=== PATIENT | female | born 1960 | race Asian ===

== ENCOUNTER 2017-08-20 06:50 | Inpatient (IN) | payer MEDICAID ==
[~2017-08-20] VITALS: Ht 160 cm; Wt 42.6 kg
[2017-08-20] MEDS ORDERED: IV NS 0.9% 500 ML BAG IV ONE (07:00)
[2017-08-20 07:07] VITALS: BP 166/123
--- NOTE | 2017-08-20 07:10 | NUR ---
RT PATIENT REC'D VIA PARAMEDICS. PATIENT TRACHED WITH PORTEX 7. PLACED ON [facility] VENT PER MD WITH SETTINGS AC 14, 450, 40% +5. VENT ALARMS CHECKED + AUDIBLE. TRACH SECURE AND IN PROPER POSITION. CUFF PRESSURE CHECKED LEAD JAVASCRIPT DEVELOPER. PATIENT AIRWAY SUCTIONED WITH MOD AMT RODAS SEMITHICK SECRETIONS. B/S DIM COARSE. PATIENT AWAKE, RESPONSIVE, APPEARS COMFORTABLE ON VENTILATOR. AMBU BAG AT [facility]. Addendum: 08/20/17 at 0714 by JABIER KIMBALL RT Amended: Links added.
--- NOTE | 2017-08-20 07:12 | NUR ---
PT TO ER BED 1. PT BIB [facility] FROM SN[facility] COMPLAINT OF CP X 1 HR PER STAFF. PT HAS HX OF AFIB. MD AT BEDSIDE FOR EVAL. PT IS TRACH/VENT/ SETTINGS RATE 14 TV 450 FIO2 40% PEEP 5.
--- NOTE | 2017-08-20 07:22 | NUR ---
REPORT GIVEN TO HUEY WALKER FOR GAYLE.
[2017-08-20 07:50] LABS: CALCIUM, SERUM 8.5 mg/dL (8.5-10.1); CREATININE 0.7 mg/dL (0.6-1.3); POTASSIUM 3.8 mmol/L (3.5-5.1)
[2017-08-20 07:51] LABS: EOSINOPHILS # (AUTO) 0.3 /CMM (0.0-0.7); EOSINOPHILS % (AUTO) 2.6 % (0.0-6.0); HEMATOCRIT 27 % (33-45); HEMOGLOBIN 8.7 g/dL (11.5-14.8); LYMPHOCYTES # (AUTO) 0.3 /CMM (0.8-4.8); LYMPHOCYTES % (AUTO) 3.1 % (20.0-44.0); MEAN CORPUSCULAR HEMOGLOBIN 31 PG (26.0-33.0); MEAN CORPUSCULAR HGB CONC 33 g/dl (31.0-36.0); MEAN CORPUSCULAR VOLUME 94 fL (82-100); MONOCYTES # (AUTO) 0.5 /CMM (0.1-1.30); MONOCYTES % (AUTO) 5.1 % (2.0-12.0); NEUTROPHILS # (AUTO) 9.2 /CMM (1.8-8.9); NEUTROPHILS % (AUTO) 89.2 % (43.0-81.0); PLATELET COUNT (AUTO) 113 /CMM (150-450); RDW COEFFICIENT OF VARIATION 17.1 (11.5-15.0); RED BLOOD CELL COUNT(AUTO) 2.83 MIL/uL (4.0-5.2); WHITE BLOOD COUNT (AUTO) 10.3 K/uL (4.3-11.0)
[2017-08-20 07:58] LABS: INR 1.28 (0.87-1.13)
[2017-08-20 07:59] LABS: TROPONIN I 0.207 ng/mL (0.00-0.056)
--- NOTE | 2017-08-20 08:02 | NUR ---
Dr. Almazan (System Integration Engineer) paged for Dr. Chacon
--- NOTE | 2017-08-20 08:12 | NUR ---
Dr. Almazan called back for Dr. Chacon
[2017-08-20] MEDS ORDERED: ASPIRIN 325 MG TABLET ONE (08:14)
--- NOTE | 2017-08-20 08:20 | NUR ---
PER DR. CANTU, GIVE ASPIRIN 325MG VIA GT. PATIENT MEDICATED PER MD ORDERS.
[2017-08-20] MEDS ORDERED: HEPARIN INFUSION/D5W 500 ML IV ONE (08:34)
--- NOTE | 2017-08-20 08:41 | NUR ---
DR CANTU TALKING TO DR ARGUETA.
--- NOTE | 2017-08-20 08:48 | NUR ---
TELE 114.1
[2017-08-20 08:52] VITALS: BP 130/90
--- NOTE | 2017-08-20 08:53 | NUR ---
RT PATIENT TRANSPORTED TO CT AND BACK Addendum: 08/20/17 at 0853 by JABIER KIMBALL RT Amended: Links added.
[2017-08-20] MEDS ORDERED: HEPARIN SODIUM, PORCINE 5000 UNITS/1 ML VIAL ONE (08:55)
[2017-08-20] MEDS ORDERED: ACETAMINOPHEN 325 MG TABLET PO PRN (09:00)
[2017-08-20] MEDS ORDERED: HEPARIN SODIUM,PORCINE/PF 50 UNIT/5 ML DISP.SYRIN IV ONE (09:00)
[2017-08-20] MEDS ORDERED: MAGNESIUM HYDROXIDE 30 ML UDC PO PRN (09:00)
[2017-08-20] MEDS ORDERED: MAG HYDROX/AL HYDROX/SIMETH 30 ML UDC PO PRN (09:00)
[2017-08-20] MEDS ORDERED: Z GUARD REMEDY 2 OZ OINT TP PRN (09:00)
[2017-08-20] MEDS ORDERED: HEPARIN INFUSION/D5W 500 ML IV PRN ×2 (09:00→12:30)
[2017-08-20] MEDS ORDERED: ONDANSETRON HCL/PF 4 MG/2 ML VIAL IVP PRN (09:00)
[2017-08-20] MEDS ORDERED: CRAN3875 GT (09:01)
[2017-08-20] MEDS ORDERED: MAGN400O6 GT (09:01)
[2017-08-20] MEDS ORDERED: SIME80TA15 GT (09:01)
[2017-08-20] MEDS ORDERED: MULT-213 GT (09:01)
[2017-08-20] MEDS ORDERED: ALBU2.5V38 IH ×2 (09:01)
[2017-08-20] MEDS ORDERED: DOCU-141 GT (09:01)
[2017-08-20] MEDS ORDERED: FERR220S2 GT (09:01)
[2017-08-20] MEDS ORDERED: ASCO500T9 GT (09:01)
[2017-08-20] MEDS ORDERED: ZINC220T GT (09:01)
[2017-08-20] MEDS ORDERED: PANT40TA2 GT (09:01)
[2017-08-20] MEDS ORDERED: HYDR-4076 GT (09:01)
[2017-08-20] MEDS ORDERED: IPRA0.2S49 IH ×2 (09:01)
[2017-08-20] MEDS ORDERED: SUCR1ORA4 GT (09:01)
[2017-08-20] MEDS ORDERED: HYDR-552 GT ×2 (09:01)
[2017-08-20] MEDS ORDERED: CRAN425C6 GT (09:01)
[2017-08-20] MEDS ORDERED: ACET-868 PO (09:01)
[2017-08-20] MEDS ORDERED: LOSA1TAB36 GT (09:01)
[2017-08-20] MEDS ORDERED: SEVE0.8P GT (09:01)
[2017-08-20] MEDS ORDERED: NA P133E RC (09:01)
[2017-08-20] MEDS ORDERED: ATOR20TA GT (09:01)
[2017-08-20] MEDS ORDERED: BISA10SU8 RC (09:01)
[2017-08-20] MEDS ORDERED: EPOE4000 SQ (09:01)
--- NOTE | 2017-08-20 09:13 | NUR ---
REPORT GIVEN TO DURGA ARZATE FOR CONT OF CARE
[2017-08-20] MEDS ORDERED: MAGNESIUM HYDROXIDE 30 ML UDC GT PRN (09:30)
[2017-08-20] MEDS ORDERED: BISACODYL SUPP (10 MG) 10 MG/SUPP.RECT SUPP.RECT RC PRN (09:30)
[2017-08-20] MEDS ORDERED: hydrALAZINE HCL 25 MG TABLET GT PRN (09:30)
[2017-08-20] MEDS ORDERED: NA PHOS,M-B/NA PHOS,DI-BA 1 EA ENEMA RC PRN (09:30)
[2017-08-20] MEDS ORDERED: IPRATROPIUM NEB FS 0.5 MG/2.5 ML AMPUL.NEB IH PRN (09:30)
[2017-08-20] MEDS ORDERED: ASPIRIN 325 MG TABLET GT ONE (09:30)
[2017-08-20] MEDS: METOPROLOL TARTRATE 25 MG TABLET PO SCH ×2 (09:43→16:59)
--- NOTE | 2017-08-20 09:45 | NUR ---
DONI CHANGED UA SENT TO LAB
--- NOTE | 2017-08-20 10:22 | NUR ---
TRANSFERRED TO FLOOR VIA ACLS PROTOCOL
--- NOTE | 2017-08-20 10:30 | NUR ---
KASSY RN ADMITTING NOTES: REC'D REPORT FROM USHA MCKINNEY RN. PT TRANSFERRED VIA GURNEY, ADMITTED TO RM 114/2 - KASSY STATUS. PT IS A/O X 4, NOT IN ANY DISTRESS, MOUTHS WORDS, ABLE TO MAKE NEEDS KNOWN. ON MECH VENT VIA TRACH, SATING AT 100%. ON TELEMONITOR, AFIB W/ HR 72 BPM, HAS PACEMAKER ON LCW NOT PACING. HAS GT CLAMPED, FLUSHING WELL. PER PT IT'S FOR MEDICATIONS AND THAT SHE CAN EAT REGULAR FOOD. HAS FC PATENT & INTACT. HAS LFA G20, PL, W/ HEPARIN DRIP X 660 UNITS/HR INFUSING WELL. ROUTINE ASSESSMENT DONE. SKIN ASSESSMENT DONE - PICTURES TAKEN AND PLACED IN CHART. PROVIDED COMFORT & SAFETY MEASURES. BED KEPT LOW & IN LOCKED POS. CALL LIGHT PLACED W/IN REACH. PT ORIENTED TO ROOM. WILL CONTINUE TO MONITOR & ATTEND PT NEEDS. 1200h DR. ARGUETA SEEN & EXAMINED PT.
--- NOTE | 2017-08-20 10:32 | NUR ---
RT PATIENT TRANSFERRED TO KASSY Addendum: 08/20/17 at 1033 by JABIER KIMBALL RT Amended: Links added.
[2017-08-20] MEDS ORDERED: HYDROMORPHONE INJ 0.5 MG/0.5 ML SYRINGE IV PRN (11:00)
[2017-08-20 11:26] LABS: APPEARANCE,URINE Turbid (CLEAR); BILIRUBIN,URINE Negative (NEGATIVE); BLOOD, URINE Large Ery/uL (NEGATIVE); COLOR,URINE Dark (YELLOW); KETONES,URINE Negative (NEGATIVE); LEUKOCYTE ESTERASE ,URINE Small (NEGATIVE); NITRITE, URINE Negative (NEGATIVE); PH,URINE 8.5 (5.0-8.0); PROTEIN,URINE >=300 mg/dl (NEGATIVE); UGLUCOSE Negative (NEGATIVE); UROBILINOGEN,URINE 0.2 EU/dL (0.2)
[2017-08-20 11:41] LABS: RBC,URINE TOO NUMEROUS TO COUN /HPF (0-2)
[2017-08-20 11:42] LABS: BACTERIA,URINE Many /HPF (None Seen); SQUAMOUS EPITHELIAL CELL,UR Few /HPF (None Seen)
[2017-08-20 12:00] VITALS: BP 151/61
[2017-08-20] MEDS: ALBUTEROL FS 2.5 MG/3 ML VIAL.NEB IH SCH ×3 (12:00→19:31)
[2017-08-20] MEDS ORDERED: ALBUTEROL FS 2.5 MG/3 ML VIAL.NEB IH PRN (12:00)
[2017-08-20] MEDS: IPRATROPIUM NEB FS 0.5 MG/2.5 ML AMPUL.NEB IH SCH ×3 (12:00→19:31)
[2017-08-20] MEDS ORDERED: HYDROGEL DRESSING 90 GM TUBE TP PRN (12:00)
--- NOTE | 2017-08-20 12:01 | NUR ---
RT RESP MEDS WERE INPUTTED WRONG, WILL GIVE FIRST MEDICATION AT SCHEDULED TIME.
[2017-08-20] MEDS: SUCRALFATE 1 G/10 ML UDC GT SCH ×3 (12:22→21:04)
[2017-08-20] MEDS: LOSARTAN POTASSIUM 50 MG TABLET GT SCH (12:22)
[2017-08-20] MEDS: SIMETHICONE 80 MG TAB.CHEW GT SCH ×2 (12:22→16:59)
[2017-08-20] MEDS: FERROUS SULFATE (325 MG) 325 MG/TAB TABLET GT SCH (12:23)
[2017-08-20] MEDS ORDERED: HEPARIN SODIUM, PORCINE 5000 UNITS/1 ML VIAL IV ONE (12:30)
--- NOTE | 2017-08-20 12:30 | NUR ---
RN NOTES: HAS STANDING ORDER OF HEPARIN SQ X 1. LOUIE FROM PHARMACY MADE AWARE W/ ORDERS NOT TO GIVE. PT ALREADY ON HEPARIN DRIP.
--- NOTE | 2017-08-20 15:36 | NUR ---
RN NOTES: DR. ARGUETA MADE AWARE THAT PT WAS ON JEVITY 1.5 X 50 CC/HR X 20 HOURS AT [facility]. MD ORDERED TO START PT ON TF WELL CONTINUE CURRENT PO DIET W/ STRICT ASPIRATION PREC FOR ORAL GRATIFICATION. PT & FAMILY MADE AWARE.
[2017-08-20 16:00] VITALS: BP 155/63
[2017-08-20 16:32] LABS: INR 1.31 (0.87-1.13)
[2017-08-20] MEDS: HYDROCODONE/APAP 5/325MG 1 EACH TABLET GT SCH (17:00)
--- NOTE | 2017-08-20 17:04 | NUR ---
RT NOTE: PATIENT RECEIVED WITH PORTEX #7 TRACH ON MECHANICAL VENT. ALARMS VERIFIED AND AUDIBLE. SUCTIONED AND LAVAGED MODERATE TO LARGE AMOUNT OF THICK RODAS SECRETIONS. VENT PLUGGED INTO RED OUTLET. AMBU BAG AT [facility].
--- NOTE | 2017-08-20 18:37 | NUR ---
KASSY RN CLOSING NOTES: NO ACUTE CHANGES NOTED W/IN SHIFT. PT TOLERATED MV SETTINGS VIA TRACH, NO SOB. ON TELEMONITOR, STILL CONTROLLED AFIB. GT KEPT PATENT & INTACT, TO START ON TUBE FEEDING ORDERED. INSERTED NEW IV LINE ON R HAND G22 W/ HEPARIN DRIP X 560 UNITS/HR INFUSING WELL. FC KEPT PATENT & INTACT. KEPT WELL RESTED. NEEDS ATTENDED. BED KEPT LOW & IN LOCKED POS. CALL LIGHT PLACED W/IN REACH. PT DENIES CHEST PAIN AT THIS TIME. WILL ENDORSE TO PM RN FOR GAYLE.
[2017-08-20 20:00] VITALS: BP 155/63
--- NOTE | 2017-08-20 20:00 | NUR ---
KASSY RN NOTE PT RECEIVED IN BED A/O X 3, NON VERBAL BUT ABLE TO COMMUNICATED BY WRITING. ON VENT/TRACH TOLERATING THE SETTINGS WELL. SUCTIONED HER FREQUENTLY THIN WHITE SECRETIONS NOTED. NO DISTRESS OR DISCOMFORT NOTED. DENIES PAIN. ON TELE A FIB CONTROLLED HR 64 OCCASIONAL V PACING. GT INTACT AND PATENT WILL START HER ON FIBERSOURCE 50 ML/HR X 20 HR ORDERED. NO S/S OF HYPO OR HYPERGLYCEMIA NOTED. ON HEPARIN DRIP 560 UNITS/HR RT HAND #22, NO S/S OF INFILTRATION NOTED. F/C INTACT AND PATENT DRAINING YELLOWISH COLOR URINE. MEPILEX I/C/D ON SACRAL WOUND. REPOSITION HER FOR SKIN MANAGEMENT. DVT ON BILATERAL LOWER EXT'S. SIDE RAILS UP X 3 AND CALL LIGHT WITHIN REACH. VSS. CONTINUE TO MONITOR HER.
--- NOTE | 2017-08-20 21:00 | NUR ---
KASSY ARZATE NOTE PT DID NOT WANT GT TO RUN AT THIS TIME, STATES "I AM FULL, START AT MIDNIGHT". ALSO PT REFUSED DVT TO BE APPLIED. Addendum: 08/20/17 at 2247 by MADDY MULTANI RN DVT PUMP.
[2017-08-20] MEDS: DOCUSATE SODIUM 100 MG CAPSULE PO SCH (21:04)
[2017-08-20] MEDS: FIBERSOURCE HN 1,000 ML BOTTLE GT PRN (21:04)
[2017-08-20 23:56] LABS: INR 1.35 (0.87-1.13)
[2017-08-21] VITALS: BP 156/61
--- NOTE | 2017-08-21 00:03 | NUR ---
KASSY RN NOTE PTT RESULT 50 PER HEPARIN PROTOCOL NO CHANGE IN HEPARIN DRIP 560 UNITS/HR CONTINUES.
--- NOTE | 2017-08-21 01:00 | NUR ---
KASSY RN NOTE PT WANT GTF TO BE STOPPED. STATES "I AM FULL AND THIS IS MAKING MY STOMACH MORE BIG". NO RESIDUAL NOTED. STOPPED THE FEEDING AND CONTINUE TO MONITOR HER.
[2017-08-21] MEDS: ALBUTEROL FS 2.5 MG/3 ML VIAL.NEB IH SCH ×3 (01:56→13:35)
[2017-08-21] MEDS: IPRATROPIUM NEB FS 0.5 MG/2.5 ML AMPUL.NEB IH SCH ×4 (01:56→19:38)
[2017-08-21 04:00] VITALS: BP 160/57
[2017-08-21 06:47] LABS: INR 1.27 (0.87-1.13)
[2017-08-21 06:52] LABS: BASOPHILS % (AUTO) 0.5 % (0.0-2.0); EOSINOPHILS # (AUTO) 0.3 /CMM (0.0-0.7); EOSINOPHILS % (AUTO) 3.2 % (0.0-6.0); HEMATOCRIT 25 % (33-45); HEMOGLOBIN 8.3 g/dL (11.5-14.8); LYMPHOCYTES # (AUTO) 0.5 /CMM (0.8-4.8); LYMPHOCYTES % (AUTO) 5.6 % (20.0-44.0); MEAN CORPUSCULAR HEMOGLOBIN 31 PG (26.0-33.0); MEAN CORPUSCULAR HGB CONC 34 g/dl (31.0-36.0); MEAN CORPUSCULAR VOLUME 94 fL (82-100); MONOCYTES # (AUTO) 0.6 /CMM (0.1-1.30); MONOCYTES % (AUTO) 7.2 % (2.0-12.0); NEUTROPHILS % (AUTO) 83.5 % (43.0-81.0); PLATELET COUNT (AUTO) 99 /CMM (150-450); RDW COEFFICIENT OF VARIATION 16.7 (11.5-15.0); RED BLOOD CELL COUNT(AUTO) 2.64 MIL/uL (4.0-5.2); WHITE BLOOD COUNT (AUTO) 8.4 K/uL (4.3-11.0)
--- NOTE | 2017-08-21 07:00 | NUR ---
KASSY RN NOTE NO CHANGE IN CONDITION. SUCTIONED HER FREQUENTLY. NO DISTRESS OR DISCOMFORT NOTED. DENIES PAIN. HEPARIN DRIP INFUSING WELL AT 560 UNITS/HR. PTT 46, NO CHANGE IN DRIP RATE PER PROTOCOL. F/C INTACT AND PATENT DRIAINING YELLOWISH COLOR URINE. SIDE RAILS UP X 2 AND CALL LIGHT WITHIN REACH. ENDORSE TO DAY SHIFT NURSE FOR CONTINUE TO CARE.
[2017-08-21 07:07] LABS: CREATININE 0.8 mg/dL (0.6-1.3); MAGNESIUM 2.1 mg/dL (1.8-2.4); PHOSPHORUS 3.2 mg/dL (2.5-4.9); POTASSIUM 3.2 mmol/L (3.5-5.1)
--- NOTE | 2017-08-21 07:19 | NUR ---
TD RN NOTES RECEIVED PT ON BED SLEEPING. ALERT ORIENTED X3. [facility] SETTING SATURATING WELL. ON TELE MONITOR AFIB CONTROLLED HR 64. IV ACCESS ON RIGHT HAND AND ON HEPARIN DRIP, INFUSING WELL.HEAD OF BED ELEVATED. SIDE RAILS UP. CALL LIGHT WITHIN REACH. WILL CONTINUE TO MONITOR PT CLOSELY.
[2017-08-21 07:23] LABS: CALCIUM, SERUM 8.9 mg/dL (8.5-10.1)
[2017-08-21 08:00] VITALS: BP 136/69
--- NOTE | 2017-08-21 08:19 | NUR ---
WOUND CARE CONSULT: PT PRESENTS WITH STAGE 4 ULCER TO SACRUM WITH SANGUINOUS DRAINAGE, PRESENT ON ADMISSION. PT ON HEPARIN DRIP. RN TO DISCUSS WITH MD. RECOMMEND SURGICAL CONSULT. ALL SKIN PROTECTION AND WOUND CARE RECOMMENDATIONS DISCUSSED WITH NURSING STAFF. FIRST STEP MATTRESS ORDERED. ALL SKIN PROTECTION MEASURES IN PLACE. WILL SEE PRN. IN AGREEMENT WITH PLAN OF CARE. Addendum: 08/21/17 at 0823 by MUSTAPHA LAZCANO WNDNU Amended: Links added.
[2017-08-21] MEDS ORDERED: HYDROGEL DRESSING 90 GM TUBE TP PRN (08:30)
[2017-08-21] MEDS: SUCRALFATE 1 G/10 ML UDC GT SCH ×4 (08:35→21:02)
[2017-08-21] MEDS: SEVELAMER CARBONATE 0.8 GM POWD.PACK GT SCH ×3 (08:35→16:55)
[2017-08-21] MEDS: ASCORBIC ACID 500 MG TABLET GT SCH (08:36)
[2017-08-21] MEDS: ZINC SULFATE 220 MG CAPSULE GT SCH (08:36)
[2017-08-21] MEDS: SIMETHICONE 80 MG TAB.CHEW GT SCH ×3 (08:36→16:55)
[2017-08-21] MEDS: MULTIVIT, IRON, MIN NO. 8, FA 1 TAB GT SCH (08:36)
[2017-08-21] MEDS: LOSARTAN POTASSIUM 50 MG TABLET GT SCH (08:36)
[2017-08-21] MEDS: HYDROCODONE/APAP 5/325MG 1 EACH TABLET GT SCH ×2 (08:36→16:56)
[2017-08-21] MEDS: METOPROLOL TARTRATE 25 MG TABLET PO SCH (08:37)
[2017-08-21] MEDS: FERROUS SULFATE (325 MG) 325 MG/TAB TABLET GT SCH (08:37)
[2017-08-21] MEDS: PANTOPRAZOLE 40 MG TABLET.DR PO SCH (08:38)
[2017-08-21] MEDS ORDERED: HYDROCHLOROTHIAZIDE 25 MG TABLET PO SCH (09:00)
[2017-08-21] MEDS: ASPIRIN 325 MG TABLET PO SCH (09:00)
[2017-08-21] MEDS ORDERED: Medication Not On Formulary EA (Cranberry Extract (Cranberry) 425 MG) GT SCH (09:00)
[2017-08-21] MEDS ORDERED: Medication Not On Formulary EA (Cran/Vitc/Mannose/Inulin/Brom (Uti-Stat Liquid) 30 ML) GT SCH (09:00)
[2017-08-21] MEDS: HYDROGEL DRESSING 90 GM TUBE TP SCH (09:10)
--- NOTE | 2017-08-21 09:13 | NUR ---
TD RN NOTES NOTIFIED DR ARGUETA FOR PT BLEEDING IN THE SACRAL AREA. ORDERED TO HOLD HEPARIN DRIP AND ASPIRIN 325MG.
[2017-08-21 12:00] VITALS: BP 159/60
[2017-08-21 12:18] LABS: LYMPHOCYTES % (MANUAL) 6 % (16-48); MONOCYTES % (MANUAL) 8 % (0-11.0); NEUTROPHILS % (MANUAL) 86 (42-76)
[2017-08-21] MEDS: POTASSIUM CHLORIDE 20 MEQ POWDER PACKET GT SCH ×2 (12:50→14:04)
--- NOTE | 2017-08-21 12:51 | NUR ---
TD RN NOTES PT PASS THE SWALLOW EVAL. [facility] SOFT DI[facility] LUNCH ONLY.
--- NOTE | 2017-08-21 13:17 | NUR ---
RT NOTE: PATIENT'S CUFF WAS DEFLATED AND PMV WAS PLACED INLINE WITH VENT. PATIENT WAS MONITORED WHILE SHE ATE FOR APPROXIMATELY 20 MINUTES. PATIENT BEGAN TO GET TIRED AND SHE STOPPED EATING. PMV WAS REMOVED AND TRACH CUFF WAS INFLATED. PATIENT WAS SUCTIONED TO OBTAIN SMALL- MOD AMOUNT OF CLEAR THIN SECRETION. NO DISTRESS AT THIS TIME. NURSE AWARE. WILL CONTINUE TO MONITOR.
[2017-08-21 16:00] VITALS: BP 154/60
--- NOTE | 2017-08-21 16:28 | NUR ---
RT NOTE: PATIENT RECEIVED TRACHED ON PB 840 VENT. ALARMS VERIFIED AND AUDIBLE. SUCTIONED AND LAVAGED SMALL-MODERATE AMOUNT OF THIN CLEAR/WHITE SECRETIONS. VENT PLUGGED INTO RED OUTLET. AMBU BAG AT [facility].
[2017-08-21] MEDS: WARFARIN SODIUM 2 MG TABLET PO SCH (17:00)
[2017-08-21] MEDS: ALBUTEROL FS 2.5 MG/3 ML VIAL.NEB IH PRN (17:45)
--- NOTE | 2017-08-21 19:15 | NUR ---
TD RN NOTES NO ACUTE CHANGES NOTED DURING THE SHIFT. HEPARIN ON HOLD DUE TO BLEEDING AT SACRAL AREA. DR ARGUETA NOTIFIED ABOUT IT. ORDERED TO HOLD HEPARIN AND WARFARIN 325MG. PROVIDED COMFORT AND SAFETY. ENDORSED TO THE PM NURSE FOR GAYLE.
--- NOTE | 2017-08-21 19:38 | NUR ---
RCVD PT ON VENT WITH NOTED SETTINGS. PT ALERT AND AWAKE, BREATHING TX GIVEN PER MD'S ORDER, NO ADVERSE REACTION NOTED. SUCTIONED SMALL AMOUNT OF WHITE THICK SECRETIONS. VENT PLUGGED INTO RED OUTLET, VENT ALARM WORKING AND AUDIBLE. AMBU BAG AT BEDSIDE, WILL CONTINUE TO MONITOR THE PT.
--- NOTE | 2017-08-21 19:42 | NUR ---
KASSY RN NOTE PT RECEIVED IN BED A/O X 4, VERBAL AT TIME BUT ABLE TO COMMUNICATE BY WRITING. ON VENT/TRACH TOLERATING THE SETTINGS WELL. SUCTIONED HER FREQUENTLY THIN WHITE SECRETIONS NOTED. NO DISTRESS OR DISCOMFORT NOTED. DENIES PAIN. ON TELE A FIB CONTROLLED HR 71. GT INTACT AND PATENT ON FIBERSOURCE 50 ML/HR, O ML RESIDUAL NOTED. RT HAND #22 G S/L INTACT AND PATENT, NO S/S OF INFILTRATION NOTED. F/C INTACT AND PATENT DRAINING YELLOWISH COLOR URINE. MEPILEX I/C/D ON SACRAL WOUND. REPOSITION HER FOR SKIN MANAGEMENT. PT REFUSED DVT SLEVES ON BILATERAL LOWER EXT'S. SIDE RAILS UP X 3 AND CALL LIGHT WITHIN REACH. VSS. CONTINUE TO MONITOR HER.
[2017-08-21 20:00] VITALS: BP 167/54
[2017-08-21] MEDS: DOCUSATE SODIUM 100 MG CAPSULE PO SCH (21:02)
[2017-08-21] MEDS: CARVEDILOL 6.25 MG TABLET PO SCH (21:03)
[2017-08-21] MEDS: ATORVASTATIN 10 MG TABLET GT SCH (21:04)
[2017-08-22] VITALS (7 sets, daily range): BP systolic 129–161; BP diastolic 55–83
--- NOTE | 2017-08-22 | NUR ---
KASSY RN NOTE PT REFUSING TO BE GIVEN GTF, STATES "MY STOMACH IS FULL". 0 ML RESIDUAL NOTED. NO ABD DISTENTION NOTED. CONTINUE TO MONITOR HER.
[2017-08-22] MEDS: IPRATROPIUM NEB FS 0.5 MG/2.5 ML AMPUL.NEB IH SCH ×4 (01:46→20:23)
[2017-08-22] MEDS: FIBERSOURCE HN 1,000 ML BOTTLE GT PRN ×2 (04:57→23:05)
--- NOTE | 2017-08-22 06:35 | NUR ---
KASSY RN NOTE NO CHANGE IN CONDITION. PT AWAKE IN BED. NO DISTRESS OR DISCOMFORT NOTED. DENIES PAIN. SUCTIONED HER FREQUENTLY THIN WHITE SECRETIONS NOTED. NO ACTIVE BLEEDING NOTED. F/C INTACT AND PATENT DRIAINING YELLOWISH COLOR URINE. SIDE RAILS UP X 2 AND CALL LIGHT WITHIN REACH. ENDORSE TO DAY SHIFT NURSE FOR CONTINUE TO CARE.
--- NOTE | 2017-08-22 06:36 | NUR ---
KASSY RN NOTE ON TELE A FIB CONTROLLED WITH PVC'S HR 84.
[2017-08-22 06:49] LABS: CALCIUM, SERUM 8.7 mg/dL (8.5-10.1); CREATININE 0.7 mg/dL (0.6-1.3); POTASSIUM 3.1 mmol/L (3.5-5.1)
[2017-08-22 06:54] LABS: INR 1.21 (0.87-1.13)
--- NOTE | 2017-08-22 07:30 | NUR ---
KASSY RN INITIAL NOTES RECEIVED PATIENT AWAKE IN BED, ON VENT SETTINGS ORDERED AOX4, ABLE TO MAKE NEEDS KNOWN, MOUTHS WORDS AND ABLE TO WRITE DOWN NEEDS, ON TELE MONITOR AFIB 71 HR, DIAPER IN PLACE WITH FC DRAINING YELLOW URINE, GTUBE FEEDINGS FIBERSOURCE AT 50 ML/HR, RUNNING AT THIS TIME, NO RESIDUAL NOTED, IV R HAND 22G, CLEAN AND PATENT, SL. TURNED AND REPOSITIONED, ISOLATION PRECAUTIONS NOTED, BED IN LOW AND LOCKED POSITION CALL LIGHT WITHIN REACH.
[2017-08-22] MEDS: HYDROGEL DRESSING 90 GM TUBE TP SCH (09:13)
[2017-08-22] MEDS: SUCRALFATE 1 G/10 ML UDC GT SCH ×4 (09:13→21:09)
[2017-08-22] MEDS: PANTOPRAZOLE 40 MG TABLET.DR PO SCH (09:13)
[2017-08-22] MEDS: MULTIVIT, IRON, MIN NO. 8, FA 1 TAB GT SCH (09:14)
[2017-08-22] MEDS: SEVELAMER CARBONATE 0.8 GM POWD.PACK GT SCH ×3 (09:14→17:44)
[2017-08-22] MEDS: SIMETHICONE 80 MG TAB.CHEW GT SCH ×3 (09:14→17:46)
[2017-08-22] MEDS: ASCORBIC ACID 500 MG TABLET GT SCH (09:14)
[2017-08-22] MEDS: ASPIRIN 325 MG TABLET PO SCH ×2 (09:14→09:19)
[2017-08-22] MEDS: BUMETANIDE (1 MG) 1 MG TABLET PO SCH (09:14)
[2017-08-22] MEDS: ZINC SULFATE 220 MG CAPSULE GT SCH (09:14)
[2017-08-22] MEDS: FERROUS SULFATE (325 MG) 325 MG/TAB TABLET GT SCH (09:14)
[2017-08-22] MEDS: CARVEDILOL 6.25 MG TABLET PO SCH ×2 (09:15→21:10)
[2017-08-22] MEDS: HYDROCODONE/APAP 5/325MG 1 EACH TABLET GT SCH ×2 (09:15→17:46)
[2017-08-22] MEDS: LOSARTAN POTASSIUM 50 MG TABLET GT SCH ×2 (09:15→17:47)
[2017-08-22] MEDS: POTASSIUM CHLORIDE 20 MEQ POWDER PACKET NG SCH ×2 (12:52→14:12)
[2017-08-22] MEDS: ALBUTEROL FS 2.5 MG/3 ML VIAL.NEB IH PRN (12:57)
[2017-08-22] MEDS ORDERED: WARFARIN SODIUM 5 MG TABLET PO ONE ×2 (14:30→14:31)
[2017-08-22] MEDS ORDERED: POTASSIUM CHLORIDE 20 MEQ POWDER PACKET GT ONE (14:33)
--- NOTE | 2017-08-22 15:12 | NUR ---
CONFIDENTIAL INVESTIGATOR NOTES NEW ORDER FOR COUMADIN BY DR HERNANDEZ VERIFIED WITH MD NARVAEZ TO GIVE DUE TO PATIENTS CARDIC CONDITION DESPITE BLEEDING EPISODE YESTERDAY ON HEPARIN DRIP, HEPARIN DRIP DC SINCE YESTERDAY.
[2017-08-22] MEDS: WARFARIN SODIUM 2 MG TABLET PO SCH (17:45)
[2017-08-22] MEDS: DOCUSATE SODIUM 100 MG CAPSULE PO SCH (21:09)
[2017-08-22] MEDS: ATORVASTATIN 10 MG TABLET GT SCH (21:09)
[2017-08-22] MEDS: MUPIROCIN OINT 2% 22 GM TUBE SCH (21:09)
[2017-08-22] MEDS: HYDROCODONE/APAP 5/325MG 1 EACH TABLET PO PRN (21:10)
[2017-08-23] VITALS (7 sets, daily range): BP systolic 128–153; BP diastolic 54–80
[2017-08-23] MEDS: IPRATROPIUM NEB FS 0.5 MG/2.5 ML AMPUL.NEB IH SCH ×4 (01:37→20:50)
[2017-08-23] MEDS ORDERED: CEFEPIME 1 GM VIAL IM SCH (02:00)
[2017-08-23] MEDS: HYDROCODONE/APAP 5/325MG 1 EACH TABLET PO PRN (02:47)
[2017-08-23] MEDS ORDERED: CEFEPIME 1 GM VIAL ONE (03:12)
[2017-08-23] MEDS: CEFEPIME 1 GM in IV D5W 50 ML IV SCH ×3 (03:19→21:37)
[2017-08-23 08:22] LABS: BASOPHILS % (AUTO) 0.8 % (0.0-2.0); EOSINOPHILS # (AUTO) 0.4 /CMM (0.0-0.7); EOSINOPHILS % (AUTO) 7.2 % (0.0-6.0); HEMATOCRIT 24 % (33-45); HEMOGLOBIN 7.9 g/dL (11.5-14.8); LYMPHOCYTES # (AUTO) 0.4 /CMM (0.8-4.8); LYMPHOCYTES % (AUTO) 7.4 % (20.0-44.0); MEAN CORPUSCULAR HEMOGLOBIN 31 PG (26.0-33.0); MEAN CORPUSCULAR HGB CONC 33 g/dl (31.0-36.0); MEAN CORPUSCULAR VOLUME 91 fL (82-100); MONOCYTES # (AUTO) 0.5 /CMM (0.1-1.30); MONOCYTES % (AUTO) 10.3 % (2.0-12.0); NEUTROPHILS # (AUTO) 3.9 /CMM (1.8-8.9); NEUTROPHILS % (AUTO) 74.3 % (43.0-81.0); PLATELET COUNT (AUTO) 120 /CMM (150-450); RDW COEFFICIENT OF VARIATION 16.5 (11.5-15.0); RED BLOOD CELL COUNT(AUTO) 2.58 MIL/uL (4.0-5.2); WHITE BLOOD COUNT (AUTO) 5.2 K/uL (4.3-11.0)
[2017-08-23 08:38] LABS: CALCIUM, SERUM 8.9 mg/dL (8.5-10.1); CREATININE 0.8 mg/dL (0.6-1.3); INR 1.75 (0.87-1.13); MAGNESIUM 2.2 mg/dL (1.8-2.4); POTASSIUM 4.4 mmol/L (3.5-5.1)
[2017-08-23] MEDS: SUCRALFATE 1 G/10 ML UDC GT SCH ×4 (08:38→21:39)
[2017-08-23] MEDS: FERROUS SULFATE (325 MG) 325 MG/TAB TABLET GT SCH (08:39)
[2017-08-23] MEDS: PANTOPRAZOLE 40 MG TABLET.DR PO SCH (08:39)
[2017-08-23] MEDS: SEVELAMER CARBONATE 0.8 GM POWD.PACK GT SCH ×3 (08:39→18:29)
[2017-08-23] MEDS: MULTIVIT, IRON, MIN NO. 8, FA 1 TAB GT SCH (08:40)
[2017-08-23] MEDS: ASCORBIC ACID 500 MG TABLET GT SCH (08:40)
[2017-08-23] MEDS: HYDROCODONE/APAP 5/325MG 1 EACH TABLET GT SCH ×2 (08:41→17:00)
[2017-08-23] MEDS: SIMETHICONE 80 MG TAB.CHEW GT SCH ×3 (08:42→18:29)
[2017-08-23] MEDS: BUMETANIDE (1 MG) 1 MG TABLET PO SCH (08:42)
[2017-08-23] MEDS: ZINC SULFATE 220 MG CAPSULE GT SCH (08:42)
[2017-08-23] MEDS: LOSARTAN POTASSIUM 50 MG TABLET GT SCH ×2 (08:43→18:29)
[2017-08-23] MEDS: CARVEDILOL 6.25 MG TABLET PO SCH ×2 (08:43→21:37)
[2017-08-23] MEDS: MUPIROCIN OINT 2% 22 GM TUBE SCH ×2 (08:45→21:39)
[2017-08-23] MEDS: HYDROGEL DRESSING 90 GM TUBE TP SCH (08:45)
[2017-08-23] MEDS: WARFARIN SODIUM 2 MG TABLET PO SCH (18:31)
[2017-08-23] MEDS: ATORVASTATIN 10 MG TABLET GT SCH (21:36)
[2017-08-23] MEDS: DOCUSATE SODIUM 100 MG CAPSULE PO SCH (21:36)
[2017-08-24] VITALS: BP 133/59
[2017-08-24] MEDS: IPRATROPIUM NEB FS 0.5 MG/2.5 ML AMPUL.NEB IH SCH ×4 (01:29→19:38)
[2017-08-24 04:00] VITALS: BP 134/64
[2017-08-24] MEDS: CEFEPIME 1 GM in IV D5W 50 ML IV SCH ×3 (05:37→21:52)
--- NOTE | 2017-08-24 07:05 | NUR ---
RN CLOSING NOTE PT REMAINS IN NO ACUTE DISTRESS IN BED. PT DID NOT HAVE ANY SIGNIFICANT CHANGE IN CONDITION. PT TOLERATED VENT SETTING WELL. ALL NEEDS MET, ALL ORDERS CARRIED OUT. WILL ENDORSE CARE TO AM RN FOR CONTINUITY OF CARE.
[2017-08-24 07:43] LABS: INR 3.22 (0.87-1.13)
[2017-08-24 08:00] VITALS: BP 144/68
[2017-08-24] MEDS: MUPIROCIN OINT 2% 22 GM TUBE SCH ×2 (09:00→22:35)
[2017-08-24] MEDS: ASCORBIC ACID 500 MG TABLET GT SCH (09:21)
[2017-08-24] MEDS: PANTOPRAZOLE 40 MG TABLET.DR PO SCH (09:21)
[2017-08-24] MEDS: SUCRALFATE 1 G/10 ML UDC GT SCH ×4 (09:21→21:52)
[2017-08-24] MEDS: SEVELAMER CARBONATE 0.8 GM POWD.PACK GT SCH ×3 (09:21→17:00)
[2017-08-24] MEDS: MULTIVIT, IRON, MIN NO. 8, FA 1 TAB GT SCH (09:22)
[2017-08-24] MEDS: ZINC SULFATE 220 MG CAPSULE GT SCH (09:22)
[2017-08-24] MEDS: FERROUS SULFATE (325 MG) 325 MG/TAB TABLET GT SCH (09:22)
[2017-08-24] MEDS: SIMETHICONE 80 MG TAB.CHEW GT SCH ×3 (09:22→17:00)
[2017-08-24] MEDS: BUMETANIDE (1 MG) 1 MG TABLET PO SCH (09:22)
[2017-08-24] MEDS: ASPIRIN 325 MG TABLET PO SCH (09:22)
[2017-08-24] MEDS: CARVEDILOL 6.25 MG TABLET PO SCH ×2 (09:24→21:51)
[2017-08-24] MEDS: HYDROGEL DRESSING 90 GM TUBE TP SCH (09:24)
[2017-08-24] MEDS: LOSARTAN POTASSIUM 50 MG TABLET GT SCH ×2 (09:27→17:00)
[2017-08-24] MEDS: HYDROCODONE/APAP 5/325MG 1 EACH TABLET GT SCH ×2 (09:27→17:00)
[2017-08-24 12:00] VITALS: BP 136/69
[2017-08-24 16:00] VITALS: BP 131/57
[2017-08-24] MEDS: WARFARIN SODIUM 2 MG TABLET PO SCH (17:00)
--- NOTE | 2017-08-24 19:40 | NUR ---
CNC OPERATOR PROGRAMMER NOTE RECEIVED PT IN NO ACUTE DISTRESS IN BED. PT IS A/O X 4 AND ABLE TO MAKE NEEDS KNOWN. PT IS ON MECHANICAL VENT VIA TRACH. TRACH SITE IS CLEAN DRY AND INTACT. PT TOLERATING VENT SETTING WELL WITH O2 SAT @ 100%. PT HAS GTUBE THAT IS CLEAN DRY INTACT AND PATENT WITH FIBERSOURCE @ 50ML/HR. PT HAS MECH SOFT DIET FOR LUNCH ONLY. PT HAS RHAND 22G THAT IS CLEAN DRY INTACT AND PATENT WITH NS @ TKO. BED IN LOW LOCK POSITION WITH RIALS UP X 2. CALL LIGHT WITHIN REACH AND ALL SAFETY MEASURES ENSURED AND CARRIED OUT. WILL CONTINUE TO MONITOR PT.
[2017-08-24 20:00] VITALS: BP 123/57
[2017-08-24] MEDS: HYDROCODONE/APAP 5/325MG 1 EACH TABLET PO PRN (21:49)
[2017-08-24] MEDS: ZOLPIDEM TARTRATE 5 MG TABLET PO PRN (21:50)
[2017-08-24] MEDS: DOCUSATE SODIUM 100 MG CAPSULE PO SCH (21:50)
[2017-08-24] MEDS: ATORVASTATIN 10 MG TABLET GT SCH (21:51)
[2017-08-25] VITALS (7 sets, daily range): BP systolic 104–132; BP diastolic 46–64
[2017-08-25] MEDS: IPRATROPIUM NEB FS 0.5 MG/2.5 ML AMPUL.NEB IH SCH ×4 (01:30→19:36)
[2017-08-25] MEDS: CEFEPIME 1 GM in IV D5W 50 ML IV SCH ×3 (04:20→21:19)
[2017-08-25] MEDS: FIBERSOURCE HN 1,000 ML BOTTLE GT PRN (04:45)
[2017-08-25] MEDS: HYDROCODONE/APAP 5/325MG 1 EACH TABLET PO PRN ×2 (04:46→21:14)
--- NOTE | 2017-08-25 06:29 | NUR ---
RN TEL CLOSING NOTE ALL PT NEEDS ATTENDED, REQUESTED PAIN MEDICATION D/T SACRO PS, TX DONE KEPT CLEAN AND DRY, WELL REPOSITIONED Q2H QS, WILL ENDORSE FOR AM SHIFT TO GAYLE.
--- NOTE | 2017-08-25 07:44 | NUR ---
RN NOTES:(INITIAL) PATIENT RECEIVED ALERT AWAKE ORIENTED X4. ABLE TO MOUTH WORDS/TO MAKE NEEDS KNOWN. ON VENT-TRAC, SETTINGS TOLERATING WELL. NO BREATHING DIFFICULTY NOTED. ON TELE, A-FIB CONTROLLED WITH OCCASIONAL A-PACING. IV CATHETER INTACT. TUBE FEEDING TOLERATING WELL. NO RESIDUAL NOTED. ASPIRATION PRECAUTIONS OBSERVED. MARION CATHETER INTACT, DRAINING WELL WITH GRAVITY. SAFETY MEASURES OBSERVED. CALL LIGHT WITHIN REACH. WILL CONTINUE TO MONITOR.
[2017-08-25 08:43] LABS: INR 4.71 (0.87-1.13)
[2017-08-25] MEDS: ASPIRIN 81 MG TAB.CHEW PO SCH ×2 (09:00→12:23)
[2017-08-25] MEDS: ASCORBIC ACID 500 MG TABLET GT SCH (09:03)
[2017-08-25] MEDS: ZINC SULFATE 220 MG CAPSULE GT SCH (09:03)
[2017-08-25] MEDS: MULTIVIT, IRON, MIN NO. 8, FA 1 TAB GT SCH (09:03)
[2017-08-25] MEDS: SEVELAMER CARBONATE 0.8 GM POWD.PACK GT SCH ×3 (09:03→17:17)
[2017-08-25] MEDS: SUCRALFATE 1 G/10 ML UDC GT SCH ×4 (09:03→21:13)
[2017-08-25] MEDS: SIMETHICONE 80 MG TAB.CHEW GT SCH ×3 (09:04→17:17)
[2017-08-25] MEDS: BUMETANIDE (1 MG) 1 MG TABLET PO SCH (09:04)
[2017-08-25] MEDS: FERROUS SULFATE (325 MG) 325 MG/TAB TABLET GT SCH (09:04)
[2017-08-25] MEDS: LOSARTAN POTASSIUM 50 MG TABLET GT SCH ×2 (09:05→17:17)
[2017-08-25] MEDS: CARVEDILOL 6.25 MG TABLET PO SCH ×2 (09:05→21:19)
[2017-08-25] MEDS: HYDROGEL DRESSING 90 GM TUBE TP SCH (09:06)
[2017-08-25] MEDS: MUPIROCIN OINT 2% 22 GM TUBE SCH ×2 (09:06→21:21)
[2017-08-25] MEDS: PANTOPRAZOLE 40 MG TABLET.DR PO SCH (09:10)
[2017-08-25] MEDS: HYDROCODONE/APAP 5/325MG 1 EACH TABLET GT SCH ×2 (09:10→17:17)
--- NOTE | 2017-08-25 14:05 | NUR ---
RN NOTE: CRITICAL INR VALUE RECEIVED CRITICAL VALUE INR 4.71, RELAYED TO MD. SPOKE WITH DR. JOSE NARVAEZ TO GIVE ASPIRIN & HOLD COUMADIN TODAY. ORDERS NOTED & CARRIED OUT.
[2017-08-25] MEDS: WARFARIN SODIUM 2 MG TABLET PO SCH (17:00)
--- NOTE | 2017-08-25 19:36 | NUR ---
RCVD PT ON VENT WITH NOTED SETTINGS. PT ALERT AND AWAKE, BREATHING TX GIVEN PER MD'S ORDER, NO ADVERSE REACTION NOTED. SUCTIONED SMALL AMOUNT OF YELLOW THICK SECRETIONS. VENT PLUGGED INTO RED OUTLET, VENT ALARM WORKING AND AUDIBLE. AMBU BAG AT BEDSIDE, WILL CONTINUE TO MONITOR THE PT.
[2017-08-25] MEDS: ZOLPIDEM TARTRATE 5 MG TABLET PO PRN (21:13)
[2017-08-25] MEDS: ATORVASTATIN 10 MG TABLET GT SCH (21:14)
[2017-08-25] MEDS: DOCUSATE SODIUM 100 MG CAPSULE PO SCH (21:14)
[2017-08-26] VITALS: BP 114/66
[2017-08-26] MEDS: IPRATROPIUM NEB FS 0.5 MG/2.5 ML AMPUL.NEB IH SCH ×4 (01:36→19:40)
[2017-08-26 04:00] VITALS: BP 129/68
[2017-08-26] MEDS: CEFEPIME 1 GM in IV D5W 50 ML IV SCH ×3 (04:18→21:48)
[2017-08-26] MEDS: HYDROCODONE/APAP 5/325MG 1 EACH TABLET PO PRN ×2 (04:24→21:50)
--- NOTE | 2017-08-26 06:17 | NUR ---
RN NOTES CLOSING PATIENT ENDORSED ALERT AWAKE ORIENTED X4. ABLE TO MOUTH WORDS/TO MAKE NEEDS KNOWN. ON VENT-TRAC, SETTINGS TOLERATING WELL. NO BREATHING DIFFICULTY NOTED. ON TELE, A-FIB CONTROLLED WITH OCCASIONAL A-PACING. IV CATHETER INTACT. TUBE FEEDING TOLERATING WELL. NO RESIDUAL NOTED. ASPIRATION PRECAUTIONS OBSERVED. MARION CATHETER INTACT, DRAINING WELL WITH GRAVITY. SAFETY MEASURES OBSERVED. CALL LIGHT WITHIN REACH. WILL CONTINUE TO MONITOR.
[2017-08-26 07:55] LABS: INR 4.84 (0.87-1.13)
[2017-08-26 08:00] VITALS: BP 127/74
--- NOTE | 2017-08-26 08:00 | NUR ---
KASSY RN AM NOTES RECEIVED PATIENT AWAKE IN BED, ON VENT SETTINGS ORDERED AOX4, ABLE TO MAKE NEEDS KNOWN, MOUTHS WORDS AND ABLE TO WRITE DOWN NEEDS, ON TELE MONITOR AFIB 71 HR, DIAPER IN PLACE WITH FC DRAINING YELLOW URINE, GTUBE FEEDINGS FIBERSOURCE AT 50 ML/HR, RUNNING AT THIS TIME, NO RESIDUAL NOTED,ATE 75%BREAKFAST WELL FOR ORAL GRATIFICATION.TOLERATED WELL. IV R HAND 22G, CLEAN AND PATENT, SL. TURNED AND REPOSITIONED, MRSA NARES CONTACT ISOLATION PRECAUTIONS OBSERVED, BED IN LOW AND LOCKED POSITION CALL LIGHT WITHIN REACH.
[2017-08-26] MEDS: SEVELAMER CARBONATE 0.8 GM POWD.PACK GT SCH ×3 (09:03→17:06)
[2017-08-26] MEDS: BUMETANIDE (1 MG) 1 MG TABLET PO SCH (09:03)
[2017-08-26] MEDS: ZINC SULFATE 220 MG CAPSULE GT SCH (09:03)
[2017-08-26] MEDS: SUCRALFATE 1 G/10 ML UDC GT SCH ×4 (09:03→21:49)
[2017-08-26] MEDS: LOSARTAN POTASSIUM 50 MG TABLET GT SCH ×2 (09:04→17:07)
[2017-08-26] MEDS: FERROUS SULFATE (325 MG) 325 MG/TAB TABLET GT SCH (09:04)
[2017-08-26] MEDS: PANTOPRAZOLE 40 MG TABLET.DR PO SCH (09:04)
[2017-08-26] MEDS: ASCORBIC ACID 500 MG TABLET GT SCH (09:04)
[2017-08-26] MEDS: SIMETHICONE 80 MG TAB.CHEW GT SCH ×3 (09:04→17:07)
[2017-08-26] MEDS: CARVEDILOL 6.25 MG TABLET PO SCH ×2 (09:04→21:50)
[2017-08-26] MEDS: MULTIVIT, IRON, MIN NO. 8, FA 1 TAB GT SCH (09:05)
[2017-08-26] MEDS: HYDROCODONE/APAP 5/325MG 1 EACH TABLET GT SCH ×2 (09:09→17:06)
[2017-08-26] MEDS: MUPIROCIN OINT 2% 22 GM TUBE SCH ×2 (09:09→21:51)
[2017-08-26] MEDS: HYDROGEL DRESSING 90 GM TUBE TP SCH (09:09)
[2017-08-26 12:00] VITALS: BP_SYST 127; BP_SYST 128; BP_DIAS 73
[2017-08-26 16:00] VITALS: BP 134/71
[2017-08-26] MEDS: WARFARIN SODIUM 2 MG TABLET PO SCH (16:17)
--- NOTE | 2017-08-26 18:00 | NUR ---
RESTING IN BED DENYING ANY PAIN OR DISTRESS.ENCOUARGED TO BE TURNED EVERY TWO HRS.PT C/O BEING HUNGRY.OFFERED PUDDING .CALL LIGHT PLACED WITHIN REACH.
[2017-08-26 20:00] VITALS: BP 117/64
[2017-08-26] MEDS: ATORVASTATIN 10 MG TABLET GT SCH (21:49)
[2017-08-26] MEDS: DOCUSATE SODIUM 100 MG CAPSULE PO SCH (21:49)
[2017-08-27 00:05] VITALS: BP 137/62
[2017-08-27] MEDS: IPRATROPIUM NEB FS 0.5 MG/2.5 ML AMPUL.NEB IH SCH ×4 (01:29→19:30)
[2017-08-27] MEDS: HYDROCODONE/APAP 5/325MG 1 EACH TABLET PO PRN (01:55)
[2017-08-27 04:00] VITALS: BP 133/63
[2017-08-27] MEDS: CEFEPIME 1 GM in IV D5W 50 ML IV SCH ×2 (05:21→12:57)
[2017-08-27 07:09] LABS: INR 3.98 (0.87-1.13)
--- NOTE | 2017-08-27 07:10 | NUR ---
HEAD HOUSEKEEPER INITIAL NOTE REPORT RECEIVED AT THE BEDSIDE. PATIENT IS RESTING COMFORTABLY IN BED. NO SOB OR DISTRESS NOTED AT THIS TIME. PATIENT REPORTS MILD PAIN, SCHEDULED NORCO TO BE GIVEN. HEART RATE AFIB AT 60 WITH OCCASIONAL PVC AND V PACING. BED IN A LOW POSITION, CALL LIGHT WITHIN PATIENT REACH. WILL CONTINUE TO MONITOR.
[2017-08-27 08:00] VITALS: BP 135/56
[2017-08-27] MEDS: BUMETANIDE (1 MG) 1 MG TABLET PO SCH (08:34)
[2017-08-27] MEDS: ZINC SULFATE 220 MG CAPSULE GT SCH (08:34)
[2017-08-27] MEDS: SUCRALFATE 1 G/10 ML UDC GT SCH ×3 (08:34→17:33)
[2017-08-27] MEDS: SEVELAMER CARBONATE 0.8 GM POWD.PACK GT SCH ×3 (08:35→17:33)
[2017-08-27] MEDS: PANTOPRAZOLE 40 MG TABLET.DR PO SCH (08:35)
[2017-08-27] MEDS: HYDROCODONE/APAP 5/325MG 1 EACH TABLET GT SCH ×2 (08:35→17:34)
[2017-08-27] MEDS: ASCORBIC ACID 500 MG TABLET GT SCH (08:35)
[2017-08-27] MEDS: MULTIVIT, IRON, MIN NO. 8, FA 1 TAB GT SCH (08:35)
[2017-08-27] MEDS: CARVEDILOL 6.25 MG TABLET PO SCH (08:35)
[2017-08-27] MEDS: FERROUS SULFATE (325 MG) 325 MG/TAB TABLET GT SCH (08:36)
[2017-08-27] MEDS: LOSARTAN POTASSIUM 50 MG TABLET GT SCH ×2 (08:36→16:57)
[2017-08-27] MEDS: SIMETHICONE 80 MG TAB.CHEW GT SCH ×3 (08:36→17:33)
[2017-08-27] MEDS: MUPIROCIN OINT 2% 22 GM TUBE SCH (08:37)
[2017-08-27] MEDS: HYDROGEL DRESSING 90 GM TUBE TP SCH (08:37)
--- NOTE | 2017-08-27 08:55 | NUR ---
PT IS REFUSING TUBE FEEDING AT THIS TIME. STATES SHE DOESN'T WANT IT RUNNING NOW.
[2017-08-27] MEDS ORDERED: MUPI22OI7 (10:58)
[2017-08-27] MEDS ORDERED: LOSA50TA3 GT (10:58)
[2017-08-27] MEDS ORDERED: CEFE1FRO IV (10:58)
[2017-08-27] MEDS ORDERED: BUME1TAB4 PO (10:58)
[2017-08-27] MEDS ORDERED: WARF2TAB57 PO (10:58)
[2017-08-27] MEDS ORDERED: CARV6.252 PO (10:58)
[2017-08-27 12:00] VITALS: BP 129/56
[2017-08-27 16:00] VITALS: BP 109/52
[2017-08-27] MEDS: WARFARIN SODIUM 2 MG TABLET PO SCH (16:56)
[2017-08-27 16:57] VITALS: BP 109/52
--- NOTE | 2017-08-27 17:44 | NUR ---
RT NOTE PATIENT RECEIVED ON MECHANICAL VENTILATION. PATIENT IS TRACHED. AMBU BAG @ BEDSIDE. SX DONE T/O SHIFT, TRACH SECURED AND PATENT. SP02 > 92%. NO SOB NOTED. ALARMS ON AND AUDIBLE. HME REPLACED. PULSE OX PROBE CONNECTED AND WORKING WELL. Addendum: 08/27/17 at 1745 by SHON ERICKSON RT Amended: Links added.
--- NOTE | 2017-08-27 19:30 | NUR ---
RN INITIAL NOTES, RECEIVED PATIENT IN BED ALERT AND ORIENTED ABLE TO VERBALIZED NEEDS AND CONCERNS, ON VENT SETTINGS WITH TRACH, NO SOB/ACUTE DISTRESS NOTED AT THIS, KAUSHAL SL GAUGE#20, INTACT AND PATENT, TIME, GT SITE DRY AND CLEAN, F/C IN PLACE DRAINING YELLOW URINE, PATENCY INTACT, ACCORDING TO PRIOR NURSE PATIENT WAS BLEEDING OF LEFT UPPER GUM, NO ACTIVE BLEEDDING AT THIS TIME, AWAITING FOR TRANSPORTATION, [facility] WILL CONTINUE TO MONITOR CLOSELY, BED LOCKED AND IN LOWEST POSITION, CALL LIGHT W/I REACH, PATIENT DRY AND CLEAN.
--- NOTE | 2017-08-27 19:45 | NUR ---
RN NOTES, TRANSFORATION ARRIVED AT THIS TIME, 2EMTS AND RT TAKING THE PATIENT TO [facility], PATIENT IN STABLE CONDITION AT THIS TIME, VS 124/63, 69, 98.1, 20, 0/10, 99% ON VENT SETTINGS, BELONGING GIVEN TO PLASTIC MIXER, NO ACTIVE BLEEDING NOTED AT THIS TIME, REPORT ALREADY GIVEN BY PRIOR NURSE TO ANGELIQUE AT [facility].
== END 2017-08-27 20:39 | DRG 190 ==
LOC: ER 06:53 → TELE1 10:04 → TELE-TD 12:20 → TELE1 08-22 09:40
PROVIDERS: ADMIT Internal Medicine; ATTEND Internal Medicine
PROC: 5A1955Z Respiratory Ventilation, Greater than 96 Consecutive Hours (ICD-10-PCS; principal; 2017-08-20)
DX: I21.A1 Myocardial infarction type 2 (principal); E43 Unspecified severe protein-calorie malnutrition; J90 Pleural effusion, not elsewhere classified; L89.154 Pressure ulcer of sacral region, stage 4; J96.11 Chronic respiratory failure with hypoxia; Z99.11 Dependence on respirator [ventilator] status; K29.71 Gastritis, unspecified, with bleeding; Z93.0 Tracheostomy status; R13.10 Dysphagia, unspecified; E11.22 Type 2 diabetes mellitus with diabetic chronic kidney disease; G40.909 Epilepsy, unspecified, not intractable, without status epilepticus; N39.0 Urinary tract infection, site not specified; I48.2 Chronic atrial fibrillation; E78.5 Hyperlipidemia, unspecified; N18.9 Chronic kidney disease, unspecified; I25.10 Atherosclerotic heart disease of native coronary artery without angina pectoris; D63.8 Anemia in other chronic diseases classified elsewhere; B96.5 Pseudomonas (aeruginosa) (mallei) (pseudomallei) as the cause of diseases classified elsewhere; I25.2 Old myocardial infarction; K80.20 Calculus of gallbladder without cholecystitis without obstruction; Z79.01 Long term (current) use of anticoagulants; Z93.1 Gastrostomy status; Z95.0 Presence of cardiac pacemaker; Z79.4 Long term (current) use of insulin; Z95.2 Presence of prosthetic heart valve; D69.6 Thrombocytopenia, unspecified; Z68.1 Body mass index [BMI] 19.9 or less, adult
CPT/HCPCS: 31720; 36415; 71045-TC; 80048-TC; 80061-TC; 81000-TC; 83735-TC; 84100-TC; 84484-TC; 85025-TC; 85610-TC; 85730-TC; 87081-TC; 87086-TC; 87186-TC; 92611-TC; 93307-TC; 94002-TC; 94003-TC; 94760-TC; 94762-TC; A4606; A6248; A6402; A6403; J0692; J1642; J1644; J7030; J7040; J7060; L8501; Z7610

== ENCOUNTER 2017-12-07 16:06 | Inpatient (IN) | payer OTHER ==
[~2017-12-07] VITALS: Ht 157.5 cm; Wt 39.2 kg
[~2017-12-07 16:06] MED LIST: ACET-868 PO; ALBU2.5V38 IH; ASCO500T9 GT; ATOR20TA GT; BISA10SU8 RC; BUME1TAB4 PO; CARV6.252 PO; CEFE1FRO IV; CRAN3875 GT; CRAN425C6 GT; DOCU-141 GT; EPOE4000 SQ; FERR220S17 GT; HYDR-4076 GT; HYDR-552 GT; IPRA0.2S49 IH; LOSA50TA3 GT; MAGN400O6 GT; MULT-213 GT; MUPI22OI7; NA P133E RC; PANT40TA2 GT; SEVE0.8P GT; SIME80TA15 GT; SUCR1ORA4 GT; WARF2TAB57 PO; ZINC220T GT
--- NOTE | 2017-12-07 16:10 | NUR ---
VIKA FROM [facility]: SACRAL WOUND EVALUATION, PATIENT AWAKE, OBTUNDED. NOTED TO BE VENT/ TRACHE DEPENDENT. GT AND FC NOTED. PATIENT;S VSS.
--- NOTE | 2017-12-07 16:12 | NUR ---
PATIENT CAME IN WITH G TUBE AND MARION CATHETER IN PLACE.
[2017-12-07 16:23] VITALS: BP 140/62
--- NOTE | 2017-12-07 16:23 | NUR ---
PATIENT RECEIVED TRACHED AND PLACED ON MECHANICAL VENTILATION. VENT PLUGGED INTO RED OUTLET. AMBU BAG/BACK UP TRACH @ BEDSIDE. ALARMS ON AND AUDIBLE. SUCTION DONE, SMALL THICK YELLOW WHITE SECRETIONS NOTED. NO DISTRESS NOTED AT THIS TIME. TRACH SECURED AND PATENT. WILL CONTINUE TO MONITOR. Addendum: 12/07/17 at 1629 by SHON ERICKSON RT Amended: Links added.
[2017-12-07] MEDS ORDERED: WARF1TAB47 GT (16:58)
[2017-12-07] MEDS ORDERED: VANC500V IV (16:58)
[2017-12-07] MEDS ORDERED: DIGO125T GT (16:58)
[2017-12-07] MEDS ORDERED: CHLO473M5 MM (16:58)
[2017-12-07] MEDS ORDERED: CARV12.52 GT (16:58)
[2017-12-07] MEDS ORDERED: OMEP20CA10 GT (16:58)
[2017-12-07] MEDS ORDERED: NUTR250L50 GT (16:58)
[2017-12-07] MEDS ORDERED: LEVE100S GT (16:58)
[2017-12-07] MEDS ORDERED: INSU100V11 SQ (16:58)
[2017-12-07] MEDS ORDERED: AMIN30LI4 GT (16:58)
[2017-12-07] MEDS ORDERED: LOSA1TAB36 GT (16:58)
[2017-12-07] MEDS ORDERED: BUME2TAB3 GT (16:58)
[2017-12-07] MEDS ORDERED: CALC667C6 GT (16:58)
[2017-12-07] MEDS ORDERED: BLOO-668 IN (16:58)
[2017-12-07] MEDS ORDERED: IPRA0.2S9 IH ×2 (16:58)
[2017-12-07] MEDS ORDERED: [UNRECOGNIZED DRUG - CODE] IV (16:58)
[2017-12-07] MEDS ORDERED: ACID1TAB12 GT (16:58)
--- NOTE | 2017-12-07 17:28 | NUR ---
PORTEX 7 VENT SETTINGS: RL=203 PEEP=5, FIO2=35% AC 14.
[2017-12-07 17:29] LABS: APPEARANCE,URINE Slightly Cloudy (CLEAR); BILIRUBIN,URINE Negative (NEGATIVE); BLOOD, URINE Negative Ery/uL (NEGATIVE); COLOR,URINE Yellow (YELLOW); KETONES,URINE Negative (NEGATIVE); LEUKOCYTE ESTERASE ,URINE Small (NEGATIVE); NITRITE, URINE Negative (NEGATIVE); PROTEIN,URINE Trace mg/dl (NEGATIVE); UGLUCOSE Negative (NEGATIVE); UROBILINOGEN,URINE 0.2 EU/dL (0.2)
[2017-12-07 17:30] LABS: INR 1.35 (0.85-1.15)
[2017-12-07 17:35] LABS: BASOPHILS % (AUTO) 0.1 % (0.0-2.0); EOSINOPHILS % (AUTO) 0.9 % (0.0-6.0); HEMOGLOBIN 7.4 g/dL (11.5-14.8); LYMPHOCYTES # (AUTO) 0.5 /CMM (0.8-4.8); LYMPHOCYTES % (AUTO) 2.7 % (20.0-44.0); MEAN CORPUSCULAR HGB CONC 37 g/dl (31.0-36.0); MEAN CORPUSCULAR VOLUME 82 fL (82-100); MONOCYTES # (AUTO) 0.6 /CMM (0.1-1.30); MONOCYTES % (AUTO) 3.2 % (2.0-12.0); NEUTROPHILS % (AUTO) 93.1 % (43.0-81.0); PLATELET COUNT (AUTO) 276 /CMM (150-450); RDW COEFFICIENT OF VARIATION 17.3 (11.5-15.0); RED BLOOD CELL COUNT(AUTO) 2.47 MIL/uL (4.0-5.2); WHITE BLOOD COUNT (AUTO) 20.3 K/uL (4.3-11.0)
[2017-12-07 17:38] LABS: CALCIUM, SERUM 8.1 mg/dL (8.5-10.1); POTASSIUM 4.2 mmol/L (3.5-5.1)
[2017-12-07 17:40] LABS: HEMATOCRIT 20 % (33-45)
[2017-12-07 17:47] LABS: BILIRUBIN,DIRECT 0.3 mg/dL (0.0-0.2); BILIRUBIN,TOTAL 0.6 mg/dL (0.2-1.0); TOTAL PROTEIN, SERUM 8.5 g/dL (6.4-8.2)
[2017-12-07 17:52] LABS: ALBUMIN 1.4 g/dL (3.4-5.0)
[2017-12-07 17:58] LABS: BACTERIA,URINE None seen /HPF (None Seen); RBC,URINE 0-2 /HPF (0-2); SQUAMOUS EPITHELIAL CELL,UR Few /HPF (None Seen); YEAST,URINE Moderate /HPF (None Seen)
[2017-12-07] MEDS ORDERED: PIPERACILLIN /TAZOBACTAM 3.375 G in IV D5W 50 ML IV ONE (18:00)
[2017-12-07] MEDS ORDERED: VANCOMYCIN 1 GM in IV D5W 250 ML IV ONE (18:00)
[2017-12-07] MEDS ORDERED: IV NS 0.9% 1,000 ML BAG IV ONE (18:00)
[2017-12-07 18:04] VITALS: BP 135/54
--- NOTE | 2017-12-07 18:09 | NUR ---
PT IS ASSIGNED TO [facility] #[id number], PT IS DIAGNOSED WITH SACRAL DECUBITUS ULCER, AND DR ARGEUTA IS THE ACCEPTING MD.
[2017-12-07] MEDS ORDERED: DEXTROSE 50%-WATER 50 ML DISP.SYRIN IV PRN (18:30)
[2017-12-07] MEDS ORDERED: MAGNESIUM HYDROXIDE 30 ML UDC GT PRN (18:30)
[2017-12-07] MEDS ORDERED: HYDROCODONE/APAP 5/325MG 1 EACH TABLET GT PRN (18:30)
[2017-12-07] MEDS ORDERED: NA PHOS,M-B/NA PHOS,DI-BA 1 EA ENEMA RC PRN (18:30)
[2017-12-07] MEDS ORDERED: IPRATROPIUM NEB FS 0.5 MG/2.5 ML AMPUL.NEB IH PRN (18:30)
[2017-12-07] MEDS ORDERED: ONDANSETRON HCL/PF 4 MG/2 ML VIAL IVP PRN (18:30)
[2017-12-07] MEDS ORDERED: MAGNESIUM HYDROXIDE 30 ML UDC PO PRN (18:30)
[2017-12-07] MEDS ORDERED: ACETAMINOPHEN 325 MG TABLET PO PRN (18:30)
[2017-12-07] MEDS ORDERED: MAG HYDROX/AL HYDROX/SIMETH 30 ML UDC PO PRN (18:30)
[2017-12-07] MEDS ORDERED: *INSULIN REGULAR(HUMULIN R)HUM 100 UNIT/ML VIAL SQ PRN (18:30)
[2017-12-07] MEDS ORDERED: BISACODYL SUPP (10 MG) 10 MG/SUPP.RECT SUPP.RECT RC PRN (18:30)
[2017-12-07] MEDS ORDERED: PIPERACILLIN /TAZOBACTAM 3.375 G VIAL IV ONE (19:06)
[2017-12-07] MEDS ORDERED: VANCOMYCIN 1 GM VIAL ONE (19:06)
[2017-12-07 19:20] VITALS: BP 132/60
--- NOTE | 2017-12-07 19:20 | NUR ---
REPORT GIVEN TO HUEY VAUGHN FOR GAYLE.
--- NOTE | 2017-12-07 19:20 | NUR ---
REPORT GIVEN TO WARREN ARZATE FOR GAYLE
[2017-12-07] MEDS: IPRATROPIUM NEB FS 0.5 MG/2.5 ML AMPUL.NEB IH SCH (19:30)
[2017-12-07] MEDS: ALBUTEROL FS 2.5 MG/3 ML VIAL.NEB IH SCH (19:30)
[2017-12-07 20:00] VITALS: BP 152/58
--- NOTE | 2017-12-07 20:00 | NUR ---
CLIENT PROFESSIONAL NOTES ADMITTED FROM ER PER DEYVI THIS 57 Y.O. FEMALE,A RESIDENT OF [facility].OPEN EYES TO PAINFUL STIMULI,SALINE LOCK RIGHT AC INTACT AND PATENT,INFUSING VANCOMYCIN FORM ER.WITH MARION CATH FROM THE FACILITY.NOTED FULL THICKNESS LOSS ON SACRAL AREA,DRAINING PURULENT DISCHARGES,SKIN TEAR ON LEFT GROIN WITH REDNESS,DRY WOUND ON BOTH EARS,GT SITE WITH SLIGHT REDNESS NOTED.SLIGHT RASHES ON FACIAL AREA.REPOSITION PER PROTOCOL.WILL CONTINUE TO MONITOR STATUS.
--- NOTE | 2017-12-07 20:00 | NUR ---
FREIGHT REPRESENTATIVE NOTES ON TRACH/VENT AC-14,TV-450,FIO2-35%,PEEP-5,PORTEX #7.
[2017-12-07] MEDS ORDERED: FEE PK DOSING 1 MIN EA MC ONE (20:35)
[2017-12-07] MEDS ORDERED: ALBUTEROL FS 2.5 MG/3 ML VIAL.NEB IH PRN (21:00)
--- NOTE | 2017-12-07 21:00 | NUR ---
HYPERCIL CORE TRANSFORMER ASSEMBLER NOTES STARTED ON MERREM 500MG IVPB ORDERED
[2017-12-07] MEDS: FLUCONAZOLE (100 MG) 100 MG TABLET PO SCH (21:30)
[2017-12-07] MEDS: SUCRALFATE 1 G/10 ML UDC GT SCH (21:31)
[2017-12-07] MEDS: CHLORHEXIDINE GLUCONATE 15 ML UDC MM SCH (21:31)
[2017-12-07] MEDS: LEVETIRACETAM SOL (5 ML) 100 MG/ML UDC GT SCH (21:31)
[2017-12-07] MEDS: BLOOD SUGAR DIAGNOSTIC 1 EACH STRIP VI SCH (21:40)
[2017-12-07] MEDS: DOCUSATE SODIUM 100 MG CAPSULE PO SCH (21:51)
[2017-12-07] MEDS: ATORVASTATIN 10 MG TABLET GT SCH (21:51)
--- NOTE | 2017-12-07 22:00 | NUR ---
HUMAN MACHINE INTERFACE ENGINEER NOTES ACCU-CHECK BLOOD SUGAR CHECK 89.NO INSULIN COVERAGE.
--- NOTE | 2017-12-07 23:00 | NUR ---
INCIDENT ANALYST NOTES STARTED ON JEVITY 1.2 AT 50ML/HR RATE VIA GTUBE.HOB ELEVATED FOR ASPIRATION PRECAUTION.
[2017-12-07] MEDS: JEVITY 1.2 CAL 1,000 ML BOTTLE GT PRN (23:01)
[2017-12-08] VITALS (12 sets, daily range): BP systolic 113–157; BP diastolic 48–80
[2017-12-08] MEDS: MEROPENEM 500 MG in IV NS 0.9% 50 ML IV SCH ×2 (00:22→12:39)
[2017-12-08] MEDS: ALBUTEROL FS 2.5 MG/3 ML VIAL.NEB IH SCH ×4 (02:38→19:09)
[2017-12-08] MEDS: IPRATROPIUM NEB FS 0.5 MG/2.5 ML AMPUL.NEB IH SCH ×4 (02:39→19:09)
[2017-12-08] MEDS: IV NS 0.9% 1,000 ML IV PRN ×2 (02:48→17:14)
[2017-12-08] MEDS: BLOOD SUGAR DIAGNOSTIC 1 EACH STRIP VI SCH ×4 (05:59→21:59)
[2017-12-08 06:26] LABS: BASOPHILS % (AUTO) 0.1 % (0.0-2.0); EOSINOPHILS % (AUTO) 2.5 % (0.0-6.0); LYMPHOCYTES # (AUTO) 0.5 /CMM (0.8-4.8); MEAN CORPUSCULAR HGB CONC 35 g/dl (31.0-36.0); MEAN CORPUSCULAR VOLUME 87 fL (82-100); MONOCYTES # (AUTO) 0.4 /CMM (0.1-1.30); MONOCYTES % (AUTO) 4.7 % (2.0-12.0); NEUTROPHILS # (AUTO) 8.1 /CMM (1.8-8.9); NEUTROPHILS % (AUTO) 87.7 % (43.0-81.0); PLATELET COUNT (AUTO) 262 /CMM (150-450); RDW COEFFICIENT OF VARIATION 18.2 (11.5-15.0); RED BLOOD CELL COUNT(AUTO) 2.29 MIL/uL (4.0-5.2); WHITE BLOOD COUNT (AUTO) 9.2 K/uL (4.3-11.0)
[2017-12-08 06:27] LABS: INR 1.27 (0.87-1.13)
--- NOTE | 2017-12-08 06:40 | NUR ---
SANITARY CHEMIST NOTES RELAYED BY CHAPIS MADRID TECH H/H 6.03/29.ASHLY HEARING SCREENER DNP WAS PAGE AWAITING TO CALL BACK.
[2017-12-08 06:41] LABS: HEMOGLOBIN 6.9 g/dL (11.5-14.8)
[2017-12-08 06:42] LABS: HEMATOCRIT 20 % (33-45)
[2017-12-08 06:46] LABS: CALCIUM, SERUM 8.1 mg/dL (8.5-10.1); CREATININE 0.9 mg/dL (0.6-1.3); MAGNESIUM 2.4 mg/dL (1.8-2.4); PHOSPHORUS 3.2 mg/dL (2.5-4.9); POTASSIUM 3.9 mmol/L (3.5-5.1)
--- NOTE | 2017-12-08 06:48 | NUR ---
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
--- NOTE | 2017-12-08 07:22 | NUR ---
EDUCATION ADMINISTRATIVE ASSISTANT OPENING NOTES RECEIVED PATIENT COMFORTABLY LYING IN BED. HOB ELEVATED. OPENING HER EYES, NON-VERBAL. NO SIGNS OF PAIN OR ANY DISCOMFORTS OBSERVED AT THIS TIME. ON MECH VENT AT PRESCRIBED SETTING, TOLERATING SETTINGS WELL WITH NO ACUTE RESPIRATORY DISTRESS NOTED. IV ACCESS ON RIGHT WRIST G#20 INTACT AND PATENT. ON TELE-MONITORING WITH CURRENT READING OF V-PACING AND A-FIB WITH HR OF 66. MARION CATH IN PLACE WITH CLEAR YELLOW OUTPUT NOTED AT BEDSIDE COLLECTION BAG. SAFETY MEASURES IN PLACE. BED IN LOW/LOCKED POSITION WITH SIDE-RAILS UP X3. CALL LIGHT IN REACH. WILL CONTINUE TO MONITOR PT.
[2017-12-08 08:42] LABS: EOSINOPHILS % (MANUAL) 1 % (0-4); LYMPHOCYTES % (MANUAL) 4 % (16-48); MONOCYTES % (MANUAL) 3 % (0-11.0); NEUTROPHILS % (MANUAL) 92 (42-76)
--- NOTE | 2017-12-08 08:50 | NUR ---
RN NOTES REPORTED TO DR ARGUETA REGARDING PT'S ABNORMAL LABS: LOW HGB 6.9, HCT 20, RBC 2.29, INR 1.27H, PT 13.2H, APTT 39H, AND BUN 65H. MD SAID THAT HE WILL TAKE A LOOK AND REVIEW ALL HER LABS AND WILL DECIDE WHAT HE WILL ORDER. WILL CONTINUE TO MONITOR.
[2017-12-08] MEDS: CARVEDILOL 12.5 MG TABLET GT SCH ×2 (08:59→17:00)
[2017-12-08] MEDS ORDERED: Medication Not On Formulary EA (Cran/Vitc/Mannose/Inulin/Brom (Uti-Stat Liquid) 30 ML) GT SCH (09:00)
[2017-12-08] MEDS: SUCRALFATE 1 G/10 ML UDC GT SCH ×4 (09:00→21:04)
[2017-12-08] MEDS: PANTOPRAZOLE 40 MG/PACK PACK GT SCH (09:00)
[2017-12-08] MEDS ORDERED: NUTRITIONAL SUPPLEMENT/FIBER 250 ML CAN GT SCH (09:00)
[2017-12-08] MEDS: ASCORBIC ACID 500 MG TABLET GT SCH (09:01)
[2017-12-08] MEDS: MULTIVIT, IRON, MIN NO. 8, FA 1 TAB GT SCH (09:01)
[2017-12-08] MEDS: CALCIUM ACETATE 667 MG TABLET GT SCH ×3 (09:01→16:41)
[2017-12-08] MEDS: HYDROCODONE/APAP 5/325MG 1 EACH TABLET GT SCH ×2 (09:01→16:41)
[2017-12-08] MEDS: CHLORHEXIDINE GLUCONATE 15 ML UDC MM SCH ×2 (09:01→21:04)
[2017-12-08] MEDS: FLUCONAZOLE (100 MG) 100 MG TABLET PO SCH (09:01)
[2017-12-08] MEDS: SEVELAMER CARBONATE 0.8 GM POWD.PACK GT SCH (09:04)
[2017-12-08] MEDS: ZINC SULFATE 220 MG CAPSULE GT SCH (09:04)
[2017-12-08] MEDS: LEVETIRACETAM SOL (5 ML) 100 MG/ML UDC GT SCH ×2 (09:04→21:04)
--- NOTE | 2017-12-08 09:08 | NUR ---
WOUND CARE CONSULT: PT PRESENTS WITH SACRAL ULCER,STAGE 4 WITH PURULENT DRAINAGE, RT EAR ESCHAR WITH SCARRING AND LEFT EAR INTACT DEEP TISSUE INJURY, LEFT THIGH SKIN TEAR WITH EDEMA, ALL PRESENT ON ADMISSION. HYPERGRANULAR TISSUE NOTED TO G TUBE SITE WITH VERY LARGE ABDOMEN. RECOMMEND SURGICAL CONSULT. LOW AIRLOSS MATTRESS RECOMMENDED. ALL WOUND CARE AND SKIN PROTECTION RECOMMENDATIONS DISCUSSED WITH NURSING STAFF. WILL SEE PRN. LÓPEZ IN AGREEMENT WITH PLAN OF CARE. Addendum: 12/08/17 at 0910 by MUSTAPHA WILDERU Amended: Links added. Addendum: 12/08/17 at 0911 by MUSTAPHA LAZCANO WNPAPITOU CURRENT BALJEET SCORE IS 10. PT IS VENT-DEPENDENT.
[2017-12-08] MEDS: PROSOURCE / PROSTAT (PYXIS) 30 ML UDC GT SCH (09:09)
[2017-12-08] MEDS: VANCOMYCIN 0.75 GM in IV D5W 250 ML IV SCH ×2 (09:09→21:13)
[2017-12-08] MEDS: FERROUS SULFATE UDC 300 MG/5 ML UDC GT SCH (09:09)
[2017-12-08] MEDS: DAKINS QUARTER STRENGTH (0.125%) 480 ML BOTTLE TOP SCH (10:09)
[2017-12-08] MEDS: BACITRACIN/POLYMYXIN B 15 GM TUBE TP SCH ×2 (10:10→17:05)
[2017-12-08] MEDS: Z GUARD REMEDY 2 OZ OINT TP PRN (10:10)
--- NOTE | 2017-12-08 11:33 | NUR ---
RN NOTES PATIENT FOR BLOOD TRANSFUSION OF PRBC X1 TODAY, MD ORDER FOR TO OBTAIN CONSENT. CONSENT OBTAINED VIA TELEPHONE FROM ASHLY DAMON (PT'S NEPHEW) AND VERIFIED CONSENT WITH ANOTHER RN (JULIUS).
[2017-12-08] MEDS: INSULIN REGULAR, HUMAN 100 UNIT/ML 3 ML VIAL SQ PRN ×2 (12:44→17:31)
[2017-12-08] MEDS: DIGOXIN 0.125 MG TABLET GT SCH (13:06)
--- NOTE | 2017-12-08 14:25 | NUR ---
RN NOTES PATIENT NOTED WITH MULTIPLE PVC'S, PT NOT SHOWING ANY SIGNS OF DISTRESS. CHARGE NURSE AND DR BURRELL MADE AWARE WITH ORDER TO DO ECHO, BMP AND MG LEVEL. WILL CONTINUE TO MONITOR.
--- NOTE | 2017-12-08 14:46 | NUR ---
RN NOTES PATIENT STARTED ON BLOOD TRANSFUSION OF PRBC X1, 313ML. PRE-TRANSFUSION V/S: BP 138/48, P 57, R 18, T 98.6F. WILL CONTINUE TO MONITOR.
--- NOTE | 2017-12-08 14:59 | NUR ---
RN NOTES PATIENT ON BLOOD TRANSFUSION ONGOING, NO SIGNS OF ADVERSE REACTIONS NOTED AFTER 15 MINUTES. WILL CONTINUE TO MONITOR.
[2017-12-08 15:12] LABS: CALCIUM, SERUM 8.2 mg/dL (8.5-10.1); CREATININE 0.8 mg/dL (0.6-1.3); MAGNESIUM 2.4 mg/dL (1.8-2.4)
[2017-12-08] MEDS: EPOETIN ALFA (4000 UNIT) 4,000 UNIT/ML VIAL SQ SCH (15:36)
[2017-12-08] MEDS: WARFARIN SODIUM 1 MG TABLET GT SCH (16:43)
[2017-12-08 17:11] LABS: OCCULT BLOOD STOOL NEGATIVE (NEGATIVE)
--- NOTE | 2017-12-08 17:50 | NUR ---
RN NOTES BLOOD TRANSFUSION JUST FINISHED WITH NO ADVERSE REACTIONS NOTED. S/P BLOOD TRANSFUSION VS: BP 143/56MMHG, P 65, R 18, T 98.2F AND SP02 99%. WILL CONTINUE TO MONITOR.
--- NOTE | 2017-12-08 18:16 | NUR ---
Patient is trach/vent dependent. Resides at [facility] acute unit [phone]. Patient is bedbound, totally dependent with adl's. Will dc back to [facility] once discharge Addendum: 12/08/17 at 1818 by SHAHRIAR GARZA RN Amended: Links added.
--- NOTE | 2017-12-08 18:33 | NUR ---
MARKETING DESIGNER CLOSING NOTES PATIENT AWAKE AND COMFORTABLY LYING AT MODERATE HIGH BACKREST POSITION. OPENS HER EYES, NON-VERBAL AND RESPONSIVE TO PAIN STIMULI. ON MECHANICAL VENT @ PRESCRIBED SETTINGS, TOLERATING SETTINGS WELL WITH NO SOB NOTED, SP02 99-100%. IV ACCESS ON RIGHT WRIST G#20 INTACT AND PATENT, IVF OF NS @75ML/HR INFUSING WELL, NO S/S OF INFILTRATION NOTED. ON TELE-MONITORING WITH CURRENT READING OF V-PACING, A-FIB WITH PVC'S AND HR OF 65, PT IN NO SIGNS OF CARDIAC OR RESPIRATORY DISTRESS NOTED. MARION CATH IN PLACE WITH CLEAR YELLOW OUTPUT NOTED AT BEDSIDE COLLECTION BAG. ALL SAFETY MEASURES KEPT IN PLACE. HOB ELEVATED. BED IN LOW/LOCKED POSITION WITH SIDE-RAILS UP X3. CALL LIGHT IN REACH. ALL NEEDS AND CARE PROVIDED WELL. WILL ENDORSED TO [employer]ACLE SOA DEVELOPER NURSE FOR [facility]LE.
--- NOTE | 2017-12-08 20:00 | NUR ---
TELE/RN OPENING NOTES PATIENT IN HOB ELEVATED, CAN OPEN EYES, REQUIRE EXTENSIVE ASSISTANCE, MONITORING, REPOSITION,NON VERBAL. ON MECHANICAL VENT, WITH REQUIRED SETTING, OXYGENATION AT 100%, TELE READING AFIB 68, ON GTUBE RUNNING 50ML WITH 10 ML RESIDUAL, MARION CATHETER DRAINING DARK YELLOW URINE, IV SITE ON RIGHT WRIST [id number], W/ NO S/S OF INFILTRATION.MONITOIRN GFOR ANY S/S OF BLEEDING/BED IN LOCK POSITION.WILL CONTINUE TO MONITOR.
[2017-12-08] MEDS: ATORVASTATIN 10 MG TABLET GT SCH (21:04)
[2017-12-08] MEDS: DOCUSATE SODIUM 100 MG CAPSULE PO SCH (21:04)
--- NOTE | 2017-12-08 21:26 | NUR ---
PATIENT RECEIVED TRACHED ON MECHANICAL VENT W/ SETTINGS OF AC 14, 450, 35%, +5. VENT PLUGGED INTO RED OUTLET. SX DONE, SMALL THIN YELLOW/BLOOD TINGED SECRETIONS NOTED. PT HAS LITTLE BLOOD IN HER MOUTH FROM BITING HER TONGUE. RN IS AWARE. ALARMS ON AND AUDIBLE. PATIENT STABLE AND NO SOB NOTED. Addendum: 12/08/17 at 2129 by VENTURA GUERRERO RT Amended: Links added.
[2017-12-08] MEDS: JEVITY 1.2 CAL 1,000 ML BOTTLE GT PRN (22:40)
[2017-12-09] VITALS (7 sets, daily range): BP systolic 120–162; BP diastolic 54–67
[2017-12-09] MEDS: MEROPENEM 500 MG in IV NS 0.9% 50 ML IV SCH (00:18)
[2017-12-09] MEDS: ALBUTEROL FS 2.5 MG/3 ML VIAL.NEB IH SCH ×4 (01:06→20:25)
[2017-12-09] MEDS: IPRATROPIUM NEB FS 0.5 MG/2.5 ML AMPUL.NEB IH SCH ×4 (01:06→20:25)
--- NOTE | 2017-12-09 04:54 | NUR ---
TELE/RN NOTES MD MADE AWARE REGARDING OBSERVED BLEEDING WHILE SUCTIONING, THICK SCANTY BLOOD.
[2017-12-09] MEDS: BLOOD SUGAR DIAGNOSTIC 1 EACH STRIP VI SCH ×4 (05:50→21:30)
--- NOTE | 2017-12-09 07:05 | NUR ---
TELE/RN OPENING NOTE PATIENT IS RECEIVED IN BED EYE OPEN. PATIENT DOES NOT HAVE ALERTNESS OR ORIENTATION. PATIENT IS TRACHED ON MECHANICAL VENT WITH SETTING OF AC MODE. PATIENT TOLERATES VENT WITH NO APPARENT DISTRESS. NO MANIFESTATION OF PAIN/DISTRESS NOTED. TELE MONITOR READING SINUS MICHAELA 58. GT FEEDING ON. IV PATENT AND IV INFUSING WITH NO S/S INFILTRATION. BED LOW AND LOCKED. SIDE RAILS UP X3. CALL LIGHT WITHIN REACH. WILL CONTINUE TO MONITOR.
--- NOTE | 2017-12-09 07:48 | NUR ---
TELE/RN CLOSING NOTES PATIENT IN BED, HOB ELEVATED, ON MECHANICAL VENT, SKIN WARM TO TOUCH, REQUIRE EXTENSIVE ASSISTANCE AT ALL TIMES, BED IN LOCK POSITION, CALL LIGHTS WITHIN REACH. ENDORSE TO AM RN FOR GAYLE.
[2017-12-09] MEDS: VANCOMYCIN 0.75 GM in IV D5W 250 ML IV SCH (09:00)
[2017-12-09] MEDS: SEVELAMER CARBONATE 0.8 GM POWD.PACK GT SCH (09:07)
[2017-12-09] MEDS: SUCRALFATE 1 G/10 ML UDC GT SCH ×4 (09:07→21:29)
[2017-12-09] MEDS: MULTIVIT, IRON, MIN NO. 8, FA 1 TAB GT SCH (09:07)
[2017-12-09] MEDS: CHLORHEXIDINE GLUCONATE 15 ML UDC MM SCH ×2 (09:07→21:29)
[2017-12-09] MEDS: LEVETIRACETAM SOL (5 ML) 100 MG/ML UDC GT SCH ×2 (09:07→21:29)
[2017-12-09] MEDS: FERROUS SULFATE UDC 300 MG/5 ML UDC GT SCH (09:07)
[2017-12-09] MEDS: PANTOPRAZOLE 40 MG/PACK PACK GT SCH (09:08)
[2017-12-09] MEDS: HYDROCODONE/APAP 5/325MG 1 EACH TABLET GT SCH ×2 (09:08→17:30)
[2017-12-09] MEDS: ZINC SULFATE 220 MG CAPSULE GT SCH (09:08)
[2017-12-09] MEDS: CARVEDILOL 12.5 MG TABLET GT SCH ×2 (09:08→17:31)
[2017-12-09] MEDS: ASCORBIC ACID 500 MG TABLET GT SCH (09:08)
[2017-12-09] MEDS: CALCIUM ACETATE 667 MG TABLET GT SCH ×3 (09:08→17:30)
[2017-12-09] MEDS: FLUCONAZOLE (100 MG) 100 MG TABLET PO SCH (09:08)
[2017-12-09] MEDS: DAKINS QUARTER STRENGTH (0.125%) 480 ML BOTTLE TOP SCH (09:21)
[2017-12-09] MEDS: BACITRACIN/POLYMYXIN B 15 GM TUBE TP SCH ×2 (09:21→17:40)
[2017-12-09] MEDS: PROSOURCE / PROSTAT (PYXIS) 30 ML UDC GT SCH (09:22)
--- NOTE | 2017-12-09 10:03 | NUR ---
TELE/RN NOTE VANCOMYCIN 0.75 GM DUE AT 0900 IS NOT ADMINISTERED BECAUSE VANCO TROUGH IS [address]. DR ARGUETA IS MADE AWARE.
[2017-12-09] MEDS ORDERED: JEVITY 1.2 CAL 1,000 ML BOTTLE GT PRN (11:30)
[2017-12-09 11:49] LABS: CALCIUM, SERUM 8.2 mg/dL (8.5-10.1); CREATININE 0.7 mg/dL (0.6-1.3); POTASSIUM 3.8 mmol/L (3.5-5.1)
[2017-12-09 11:55] LABS: EOSINOPHILS % (AUTO) 2.6 % (0.0-6.0); HEMATOCRIT 23 % (33-45); HEMOGLOBIN 7.9 g/dL (11.5-14.8); LYMPHOCYTES # (AUTO) 0.3 /CMM (0.8-4.8); MEAN CORPUSCULAR HGB CONC 34 g/dl (31.0-36.0); MEAN CORPUSCULAR VOLUME 86 fL (82-100); MONOCYTES # (AUTO) 0.7 /CMM (0.1-1.30); MONOCYTES % (AUTO) 8.1 % (2.0-12.0); NEUTROPHILS # (AUTO) 7.1 /CMM (1.8-8.9); NEUTROPHILS % (AUTO) 85.3 % (43.0-81.0); PLATELET COUNT (AUTO) 242 /CMM (150-450); RDW COEFFICIENT OF VARIATION 18.4 (11.5-15.0); RED BLOOD CELL COUNT(AUTO) 2.71 MIL/uL (4.0-5.2); WHITE BLOOD COUNT (AUTO) 8.3 K/uL (4.3-11.0)
[2017-12-09 12:05] LABS: THYROID STIMULATING HORMONE 3.618 uIU/mL (0.358-3.74)
[2017-12-09] MEDS: DIGOXIN 0.125 MG TABLET GT SCH (12:42)
--- NOTE | 2017-12-09 12:42 | NUR ---
TELE/RN NOTE DIGOXIN 0.125 MG HELD DUE TO HR<60.
--- NOTE | 2017-12-09 16:20 | NUR ---
MS/RN NOTE PER DR HODGES SECURITY SOLUTIONS ENGINEER TO ARRANGE PLACEMENT IN [facility] FOR MONDAY. SUREKHA LIANG IS MADE AWARE. DR HODGES REFUSED TO GIVEN ORDER FO ECG AND ECHO THE PATIENT`S DAUGHTER REQUESTED. PER MD "THERE IS NO NEED." DAUGHTER IS MADE AWARE. Addendum: 12/09/17 at 1635 by TONY PINA RN ENTRY ON WRONG PATIENT. PLEASE DISCARD THE ABOVE CHARTING.
--- NOTE | 2017-12-09 17:22 | NUR ---
Received pt on mechanical vent. Pt tolerated current vent settings well. Pt trach is secure. Vent is plugged into red outlet, alarms are set and audible, and BMV is at bedside. Addendum: 12/09/17 at 1723 by JAYLEN SCOTT RT Amended: Links added.
[2017-12-09] MEDS: WARFARIN SODIUM 1 MG TABLET GT SCH (17:33)
[2017-12-09] MEDS: IV NS 0.9% 1,000 ML IV PRN (17:40)
[2017-12-09] MEDS: INSULIN REGULAR, HUMAN 100 UNIT/ML 3 ML VIAL SQ PRN (17:49)
--- NOTE | 2017-12-09 18:34 | NUR ---
TELE/RN CLOSING NOTE PATIENT IN BED EYES OPEN. PATIENT TRACHED AND VENT AND TOLERATING WELL. TELE MONITOR READING 59 V PACING. PATIENT IN NO APPARENT DISTRESS. O2 SATURATION 100%. NO MANIFESTATION OF PAIN/DISCOMFORT NOTED. R WRIST G 22 PATENT AND IV INFUSING WITH NO S/S INFILTRATION. WOUND TREATMENTS DONE PER ORDER. TURNED AND REPOSITIONED X2HR AND NEEDED. BED LOW AND LOCKED. SIDE RAILS UP X3. CALL LIGHT WITHIN REACH. WILL ENDORSE TO MEDICAL PHOTOGRAPHER.
--- NOTE | 2017-12-09 19:10 | NUR ---
OFFICE SUPPORT SPECIALIST OPENING NOTE RECEIVED PATIENT IN BED, SLEEPING, RESPONDS TO PHYSICAL STIMULI WITH EYE OPENING, OBTUNDED. HAS TRACH AND IS ON VENT, WITH SETTINGS ORDERED PER MD. TOLERATING WELL. ON TELE MONITORING WITH V-PACING IN HIGH 50S. RESPIRATIONS EVEN AND UNLABORED, IN NO APPARENT DISTRESS OR DISCOMFORT AT THIS TIME. PATIENT WITH MARION CATHETER DRAINING CLEAR YELLOW URINE. G-TUBE IN PLACE WITH FEEDING AT 50ML/[id number]. SACRAL DRESSING IS INTACT. KEPT CLEAN AND COMFORTABLE. SAFETY MEASURES IN PLACE, BED IN LOW LOCKED POSITION, SIDE RAILS UPX3, CALL LIGHT WITHIN EASY REACH WILL CONTINUE TO MONITOR.
[2017-12-09] MEDS: DOCUSATE SODIUM LIQ 100 MG/10 ML UDC GT SCH (21:29)
[2017-12-09] MEDS: ATORVASTATIN 10 MG TABLET GT SCH (21:29)
[2017-12-09] MEDS ORDERED: MEROPENEM 250 MG in IV NS 0.9% 50 ML IV SCH (23:00)
[2017-12-10] VITALS: BP 126/56
[2017-12-10] MEDS: ALBUTEROL FS 2.5 MG/3 ML VIAL.NEB IH SCH ×4 (02:26→19:03)
[2017-12-10] MEDS: IPRATROPIUM NEB FS 0.5 MG/2.5 ML AMPUL.NEB IH SCH ×4 (02:26→19:03)
[2017-12-10 04:00] VITALS: BP 143/66
--- NOTE | 2017-12-10 06:12 | NUR ---
PT REC'D TRACHED VIA PORTEX SZ 7 ON [facility] VENT SETTINGS CHARTED. NO RESP DISTRESS NOTED. SX'D THICK MOD AMT OF YELLOW SECRETIONS. VENT PLUGGED INTO RED OUTLET, ALARMS ARE SET AND AUDIBLE. AMBU BAG BEDSIDE. WILL CONTINUE TO MONITOR. Addendum: 12/10/17 at 0614 by PEPITO KWOK RT Amended: Links added.
--- NOTE | 2017-12-10 07:47 | NUR ---
BUYER LIAISON CLOSING NOTE PATIENT IN BED, SLEEPING, RESPONDS TO PHYSICAL STIMULI WITH EYE OPENING, OBTUNDED, NON-VERBAL. HAS TRACH AND IS ON MECHANICAL VENTILATION, WITH SETTINGS ORDERED PER MD. TOLERATING WELL. ON TELE MONITORING WITH V-PACING HR 70. RESPIRATIONS EVEN AND UNLABORED, IN NO APPARENT DISTRESS OR DISCOMFORT AT THIS TIME. PATIENT DOES NOT APPEAR IN PAIN, ASSESSED THOUGH FLACC SCORE. RIGHT WRIST IVC, 22G WITH NS RUNNING AT 75ML/HR, NO SIGN OF INFILTRATION NOTED. PATIENT WITH MARION CATHETER DRAINING CLEAR YELLOW URINE. G-TUBE IN PLACE WITH FEEDING AT 50ML/[id number]. SACRAL DRESSING CHANGED, IS CLEAN AND INTACT. KEPT CLEAN AND COMFORTABLE. SAFETY MEASURES IN PLACE, BED IN LOW LOCKED POSITION, SIDE RAILS UPX2, CALL LIGHT WITHIN EASY REACH, WILL ENDORSE TO AM NURSE FOR GAYLE.
[2017-12-10 08:00] VITALS: BP 147/65
--- NOTE | 2017-12-10 08:00 | NUR ---
RN NOTES RECEIVED PATIENT IN THE BED , NON VERBAL ON VENT/TRACHEA DEPENDED. PATIENT HAS NO ACUTE RESPIRATORY DISTRESS, V/S TAKEN STABLE, SCHEDULED MEDICATION ADMINISTERED VIA G-TUBE. PATIENT TOLERATED FEEDING GOOD, RESIDUAL, AND PLACEMENT CHECKED. DRESSING CHANGED ON SACRAL, AND LEFT THIGH. ASSIST TURN AND REPOSTION Q 2HR. IV ON RIGHT WRIST INFUSING NS AT 75 ML/HR. CALL LIGHT WITHIN TO REACH, SAFETY PRECAUTION MAINTAINED ALL THE TIME.
[2017-12-10] MEDS: BLOOD SUGAR DIAGNOSTIC 1 EACH STRIP VI SCH ×4 (08:14→21:17)
[2017-12-10] MEDS: LEVETIRACETAM SOL (5 ML) 100 MG/ML UDC GT SCH ×2 (09:34→21:16)
[2017-12-10] MEDS: CHLORHEXIDINE GLUCONATE 15 ML UDC MM SCH ×2 (09:34→21:16)
[2017-12-10] MEDS: ZINC SULFATE 220 MG CAPSULE GT SCH (09:34)
[2017-12-10] MEDS: SEVELAMER CARBONATE 0.8 GM POWD.PACK GT SCH (09:34)
[2017-12-10] MEDS: CALCIUM ACETATE 667 MG TABLET GT SCH ×3 (09:34→16:52)
[2017-12-10] MEDS: SUCRALFATE 1 G/10 ML UDC GT SCH ×4 (09:34→21:16)
[2017-12-10] MEDS: HYDROCODONE/APAP 5/325MG 1 EACH TABLET GT SCH ×2 (09:35→16:53)
[2017-12-10] MEDS: MULTIVIT, IRON, MIN NO. 8, FA 1 TAB GT SCH (09:35)
[2017-12-10] MEDS: ASCORBIC ACID 500 MG TABLET GT SCH (09:35)
[2017-12-10] MEDS: FLUCONAZOLE (100 MG) 100 MG TABLET PO SCH (09:35)
[2017-12-10] MEDS: CARVEDILOL 12.5 MG TABLET GT SCH ×2 (09:36→16:50)
[2017-12-10] MEDS: PROSOURCE / PROSTAT (PYXIS) 30 ML UDC GT SCH (09:40)
[2017-12-10] MEDS: FERROUS SULFATE UDC 300 MG/5 ML UDC GT SCH (09:40)
[2017-12-10] MEDS: PANTOPRAZOLE 40 MG/PACK PACK GT SCH (09:40)
[2017-12-10] MEDS: DAKINS QUARTER STRENGTH (0.125%) 480 ML BOTTLE TOP SCH (09:41)
[2017-12-10] MEDS: BACITRACIN/POLYMYXIN B 15 GM TUBE TP SCH ×2 (09:41→16:55)
[2017-12-10 10:15] LABS: CALCIUM, SERUM 8.1 mg/dL (8.5-10.1); CREATININE 0.8 mg/dL (0.6-1.3); POTASSIUM 4.1 mmol/L (3.5-5.1)
[2017-12-10 10:29] LABS: BASOPHILS # (AUTO) 0.1 /CMM (0.0-0.2); BASOPHILS % (AUTO) 1.4 % (0.0-2.0); EOSINOPHILS % (AUTO) 3.4 % (0.0-6.0); HEMATOCRIT 24 % (33-45); HEMOGLOBIN 8.1 g/dL (11.5-14.8); LYMPHOCYTES # (AUTO) 0.5 /CMM (0.8-4.8); LYMPHOCYTES % (AUTO) 5.1 % (20.0-44.0); MEAN CORPUSCULAR HGB CONC 34 g/dl (31.0-36.0); MEAN CORPUSCULAR VOLUME 82 fL (82-100); MONOCYTES # (AUTO) 0.8 /CMM (0.1-1.30); MONOCYTES % (AUTO) 7.3 % (2.0-12.0); NEUTROPHILS # (AUTO) 8.6 /CMM (1.8-8.9); NEUTROPHILS % (AUTO) 82.8 % (43.0-81.0); PLATELET COUNT (AUTO) 241 /CMM (150-450); RDW COEFFICIENT OF VARIATION 17.9 (11.5-15.0); RED BLOOD CELL COUNT(AUTO) 2.93 MIL/uL (4.0-5.2); WHITE BLOOD COUNT (AUTO) 10.4 K/uL (4.3-11.0)
[2017-12-10 12:05] LABS: INR 1.17 (0.87-1.13)
--- NOTE | 2017-12-10 12:30 | NUR ---
RN NOTES BS-120 MG/DL, MED COMPLIANT VIA G-TUNE, ASSIST TURN AND REPOSTION Q 2 HR. CALL LIGHT WITHIN TO REACH. PATIENT GETTING BREATHING TREATMENT BY RT AT THIS TIME. CONTINUED MONITORING,
[2017-12-10] MEDS: DIGOXIN 0.125 MG TABLET GT SCH (13:00)
[2017-12-10] MEDS: MEROPENEM 500 MG in IV NS 0.9% 50 ML IV SCH ×2 (13:24→21:17)
[2017-12-10 16:20] VITALS: BP 155/67
[2017-12-10] MEDS: WARFARIN SODIUM 1 MG TABLET GT SCH (16:52)
--- NOTE | 2017-12-10 18:15 | NUR ---
RN NOTES PATIENT RESTING QUIETLY, NO ACUTE RESPIRATORY DISTRESS, INFUSING NS AT 75 ML/HR, INTACT., G-TUBE INFUSING 35 ML/HR, F/C DRAIN YELLOW OUTPUT. ASSIST TURN AND REPOSTION Q2 HR. PATIENT HAS A GENERALIZED EDEMA IN THE BODY. HOB KEEP ELEVATED FOR ASPIRATION PRECAUTION. CALL LIGHT WITHIN TO REACH. ENDORSED ONCOMING NURSE FOR PLAN OF CARE.
--- NOTE | 2017-12-10 19:03 | NUR ---
RT NOTE: RECEIVED TRACH PT ON VENT WITH NOTED SETTINGS. SX'D MOD AMT OF THICK YELLOW SECRETIONS. VENT PLUGGED INTO RED OUTLET, ALARMS ARE SET AND AUDIBLE. AMBU BAG AT BEDSIDE. PT GIVEN Q6 BREATHING TX WITH NO ADVERSE REACTION NOTED. WILL CONTINUE TO MONITOR.
--- NOTE | 2017-12-10 19:32 | NUR ---
SHARE HOLDER OPENING NOTE RECEIVED PATIENT IN BED, SLEEPING, RESPONDS TO PHYSICAL STIMULI WITH EYE OPENING, OBTUNDED, NON-VERBAL. HAS TRACH AND IS ON MECHANICAL VENTILATION, WITH SETTINGS ORDERED PER MD. TOLERATING WELL ON CONTINUOUS PULSOX MONITOR, SATURATING 100%. ON TELE MONITORING WITH V-PACING IN 60S. RESPIRATIONS EVEN AND UNLABORED, IN NO APPARENT DISTRESS OR DISCOMFORT AT THIS TIME. PAIN ASSESSED THROUGH FLACC PAIN SCALE WITH SCORE OF 0 AT THIS TIME. PATIENT WITH MARION CATHETER DRAINING CLEAR YELLOW URINE. G-TUBE IN PLACE WITH FEEDING AT 50ML/[id number]. SACRAL WOUND DRESSING IS INTACT. KEPT CLEAN AND COMFORTABLE. SAFETY MEASURES IN PLACE, BED IN LOW LOCKED POSITION, SIDE RAILS UPX2, CALL LIGHT WITHIN EASY REACH WILL CONTINUE TO MONITOR.
[2017-12-10 19:47] VITALS: BP 151/52
[2017-12-10 20:00] VITALS: BP 151/52
[2017-12-10] MEDS: DOCUSATE SODIUM LIQ 100 MG/10 ML UDC GT SCH (21:16)
[2017-12-10] MEDS: IV NS 0.9% 1,000 ML IV PRN (21:17)
[2017-12-10] MEDS: ATORVASTATIN 10 MG TABLET GT SCH (21:17)
[2017-12-11] VITALS: BP 146/59
[2017-12-11] MEDS: IPRATROPIUM NEB FS 0.5 MG/2.5 ML AMPUL.NEB IH SCH ×4 (01:06→19:56)
[2017-12-11] MEDS: ALBUTEROL FS 2.5 MG/3 ML VIAL.NEB IH SCH ×4 (01:06→19:56)
[2017-12-11 04:35] VITALS: BP 146/79
[2017-12-11] MEDS: BLOOD SUGAR DIAGNOSTIC 1 EACH STRIP VI SCH ×4 (06:31→21:19)
--- NOTE | 2017-12-11 07:02 | NUR ---
CAREER DEVELOPMENT ASSOCIATE CLOSING NOTE PATIENT IN BED, SLEEPING, RESPONDS TO PHYSICAL STIMULI WITH EYE OPENING, OBTUNDED, NON-VERBAL. HAS TRACH AND IS ON MECHANICAL VENTILATION, WITH SETTINGS ORDERED PER MD. TOLERATING WELL. ON TELE MONITORING WITH V-PACING AND A-FIB, HR 66. RESPIRATIONS EVEN AND UNLABORED, IN NO APPARENT DISTRESS OR DISCOMFORT AT THIS TIME. PATIENT DOES NOT APPEAR IN PAIN, ASSESSED THOUGH FLACC SCORE. RIGHT WRIST IVC, 22G WITH NS RUNNING AT 75ML/HR, NO SIGN OF INFILTRATION NOTED. PATIENT WITH MARION CATHETER DRAINING CLEAR SLIGHTLY BEKAH URINE. G-TUBE IN PLACE WITH FEEDING AT 50ML/[id number], RESIDUAL LASS THAN 5CC. SACRAL DRESSING CHANGED, IS CLEAN AND INTACT. KEPT CLEAN AND COMFORTABLE, REPOSITIONED PER PROTOCOL. SAFETY MEASURES IN PLACE, BED IN LOW LOCKED POSITION, SIDE RAILS UPX3, CALL LIGHT WITHIN EASY REACH, WILL ENDORSE TO AM NURSE FOR GAYLE.
[2017-12-11 07:04] LABS: BASOPHILS # (AUTO) 0.1 /CMM (0.0-0.2); BASOPHILS % (AUTO) 1.5 % (0.0-2.0); EOSINOPHILS % (AUTO) 3.9 % (0.0-6.0); HEMATOCRIT 24 % (33-45); LYMPHOCYTES # (AUTO) 0.6 /CMM (0.8-4.8); LYMPHOCYTES % (AUTO) 6.2 % (20.0-44.0); MEAN CORPUSCULAR HGB CONC 33 g/dl (31.0-36.0); MEAN CORPUSCULAR VOLUME 85 fL (82-100); MONOCYTES # (AUTO) 0.7 /CMM (0.1-1.30); NEUTROPHILS # (AUTO) 7.2 /CMM (1.8-8.9); NEUTROPHILS % (AUTO) 80.4 % (43.0-81.0); PLATELET COUNT (AUTO) 207 /CMM (150-450); RDW COEFFICIENT OF VARIATION 18.8 (11.5-15.0); RED BLOOD CELL COUNT(AUTO) 2.81 MIL/uL (4.0-5.2); WHITE BLOOD COUNT (AUTO) 8.9 K/uL (4.3-11.0)
[2017-12-11 07:24] LABS: INR 1.24 (0.87-1.13)
[2017-12-11 07:47] LABS: CALCIUM, SERUM 7.8 mg/dL (8.5-10.1); CREATININE 0.7 mg/dL (0.6-1.3); POTASSIUM 4.4 mmol/L (3.5-5.1)
[2017-12-11 08:00] VITALS: BP 152/57
--- NOTE | 2017-12-11 08:00 | NUR ---
HOGSHEAD LINER OPENING NOTES RECEIVED PATIENT IN BED, SLEEPING, RESPONDS TO PHYSICAL STIMULI WITH EYE OPENING. PT HAS A TRACH AND IS ON VENT, WITH SETTINGS ORDERED PER MD. TOLERATING WELL. PT ON TELE MONITORING SYN BRADYCARDIA HR 50 . RESPIRATIONS EVEN AND UNLABORED, IN NO APPARENT DISTRESS OR DISCOMFORT AT THIS TIME. PATIENT WITH MARION CATHETER DRAINING CLEAR YELLOW URINE. G-TUBE IN PLACE WITH FEEDING AT 50ML/[id number]. SACRAL DRESSING IS INTACT. KEPT CLEAN AND COMFORTABLE. SAFETY MEASURES IN PLACE HOB ELEVATED, BED IN LOW LOCKED POSITION, SIDE RAILS UPX3, CALL LIGHT WITHIN EASY REACH WILL CONTINUE TO MONITOR
[2017-12-11] MEDS: FERROUS SULFATE UDC 300 MG/5 ML UDC GT SCH (09:45)
[2017-12-11] MEDS: LEVETIRACETAM SOL (5 ML) 100 MG/ML UDC GT SCH ×2 (09:45→20:53)
[2017-12-11] MEDS: CHLORHEXIDINE GLUCONATE 15 ML UDC MM SCH ×2 (09:45→20:52)
[2017-12-11] MEDS: SUCRALFATE 1 G/10 ML UDC GT SCH ×4 (09:45→20:53)
[2017-12-11] MEDS: CALCIUM ACETATE 667 MG TABLET GT SCH ×3 (09:46→16:52)
[2017-12-11] MEDS: ZINC SULFATE 220 MG CAPSULE GT SCH (09:46)
[2017-12-11] MEDS: HYDROCODONE/APAP 5/325MG 1 EACH TABLET GT SCH ×2 (09:48→16:56)
[2017-12-11] MEDS: MULTIVIT, IRON, MIN NO. 8, FA 1 TAB GT SCH (09:49)
[2017-12-11] MEDS: ASCORBIC ACID 500 MG TABLET GT SCH (09:49)
[2017-12-11] MEDS: FLUCONAZOLE (100 MG) 100 MG TABLET PO SCH (09:51)
[2017-12-11] MEDS: CARVEDILOL 12.5 MG TABLET GT SCH ×2 (09:51→16:52)
[2017-12-11] MEDS: PANTOPRAZOLE 40 MG/PACK PACK GT SCH (09:51)
[2017-12-11] MEDS: PROSOURCE / PROSTAT (PYXIS) 30 ML UDC GT SCH (09:51)
[2017-12-11] MEDS: SEVELAMER CARBONATE 0.8 GM POWD.PACK GT SCH (09:51)
[2017-12-11] MEDS: DAKINS QUARTER STRENGTH (0.125%) 480 ML BOTTLE TOP SCH (09:52)
[2017-12-11] MEDS: Z GUARD REMEDY 2 OZ OINT TP PRN (09:52)
[2017-12-11] MEDS: BACITRACIN/POLYMYXIN B 15 GM TUBE TP SCH ×2 (09:54→16:58)
[2017-12-11] MEDS: MEROPENEM 500 MG in IV NS 0.9% 50 ML IV SCH ×2 (10:02→20:52)
[2017-12-11] MEDS: DIGOXIN 0.125 MG TABLET GT SCH (12:43)
--- NOTE | 2017-12-11 14:43 | NUR ---
SEEN BY SHAREE PACHECO (SURGEON) AND STATED THAT THEY MIGHT DO THE SACRAL WOUND DEBRIDEMENT TOMORROW.
[2017-12-11] MEDS: EPOETIN ALFA (4000 UNIT) 4,000 UNIT/ML VIAL SQ SCH (14:59)
--- NOTE | 2017-12-11 15:36 | NUR ---
PACEMAKER CHECK DONE AT BEDSIDE.
[2017-12-11 16:00] VITALS: BP 141/59
[2017-12-11] MEDS ORDERED: JEVITY 1.2 CAL 1,000 ML BOTTLE GT PRN (16:00)
[2017-12-11] MEDS: WARFARIN SODIUM 1 MG TABLET GT SCH (16:55)
--- NOTE | 2017-12-11 17:23 | NUR ---
RT NOTE RECEIVED PT MECHANICALLY VENTILATED VIA TRACHEOSTOMY TUBE. TRACH MIDLINE AND SECURE. CUFF INFLATED BY DATABASE OPERATOR. SETTINGS PRESCRIBED. ALARMS SET PER PROTOCOL AND AUDIBLE. VENT PLUGGED IN TO RED OUTLET. AMBU BAG AT BED SIDE. NO DISTRESS NOTED AT MOMENT.
--- NOTE | 2017-12-11 18:42 | NUR ---
MIXING TUMBLER OPERATOR CLOSING NOTES PATIENT IN BED, SLEEPING, RESPONDS TO PHYSICAL STIMULI WITH EYE OPENING. PT HAS A TRACH AND IS ON VENT, WITH SETTINGS ORDERED PER MD. TOLERATING WELL. PT ON TELE MONITORING SYN BRADYCARDIA HR 50 . RESPIRATIONS EVEN AND UNLABORED, IN NO APPARENT DISTRESS OR DISCOMFORT AT THIS TIME. PATIENT WITH MARION CATHETER DRAINING CLEAR YELLOW URINE. G-TUBE IN PLACE WITH FEEDING AT 60 ML/HR, TOLERATING WELL WITH RESIDUAL 3 ML. SACRAL DRESSING IS INTACT. KEPT CLEAN AND COMFORTABLE. SAFETY MEASURES IN PLACE, HOB ELEVATED, BED IN LOW LOCKED POSITION , CALL LIGHT WITHIN REACH
--- NOTE | 2017-12-11 19:30 | NUR ---
MANAGER PLUMBING OPENING NOTES RECEIVED PATIENT IN BED, AWAKE NON VERBAL,EYES OPEN,NON VERBAL RESPIRATIONS EVEN AND UNLABORED WITH EQUAL RISE AND FALL OF CHEST, ON VENT TRACH, INTACT AND PATENT, SECURE, 02 SAT AT 100%. ON TELEGRAPHIC TYPEWRITER MECHANIC VENTRICULAR PACING 58, NO DISTRESS PRESENT, MARION CATHETER INTACT AND DRAINING WELL. DRESSING TO SACRAL AREA REMAINS DRY AND INTACT AT THIS TIME, HEAD OF BED ELEVATED FOR GTUBE AND ASPIRATIONS PRECAUTIONS, GTUBE PLACEMENT CHECKED INTACT, PROPER PLACEMENT, DRESSING TO SITE REMAINS INTACT. ON JEVITY 1.2 AT 60ML/HR ORDERED. IV SITE TO RIGHT WRIST INTACT AND PATENT , NO REDNESS , NO INFILTRATION PRESENT. SAFETY MEASURES IN PLACE, ORIENTED TO STAFF, AND CALL LIGHT , CALL LIGHT KEPT WITHIN REACH. WILL CONTINUE TO MONITOR.
[2017-12-11 20:00] VITALS: BP 143/64
[2017-12-11] MEDS: ATORVASTATIN 10 MG TABLET GT SCH (21:13)
[2017-12-11] MEDS: DOCUSATE SODIUM LIQ 100 MG/10 ML UDC GT SCH (21:13)
--- NOTE | 2017-12-11 21:20 | NUR ---
HEADLINER INSTALLER NOTES BS 99, NO INSULIN NEEDED NONE GIVEN
[2017-12-12] VITALS (7 sets, daily range): BP systolic 137–178; BP diastolic 56–77
[2017-12-12] MEDS: JEVITY 1.2 CAL 1,000 ML BOTTLE GT PRN (01:09)
[2017-12-12] MEDS: ALBUTEROL FS 2.5 MG/3 ML VIAL.NEB IH SCH ×5 (01:30→19:12)
[2017-12-12] MEDS: IPRATROPIUM NEB FS 0.5 MG/2.5 ML AMPUL.NEB IH SCH ×5 (01:30→19:12)
[2017-12-12 06:33] LABS: BASOPHILS # (AUTO) 0.1 /CMM (0.0-0.2); EOSINOPHILS % (AUTO) 3.4 % (0.0-6.0); HEMATOCRIT 25 % (33-45); HEMOGLOBIN 8.2 g/dL (11.5-14.8); LYMPHOCYTES # (AUTO) 0.6 /CMM (0.8-4.8); LYMPHOCYTES % (AUTO) 5.9 % (20.0-44.0); MEAN CORPUSCULAR HGB CONC 33 g/dl (31.0-36.0); MEAN CORPUSCULAR VOLUME 85 fL (82-100); MONOCYTES # (AUTO) 0.8 /CMM (0.1-1.30); NEUTROPHILS # (AUTO) 8.2 /CMM (1.8-8.9); NEUTROPHILS % (AUTO) 81.7 % (43.0-81.0); PLATELET COUNT (AUTO) 198 /CMM (150-450); RDW COEFFICIENT OF VARIATION 18.9 (11.5-15.0); RED BLOOD CELL COUNT(AUTO) 2.92 MIL/uL (4.0-5.2); WHITE BLOOD COUNT (AUTO) 10.1 K/uL (4.3-11.0)
[2017-12-12] MEDS: BLOOD SUGAR DIAGNOSTIC 1 EACH STRIP VI SCH ×4 (06:53→22:00)
--- NOTE | 2017-12-12 07:11 | NUR ---
COMPENSATOR CLOSING NOTES PATIENT IN BED, AWAKE NON VERBAL,EYES OPEN, RESPIRATIONS EVEN AND UNLABORED WITH EQUAL RISE AND FALL OF CHEST, ON VENT TRACH, INTACT AND PATENT, SECURE, 02 SAT AT 100%. ON TRAVEL ATTENDANTS VENTRICULAR PACING 54, NO DISTRESS PRESENT, MARION CATHETER INTACT AND DRAINING WELL. DRESSING TO SACRAL AREA REMAINS DRY AND INTACT AT THIS TIME, ALL WOUND DRESSING CHANGED ORDERED, REPOSITIONED AND OFFLOADED AFFECTED AREAS, HEAD OF BED ELEVATED FOR GTUBE AND ASPIRATIONS PRECAUTIONS, GTUBE PLACEMENT CHECKED INTACT, PROPER PLACEMENT, DRESSING TO SITE REMAINS INTACT. ON JEVITY 1.2 AT 60ML/HR ORDERED. IV SITE TO RIGHT WRIST INTACT AND PATENT , NO REDNESS , NO INFILTRATION PRESENT. SAFETY MEASURES IN PLACE, BS AT 113 NO INSULIN NEEDED PER SLIDING SCALE,CALL LIGHT KEPT WITHIN REACH. WILL CONTINUE TO MONITOR AND ENDORSE TO NEXT SHIFT
[2017-12-12 07:12] LABS: CALCIUM, SERUM 8.1 mg/dL (8.5-10.1); CREATININE 0.7 mg/dL (0.6-1.3); POTASSIUM 4.2 mmol/L (3.5-5.1)
--- NOTE | 2017-12-12 08:00 | NUR ---
MS HUEY AM NOTES RECEIVED PATIENT IN BED, SLEEPING, RESPONDS TO PHYSICAL STIMULI WITH EYE OPENING. PT HAS A TRACH AND IS ON VENT, WITH SETTINGS ORDERED PER MD. TOLERATING WELL. RESPIRATIONS EVEN AND UNLABORED, IN NO APPARENT DISTRESS OR DISCOMFORT AT THIS TIME. PATIENT WITH MARION CATHETER DRAINING CLEAR YELLOW URINE. G-TUBE IN PLACE WITH FEEDING AT 60ML/[id number]. TOLERATING WELL.SACRAL DRESSING CHANGED ORDERED.KEPT CLEAN AND COMFORTABLE. SAFETY MEASURES IN PLACE HOB ELEVATED, BED IN LOW LOCKED POSITION, SIDE RAILS UPX3, CALL LIGHT WITHIN EASY REACH WILL CONTINUE TO MONITOR
[2017-12-12] MEDS ORDERED: SILVER NITRATE APPLICATOR 1 EA BOX TP STA (09:24)
[2017-12-12] MEDS: ZINC SULFATE 220 MG CAPSULE GT SCH (09:26)
[2017-12-12] MEDS: SUCRALFATE 1 G/10 ML UDC GT SCH ×4 (09:26→20:46)
[2017-12-12] MEDS: CHLORHEXIDINE GLUCONATE 15 ML UDC MM SCH ×2 (09:26→20:46)
[2017-12-12] MEDS: LEVETIRACETAM SOL (5 ML) 100 MG/ML UDC GT SCH ×2 (09:26→20:46)
[2017-12-12] MEDS: HYDROCODONE/APAP 5/325MG 1 EACH TABLET GT SCH ×2 (09:28→17:23)
[2017-12-12] MEDS: CARVEDILOL 12.5 MG TABLET GT SCH ×2 (09:29→17:26)
[2017-12-12] MEDS: ASCORBIC ACID 500 MG TABLET GT SCH (09:29)
[2017-12-12] MEDS: PANTOPRAZOLE 40 MG/PACK PACK GT SCH (09:30)
[2017-12-12] MEDS ORDERED: LIDOCAINE 1%-EPI 1:100,000 20 ML VIAL TP ONE (09:30)
[2017-12-12] MEDS: SEVELAMER CARBONATE 0.8 GM POWD.PACK GT SCH (09:30)
[2017-12-12] MEDS: FLUCONAZOLE (100 MG) 100 MG TABLET PO SCH (09:30)
[2017-12-12] MEDS: MULTIVIT, IRON, MIN NO. 8, FA 1 TAB GT SCH (09:30)
[2017-12-12] MEDS: CALCIUM ACETATE 667 MG TABLET GT SCH ×3 (09:30→17:20)
[2017-12-12] MEDS: FERROUS SULFATE UDC 300 MG/5 ML UDC GT SCH (09:47)
[2017-12-12] MEDS: PROSOURCE / PROSTAT (PYXIS) 30 ML UDC GT SCH (09:47)
[2017-12-12] MEDS: MEROPENEM 500 MG in IV NS 0.9% 50 ML IV SCH (09:48)
[2017-12-12] MEDS: DAKINS QUARTER STRENGTH (0.125%) 480 ML BOTTLE TOP SCH (09:49)
[2017-12-12] MEDS: BACITRACIN/POLYMYXIN B 15 GM TUBE TP SCH ×2 (09:49→17:27)
--- NOTE | 2017-12-12 10:00 | NUR ---
EXCISIONAL SACRAL WOUND DEBRIDEMENT DONE BY SHAREE PACHECO AT BEDSIDE.SACRAL BONE SENT TO PATHOLOGY LAB AND WOUND C/S G/S OF SACRAL WOUND SPECIMENS SENT TO LAB.PT TOLERATED WELL.
--- NOTE | 2017-12-12 11:30 | NUR ---
BLOOD GLUCOSE WAS ORDERED TO BE CHECKED THROUGH LAB THE SYSTEM IS STILL DOWN.
[2017-12-12] MEDS: DIGOXIN 0.125 MG TABLET GT SCH (13:49)
[2017-12-12] MEDS: WARFARIN SODIUM 1 MG TABLET GT SCH (17:22)
--- NOTE | 2017-12-12 17:32 | NUR ---
RT NOTE: PATIENT RECEIVED TRACHED ON MECHANICAL VENT. ALARMS VERIFIED AND AUDIBLE. SUCTIONED AND LAVAGED LARGE AMOUNT OF THICK RODAS SECRETIONS. VENT PLUGGED INTO RED OUTLET. AMBU BAG AT [facility].
--- NOTE | 2017-12-12 19:30 | NUR ---
PUBLIC AREA SUPERVISOR OPENING NOTES RECEIVED PATIENT IN BED, AWAKE NON VERBAL,EYES OPEN,NON VERBAL RESPIRATIONS EVEN AND UNLABORED WITH EQUAL RISE AND FALL OF CHEST, ON VENT TRACH, INTACT AND PATENT, SECURE, 02 SAT AT 100%. ON SAFETY COUNCIL DIRECTOR VENTRICULAR PACING 69, NO DISTRESS PRESENT, MARION CATHETER INTACT AND DRAINING WELL. DRESSING TO SACRAL AREA REMAINS DRY AND INTACT AT THIS TIME, HEAD OF BED ELEVATED FOR GTUBE AND ASPIRATIONS PRECAUTIONS, GTUBE PLACEMENT CHECKED INTACT, PROPER PLACEMENT, DRESSING TO SITE REMAINS INTACT. ON JEVITY 1.2 AT 60ML/HR ORDERED. IV SITE TO RIGHT WRIST INTACT AND PATENT , NO REDNESS , NO INFILTRATION PRESENT. SAFETY MEASURES IN PLACE, ORIENTED TO STAFF, AND CALL LIGHT , CALL LIGHT KEPT WITHIN REACH. WILL CONTINUE TO MONITOR. PATIENT CURRENTLY REMAINS COMFORTABLE AT THIS TIME.
[2017-12-12] MEDS: LINEZOLID 600 MG TABLET PO SCH (20:46)
[2017-12-12] MEDS ORDERED: VANCOMYCIN 500 MG in IV D5W 100 ML IV SCH (21:00)
[2017-12-12] MEDS: ATORVASTATIN 10 MG TABLET GT SCH (21:04)
[2017-12-12] MEDS: DOCUSATE SODIUM LIQ 100 MG/10 ML UDC GT SCH (21:05)
--- NOTE | 2017-12-12 22:00 | NUR ---
ACCU CHECK WAS NOT PERFORMED DUE TO SYSTEM BEING DOWN. WAITING FOR IT TO FIX THE SYSTEM.
--- NOTE | 2017-12-12 23:00 | NUR ---
REPORT RECEIVED FROM LULA LEE GAYLE. PATIENT IS STABLE, IN NO APPARENT DISTRESS OR DISCOMFORT AT THIS TIME. WILL CONTINUE CARE AND CARRY OUT REMAINING ORDERS FOR THE NIGHT.
--- NOTE | 2017-12-12 23:02 | NUR ---
horn player notes report given to rn taking over patient left in stable condition, all needs attended.
[2017-12-13 00:03] VITALS: BP 143/73
--- NOTE | 2017-12-13 01:17 | NUR ---
PATIENT RANDOM BLOOD GLUCOSE CAME BACK 121. NO INSULIN COVERAGE REQUIRED PER SLIDING SCALE.
[2017-12-13] MEDS: ALBUTEROL FS 2.5 MG/3 ML VIAL.NEB IH SCH ×4 (01:29→19:21)
[2017-12-13] MEDS: IPRATROPIUM NEB FS 0.5 MG/2.5 ML AMPUL.NEB IH SCH ×4 (01:29→19:22)
[2017-12-13 04:31] VITALS: BP 165/70
--- NOTE | 2017-12-13 06:46 | NUR ---
COMMUNITY RELATIONS ADVISOR CLOSING NOTE PATIENT IN BED, SLEEPING, RESPONDS TO PHYSICAL STIMULI WITH EYE OPENING, OBTUNDED, NON-VERBAL. HAS TRACH AND IS ON MECHANICAL VENTILATION, WITH SETTINGS ORDERED PER MD. TOLERATING WELL. ON TELE MONITORING WITH JUNCTIONAL HR 71. RESPIRATIONS EVEN AND UNLABORED, IN NO APPARENT DISTRESS OR DISCOMFORT AT THIS TIME. PATIENT DOES NOT APPEAR IN PAIN, ASSESSED THOUGH FLACC SCORE. RIGHT WRIST IVC, 22G SL, PATENT AND INTACT. PATIENT WITH MARION CATHETER DRAINING CLEAR YELLOW URINE. G-TUBE IN PLACE WITH FEEDING AT 60ML/[id number], RESIDUAL LASS THAN 5CC. SACRAL DRESSING CHANGED, CLEAN AND INTACT. KEPT CLEAN AND COMFORTABLE, REPOSITIONED PER PROTOCOL. SAFETY MEASURES IN PLACE, BED IN LOW LOCKED POSITION, SIDE RAILS UPX3, CALL LIGHT WITHIN EASY REACH, WILL ENDORSE TO AM NURSE FOR GAYLE.
[2017-12-13 07:02] LABS: CALCIUM, SERUM 8.2 mg/dL (8.5-10.1); CREATININE 0.6 mg/dL (0.6-1.3); POTASSIUM 4.6 mmol/L (3.5-5.1)
[2017-12-13] MEDS: BLOOD SUGAR DIAGNOSTIC 1 EACH STRIP VI SCH ×4 (07:30→21:23)
--- NOTE | 2017-12-13 07:30 | NUR ---
UNABLE TO COMPLETE FINGERSTICK BLOOD GLUCOSE TEST DUE TO UNAVAILABILITY OF THE GLUCOMETER. RANDOM BG TEST IS ORDERED. READING 119MG/DL
--- NOTE | 2017-12-13 07:35 | NUR ---
CONTRACTS SPECIALIST OPENING NOTE RECEIVED BEDSIDE REPORT ON A PATIENT. PATIENT IS OBTUNDED, NON-VERBAL, ASLEEP, OPENS EYES TO TOUCH. PRESENTS WITH TRACHEOSTOMY AND IS MECHANICAL VENTILATOR DEPENDENT. VENT SETTINGS ARE ORDERED. HAS A MARION CATHETER. EXTERNAL TECHNOLOGY ADVISOR READING IS VENTRICULAR PACING BRADYCARDIA WITH HR 55BMP. PATIENT IS BEDRIDDEN. BED IS LOCKED IN LOWEST POSITION, SIDE RAILS UP X3, BED ALARM IS ON. SPECIALTY PRESSURE RELIEVING MATRASS IN PLACE. PATIENT REPOSITIONED FOR FUNCTIONAL ALIGNMENT OF THE LIMBS. ALL NEEDS ARE MET. RT AT THE BEDSIDE. WILL CONTINUE TO ASSESS/MONITOR THROUGHOUT THE SHIFT.
[2017-12-13 07:36] LABS: BASOPHILS # (AUTO) 0.1 /CMM (0.0-0.2); BASOPHILS % (AUTO) 0.6 % (0.0-2.0); EOSINOPHILS % (AUTO) 2.4 % (0.0-6.0); HEMATOCRIT 26 % (33-45); HEMOGLOBIN 8.4 g/dL (11.5-14.8); LYMPHOCYTES # (AUTO) 0.6 /CMM (0.8-4.8); LYMPHOCYTES % (AUTO) 5.6 % (20.0-44.0); MEAN CORPUSCULAR HGB CONC 33 g/dl (31.0-36.0); MEAN CORPUSCULAR VOLUME 86 fL (82-100); MONOCYTES % (AUTO) 9.3 % (2.0-12.0); NEUTROPHILS # (AUTO) 8.5 /CMM (1.8-8.9); NEUTROPHILS % (AUTO) 82.1 % (43.0-81.0); PLATELET COUNT (AUTO) 183 /CMM (150-450); RDW COEFFICIENT OF VARIATION 18.9 (11.5-15.0); RED BLOOD CELL COUNT(AUTO) 2.98 MIL/uL (4.0-5.2); WHITE BLOOD COUNT (AUTO) 10.4 K/uL (4.3-11.0)
[2017-12-13 08:00] VITALS: BP 141/70
[2017-12-13] MEDS: LEVETIRACETAM SOL (5 ML) 100 MG/ML UDC GT SCH ×2 (09:46→21:24)
[2017-12-13] MEDS: CHLORHEXIDINE GLUCONATE 15 ML UDC MM SCH ×2 (09:46→21:24)
[2017-12-13] MEDS: SUCRALFATE 1 G/10 ML UDC GT SCH ×4 (09:46→21:24)
[2017-12-13] MEDS: PROSOURCE / PROSTAT (PYXIS) 30 ML UDC GT SCH (09:46)
[2017-12-13] MEDS: HYDROCODONE/APAP 5/325MG 1 EACH TABLET GT SCH ×2 (09:47→16:04)
[2017-12-13] MEDS: MULTIVIT, IRON, MIN NO. 8, FA 1 TAB GT SCH (09:47)
[2017-12-13] MEDS: ASCORBIC ACID 500 MG TABLET GT SCH (09:47)
[2017-12-13] MEDS: LINEZOLID 600 MG TABLET PO SCH ×2 (09:47→21:25)
[2017-12-13] MEDS: FLUCONAZOLE (100 MG) 100 MG TABLET PO SCH (09:47)
[2017-12-13] MEDS: ZINC SULFATE 220 MG CAPSULE GT SCH (09:47)
[2017-12-13] MEDS: CARVEDILOL 12.5 MG TABLET GT SCH ×2 (09:47→16:10)
[2017-12-13] MEDS: CALCIUM ACETATE 667 MG TABLET GT SCH ×3 (09:47→16:04)
[2017-12-13] MEDS: SEVELAMER CARBONATE 0.8 GM POWD.PACK GT SCH (09:48)
[2017-12-13] MEDS: PANTOPRAZOLE 40 MG/PACK PACK GT SCH (09:48)
[2017-12-13] MEDS: BACITRACIN/POLYMYXIN B 15 GM TUBE TP SCH ×2 (09:54→16:09)
[2017-12-13] MEDS: DAKINS QUARTER STRENGTH (0.125%) 480 ML BOTTLE TOP SCH (09:54)
[2017-12-13] MEDS: FERROUS SULFATE UDC 300 MG/5 ML UDC GT SCH (09:55)
[2017-12-13 12:00] VITALS: BP 147/70
[2017-12-13] MEDS ORDERED: FLUC100T8 PO (12:05)
[2017-12-13] MEDS ORDERED: LINE600T PO (12:05)
[2017-12-13] MEDS: DIGOXIN 0.125 MG TABLET GT SCH (12:29)
[2017-12-13] MEDS: EPOETIN ALFA (4000 UNIT) 4,000 UNIT/ML VIAL SQ SCH (15:59)
[2017-12-13 16:00] VITALS: BP 161/71
[2017-12-13] MEDS: WARFARIN SODIUM 1 MG TABLET GT SCH (16:06)
--- NOTE | 2017-12-13 18:55 | NUR ---
LEATHER SORTER CLOSING NOTE GAVE BEDSIDE REPORT ON A PATIENT. PATIENT IS OBTUNDED, NON-VERBAL, ASLEEP, OPENS EYES TO TOUCH. PRESENTS WITH TRACHEOSTOMY AND IS MECHANICAL VENTILATOR DEPENDENT. VENT SETTINGS ARE ORDERED. HAS A MARION CATHETER. EXTERNAL AIRPORT SCREENER READING IS VENTRICULAR PACING HR 61. PATIENT IS BEDRIDDEN. BED IS LOCKED IN LOWEST POSITION, SIDE RAILS UP X3, BED ALARM IS ON. SPECIALTY PRESSURE RELIEVING MATRASS IN PLACE. WOUND CARE PERFORMED ORDERED. CLEANED AND REPOSITIONED EVERY 2 HRS FOR FUNCTIONAL ALIGNMENT OF THE LIMBS. ALL NEEDS ARE MET. ENDORSED FOR GAYLE. TO THE ELECTRIC MELT OPERATOR NURSE
--- NOTE | 2017-12-13 19:15 | NUR ---
BUSINESS DEVELOPMENT OFFICER OPENING NOTE RECEIVED PATIENT IN BED, SLEEPING, RESPONDS TO PHYSICAL STIMULI WITH EYE OPENING, OBTUNDED, NON-VERBAL. HAS TRACH AND IS ON MECHANICAL VENTILATION, WITH SETTINGS ORDERED PER MD. TOLERATING WELL ON CONTINUOUS PULSOX MONITOR, SATURATING 100%. ON TELE MONITORING WITH V-PACING 55HR. RESPIRATIONS EVEN AND UNLABORED, IN NO APPARENT DISTRESS OR DISCOMFORT AT THIS TIME. PAIN ASSESSED THROUGH FLACC PAIN SCALE WITH SCORE OF 0 AT THIS TIME. PATIENT WITH MARION CATHETER DRAINING CLEAR YELLOW URINE. G-TUBE IN PLACE WITH FEEDING AT 60ML/[id number]. SACRAL WOUND DRESSING IS INTACT. KEPT CLEAN AND COMFORTABLE. SAFETY MEASURES IN PLACE, BED IN LOW LOCKED POSITION, SIDE RAILS UPX3, CALL LIGHT WITHIN EASY REACH WILL CONTINUE TO MONITOR.
[2017-12-13 20:00] VITALS: BP 142/80
[2017-12-13] MEDS: ATORVASTATIN 10 MG TABLET GT SCH (21:23)
[2017-12-13] MEDS: DOCUSATE SODIUM LIQ 100 MG/10 ML UDC GT SCH (21:24)
[2017-12-14] VITALS (7 sets, daily range): BP systolic 139–146; BP diastolic 56–70
[2017-12-14] MEDS: JEVITY 1.2 CAL 1,000 ML BOTTLE GT PRN (00:06)
[2017-12-14] MEDS: ALBUTEROL FS 2.5 MG/3 ML VIAL.NEB IH SCH ×4 (01:30→19:20)
[2017-12-14] MEDS: IPRATROPIUM NEB FS 0.5 MG/2.5 ML AMPUL.NEB IH SCH ×4 (01:30→19:20)
[2017-12-14 07:06] LABS: BASOPHILS # (AUTO) 0.1 /CMM (0.0-0.2); BASOPHILS % (AUTO) 1.2 % (0.0-2.0); HEMATOCRIT 24 % (33-45); HEMOGLOBIN 7.6 g/dL (11.5-14.8); LYMPHOCYTES # (AUTO) 0.5 /CMM (0.8-4.8); LYMPHOCYTES % (AUTO) 5.8 % (20.0-44.0); MEAN CORPUSCULAR HGB CONC 32 g/dl (31.0-36.0); MEAN CORPUSCULAR VOLUME 84 fL (82-100); MONOCYTES # (AUTO) 0.7 /CMM (0.1-1.30); MONOCYTES % (AUTO) 7.8 % (2.0-12.0); NEUTROPHILS # (AUTO) 6.9 /CMM (1.8-8.9); NEUTROPHILS % (AUTO) 80.2 % (43.0-81.0); PLATELET COUNT (AUTO) 183 /CMM (150-450); RDW COEFFICIENT OF VARIATION 18.6 (11.5-15.0); RED BLOOD CELL COUNT(AUTO) 2.81 MIL/uL (4.0-5.2); WHITE BLOOD COUNT (AUTO) 8.6 K/uL (4.3-11.0)
[2017-12-14 07:10] LABS: CALCIUM, SERUM 8.1 mg/dL (8.5-10.1); CREATININE 0.6 mg/dL (0.6-1.3); POTASSIUM 4.5 mmol/L (3.5-5.1)
--- NOTE | 2017-12-14 07:30 | NUR ---
Tele/RN - Assessment Patient obtunded, no s/s of pain, not in any form of distress, trached and vent dependent with Portex 7 secured and intact, vent settings as follows: AC14, VT450, Fio2 35%, PEEP 5, tolerated well. Tele shows v-paced. Skin assessment done. Will do wound care as ordered. Vega catheter in place for skin management, on [employer]CI mattress. Pt turned and repositioned q2h and PRN if condition permits. Jevity at 60 ml/hr tolerating it well. Aspiration precautions maintained. Will continue to monitor closely.
--- NOTE | 2017-12-14 07:45 | NUR ---
RN HOMECARE CLOSING NOTE PATIENT IN BED, SLEEPING, RESPONDS TO PHYSICAL STIMULI WITH EYE OPENING, OBTUNDED, NON-VERBAL. HAS TRACH AND IS ON MECHANICAL VENTILATION, WITH SETTINGS ORDERED PER MD. TOLERATING WELL. ON TELE MONITORING V-PACING AND HR OF 71. RESPIRATIONS EVEN AND UNLABORED, IN NO APPARENT DISTRESS OR DISCOMFORT AT THIS TIME. PATIENT DOES NOT APPEAR IN PAIN, ASSESSED THOUGH FLACC SCORE. RIGHT WRIST IVC, 22G SL, PATENT AND INTACT. PATIENT WITH MARION CATHETER DRAINING CLEAR YELLOW URINE. G-TUBE IN PLACE WITH FEEDING AT 60ML/[id number], RESIDUAL LASS THAN 5CC. SACRAL DRESSING CHANGED, CLEAN AND INTACT. KEPT CLEAN AND COMFORTABLE, SUCTIONED NEEDED, REPOSITIONED PER PROTOCOL. SAFETY MEASURES IN PLACE, BED IN LOW LOCKED POSITION, SIDE RAILS UPX3, CALL LIGHT WITHIN EASY REACH, WILL ENDORSE TO AM NURSE FOR GAYLE.
--- NOTE | 2017-12-14 07:45 | NUR ---
LINING FELLER BLINDSTITCH NOTES Received patient in bed, comfortable, easily aroused. V-pacing, afib HR 67 on tele monitor. IV site on Right wrist #22g: patent and intact. Safety measures in place. Bed in lowest position with bed alarm on. Call light within reach. Will continue monitor and assess patient
[2017-12-14] MEDS: PANTOPRAZOLE 40 MG/PACK PACK GT SCH (08:16)
[2017-12-14] MEDS: BLOOD SUGAR DIAGNOSTIC 1 EACH STRIP VI SCH ×4 (08:16→21:48)
[2017-12-14] MEDS: SUCRALFATE 1 G/10 ML UDC GT SCH ×4 (08:17→21:37)
[2017-12-14] MEDS: FLUCONAZOLE (100 MG) 100 MG TABLET PO SCH (08:17)
[2017-12-14] MEDS: ZINC SULFATE 220 MG CAPSULE GT SCH (08:17)
[2017-12-14] MEDS: ASCORBIC ACID 500 MG TABLET GT SCH (08:17)
[2017-12-14] MEDS: CHLORHEXIDINE GLUCONATE 15 ML UDC MM SCH ×2 (08:17→21:37)
[2017-12-14] MEDS: LEVETIRACETAM SOL (5 ML) 100 MG/ML UDC GT SCH ×2 (08:17→21:37)
[2017-12-14] MEDS: CALCIUM ACETATE 667 MG TABLET GT SCH ×3 (08:18→16:30)
[2017-12-14] MEDS: MULTIVIT, IRON, MIN NO. 8, FA 1 TAB GT SCH (08:18)
[2017-12-14] MEDS: HYDROCODONE/APAP 5/325MG 1 EACH TABLET GT SCH ×2 (08:18→16:31)
[2017-12-14] MEDS: LINEZOLID 600 MG TABLET PO SCH ×2 (08:18→21:42)
[2017-12-14] MEDS: SEVELAMER CARBONATE 0.8 GM POWD.PACK GT SCH (08:19)
[2017-12-14] MEDS: FERROUS SULFATE UDC 300 MG/5 ML UDC GT SCH (08:22)
[2017-12-14] MEDS: PROSOURCE / PROSTAT (PYXIS) 30 ML UDC GT SCH (08:24)
[2017-12-14] MEDS: CARVEDILOL 12.5 MG TABLET GT SCH ×2 (08:25→16:33)
[2017-12-14] MEDS: DAKINS QUARTER STRENGTH (0.125%) 480 ML BOTTLE TOP SCH ×2 (08:26→16:33)
[2017-12-14] MEDS: BACITRACIN/POLYMYXIN B 15 GM TUBE TP SCH ×2 (08:27→16:33)
[2017-12-14 09:42] LABS: INR 1.49 (0.87-1.13)
[2017-12-14] MEDS: INSULIN REGULAR, HUMAN 100 UNIT/ML 3 ML VIAL SQ PRN ×2 (11:59→18:01)
[2017-12-14] MEDS: DIGOXIN 0.125 MG TABLET GT SCH (12:29)
[2017-12-14] MEDS: WARFARIN SODIUM 1 MG TABLET GT SCH (16:29)
--- NOTE | 2017-12-14 18:38 | NUR ---
BRIM MOLDER CLOSING NOTES Patient in bed comfortable and arousable. Non-verbal but able to open eyes when being repositioned, turnedn or suctioned. [id number] with HR 54. Heplock on Right wrist 22g: intake and patent. Treatment on sacrum rendered. No change of condition. Not in any type of distress noted or reported. Vega Cath in place, patent. Gtube in place. residual of 10cc. On Jevity 1.2 @60ml/hr (OFF @0800-ON @1200pm), tolerating well. Safety measures in place. Repositioned and Turned every 2 hours. Bed in lowest position with bed alarm on. Call light within reach. Will endorse to oncoming nurse
--- NOTE | 2017-12-14 19:30 | NUR ---
ADDICTIONS COUNSELOR ASSISTANT NOTES RECEIVED ON BED NON VERBAL,OBTUNDED,ON TRACH/VENT,SETTINGS TOLERATED WELL.WITH GT FEEDING OF JEVITY AT 60ML/HR RATE,TOLERATED WELL,WITH 5ML RESIDUAL VOLUME NOTED. OFF 8AN ON AT 12 NOON.SALINE LOCK RIGHT WRIST INTACT AND PATENT.ON [employer]CI MATTRESS FOR SKIN MANAGEMENT.CALL LIGHT IN REACH.WILL CONTINUE TO MONITOR STATUS.
--- NOTE | 2017-12-14 21:30 | NUR ---
GAS TURBINE MECHANIC NOTES ACCU-CHECK BLOOD SUGAR CHECK 102,NO INSULIN COVERAGE.
[2017-12-14] MEDS: ATORVASTATIN 10 MG TABLET GT SCH (21:38)
[2017-12-14] MEDS: DOCUSATE SODIUM LIQ 100 MG/10 ML UDC GT SCH (21:38)
[2017-12-15] VITALS: BP 139/55
[2017-12-15] MEDS: IPRATROPIUM NEB FS 0.5 MG/2.5 ML AMPUL.NEB IH SCH ×3 (01:45→14:41)
[2017-12-15] MEDS: ALBUTEROL FS 2.5 MG/3 ML VIAL.NEB IH SCH ×3 (01:46→14:41)
--- NOTE | 2017-12-15 03:00 | NUR ---
BARREL BUILDER NOTES MORNING CARE RENDERED,TOLERATED WELL.REPOSITION PER PROTOCOL
[2017-12-15] MEDS: JEVITY 1.2 CAL 1,000 ML BOTTLE GT PRN (03:03)
--- NOTE | 2017-12-15 03:16 | NUR ---
FRETTED INSTRUMENT INSPECTOR NOTES NO LEAKS ON GT SITE.DRESSING CHANGE DONE ON BUTTOCKS AREA WITH DAKINS SOLUTION
[2017-12-15 04:00] VITALS: BP_SYST 143; BP_SYST 159; BP_DIAS 56; BP_DIAS 70
[2017-12-15] MEDS: BLOOD SUGAR DIAGNOSTIC 1 EACH STRIP VI SCH ×3 (05:43→16:55)
--- NOTE | 2017-12-15 05:45 | NUR ---
INSURANCE RATER NOTES ACCU-CHECK BLOOD SUGAR CHECK 103,NO INSULIN COVERAGE,GT FEEDING IN PROGRESS.
--- NOTE | 2017-12-15 06:02 | NUR ---
TEAM DRIVER NOTES NO SIGNIFICANT CHANGE IN STATUS.OPEN EYES TO CARE. GT FEEDING TOLERATED WELL.NO N/V/D NOTED.REPOSITION PER PROTOCOL.NOTED HEALING SKIN TEAR ON LEFT THIGH.AWAITING WOUND SENSITIVITY RESULT AND ANTIBIOTICS RECOMMENDATION BY ID FOR SNF USE.IN NO ACUTE DISTRESS.WILL ENDORSE TO DAY NURSE FOR GAYLE.
[2017-12-15 06:19] LABS: INR 1.64 (0.87-1.13)
--- NOTE | 2017-12-15 07:00 | NUR ---
LAMP SHADE JOINER INITIAL NOTES: Received patient in bed, non- verbal, on trach/ vent, opens- eyes to physical stimuli. GT feeding in place, Jevity running at 60mL/hr. On low air mattress for skin management. Safety measures in place. Patient stable as endorsed by the third shift lieutenant RN.
[2017-12-15 08:00] VITALS: BP_SYST 162; BP_SYST 163; BP_DIAS 114; BP_DIAS 68
[2017-12-15] MEDS: SUCRALFATE 1 G/10 ML UDC GT SCH ×3 (08:49→16:51)
[2017-12-15] MEDS: PANTOPRAZOLE 40 MG/PACK PACK GT SCH (08:50)
[2017-12-15] MEDS: SEVELAMER CARBONATE 0.8 GM POWD.PACK GT SCH (08:50)
[2017-12-15] MEDS: CALCIUM ACETATE 667 MG TABLET GT SCH ×3 (08:50→16:51)
[2017-12-15] MEDS: LEVETIRACETAM SOL (5 ML) 100 MG/ML UDC GT SCH (08:50)
[2017-12-15] MEDS: CHLORHEXIDINE GLUCONATE 15 ML UDC MM SCH (08:50)
[2017-12-15] MEDS: ZINC SULFATE 220 MG CAPSULE GT SCH (08:50)
[2017-12-15] MEDS: FLUCONAZOLE (100 MG) 100 MG TABLET PO SCH (08:51)
[2017-12-15] MEDS: LINEZOLID 600 MG TABLET PO SCH (08:51)
[2017-12-15] MEDS: MULTIVIT, IRON, MIN NO. 8, FA 1 TAB GT SCH (08:51)
[2017-12-15] MEDS: ASCORBIC ACID 500 MG TABLET GT SCH (08:51)
[2017-12-15] MEDS: HYDROCODONE/APAP 5/325MG 1 EACH TABLET GT SCH ×2 (08:52→16:51)
--- NOTE | 2017-12-15 08:52 | NUR ---
senior java engineer Notes: -Coreg not given, patient's pulse is 54. G-tube in place, no residuals noted. . All due medications given as ordered. G-tube flushed and turned off as ordered. Will resume feeding at 12noon.
[2017-12-15] MEDS: BACITRACIN/POLYMYXIN B 15 GM TUBE TP SCH ×2 (08:53→16:55)
[2017-12-15] MEDS: FERROUS SULFATE UDC 300 MG/5 ML UDC GT SCH (08:54)
[2017-12-15] MEDS: CARVEDILOL 12.5 MG TABLET GT SCH ×2 (08:55→17:00)
[2017-12-15] MEDS: PROSOURCE / PROSTAT (PYXIS) 30 ML UDC GT SCH (08:57)
[2017-12-15] MEDS: DIGOXIN 0.125 MG TABLET GT SCH (12:11)
--- NOTE | 2017-12-15 12:15 | NUR ---
lift builder whole Notes: Patient's digoxin not given; pulse rate 55. All due medications given as ordered. G-tube feeding resumed at 60mL/hr as ordered. BSL 105. No insulin coverage given as per sliding scale
[2017-12-15] MEDS: EPOETIN ALFA (4000 UNIT) 4,000 UNIT/ML VIAL SQ SCH (14:34)
--- NOTE | 2017-12-15 15:34 | NUR ---
RT NOTE: PATIENT RECEIVED TRACHED ON MECHANICAL VENT. ALARMS VERIFIED AND AUDIBLE. SUCTIONED AND LAVAGED LARGE AMOUNT OF THICK PALE YELLOW SECRETIONS. VENT PLUGGED INTO RED OUTLET. AMBU BAG AT [facility].
--- NOTE | 2017-12-15 16:00 | NUR ---
RUG MEASURER NOTES: -G-tube feeding stopped. Per order, stop feeding 1 hour before and after administration of coumadin.
[2017-12-15] MEDS: WARFARIN SODIUM 1 MG TABLET GT SCH (16:54)
[2017-12-15 17:00] VITALS: BP 156/76
--- NOTE | 2017-12-15 18:00 | NUR ---
RN NOTES: GTUBE FEEDING RESTARTED PER ORDER 1 HOUR AFTER COUMADIN ADMINISTRATION
--- NOTE | 2017-12-15 19:12 | NUR ---
RN NOTES: Patient in bed, non- verbal, opens eyes to care. Trach/ vent in place. GTUBE feeding running at 60ml/hr. All due medications given. All needs attended to. Safety measures in place. For discharge. Awaiting pick-up. Endorsed to mini shifter RN.
== END 2017-12-15 19:45 | DRG 951 ==
LOC: ER 16:10 → TELE 18:27
PROVIDERS: ADMIT Internal Medicine; ATTEND Internal Medicine
PROC: 5A1955Z Respiratory Ventilation, Greater than 96 Consecutive Hours (ICD-10-PCS; 2017-12-07)
PROC: 30233N1 Transfusion of Nonautologous Red Blood Cells into Peripheral Vein, Percutaneous Approach (ICD-10-PCS; 2017-12-08)
PROC: 0QB10ZZ Excision of Sacrum, Open Approach (ICD-10-PCS; principal; 2017-12-12)
DX: N17.0 Acute kidney failure with tubular necrosis (principal); G93.40 Encephalopathy, unspecified; Z99.11 Dependence on respirator [ventilator] status; E43 Unspecified severe protein-calorie malnutrition; L89.154 Pressure ulcer of sacral region, stage 4; J96.11 Chronic respiratory failure with hypoxia; Z93.0 Tracheostomy status; R18.8 Other ascites; K74.60 Unspecified cirrhosis of liver; E87.1 Hypo-osmolality and hyponatremia; I25.10 Atherosclerotic heart disease of native coronary artery without angina pectoris; Z95.2 Presence of prosthetic heart valve; Z93.1 Gastrostomy status; R13.10 Dysphagia, unspecified; N18.9 Chronic kidney disease, unspecified; K80.20 Calculus of gallbladder without cholecystitis without obstruction; K59.00 Constipation, unspecified; I25.2 Old myocardial infarction; I48.2 Chronic atrial fibrillation; Z79.4 Long term (current) use of insulin; Z79.01 Long term (current) use of anticoagulants; Z79.899 Other long term (current) drug therapy; D63.8 Anemia in other chronic diseases classified elsewhere; E11.22 Type 2 diabetes mellitus with diabetic chronic kidney disease; E78.5 Hyperlipidemia, unspecified; E86.1 Hypovolemia; G40.909 Epilepsy, unspecified, not intractable, without status epilepticus; K29.70 Gastritis, unspecified, without bleeding; B37.49 Other urogenital candidiasis; I50.9 Heart failure, unspecified
CPT/HCPCS: 31720; 36415; 71045-TC; 80048-TC; 80076-TC; 80162-TC; 80202-TC; 81000-TC; 82272-TC; 82728-TC; 82945-TC; 82962-TC; 83540-TC; 83605-TC; 83690-TC; 83735-TC; 84100-TC; 84439-TC; 84443-TC; 85025-TC; 85610-TC; 85730-TC; 86850-TC; 86921-TC; 87040-TC; 87070-TC; 87081-TC; 87086-TC; 87186-TC; 88305-TC; 88311-TC; 88312-TC; 93307-TC; 94002-TC; 94003-TC; 94760-TC; 94762-TC; 99082-TC; A4216; A4217; A4606; A6253; A6402; A6403; J0885; J1815; J1953; J2185; J2543; J3370; J3490; J7030; J7050; J7060; P9016-BL; Z7610

== ENCOUNTER 2018-02-07 15:25 | Inpatient (IN) | payer OTHER ==
[~2018-02-07] VITALS: Ht 149.9 cm; Wt 39.5 kg
[~2018-02-07 15:25] MED LIST changes: +ACID1TAB12 GT; +AMIN30LI4 GT; +BLOO-668 IN; -BUME1TAB4 PO; +BUME2TAB3 GT; +CALC667C6 GT; +CARV12.52 GT; -CARV6.252 PO; -CEFE1FRO IV; +CHLO473M5 MM; -CRAN425C6 GT; +DIGO125T GT; +FLUC100T8 PO; -HYDR-4076 GT; +INSU100V11 SQ; -IPRA0.2S49 IH; +IPRA0.2S9 IH; +LEVE100S GT; +LINE600T PO; +LOSA1TAB36 GT; -LOSA50TA3 GT; -MUPI22OI7; +NUTR250L50 GT; +OMEP20CA10 GT; -PANT40TA2 GT; -SIME80TA15 GT; +VANC500V IV; +WARF1TAB47 GT; -WARF2TAB57 PO
--- NOTE | 2018-02-07 15:30 | NUR ---
SENT HERE [facility] FOR H/H=6.8/23.3. NAD NOTED, VSS, RESP EVEN AND UNLABORED, PT WAS PUT ON MONITOR, WAITING FOR MD GODOY.
[2018-02-07] MEDS ORDERED: ACETAMINOPHEN ES 500 MG TABLET ONE (15:49)
[2018-02-07] MEDS ORDERED: IV NS 0.9% 500 ML BAG IV ONE (16:00)
[2018-02-07] MEDS ORDERED: ACETAMINOPHEN ES 500 MG TABLET GT ONE (16:00)
[2018-02-07 16:08] LABS: APPEARANCE,URINE Clear (CLEAR); BILIRUBIN,URINE Negative (NEGATIVE); BLOOD, URINE Trace-intact Ery/uL (NEGATIVE); COLOR,URINE Yellow (YELLOW); KETONES,URINE Negative (NEGATIVE); LEUKOCYTE ESTERASE ,URINE Moderate (NEGATIVE); NITRITE, URINE Negative (NEGATIVE); PH,URINE 8.5 (5.0-8.0); PROTEIN,URINE 30 mg/dl (NEGATIVE); UGLUCOSE Negative (NEGATIVE); UROBILINOGEN,URINE 0.2 EU/dL (0.2)
--- NOTE | 2018-02-07 16:08 | NUR ---
urine and blood sample collected sent to lab.
[2018-02-07 16:14] LABS: BASOPHILS % (AUTO) 0.6 % (0.0-2.0); EOSINOPHILS % (AUTO) 2.6 % (0.0-6.0); HEMATOCRIT 22 % (33-45); HEMOGLOBIN 7.3 g/dL (11.5-14.8); LYMPHOCYTES # (AUTO) 0.7 /CMM (0.8-4.8); LYMPHOCYTES % (AUTO) 8.4 % (20.0-44.0); MEAN CORPUSCULAR HEMOGLOBIN 31 PG (26.0-33.0); MEAN CORPUSCULAR HGB CONC 34 g/dl (31.0-36.0); MEAN CORPUSCULAR VOLUME 92 fL (82-100); MONOCYTES # (AUTO) 0.9 /CMM (0.1-1.30); MONOCYTES % (AUTO) 11.1 % (2.0-12.0); NEUTROPHILS % (AUTO) 77.3 % (43.0-81.0); PLATELET COUNT (AUTO) 518 /CMM (150-450); RDW COEFFICIENT OF VARIATION 18.7 (11.5-15.0); RED BLOOD CELL COUNT(AUTO) 2.38 MIL/uL (4.0-5.2); WHITE BLOOD COUNT (AUTO) 7.8 K/uL (4.3-11.0)
[2018-02-07 16:16] LABS: CALCIUM, SERUM 8.8 mg/dL (8.5-10.1); POTASSIUM 4.2 mmol/L (3.5-5.1)
[2018-02-07 16:18] LABS: BACTERIA,URINE Moderate /HPF (None Seen); RBC,URINE 20-30 /HPF (0-2)
[2018-02-07 16:19] LABS: SQUAMOUS EPITHELIAL CELL,UR Few /HPF (None Seen); YEAST,URINE Moderate /HPF (None Seen)
[2018-02-07 16:20] LABS: INR 1.05 (0.85-1.15); WBC,URINE 20-40 /HPF (0-3)
[2018-02-07 16:22] LABS: BILIRUBIN,DIRECT 0.3 mg/dL (0.0-0.2); BILIRUBIN,TOTAL 0.5 mg/dL (0.2-1.0); TOTAL PROTEIN, SERUM 8.7 g/dL (6.4-8.2)
[2018-02-07 16:24] LABS: TROPONIN I 0.151 ng/mL (0.00-0.056)
--- NOTE | 2018-02-07 16:48 | NUR ---
CALLED NURSING TELECOMMUNICATIONS LINE MECHANIC AND REQUESTED A TELE BED FOR THIS PT.
--- NOTE | 2018-02-07 16:50 | NUR ---
CALLED [facility] FOR PANEL CALL AND DR RANDHAWA WAS PAGED
[2018-02-07] MEDS ORDERED: VANCOMYCIN 1 GM in IV D5W 250 ML IV ONE (17:00)
[2018-02-07] MEDS ORDERED: PIPERACILLIN /TAZOBACTAM 3.375 G in IV D5W 50 ML IV ONE (17:00)
[2018-02-07] MEDS ORDERED: ASPIRIN 81 MG TAB.CHEW ONE (17:19)
--- NOTE | 2018-02-07 17:21 | NUR ---
PT IS ASSIGNED TO [facility]#: [id number], DX: UTI, INFECTED DECUBITIS ULCER, AND ACCEPTING MD: DR RANDHAWA.
[2018-02-07] MEDS ORDERED: ASPIRIN 81 MG TAB.CHEW GT ONE (17:30)
--- NOTE | 2018-02-07 17:55 | NUR ---
PT RECEIVED TRACHD W PORTEX # 7 AND ON VENT W NOTED SETTINGS. PT WAS AWAKE AND NON RESPONSIVE TO VERBAL COMMANDS AT THIS TIME. CUFF CHECKED AND CASH MANAGEMENT SPECIALIST PRESSURE NOTED. BREATH SOUNDS ARE DIMINISHED BILATERALLY. ALARMS ARE ON AND AUDIBLE W AMBUBAG @ HOB. TRACH IS SECURED AND PATENT. TOLERATING SETTINGS WELL AND SHOWED NO SIGNS OF RESPIRATORY DISTRESS AT THIS TIME. MODERATE AMNTS OF THICK WHITE/ YELLOW SPUTUM SXD. WILL CONTINUE TO MONITOR. Addendum: 02/07/18 at 1801 by DOMINICK VARMA RT Amended: Links added.
[2018-02-07] MEDS ORDERED: ONDANSETRON HCL/PF 4 MG/2 ML VIAL IVP PRN (18:00)
[2018-02-07] MEDS ORDERED: ACETAMINOPHEN 325 MG TABLET PO PRN (18:00)
[2018-02-07] MEDS ORDERED: Z GUARD REMEDY 2 OZ OINT TP PRN (18:00)
[2018-02-07] MEDS ORDERED: ZOLPIDEM TARTRATE 5 MG TABLET PO PRN (18:00)
[2018-02-07] MEDS ORDERED: MAGNESIUM HYDROXIDE 30 ML UDC PO PRN (18:00)
[2018-02-07] MEDS ORDERED: PIPERACILLIN /TAZOBACTAM 3.375 G in IV NS 0.9% 50 ML IV SCH (18:00)
[2018-02-07] MEDS ORDERED: HYDROCODONE/APAP 5/325MG 1 EACH TABLET PO PRN (18:00)
[2018-02-07] MEDS ORDERED: IV NS 0.9% 1,000 ML IV PRN (18:00)
[2018-02-07] MEDS ORDERED: MAG HYDROX/AL HYDROX/SIMETH 30 ML UDC PO PRN (18:00)
--- NOTE | 2018-02-07 18:06 | NUR ---
RECEIVED REPORT FROM HUEY LERNER FROM ER REGARDING PATIENT. TO BE ADMITTED TO TELEMETRY UNIT.
--- NOTE | 2018-02-07 18:20 | NUR ---
PT TRANSPORTED TO [facility] W TRACH INTACT. VENT PLUGGED INTO RED OUTLET W ALARMS ON AND AUDIBLE. SAT 100% ON NOTED SETTINGS. NO RESP DISTRESS NOTED AT THIS TIME. WILL ENDORSE TO CAN FILLING AND CLOSING MACHINE TENDER. Addendum: 02/07/18 at 1837 by DOMINICK VARMA RT Amended: Links added.
--- NOTE | 2018-02-07 18:30 | NUR ---
OPERATOR AUTOMATED PROCESSSTOCK TRANSFER CLERK ORDERS PATIENT IS BROUGHT UP FROM ER ON A GURNEY ACCOMPANIED BY RN AND RESPIRATORY THERAPISTS. PATIENT IS WITH TRACH AND ON MECHANICAL VENTILATION. WAS TRANSFERRED TO BED AND CONNECTED TO VENTILATOR BY RT WITH THE ORDERED SETTINGS. PATIENT IS STABLE, VITAL SIGNS ARE STABLE. PATIENT IS OBTUNDED, RESPONDS TO VERBAL AND PHYSICAL STIMULI BY EYE OPENING. IN NO APPARENT DISTRESS OR DISCOMFORT AT THIS TIME. PATIENT WITH MARION CATHETER DRAINING CLEAR YELLOW URINE, G-TUBE IN PLACE. RIGHT HAND 20G IVC, SL. PATIENT HAS NO EDEMA. SACRAL DECUBITUS ULCER PRESENT, PICTURES TAKEN. PATIENT MADE COMFORTABLE IN BED. CLEANED AND POSITIONED. WILL OBSERVE FOR NOW AND ENDORSE TO PM NURSE FOR ADMISSION AND TO CARRY OUT ADMISSION ORDERS.
[2018-02-07] MEDS ORDERED: FEE PK DOSING 1 MIN EA MC ONE (18:47)
--- NOTE | 2018-02-07 19:05 | NUR ---
C WPF DEVELOPER CLOSING NOTE PATIENT IS IN STABLE CONDITION, ENDORSED TO PM NURSE FOR GAYLE.
--- NOTE | 2018-02-07 19:30 | NUR ---
RN NOTES RECEIVED PT. AWAKE, NON-VERBAL, VENT DEPENDENT, JUST CAME-UP FROM ER WITH DX. OF UTI, NOT IN DISTRESS, NO PAIN NOTED, G-TUBE IN PLACE- DRESSING CHANGE, WITH SACRAL WOUND, , WILL CONTINUE TO MONITOR
--- NOTE | 2018-02-07 19:55 | NUR ---
RECEIVED TRACHED PT ON VENT PORTEX 7 ON AC MODE. TOLERATING VENT SETTINGS. PT IS AWAKE AND NON RESPONSIVE TO VERBAL COMMAND AT THIS TIME. SX'D MODERATE AMOUNT OF WHITE THICK SECRETIONS. VENT ALARMS SET AND AUDIBLE. TRACH IS SECURED, CUFF FERTILIZER LOADER. VENT PLUGGED INTO RED OUTLET. AMBU BAG AT BEDSIDE. WILL CONTINUE TO MONITOR.
[2018-02-07 20:00] VITALS: BP 123/55
--- NOTE | 2018-02-07 20:30 | NUR ---
RN NOTES PT ON MONITOR IS JUNCTIONAL. EKG WAS DONE . PT IS ALSO ACCELERATED JUNCTIONAL ON EKG. PT. IS ASYMPTOMATIC WILL CALL THE DOCTOR
--- NOTE | 2018-02-07 20:40 | NUR ---
RN NOTES PAGED KRYSTA MERINO NP, WAITING FOR HER TO CALL BACK
[2018-02-07] MEDS: FLUCONAZOLE IN NS 100 MG in PREMIX 1 EA IV SCH ×2 (20:58)
--- NOTE | 2018-02-07 21:00 | NUR ---
RN NOTES INFORMED KRSYTA WU REGARDING PT. EKG RESULT. AND ASKED FOR G-TUBE FEEDING ORDER AND BREATHING TREATMENT.. KRYSTA WU MADE AN ORDER BUT THE PT. WILL STAY HERE IN 3 WEST, ORDER NOTED AND CARRIED OUT
[2018-02-07] MEDS ORDERED: JEVITY 1.2 CAL 1,000 ML BOTTLE GT PRN (23:00)
[2018-02-08] VITALS: BP 126/53
[2018-02-08] MEDS ORDERED: PIPERACILLIN /TAZOBACTAM 2.25 G VIAL IV ONE ×3 (00:15→05:38)
[2018-02-08] MEDS: PIPERACILLIN /TAZOBACTAM 2.25 G in IV D5W 50 ML IV SCH ×5 (00:16→23:42)
--- NOTE | 2018-02-08 01:00 | NUR ---
RN NOTES KRYSTA MERINO-SHAREE CAME UP AND SHOW PTHermes VEGA TO HER GAVE AN ORDER OF DNR, ORDER NOTED AND CARRIED OUT
[2018-02-08] MEDS: IPRATROPIUM NEB FS 0.5 MG/2.5 ML AMPUL.NEB NEB SCH ×4 (01:04→20:05)
[2018-02-08] MEDS: ALBUTEROL FS 2.5 MG/3 ML VIAL.NEB NEB SCH ×4 (01:04→20:05)
[2018-02-08 04:00] VITALS: BP 156/77
[2018-02-08 06:30] LABS: BASOPHILS # (AUTO) 0.1 /CMM (0.0-0.2); BASOPHILS % (AUTO) 1.3 % (0.0-2.0); EOSINOPHILS % (AUTO) 3.8 % (0.0-6.0); HEMATOCRIT 24 % (33-45); HEMOGLOBIN 7.6 g/dL (11.5-14.8); LYMPHOCYTES # (AUTO) 0.9 /CMM (0.8-4.8); LYMPHOCYTES % (AUTO) 10.5 % (20.0-44.0); MEAN CORPUSCULAR HEMOGLOBIN 30 PG (26.0-33.0); MEAN CORPUSCULAR HGB CONC 31 g/dl (31.0-36.0); MEAN CORPUSCULAR VOLUME 96 fL (82-100); MONOCYTES % (AUTO) 11.6 % (2.0-12.0); NEUTROPHILS # (AUTO) 6.1 /CMM (1.8-8.9); NEUTROPHILS % (AUTO) 72.8 % (43.0-81.0); PLATELET COUNT (AUTO) 489 /CMM (150-450); RDW COEFFICIENT OF VARIATION 20.5 (11.5-15.0); RED BLOOD CELL COUNT(AUTO) 2.55 MIL/uL (4.0-5.2); WHITE BLOOD COUNT (AUTO) 8.3 K/uL (4.3-11.0)
[2018-02-08 06:49] LABS: CALCIUM, SERUM 8.8 mg/dL (8.5-10.1); CREATININE 0.9 mg/dL (0.6-1.3); MAGNESIUM 2.7 mg/dL (1.8-2.4); PHOSPHORUS 3.2 mg/dL (2.5-4.9); POTASSIUM 4.2 mmol/L (3.5-5.1)
--- NOTE | 2018-02-08 06:59 | NUR ---
RN NOTES AWAKE, MORNING CARE RENDERED, NOT IN DISTRESS, NO PAIN NOTED, G-TUBE IN PLACE AND RUNNING WELL, PT. NEEDS ATTENDED
--- NOTE | 2018-02-08 07:15 | NUR ---
RN NOTES PT IS LAYING DOWN IN BED, AWAKE AND RESTING COMFORTABLY. PT CONNECTED TO VENT BY TRACH, ALL SETTINGS ARE ACCURATE. IV ON R HAND INTACT AND RUNNING NS @ 50ML/HR. MARION CATHETER IS IN PLACE AND DRAINING TO GRAVITY. G-TUBE IS IN PLACE AND RUNNING JEVITY @ 50ML/HR. NO SIGNS OF DISTRESS NOTED. SAFETY MEASURES ARE IN PLACE, CALL LIGHT IS IN REACH. WILL CONTINUE TO MONITOR.
[2018-02-08 08:00] VITALS: BP_SYST 155; BP_SYST 158; BP_DIAS 87
[2018-02-08] MEDS: VANCOMYCIN 0.75 GM in IV D5W 250 ML IV SCH ×2 (08:38→21:44)
--- NOTE | 2018-02-08 09:20 | NUR ---
RT NOTE RECEIVED TRACHED PT ON VENT WITH PORTEX 7 ON AC MODE. TOLERATING VENT SETTINGS WELL. PT IS AWAKE AND NON RESPONSIVE TO VERBAL COMMAND. SX'D MODERATE AMOUNT OF THICK PALE YELLOW SECRETIONS. VENT ALARMS SET AND AUDIBLE. TRACH IS PATENT AND SECURED, CUFF CHECKED VIA SQUEAK RATTLE AND LEAK REPAIRER. TXS GIVEN ORDERED NO ADVERSE REACTION NOTED, VENT PLUGGED INTO RED OUTLET. AMBU BAG AT BEDSIDE. WILL CONTINUE TO MONITOR.
[2018-02-08] MEDS ORDERED: HYDROCODONE/APAP 5/325MG 1 EACH TABLET GT PRN (12:30)
[2018-02-08] MEDS ORDERED: ACETAMINOPHEN 325 MG TABLET PO PRN (12:30)
[2018-02-08] MEDS ORDERED: BISACODYL SUPP (10 MG) 10 MG/SUPP.RECT SUPP.RECT RC PRN (12:30)
[2018-02-08] MEDS ORDERED: MAGNESIUM HYDROXIDE 30 ML UDC GT PRN (12:30)
[2018-02-08] MEDS ORDERED: NA PHOS,M-B/NA PHOS,DI-BA 1 EA ENEMA RC PRN (12:30)
[2018-02-08] MEDS ORDERED: IPRATROPIUM NEB FS 0.5 MG/2.5 ML AMPUL.NEB IH PRN (12:30)
[2018-02-08] MEDS: FERROUS SULFATE UDC 300 MG/5 ML UDC GT SCH (13:18)
[2018-02-08] MEDS: SUCRALFATE 1 G/10 ML UDC GT SCH ×3 (13:18→21:36)
[2018-02-08] MEDS: CALCIUM ACETATE 667 MG TABLET GT SCH ×2 (13:19→16:07)
[2018-02-08] MEDS: PROSOURCE / PROSTAT (PYXIS) 30 ML UDC GT SCH (13:19)
[2018-02-08] MEDS: PANTOPRAZOLE 40 MG/PACK PACK GT SCH (13:19)
[2018-02-08] MEDS ORDERED: IPRATROPIUM NEB FS 0.5 MG/2.5 ML AMPUL.NEB IH SCH (13:30)
[2018-02-08] MEDS ORDERED: JEVITY 1.2 CAL 1,000 ML BOTTLE GT PRN (13:30)
[2018-02-08] MEDS ORDERED: ALBUTEROL FS 2.5 MG/0.5 ML VIAL.NEB NEB PRN (13:30)
[2018-02-08] MEDS: BUMETANIDE (1 MG) 1 MG TABLET GT SCH ×2 (13:47→16:06)
--- NOTE | 2018-02-08 14:10 | NUR ---
WOUND CARE CONSULT PATIENT SEEN AND SKIN INTEGRITY ASSESSMENT DONE. PLEASE SEE AIRPLANE FUELER ASSESSMENT IN PCS. PATIENT WITH BALJEET OF 13. TREATMENT RECOMMENDATION DISCUSSED WITH MD AND IN AGREEMENT. PATIENT WAS ALSO EVALUATED BY SHAREE WOLFE OF DR. KIM WESTON WITH ORDER FOR EXCISIONAL DEBRIDEMENT OF SACRAL WOUND. ALL PRESSURE ULCER PREVENTION MEASURES NOTED TO BE IN PLACE PER PLAN OF CARE. WILL SEE PATIENT PRN. Addendum: 02/08/18 at 1429 by ZENAIDA SANDHU RN Amended: Links added.
[2018-02-08] MEDS ORDERED: SILVER NITRATE APPLICATOR 1 EA BOX TP ONE (14:30)
[2018-02-08 16:00] VITALS: BP 141/72
[2018-02-08] MEDS: LACTOBACILLUS RHAMNOSUS GG 1 EACH CAP.SPRINK GT SCH (16:06)
[2018-02-08] MEDS: HYDROCODONE/APAP 5/325MG 1 EACH TABLET GT SCH (16:06)
[2018-02-08] MEDS: HYDROGEL DRESSING 90 GM TUBE TP SCH (16:06)
[2018-02-08] MEDS: LEVETIRACETAM SOL (5 ML) 100 MG/ML UDC GT SCH (16:06)
[2018-02-08] MEDS: CARVEDILOL 12.5 MG TABLET GT SCH (16:09)
--- NOTE | 2018-02-08 16:51 | NUR ---
Patient is trach/vent dependent.Resides at [facility] acute unit [phone].Patient is bedbound,totally dependent with adl's. Will dc back to [facility] once discharge. Addendum: 02/08/18 at 1651 by SHAHRIAR GARZA RN Amended: Links added.
[2018-02-08] MEDS ORDERED: WARFARIN SODIUM 1 MG TABLET GT SCH (17:00)
[2018-02-08] MEDS: BLOOD SUGAR DIAGNOSTIC 1 EACH STRIP IN SCH ×2 (17:44→23:45)
[2018-02-08] MEDS ORDERED: Medication Not On Formulary EA (Albuterol Sulfate 2.5 MG) IH SCH (18:00)
--- NOTE | 2018-02-08 18:46 | NUR ---
RN NOTES PT IS LAYING DOWN IN BED, AWAKE AND RESTING COMFORTABLY. PT CONNECTED TO VENT BY TRACH, ALL SETTINGS ARE ACCURATE, O2 SAT 97%. IV ON R HAND INTACT AND RUNNING NS @ 50ML/HR. G-TUBE IS IN PLACE AND RUNNING JEVITY @ 50ML/HR. MARION CATHETER IS IN PLACE AND DRAINING TO GRAVITY. ALL MEDS WERE GIVEN ORDERED AND PT NEEDS MET. PT TURNED Q2HRS AND WOUND CARE PROVIDED ORDERED. NO SIGNS OF DISTRESS NOTED. SAFETY MEASURES ARE IN PLACE, CALL LIGHT IS IN REACH. WILL ENDORSE TO INTENSIVE CARE MEDICINE SPECIALIST RN FOR CONTINUITY OF CARE.
--- NOTE | 2018-02-08 19:30 | NUR ---
RN NOTES RECEIVED PT. AWAKE ON BED, NON-VERBAL, VENT DEPENDENT, G-TUBE FEEDING RUNNING @ 50ML/HR, NO RESIDUAL NOTED, F/C DRAINING CLEAR YELLOW URINE, CALL LIGHT WITHIN REACH, [id number], CONTINUE TO MONITOR
[2018-02-08 20:00] VITALS: BP 135/68
--- NOTE | 2018-02-08 20:09 | NUR ---
RT PT RECEIVE WITH A PORTEX 7 TRACH ON THE VENT WITH NOTED SETTINGS. PT IS AWAKE AND TRACKS WITH EYES. VENT ALARMS ARE SET AND AUDIBLE WITH BVM BY BEDSIDE. IN STORE MARKETING ASSOCIATE CUFF PRESSURE NOTED. VENT IS PLUGGED INTO RED OUTLET. PT SX'D SMALL THICK/THIN WHITE SECRETIONS. NO RESPIRATORY DISTRESS NOTED AT THIS TIME, WILL CONTINUE TO MONITOR. Addendum: 02/08/18 at 2009 by FALGUNI ENGEL RT Amended: Links added.
[2018-02-08] MEDS: FLUCONAZOLE IN NS 100 MG in PREMIX 1 EA IV SCH ×2 (20:21)
[2018-02-08] MEDS: CHLORHEXIDINE GLUCONATE 15 ML UDC MM SCH (21:35)
[2018-02-08] MEDS: DOCUSATE SODIUM 100 MG CAPSULE PO SCH (21:36)
[2018-02-08] MEDS: ATORVASTATIN 10 MG TABLET GT SCH (21:36)
[2018-02-09] VITALS (9 sets, daily range): BP systolic 108–137; BP diastolic 48–72
[2018-02-09] MEDS: INSULIN ASPART/LISPRO 100 UNIT/ML CARTRIDGE SQ PRN ×3 (00:37→17:21)
[2018-02-09] MEDS: JEVITY 1.2 CAL 1,000 ML BOTTLE GT PRN ×2 (00:45→21:21)
[2018-02-09] MEDS: IPRATROPIUM NEB FS 0.5 MG/2.5 ML AMPUL.NEB NEB SCH ×4 (01:31→20:32)
[2018-02-09] MEDS: ALBUTEROL FS 2.5 MG/3 ML VIAL.NEB NEB SCH ×4 (01:31→20:33)
[2018-02-09] MEDS: PIPERACILLIN /TAZOBACTAM 2.25 G in IV D5W 50 ML IV SCH ×4 (05:21→23:41)
[2018-02-09] MEDS: BLOOD SUGAR DIAGNOSTIC 1 EACH STRIP IN SCH ×4 (06:06→23:41)
--- NOTE | 2018-02-09 06:49 | NUR ---
RN NOTES AWAKE, NOT IN DISTRESS, G-TUBE FEEDING RUNNING , NO RESIDUAL NOTED, NOT IN DISTRESS, NO PAIN NOTED, MORNING CARE RENDERED, PT. NEEDS ATTENDED
--- NOTE | 2018-02-09 07:15 | NUR ---
RN NOTES PT IS LAYING DOWN IN BED, SLEEPING COMFORTABLY. PT ON VENT CONNECTED BY TRACH, ALL SETTINGS ARE ACCURATE, O2 SAT 98%. IV ON R HAND INTACT AND RUNNING NS @ 50ML/HR. G-TUBE IS IN PLACE AND RUNNING JEVITY @ 50ML/HR. MARION CATHETER IS IN PLACE AND DRAINING TO GRAVITY. ZINC ETCHER SHOWS V-PACING. NO SIGNS OF DISTRESS NOTED. SAFETY MEASURES ARE IN PLACE, CALL LIGHT IS IN REACH. WILL CONTINUE TO MONITOR.
[2018-02-09] MEDS: VANCOMYCIN 0.75 GM in IV D5W 250 ML IV SCH (08:00)
[2018-02-09] MEDS: ASCORBIC ACID 500 MG TABLET GT SCH (08:10)
[2018-02-09] MEDS: LEVETIRACETAM SOL (5 ML) 100 MG/ML UDC GT SCH ×2 (08:10→16:16)
[2018-02-09] MEDS: ACIDOPHILUS/BULGARICUS 1 EACH TAB.CHEW GT SCH (08:10)
[2018-02-09] MEDS: FERROUS SULFATE UDC 300 MG/5 ML UDC GT SCH (08:10)
[2018-02-09] MEDS: CALCIUM ACETATE 667 MG TABLET GT SCH ×3 (08:10→16:16)
[2018-02-09] MEDS: SUCRALFATE 1 G/10 ML UDC GT SCH ×4 (08:10→21:16)
[2018-02-09] MEDS: CHLORHEXIDINE GLUCONATE 15 ML UDC MM SCH ×2 (08:10→21:16)
[2018-02-09] MEDS: SEVELAMER CARBONATE 0.8 GM POWD.PACK GT SCH (08:10)
[2018-02-09] MEDS: LACTOBACILLUS RHAMNOSUS GG 1 EACH CAP.SPRINK GT SCH ×2 (08:10→16:16)
[2018-02-09] MEDS: MULTIVIT, IRON, MIN NO. 8, FA 1 TAB GT SCH (08:10)
[2018-02-09] MEDS: ZINC SULFATE 220 MG CAPSULE GT SCH (08:10)
[2018-02-09] MEDS: BUMETANIDE (1 MG) 1 MG TABLET GT SCH ×2 (08:10→16:16)
[2018-02-09] MEDS: HYDROGEL DRESSING 90 GM TUBE TP SCH (08:11)
[2018-02-09] MEDS: HYDROCODONE/APAP 5/325MG 1 EACH TABLET GT SCH ×2 (08:11→16:16)
[2018-02-09] MEDS: PROSOURCE / PROSTAT (PYXIS) 30 ML UDC GT SCH (08:15)
[2018-02-09] MEDS: CARVEDILOL 12.5 MG TABLET GT SCH ×2 (08:15→21:15)
--- NOTE | 2018-02-09 08:22 | NUR ---
RT NOTE RECEIVED TRACHED PT ON VENT WITH PORTEX 7 ON AC MODE. TOLERATING VENT SETTINGS WELL. PT IS AWAKE AND NON RESPONSIVE TO VERBAL COMMAND. SX'D MODERATE AMOUNT OF THICK PALE YELLOW SECRETIONS. VENT ALARMS SET AND AUDIBLE. TRACH IS PATENT AND SECURED, CUFF CHECKED VIA TICKET TAKER. TXS GIVEN ORDERED NO ADVERSE REACTION NOTED, VENT PLUGGED INTO RED OUTLET. AMBU BAG AT BEDSIDE. WILL CONTINUE TO MONITOR.
[2018-02-09 08:46] LABS: CALCIUM, SERUM 7.8 mg/dL (8.5-10.1); CREATININE 0.9 mg/dL (0.6-1.3); POTASSIUM 3.4 mmol/L (3.5-5.1)
[2018-02-09] MEDS: LOSARTAN/HCTZ 50-12.5MG/ 1 EA TABLET GT SCH (09:00)
[2018-02-09] MEDS ORDERED: POTASSIUM CHLORIDE 20 MEQ POWDER PACKET GT ONE (09:00)
[2018-02-09] MEDS ORDERED: Medication Not On Formulary EA (Cran/Vitc/Mannose/Inulin/Brom (Uti-Stat Liquid) 30 ML) GT SCH (09:00)
[2018-02-09] MEDS: PANTOPRAZOLE 40 MG/PACK PACK GT SCH (11:04)
[2018-02-09 11:15] LABS: BASOPHILS % (AUTO) 0.5 % (0.0-2.0); EOSINOPHILS % (AUTO) 5.2 % (0.0-6.0); HEMATOCRIT 21 % (33-45); LYMPHOCYTES # (AUTO) 0.5 /CMM (0.8-4.8); LYMPHOCYTES % (AUTO) 7.6 % (20.0-44.0); MEAN CORPUSCULAR HEMOGLOBIN 30 PG (26.0-33.0); MEAN CORPUSCULAR HGB CONC 31 g/dl (31.0-36.0); MEAN CORPUSCULAR VOLUME 97 fL (82-100); MONOCYTES # (AUTO) 0.6 /CMM (0.1-1.30); MONOCYTES % (AUTO) 9.3 % (2.0-12.0); NEUTROPHILS # (AUTO) 5.3 /CMM (1.8-8.9); NEUTROPHILS % (AUTO) 77.4 % (43.0-81.0); PLATELET COUNT (AUTO) 318 /CMM (150-450); RDW COEFFICIENT OF VARIATION 22.3 (11.5-15.0); RED BLOOD CELL COUNT(AUTO) 2.22 MIL/uL (4.0-5.2); WHITE BLOOD COUNT (AUTO) 6.8 K/uL (4.3-11.0)
[2018-02-09 11:18] LABS: HEMOGLOBIN 6.6 g/dL (11.5-14.8)
[2018-02-09] MEDS: DIGOXIN 0.125 MG TABLET GT SCH (12:20)
[2018-02-09 13:18] LABS: EOSINOPHILS % (MANUAL) 4 % (0-4); LYMPHOCYTES % (MANUAL) 11 % (16-48); MONOCYTES % (MANUAL) 2 % (0-11.0); NEUTROPHILS % (MANUAL) 82 (42-76)
[2018-02-09] MEDS: EPOETIN ALFA (4000 UNIT) 4,000 UNIT/ML VIAL SQ SCH (16:41)
--- NOTE | 2018-02-09 18:35 | NUR ---
RN NOTES PT IS LAYING DOWN IN BED, RESTING COMFORTABLY. PT CONNECTED TO VENT, SETTINGS ARE ACCURATE. IV ON R HAND INTACT AND RUNNING NS TKO. G-TUBE IS IN PLACE AND RUNNING JEVITY @ 50ML/HR. MARION CATHETER IS IN PLACE AND DRAINING TO GRAVITY. ALL MEDS WERE GIVEN ORDERED AND PT NEEDS MET. WOUND DEBRIDEMENT DONE BY JUNIOR TOLLIVER. BLOOD TRANSFUSION DONE, 1 UNIT OF RBC'S GIVEN, NO ADVERSE REACTIONS NOTED DURING OR AFTER TRANSFUSION. PT TURNED AND REPOSITIONED Q2HRS AND NEEDED. NO SIGNS OF DISTRESS NOTED. SAFETY MEASURES ARE IN PLACE, CALL LIGHT IS IN REACH. WILL ENDORSE TO CAD ADMINISTRATOR RN FOR CONTINUITY OF CARE.
--- NOTE | 2018-02-09 19:20 | NUR ---
TELE/RN OPENING NOTES PT RECEIVED RESTING IN BED. OPENS EYES TO NAME. OBTUNDED AND NONVERBAL. VENT SETTINGS NOTED AND CONNECTED TO RED OUTLET. NO S/S OF ACUTE DISTRESS. ON TELE MONITOR SHOWING A.FIB 66. IV TO RIGHT HAND PATENT AND INTACT. MARION IN PLACE AND DRAINING TO GRAVITY. S/P BLOOD TRANSFUSION TODAY AND SACRAL DEBRIDEMENT TODAY. NO S/S OF PAIN, NO FACIAL GRIMACING NOTED. BED IN LOW/LOCKED POSITION, CALL LIGHT IN REACH. SIDE RAILS UPX3 AND BED ALARM ON FOR SAFETY. WILL CONTINUE TO MONITOR
[2018-02-09] MEDS: ATORVASTATIN 10 MG TABLET GT SCH (21:15)
[2018-02-09] MEDS: DOCUSATE SODIUM 100 MG CAPSULE PO SCH (21:16)
[2018-02-10] VITALS: BP 114/61
[2018-02-10] MEDS: ALBUTEROL FS 2.5 MG/3 ML VIAL.NEB NEB SCH ×4 (02:21→19:45)
[2018-02-10] MEDS: IPRATROPIUM NEB FS 0.5 MG/2.5 ML AMPUL.NEB NEB SCH ×4 (02:21→19:45)
[2018-02-10 04:00] VITALS: BP 135/52
--- NOTE | 2018-02-10 06:04 | NUR ---
RT REC TRACHED PT ON VENT WITH PORTEX 7 ON AC MODE. TOLERATING VENT SETTINGS WELL. PT IS AWAKE AND NON RESPONSIVE TO VERBAL COMMAND. SX'D MODERATE AMOUNT OF THICK PALE YELLOW SECRETIONS. VENT ALARMS SET AND AUDIBLE. TRACH IS PATENT AND SECURED, CUFF CHECKED VIA LAV CREWMAN. TXS GIVEN ORDERED NO ADVERSE REACTION NOTED, VENT PLUGGED INTO RED OUTLET. AMBU BAG AT BEDSIDE. WILL CONTINUE TO MONITOR.
[2018-02-10] MEDS: PIPERACILLIN /TAZOBACTAM 2.25 G in IV D5W 50 ML IV SCH ×4 (06:16→23:52)
[2018-02-10] MEDS: BLOOD SUGAR DIAGNOSTIC 1 EACH STRIP IN SCH ×3 (06:16→18:01)
[2018-02-10 06:54] LABS: BASOPHILS % (AUTO) 0.3 % (0.0-2.0); HEMATOCRIT 28 % (33-45); HEMOGLOBIN 8.8 g/dL (11.5-14.8); LYMPHOCYTES # (AUTO) 0.4 /CMM (0.8-4.8); LYMPHOCYTES % (AUTO) 4.9 % (20.0-44.0); MEAN CORPUSCULAR HEMOGLOBIN 30 PG (26.0-33.0); MEAN CORPUSCULAR HGB CONC 32 g/dl (31.0-36.0); MEAN CORPUSCULAR VOLUME 95 fL (82-100); MONOCYTES # (AUTO) 0.7 /CMM (0.1-1.30); MONOCYTES % (AUTO) 7.8 % (2.0-12.0); PLATELET COUNT (AUTO) 302 /CMM (150-450); RDW COEFFICIENT OF VARIATION 20.6 (11.5-15.0); RED BLOOD CELL COUNT(AUTO) 2.92 MIL/uL (4.0-5.2); WHITE BLOOD COUNT (AUTO) 8.6 K/uL (4.3-11.0)
--- NOTE | 2018-02-10 07:05 | NUR ---
TELE/RN CLOSING NOTES PT WITH EYES CLOSED, OPENS EYES SPONTANEOUSLY. NON VERBAL. VENT SETTINGS MAINTAINED, SUCTIONED PRN. ON TELE MONITOR, A.FIB WITH VPACING HR 64. MARION IN PLACE AND DRAINING TO GRAVITY. IV TO RIGHT HAND PATENT AND INTACT. GT FEEDING RUNNING JEVITY AT 50ML/HR. APPROX 10 ML RESIDUALS NOTED. NO SIGNIFICANT CHANGES OVERNIGHT. BED REMAINS IN LOW/LOCKED POSITION WITH CALL LIGHT IN REACH. SIDE RAILS UPX3 WITH BED ALARM ON FOR SAFETY. TURNED/REPOSITIONED Q2H. HEELS OFFLOADED. WILL ENDORSE TO DAY SHIFT RN GAYLE.
[2018-02-10 07:08] LABS: CALCIUM, SERUM 8.3 mg/dL (8.5-10.1); CREATININE 0.9 mg/dL (0.6-1.3)
--- NOTE | 2018-02-10 07:30 | NUR ---
MEMBER OF THE LEGISLATIVE ASSEMBLY NOTES PT IN BED, AWAKE, NON VERBAL, NO FACIAL GRIMACING OR MOANING, RESPIRATIONS NORMAL, VENT/TRACH, F/C INTACT AND PATENT, GT FEEDING INFUSING WELL, KEPT HOB ELEVATED, TURNED AND REPOSITIONED Q2 HOURS, KEPT COMFORTABLE.
[2018-02-10 08:00] VITALS: BP 126/52
[2018-02-10] MEDS ORDERED: VANCOMYCIN 500 MG in IV D5W 100 ML IV SCH (08:00)
[2018-02-10] MEDS: LOSARTAN/HCTZ 50-12.5MG/ 1 EA TABLET GT SCH (09:00)
[2018-02-10] MEDS: CARVEDILOL 12.5 MG TABLET GT SCH ×2 (09:00→22:16)
[2018-02-10] MEDS: FERROUS SULFATE UDC 300 MG/5 ML UDC GT SCH (09:22)
[2018-02-10] MEDS: SEVELAMER CARBONATE 0.8 GM POWD.PACK GT SCH (09:22)
[2018-02-10] MEDS: CHLORHEXIDINE GLUCONATE 15 ML UDC MM SCH ×2 (09:22→22:17)
[2018-02-10] MEDS: SUCRALFATE 1 G/10 ML UDC GT SCH ×4 (09:22→22:13)
[2018-02-10] MEDS: ACIDOPHILUS/BULGARICUS 1 EACH TAB.CHEW GT SCH (09:22)
[2018-02-10] MEDS: LEVETIRACETAM SOL (5 ML) 100 MG/ML UDC GT SCH ×2 (09:22→18:02)
[2018-02-10] MEDS: HYDROCODONE/APAP 5/325MG 1 EACH TABLET GT SCH ×2 (09:23→18:03)
[2018-02-10] MEDS: MULTIVIT, IRON, MIN NO. 8, FA 1 TAB GT SCH (09:23)
[2018-02-10] MEDS: ZINC SULFATE 220 MG CAPSULE GT SCH (09:23)
[2018-02-10] MEDS: CALCIUM ACETATE 667 MG TABLET GT SCH ×3 (09:23→18:02)
[2018-02-10] MEDS: ASCORBIC ACID 500 MG TABLET GT SCH (09:23)
[2018-02-10] MEDS: LACTOBACILLUS RHAMNOSUS GG 1 EACH CAP.SPRINK GT SCH ×2 (09:23→18:03)
[2018-02-10] MEDS: BUMETANIDE (1 MG) 1 MG TABLET GT SCH ×2 (09:23→18:03)
[2018-02-10] MEDS: PROSOURCE / PROSTAT (PYXIS) 30 ML UDC GT SCH (09:24)
[2018-02-10] MEDS: HYDROGEL DRESSING 90 GM TUBE TP SCH (09:24)
[2018-02-10 12:00] VITALS: BP 156/68
[2018-02-10] MEDS: PANTOPRAZOLE 40 MG/PACK PACK GT SCH (12:56)
[2018-02-10] MEDS ORDERED: DEXTROSE 50%-WATER 50 ML DISP.SYRIN IV PRN ×2 (13:00)
[2018-02-10] MEDS ORDERED: INSULIN REGULAR, HUMAN 100 UNIT/ML 3 ML VIAL SQ PRN (13:00)
--- NOTE | 2018-02-10 13:00 | NUR ---
ENVIRONMENTAL CONSTRUCTION ENGINEER NOTES PT IN BED, AWAKE, NO SIGN OF PAIN OR DISTRESS, SEEN BY DR. RANDHAWA, NEW ORDER FOR MILD INSULIN SLIDING SCALE GIVEN, VISITED BY FAMILY, PLAN OF CARE DISCUSSED WITH FAMILY, VERBALIZED UNDERSTANDING, TURNED AND REPOSITIONED Q2 HOURS, MEDS GIVEN ORDERED, WILL CONTINUE TO MONITOR.
[2018-02-10] MEDS: DIGOXIN 0.125 MG TABLET GT SCH (13:03)
[2018-02-10] MEDS: INSULIN REGULAR, HUMAN 100 UNIT/ML 3 ML VIAL SQ PRN (14:46)
[2018-02-10] MEDS: JEVITY 1.2 CAL 1,000 ML BOTTLE GT PRN (14:52)
[2018-02-10 16:00] VITALS: BP 168/70
[2018-02-10] MEDS ORDERED: BLOOD SUGAR DIAGNOSTIC 1 EACH STRIP IN SCH (17:30)
--- NOTE | 2018-02-10 17:44 | NUR ---
PATIENT WAS RECEIVED ON CONTINUOS VENT SUPPORT ON NOTED VENT SETTINGS. TOLERATING VENT SETTINGS WELL. PT IS AWAKE AND NON RESPONSIVE TO VERBAL COMMAND. SUCTIONED WITH A MODERATE AMOUNT OF THIN PALE YELLOW SECRETIONS. VENT ALARMS SET AND AUDIBLE. TRACH IS PATENT AND SECURED, CUFF CHECKED VIA STORAGE CONSULTANT.HHN TREATMENTS GIVEN ORDERED NO ADVERSE REACTION NOTED, VENT PLUGGED INTO RED OUTLET. AMBU BAG AT BEDSIDE. WILL CONTINUE TO MONITOR. Addendum: 02/10/18 at 1749 by LOUIS SINGH RT Amended: Links added.
--- NOTE | 2018-02-10 18:55 | NUR ---
SUPERVISOR PAINT ROLLER COVERS NOTES PT IN BED, EYES OPEN, NON VERBAL, NOT IN DISTRESS, GT FEEDING INFUSING WELL, TOLERATING WELL, PM MEDS GIVEN ORDERED, WOUND TREATMENT AND DRESSING CHANGE DONE, PM CARE RENDERED, ALL NEEDS ATTENDED.
--- NOTE | 2018-02-10 19:47 | NUR ---
Received pt on ventilator support, no sob or distress noted at this time, vent alarm is on and audible, ventilator is plugged into red outlet, ambu bag at bedside. Addendum: 02/10/18 at 1948 by JULIUS CID RT Amended: Links added.
[2018-02-10 20:00] VITALS: BP 144/71
--- NOTE | 2018-02-10 20:00 | NUR ---
Received pt. in bed resting, alert, awake, nonverbal with trach. attached to the Ventillator AC= 14, TV = 450, F102= 30 % and Peep = 5. Pt. opens eyes, obtunded and non-verbal. Pt. with Portex # 7. Pt. lung sounds are rhonchi and with fine crackles, suctioned secretions from the trach. and mouth every 1-2 hrs. as needed for comfort, keeping airway open and patent for gas exchange. Pt. RR regular, symmetrical and unlabored. No s/s of facial grimacing, no s/s of agitation/restlessness. Pt. controlled Afib. @ the monitor. No s/s of chest discomfort or Chest pressure Pt. calm and resting quietly. Turned/Repositioned pt. q 2 hrs. as needed. Turned to the sides with pillows supporting back. Pt. PIV access @ the Right Hand G # 20 with IV of NS @ TKO. Peg-tube of GT Feeding of Jevity 1.2 @ 50 ml/hr. continues, HOB up @ all times @ 45-55 degrees Angle to prevent aspiration. Pt. provided bedside nsg. care and repositioned q 2 hrs. for comfort/circulation. Assessment done and keep pt. safe, warm and comfortable in bed.
[2018-02-10] MEDS: ATORVASTATIN 10 MG TABLET GT SCH (22:17)
[2018-02-10] MEDS: DOCUSATE SODIUM 100 MG CAPSULE PO SCH (22:17)
[2018-02-11] VITALS: BP 171/79
[2018-02-11] MEDS: BLOOD SUGAR DIAGNOSTIC 1 EACH STRIP IN SCH ×4 (00:01→17:42)
[2018-02-11] MEDS: ALBUTEROL FS 2.5 MG/3 ML VIAL.NEB NEB SCH ×4 (01:46→20:05)
[2018-02-11] MEDS: IPRATROPIUM NEB FS 0.5 MG/2.5 ML AMPUL.NEB NEB SCH ×4 (01:46→20:05)
[2018-02-11] MEDS: PIPERACILLIN /TAZOBACTAM 2.25 G in IV D5W 50 ML IV SCH ×2 (05:06→11:51)
[2018-02-11 06:38] LABS: EOSINOPHILS % (AUTO) 2.8 % (0.0-6.0); HEMATOCRIT 26 % (33-45); HEMOGLOBIN 8.3 g/dL (11.5-14.8); LYMPHOCYTES # (AUTO) 0.5 /CMM (0.8-4.8); LYMPHOCYTES % (AUTO) 4.8 % (20.0-44.0); MEAN CORPUSCULAR HEMOGLOBIN 30 PG (26.0-33.0); MEAN CORPUSCULAR HGB CONC 32 g/dl (31.0-36.0); MEAN CORPUSCULAR VOLUME 95 fL (82-100); MONOCYTES # (AUTO) 0.6 /CMM (0.1-1.30); MONOCYTES % (AUTO) 6.6 % (2.0-12.0); NEUTROPHILS # (AUTO) 8.2 /CMM (1.8-8.9); NEUTROPHILS % (AUTO) 85.8 % (43.0-81.0); PLATELET COUNT (AUTO) 253 /CMM (150-450); RDW COEFFICIENT OF VARIATION 21.5 (11.5-15.0); RED BLOOD CELL COUNT(AUTO) 2.74 MIL/uL (4.0-5.2); WHITE BLOOD COUNT (AUTO) 9.5 K/uL (4.3-11.0)
[2018-02-11 06:58] LABS: CALCIUM, SERUM 8.7 mg/dL (8.5-10.1); CREATININE 0.9 mg/dL (0.6-1.3); POTASSIUM 3.9 mmol/L (3.5-5.1)
--- NOTE | 2018-02-11 07:30 | NUR ---
QA INTERN NOTES PT IN BED, ASLEEP, NO SIGN OF PAIN OR DISTRESS, GT FEEDING INFUSING WELL, F/C INTACT AND PATENT, DRAINING WELL WITH CLEAR YELLOW URINE, REPOSITIONED FOR COMFORT AND CIRCULATION, KEPT WARM AND COMFORTABLE.
[2018-02-11 08:00] VITALS: BP 140/52
[2018-02-11] MEDS ORDERED: VANCOMYCIN 500 MG in IV D5W 100 ML IV SCH (09:00)
[2018-02-11] MEDS: ASCORBIC ACID 500 MG TABLET GT SCH (09:35)
[2018-02-11] MEDS: CHLORHEXIDINE GLUCONATE 15 ML UDC MM SCH ×2 (09:35→20:51)
[2018-02-11] MEDS: SEVELAMER CARBONATE 0.8 GM POWD.PACK GT SCH (09:35)
[2018-02-11] MEDS: ZINC SULFATE 220 MG CAPSULE GT SCH (09:35)
[2018-02-11] MEDS: BUMETANIDE (1 MG) 1 MG TABLET GT SCH ×2 (09:35→16:25)
[2018-02-11] MEDS: LEVETIRACETAM SOL (5 ML) 100 MG/ML UDC GT SCH ×2 (09:35→16:25)
[2018-02-11] MEDS: SUCRALFATE 1 G/10 ML UDC GT SCH ×4 (09:35→20:50)
[2018-02-11] MEDS: LACTOBACILLUS RHAMNOSUS GG 1 EACH CAP.SPRINK GT SCH (09:35)
[2018-02-11] MEDS: CALCIUM ACETATE 667 MG TABLET GT SCH ×3 (09:36→16:24)
[2018-02-11] MEDS: HYDROCODONE/APAP 5/325MG 1 EACH TABLET GT SCH ×2 (09:36→16:25)
[2018-02-11] MEDS: ACIDOPHILUS/BULGARICUS 1 EACH TAB.CHEW GT SCH (09:36)
[2018-02-11] MEDS: MULTIVIT, IRON, MIN NO. 8, FA 1 TAB GT SCH (09:36)
[2018-02-11] MEDS: LOSARTAN/HCTZ 50-12.5MG/ 1 EA TABLET GT SCH (09:36)
[2018-02-11] MEDS: CARVEDILOL 12.5 MG TABLET GT SCH ×3 (09:37→21:11)
[2018-02-11] MEDS: FERROUS SULFATE UDC 300 MG/5 ML UDC GT SCH (09:39)
[2018-02-11] MEDS: PROSOURCE / PROSTAT (PYXIS) 30 ML UDC GT SCH (09:41)
[2018-02-11] MEDS: HYDROGEL DRESSING 90 GM TUBE TP SCH (09:42)
[2018-02-11] MEDS: INSULIN REGULAR, HUMAN 100 UNIT/ML 3 ML VIAL SQ PRN (11:57)
[2018-02-11] MEDS: PANTOPRAZOLE 40 MG/PACK PACK GT SCH (11:58)
[2018-02-11 12:00] VITALS: BP 166/78
--- NOTE | 2018-02-11 13:00 | NUR ---
WINDOWS CONSULTANT NOTES PT IN BED, SLEEPS INTERMITTENTLY, NOT IN DISTRESS, NO SIGN OF PAIN, TURNED AND REPOSITIONED Q2 HOURS, WOUND TREATMENT AND DRESSING CHANGE DONE, SEEN BY DR. RANDHAWA, DUE MEDS GIVEN, KEPT COMFORTABLE.
[2018-02-11] MEDS: DIGOXIN 0.125 MG TABLET GT SCH (13:14)
[2018-02-11] MEDS: JEVITY 1.2 CAL 1,000 ML BOTTLE GT PRN (13:22)
[2018-02-11 16:00] VITALS: BP 144/64
--- NOTE | 2018-02-11 18:20 | NUR ---
GRINDING SUPERVISOR NOTES PT IN BED, AWAKE, NO FACIAL GRIMACING OR MOANING, RESPIRATIONS NORMAL, SECRETIONS SUCTIONED NEEDED, PM MEDS GIVEN, WOUND TREATMENT AND DRESSING CHANGE DONE, TURNED AND REPOSITIONED Q2 HOURS, KEPT HOB ELEVATED, TOLERATING GT FEEDING WELL, KEPT CLEAN AND DRY, KEPT COMFORTABLE.
--- NOTE | 2018-02-11 19:20 | NUR ---
MORTGAGE PROTECTION SPECIALIST INITIAL NOTES Report received at bedside. Patient received in bed. NO facial grimacing or moaning noted. Tele monitor shows A-fib V-pacing; HR 55. Not in any type of distress. No SOB or labored breathing noted. On vent machine: PEEP 5, AC 14 TV 450 FiO2 30% with portex#[address] Johnston cath in place with clear, yellow urine draining. On g-tube feeding with Jevity 1.2 @50ml/hr. Safety measures in place. Will continue to monitor and assess the patient.
[2018-02-11 20:02] VITALS: BP 128/58
--- NOTE | 2018-02-11 21:11 | NUR ---
AIR LIFT OPERATOR - CHAIM NOTES Incorrectly UN-DID administration. Medication was given via gtube. BP: 128/58 P66 Tele HR: 70s
[2018-02-11] MEDS: ATORVASTATIN 10 MG TABLET GT SCH (21:12)
[2018-02-11] MEDS: DOCUSATE SODIUM 100 MG CAPSULE PO SCH (21:12)
--- NOTE | 2018-02-11 23:50 | NUR ---
LAY OUT AND DETAIL DRAFTER NOTES Suctioned patient as needed. Changed dressing, Cleansed site with NS, applied hydrogel, covered with mepilex and dry dressing. (Unable to scan hydrogel)
[2018-02-12] MEDS: BLOOD SUGAR DIAGNOSTIC 1 EACH STRIP IN SCH ×5 (00:34→23:42)
[2018-02-12] MEDS: ALBUTEROL FS 2.5 MG/3 ML VIAL.NEB NEB SCH ×4 (02:13→19:27)
[2018-02-12] MEDS: IPRATROPIUM NEB FS 0.5 MG/2.5 ML AMPUL.NEB NEB SCH ×4 (02:13→19:27)
[2018-02-12 04:00] VITALS: BP 164/79
--- NOTE | 2018-02-12 05:44 | NUR ---
DUMPER BAILER OPERATOR NOTES Suctioned patient as needed
--- NOTE | 2018-02-12 05:47 | NUR ---
REEL HOOKER CLOSING NOTES Patient remained in bed, awake with eyes opened. NO facial grimacing or moaning noted. Tele monitor shows A-fib V-pacing; HR 65-70. Not in any type of distress. No SOB or labored breathing noted. Saturating 96-97%. On vent machine: PEEP 5, AC 14 TV 450 FiO2 30% with portex#[address] HOB elevated. Vega cath in place with clear, yellow urine draining; 1220cc collected. On g-tube feeding with Jevity 1.2 @50ml/hr, tolerating well. SCD on. Safety measures in place. On Isoflex mattress; bed in lowest position with bed alarm on and call light within reach. Will continue to monitor patient and endorse to oncoming shift nurse.
[2018-02-12 07:11] LABS: CALCIUM, SERUM 8.8 mg/dL (8.5-10.1); CREATININE 0.9 mg/dL (0.6-1.3)
--- NOTE | 2018-02-12 07:25 | NUR ---
SENIOR RESEARCH EXECUTIVE CLOSING NOTES No changes in patient's condition. Report given/endorsed to HUEY Palacios
--- NOTE | 2018-02-12 07:30 | NUR ---
RN OPENING NOTES RECEIVED PATIENT ASLEEP EASILY AROUSABLNON VERBAL. RESPIRATIONS EVEN AND UNLABORED, DENIES ANY PAIN OR DISCOMFORT AT THIS TIME. IV ACCESS TO RIGHT HAND PATENT AND INTACT NO REDNESS OR INFILTRATION NOTED. CONTINUES ON MECHANICAL VENTILATION WILL CONTINUE TO MONITOR.SAFETY MEASURES IN PLACE, KEPT CLEAN DRY AND COMFORTABLE CALL LIGHT WITHIN EASY REACH, WILL CONTINUE TO MONITOR
[2018-02-12 08:00] VITALS: BP 170/71
--- NOTE | 2018-02-12 08:26 | NUR ---
RT RECD PT TRACHD INTACT AND SECURED ON MECH VENT VERNA ORDERED SETTINGS. ALARMS ON AND AUDIBLE VENT PLUGGED IN RED OUTLET. SX THICK YELLOW MODERATE SECRETIONS NO RESP DISTRESS NOTED ATT WILL CONTINUE TO MONITOR
[2018-02-12] MEDS: SEVELAMER CARBONATE 0.8 GM POWD.PACK GT SCH (09:14)
[2018-02-12] MEDS: HYDROCODONE/APAP 5/325MG 1 EACH TABLET GT SCH ×2 (09:14→16:13)
[2018-02-12] MEDS: SUCRALFATE 1 G/10 ML UDC GT SCH ×4 (09:14→21:38)
[2018-02-12] MEDS: CALCIUM ACETATE 667 MG TABLET GT SCH ×3 (09:14→16:13)
[2018-02-12] MEDS: CHLORHEXIDINE GLUCONATE 15 ML UDC MM SCH ×2 (09:14→21:38)
[2018-02-12] MEDS: MULTIVIT, IRON, MIN NO. 8, FA 1 TAB GT SCH (09:15)
[2018-02-12] MEDS: ASCORBIC ACID 500 MG TABLET GT SCH (09:16)
[2018-02-12] MEDS: LOSARTAN/HCTZ 50-12.5MG/ 1 EA TABLET GT SCH (09:16)
[2018-02-12] MEDS: BUMETANIDE (1 MG) 1 MG TABLET GT SCH ×2 (09:16→16:13)
[2018-02-12] MEDS: ZINC SULFATE 220 MG CAPSULE GT SCH (09:16)
[2018-02-12] MEDS: LEVETIRACETAM SOL (5 ML) 100 MG/ML UDC GT SCH ×2 (09:16→16:12)
[2018-02-12] MEDS: ACIDOPHILUS/BULGARICUS 1 EACH TAB.CHEW GT SCH (09:16)
[2018-02-12 10:00] LABS: BASOPHILS % (AUTO) 0.4 % (0.0-2.0); EOSINOPHILS % (AUTO) 2.7 % (0.0-6.0); HEMATOCRIT 26 % (33-45); HEMOGLOBIN 8.4 g/dL (11.5-14.8); LYMPHOCYTES # (AUTO) 0.6 /CMM (0.8-4.8); LYMPHOCYTES % (AUTO) 6.3 % (20.0-44.0); MEAN CORPUSCULAR HEMOGLOBIN 31 PG (26.0-33.0); MEAN CORPUSCULAR HGB CONC 32 g/dl (31.0-36.0); MEAN CORPUSCULAR VOLUME 96 fL (82-100); MONOCYTES # (AUTO) 0.7 /CMM (0.1-1.30); MONOCYTES % (AUTO) 7.2 % (2.0-12.0); NEUTROPHILS # (AUTO) 7.6 /CMM (1.8-8.9); NEUTROPHILS % (AUTO) 83.4 % (43.0-81.0); PLATELET COUNT (AUTO) 232 /CMM (150-450); RDW COEFFICIENT OF VARIATION 21.8 (11.5-15.0); RED BLOOD CELL COUNT(AUTO) 2.74 MIL/uL (4.0-5.2); WHITE BLOOD COUNT (AUTO) 9.1 K/uL (4.3-11.0)
[2018-02-12] MEDS: FERROUS SULFATE UDC 300 MG/5 ML UDC GT SCH (10:12)
[2018-02-12] MEDS: PROSOURCE / PROSTAT (PYXIS) 30 ML UDC GT SCH (10:12)
[2018-02-12] MEDS: HYDROGEL DRESSING 90 GM TUBE TP SCH (10:13)
[2018-02-12] MEDS: CARVEDILOL 12.5 MG TABLET GT SCH ×2 (10:14→21:40)
[2018-02-12 10:35] LABS: ABG BASE EXCESS 10.2 mmol/L; ABG OXYGEN SATURATION 94.9 % (92.0-98.5); ABG PCO2 49.2 mmHg (35.0-45.0); ABG PH 7.471 (7.350-7.450); ABG PO2 76.3 mmHg (75.0-100.0); AaDO2 79.8 mmHg; COHb 0.2 % (0.5-1.5); MetHb 0.9 % (0.0-1.5); O2Hb 93.9 % (94.0-97.0); PEEP,BG 5 cm H2O; SITE, ABG Left Radial; VT, ABG 450 mL
[2018-02-12] MEDS: PANTOPRAZOLE 40 MG/PACK PACK GT SCH (13:10)
[2018-02-12] MEDS: DIGOXIN 0.125 MG TABLET GT SCH (13:11)
[2018-02-12] MEDS: INSULIN REGULAR, HUMAN 100 UNIT/ML 3 ML VIAL SQ PRN ×2 (13:12→18:17)
--- NOTE | 2018-02-12 13:30 | NUR ---
RN NOTES PATIENT WITH DISCHARGE ORDERS PER CM PT TO BE TRANSPORTED AT 1430, PICTURES OF SKIN WITHIN 24H IN CHART. WILL CONTINUE TO ASSIST WITH DC PROCESS
[2018-02-12 16:00] VITALS: BP 162/68
[2018-02-12] MEDS: EPOETIN ALFA (4000 UNIT) 4,000 UNIT/ML VIAL SQ SCH (16:14)
--- NOTE | 2018-02-12 16:15 | NUR ---
RN NOTES PT WITH DC ORDERS, REPORT GIVEN TO [employer] GUARDMITRA, BECKA TAKEN PER EMT HR AT 40. RN IN ROOM HR TAKEN MANUALLY NOTED AT 51 CALLED [facility] PER MITRA HR SHOULD BE >60 FOR TRANSPORT, WILL CONTINUE TO MONITOR, ALL DISCHARGE INSTRUCTIONS REVIEWED WITH MITRA WILL PLACE PT ON WILL CALL FOR TRANSPORT IV ACCESS REMOVED, WILL TRANSPORT AT A LATER TIME
--- NOTE | 2018-02-12 19:15 | NUR ---
RN OPENING NOTES PT NONVERBAL. NO APPARENT S/S OF PAIN DISTRESS OR SOB. PT VENT TRACH WITH CONTINUOUS PULSE OX. PT TELE MONITORED. PT HAS GT TUBE FEEDING RUNNING JEVITY @50 ML/HR. NO IV SITE, AWARE. SAFETY PRECAUTIONS IN PLACE, BED IN LOWEST LOCKED POSITION, X3 SIDE RAILS UP, AND CALL LIGHT WITHIN REACH . WILL CONTINUE TO MONITOR.
--- NOTE | 2018-02-12 19:30 | NUR ---
RN CLOSING NOTES PATIENT ASLEEP EASILY AROUSABLE NON VERBAL. RESPIRATIONS EVEN AND UNLABORED, DENIES ANY PAIN OR DISCOMFORT AT THIS TIME. NO IV ACCESS MD AWARE PT TO BE DISCHARGED. CONTINUES ON MECHANICAL VENTILATION WILL CONTINUE TO MONITOR.SAFETY MEASURES IN PLACE, KEPT CLEAN DRY AND COMFORTABLE CALL LIGHT WITHIN EASY REACH, WILL CONTINUE TO MONITOR, ENDORSED TO NEXT SHIFT FOR CONTINUITY OF CARE
[2018-02-12 20:13] VITALS: BP 145/59
[2018-02-12] MEDS: ATORVASTATIN 10 MG TABLET GT SCH (21:38)
[2018-02-12] MEDS: DOCUSATE SODIUM 100 MG CAPSULE PO SCH (21:38)
[2018-02-13] VITALS: BP 140/57
[2018-02-13] MEDS: IPRATROPIUM NEB FS 0.5 MG/2.5 ML AMPUL.NEB NEB SCH ×3 (00:49→12:49)
[2018-02-13] MEDS: ALBUTEROL FS 2.5 MG/3 ML VIAL.NEB NEB SCH ×3 (00:49→12:49)
[2018-02-13 04:00] VITALS: BP 133/59
[2018-02-13] MEDS: BLOOD SUGAR DIAGNOSTIC 1 EACH STRIP IN SCH ×3 (05:28→17:26)
[2018-02-13 06:40] LABS: CREATININE 0.9 mg/dL (0.6-1.3); POTASSIUM 3.8 mmol/L (3.5-5.1)
--- NOTE | 2018-02-13 06:54 | NUR ---
RN CLOSING NOTES PT NONVERBAL. NO APPARENT S/S OF PAIN DISTRESS OR SOB OVERNIGHT. PT VENT TRACH WITH CONTINUOUS PULSE OX. PT TELE MONITORED. PT HAS GT TUBE FEEDING RUNNING JEVITY @50 ML/HR. NO IV SITE, AWARE. SAFETY PRECAUTIONS IN PLACE, BED IN LOWEST LOCKED POSITION, X3 SIDE RAILS UP, AND CALL LIGHT WITHIN REACH . WILL ENDORSE TO DAY SHIFT NURSE FOR CONTINUITY OF CARE.
--- NOTE | 2018-02-13 07:24 | NUR ---
RN OPENING NOTES RECEIVED PATIENT ASLEEP EASILY AROUSABLE NON VERBAL. RESPIRATIONS EVEN AND UNLABORED, DENIES ANY PAIN OR DISCOMFORT AT THIS TIME.NO IV ACCESS MD AWARE. CONTINUES ON MECHANICAL VENTILATION WILL CONTINUE TO MONITOR.SAFETY MEASURES IN PLACE, KEPT CLEAN DRY AND COMFORTABLE CALL LIGHT WITHIN EASY REACH, WILL CONTINUE TO MONITOR
[2018-02-13 08:00] VITALS: BP 130/68
[2018-02-13] MEDS: ACIDOPHILUS/BULGARICUS 1 EACH TAB.CHEW GT SCH (08:34)
[2018-02-13] MEDS: SEVELAMER CARBONATE 0.8 GM POWD.PACK GT SCH (08:34)
[2018-02-13] MEDS: FERROUS SULFATE UDC 300 MG/5 ML UDC GT SCH (08:34)
[2018-02-13] MEDS: CHLORHEXIDINE GLUCONATE 15 ML UDC MM SCH (08:34)
[2018-02-13] MEDS: ASCORBIC ACID 500 MG TABLET GT SCH (08:34)
[2018-02-13] MEDS: ZINC SULFATE 220 MG CAPSULE GT SCH (08:34)
[2018-02-13] MEDS: SUCRALFATE 1 G/10 ML UDC GT SCH ×3 (08:34→16:18)
[2018-02-13] MEDS: LEVETIRACETAM SOL (5 ML) 100 MG/ML UDC GT SCH ×2 (08:34→16:18)
[2018-02-13] MEDS: CALCIUM ACETATE 667 MG TABLET GT SCH ×3 (08:36→16:18)
[2018-02-13] MEDS: PROSOURCE / PROSTAT (PYXIS) 30 ML UDC GT SCH (08:36)
[2018-02-13] MEDS: HYDROCODONE/APAP 5/325MG 1 EACH TABLET GT SCH ×2 (08:36→16:20)
[2018-02-13] MEDS: MULTIVIT, IRON, MIN NO. 8, FA 1 TAB GT SCH (08:36)
[2018-02-13] MEDS: HYDROGEL DRESSING 90 GM TUBE TP SCH (08:37)
[2018-02-13] MEDS: CARVEDILOL 12.5 MG TABLET GT SCH (09:00)
[2018-02-13] MEDS: BUMETANIDE (1 MG) 1 MG TABLET GT SCH ×2 (09:57→17:12)
[2018-02-13] MEDS: PANTOPRAZOLE 40 MG/PACK PACK GT SCH (10:44)
[2018-02-13] MEDS: LOSARTAN/HCTZ 50-12.5MG/ 1 EA TABLET GT SCH (10:44)
--- NOTE | 2018-02-13 10:50 | NUR ---
RN NOTES COREG HELD HR NOTED AT 52, MD AWARE, WILL CONTINUE TO MONITOR
[2018-02-13 12:00] VITALS: BP 150/60
[2018-02-13] MEDS: INSULIN REGULAR, HUMAN 100 UNIT/ML 3 ML VIAL SQ PRN ×2 (12:25→17:22)
[2018-02-13] MEDS: DIGOXIN 0.125 MG TABLET GT SCH (12:26)
--- NOTE | 2018-02-13 16:47 | NUR ---
RN NOTES/ REPORT TO [facility] PATIENT WITH DISCHARGE ORDER, DISCHARGE INSTRUCTIONS REVIEWED WITH [place] PLASTIC MANAGERMITRA WITH NOTED VERBAL UNDERSTANDING. PICTURES OF SKIN TAKEN AND PLACED IN CHART, WILL CONTINUE TO ASSIST WITH DISCHARGE PROCESS.
--- NOTE | 2018-02-13 17:45 | NUR ---
RN NOTES/ TRANSPORTATION FOR DISCHARGE PER TRANSPORTATION WILL PRIMER INSERTING MACHINE ADJUSTER PATIENT AT 1815. WILL CONTINUE TO MONITOR.
--- NOTE | 2018-02-13 18:41 | NUR ---
RN CLOSING NOTES PATIENT ASLEEP EASILY AROUSABLE NON VERBAL. RESPIRATIONS EVEN AND UNLABORED, DENIES ANY PAIN OR DISCOMFORT AT THIS TIME. NO IV ACCESS MD AWARE PT TO BE DISCHARGED. CONTINUES ON MECHANICAL VENTILATION WILL CONTINUE TO MONITOR. ALL DISCHARGED INSTRUCTIONS REVIEWED WITH [place] [employer] OPERATOR HELPERMITRA. ALL BELONGINGS ACCOUNTED FOR, ALL DISCHARGED PAPERWORK COMPLETED AND SIGNED BY TWO RNs PATIENT UNABLE TO SIGN FOR SELF. SAFETY MEASURES IN PLACE, KEPT CLEAN DRY AND COMFORTABLE CALL LIGHT WITHIN EASY REACH, WILL CONTINUE TO MONITOR, AND WILL ENDORSE TO NEXT SHIFT FOR CONTINUITY OF CARE AND DISCHARGE
[2018-02-13 19:25] VITALS: BP 152/73
--- NOTE | 2018-02-13 19:25 | NUR ---
RN NOTES/DISCHARGE EMT TRANSPORT IN UNIT TO PICKUP PT, REPORT GIVEN TO TRANSPORTED PT IN STABLE CONDITION ALL DC INSTRUCTIONS PROVIDED ALL BELONGINGS ACCOUNTED FOR PT DISCHARGE IN STABLE CONDITION
== END 2018-02-13 19:25 | DRG 951 ==
LOC: ER 15:27 → TELE 18:27
PROVIDERS: ADMIT Family Medicine; ATTEND Family Medicine
PROC: 5A1955Z Respiratory Ventilation, Greater than 96 Consecutive Hours (ICD-10-PCS; principal; 2018-02-07)
PROC: 30233N1 Transfusion of Nonautologous Red Blood Cells into Peripheral Vein, Percutaneous Approach (ICD-10-PCS; 2018-02-09)
PROC: 0QB10ZZ Excision of Sacrum, Open Approach (ICD-10-PCS; 2018-02-09)
DX: B37.49 Other urogenital candidiasis (principal); N17.0 Acute kidney failure with tubular necrosis; I21.A1 Myocardial infarction type 2; E43 Unspecified severe protein-calorie malnutrition; J90 Pleural effusion, not elsewhere classified; L89.154 Pressure ulcer of sacral region, stage 4; J96.11 Chronic respiratory failure with hypoxia; Z99.11 Dependence on respirator [ventilator] status; R53.2 Functional quadriplegia; E87.2 Acidosis; D68.59 Other primary thrombophilia; E11.22 Type 2 diabetes mellitus with diabetic chronic kidney disease; N18.9 Chronic kidney disease, unspecified; D63.8 Anemia in other chronic diseases classified elsewhere; E88.09 Other disorders of plasma-protein metabolism, not elsewhere classified; E78.5 Hyperlipidemia, unspecified; Z93.1 Gastrostomy status; Z93.0 Tracheostomy status; Z95.0 Presence of cardiac pacemaker; I48.2 Chronic atrial fibrillation; R13.10 Dysphagia, unspecified; I13.0 Hypertensive heart and chronic kidney disease with heart failure and stage 1 through stage 4 chronic kidney disease, or unspecified chronic kidney disease; I25.10 Atherosclerotic heart disease of native coronary artery without angina pectoris; I50.32 Chronic diastolic (congestive) heart failure; Z66 Do not resuscitate; Z68.1 Body mass index [BMI] 19.9 or less, adult; K92.2 Gastrointestinal hemorrhage, unspecified; G40.909 Epilepsy, unspecified, not intractable, without status epilepticus; Z95.2 Presence of prosthetic heart valve; Z79.01 Long term (current) use of anticoagulants; I25.2 Old myocardial infarction; K29.70 Gastritis, unspecified, without bleeding; I09.9 Rheumatic heart disease, unspecified; Z79.4 Long term (current) use of insulin
CPT/HCPCS: 31720; 36415; 36600; 71045-TC; 80048-TC; 80061-TC; 80076-TC; 80162-TC; 80202-TC; 81000-TC; 82803-TC; 82962-TC; 83605-TC; 83735-TC; 84100-TC; 84484-TC; 85025-TC; 85730-TC; 86850-TC; 86921-TC; 87040-TC; 87081-TC; 87086-TC; 94003-TC; 94760-TC; 94762-TC; A4216; A4606; A6248; A6253; A6402; A6403; J0885; J1450; J1815; J1953; J2543; J3370; J7030; J7040; J7050; J7060; P9016-BL; Z7610

== ENCOUNTER 2018-03-22 13:09 | Inpatient (IN) | payer OTHER ==
[~2018-03-22] VITALS: Ht 157.5 cm; Wt 37.2 kg
[2018-03-22] MEDS: PROSOURCE / PROSTAT (PYXIS) 30 ML UDC GT SCH (09:00)
[~2018-03-22 13:09] MED LIST changes: -LINE600T PO; -WARF1TAB47 GT
--- NOTE | 2018-03-22 13:50 | NUR ---
RT RECD PT TRACHED WITH PORTEX 7 FOR ABNORMAL LABS ON [facility] VENT WITH ORDERED SETTINGS AC 14 450 +5 30% VERNA ORDERED SETTINGS. VENT PLUGGED IN RED OUTLET BAG AND MASK AT [facility]. ALARMS ON AND AUDIBLE. SX BLOOD TINGE -YELLOW THIICK SECRETIONS, NO RESP DISTRESS NOTED ATT WILL CONTINUE TO MONITOR. Addendum: 03/22/18 at 1354 by DEMARCUS ROQUE RT Amended: Links added.
[2018-03-22] MEDS ORDERED: PHEN28OI6 RC (13:59)
[2018-03-22] MEDS ORDERED: INSU100I34 SQ (13:59)
[2018-03-22] MEDS ORDERED: ACET-2605 GT (13:59)
[2018-03-22] MEDS ORDERED: NUT.237L30 GT (13:59)
--- NOTE | 2018-03-22 13:59 | NUR ---
PT KOJO SMALLWOOD SENT BY PMD FOR SEVERE ANEMIA HEMOGLOBIN 6.0. AT BASELINE LOC. SKIN COOL, DRY, PALE. MARION CATH PRESENT ON ARRIVAL. LIMBS CONTRACTED. WITH TRACH ON VENT AT PRIOR SETTINGS. NAD NOTED. IN ER BED 08 ON MONITOR.
[2018-03-22 14:24] LABS: BASOPHILS % (AUTO) 0.5 % (0.0-2.0); EOSINOPHILS % (AUTO) 3.8 % (0.0-6.0); LYMPHOCYTES # (AUTO) 0.4 /CMM (0.8-4.8); LYMPHOCYTES % (AUTO) 6.5 % (20.0-44.0); MEAN CORPUSCULAR HEMOGLOBIN 29 PG (26.0-33.0); MEAN CORPUSCULAR HGB CONC 33 g/dl (31.0-36.0); MEAN CORPUSCULAR VOLUME 89 fL (82-100); MONOCYTES # (AUTO) 0.5 /CMM (0.1-1.30); NEUTROPHILS # (AUTO) 5.4 /CMM (1.8-8.9); NEUTROPHILS % (AUTO) 82.2 % (43.0-81.0); PLATELET COUNT (AUTO) 233 /CMM (150-450); RDW COEFFICIENT OF VARIATION 15.5 (11.5-15.0); RED BLOOD CELL COUNT(AUTO) 2.24 MIL/uL (4.0-5.2); WHITE BLOOD COUNT (AUTO) 6.5 K/uL (4.3-11.0)
[2018-03-22 14:34] LABS: HEMATOCRIT 20 % (33-45)
[2018-03-22 14:35] LABS: HEMOGLOBIN 6.5 g/dL (11.5-14.8)
--- NOTE | 2018-03-22 14:38 | NUR ---
IV ACCESS OBTAINED AND SALINE LOCKED
[2018-03-22 14:39] LABS: INR 1.09 (0.85-1.15)
[2018-03-22 14:40] LABS: CALCIUM, SERUM 8.7 mg/dL (8.5-10.1); CREATININE 0.7 mg/dL (0.6-1.3)
[2018-03-22 14:47] LABS: ALBUMIN 1.7 g/dL (3.4-5.0); BILIRUBIN,DIRECT 0.3 mg/dL (0.0-0.2); BILIRUBIN,TOTAL 0.5 mg/dL (0.2-1.0); TOTAL PROTEIN, SERUM 7.9 g/dL (6.4-8.2)
--- NOTE | 2018-03-22 15:24 | NUR ---
REPORT GIVEN TO LIBERTAD ARZATE FOR ADMISSION TO [facility]
--- NOTE | 2018-03-22 15:50 | NUR ---
PT TRANSPORTED TO 111-1 IN STABLE CONDITION VIA ACLS PROTOCOL WITH RT
[2018-03-22] MEDS ORDERED: MAGNESIUM HYDROXIDE 30 ML UDC GT PRN (16:00)
[2018-03-22] MEDS ORDERED: BISACODYL SUPP (10 MG) 10 MG/SUPP.RECT SUPP.RECT RC PRN (16:00)
[2018-03-22] MEDS ORDERED: ONDANSETRON HCL/PF 4 MG/2 ML VIAL IVP PRN (16:00)
[2018-03-22] MEDS ORDERED: IPRATROPIUM NEB FS 0.5 MG/2.5 ML AMPUL.NEB IH PRN (16:00)
[2018-03-22] MEDS ORDERED: NA PHOS,M-B/NA PHOS,DI-BA 1 EA ENEMA RC PRN (16:00)
[2018-03-22] MEDS ORDERED: ZOLPIDEM TARTRATE 5 MG TABLET PO PRN (16:00)
[2018-03-22] MEDS ORDERED: HYDROCODONE/APAP 5/325MG 1 EACH TABLET GT PRN (16:00)
[2018-03-22] MEDS ORDERED: MAGNESIUM HYDROXIDE 30 ML UDC PO PRN (16:00)
[2018-03-22] MEDS ORDERED: HYDROCODONE/APAP 5/325MG 1 EACH TABLET PO PRN (16:00)
[2018-03-22] MEDS ORDERED: MISCELLANEOUS MED 1 EA EA GT PRN (16:00)
[2018-03-22] MEDS ORDERED: Z GUARD REMEDY 2 OZ OINT TP PRN (16:00)
[2018-03-22] MEDS ORDERED: MAG HYDROX/AL HYDROX/SIMETH 30 ML UDC PO PRN (16:00)
[2018-03-22] MEDS ORDERED: ACETAMINOPHEN 325 MG TABLET PO PRN ×2 (16:00)
--- NOTE | 2018-03-22 16:30 | NUR ---
BUSINESS COMPUTERS TEACHER NOTE RECEIVED PATENT FROM ER WITH DX ANEMIA AWAKE WITH OPEN BOTH EYES , UNABLE TO FOLLOW ANY COMMAND , WITH TRACH TO VENT SETTING ORDERED WITH MARION CATH TO GRAVITY WITH G TUBE CLUMP AT THIS TIME , HOSPITAL ORIENTATION DONE, VS TAKEN WILL CONT TO MONITOR CLOSELY , CALL LIGHT WITHIN REACH , PLAN OF CARE DICUSSED WITH PATIENT, WOUND CARE CONSULT ORDERED
[2018-03-22 16:45] VITALS: BP 143/64
[2018-03-22 17:46] LABS: BAND % (MANUAL) 12 % (0.0-5.0); EOSINOPHILS % (MANUAL) 2 % (0-4); LYMPHOCYTES % (MANUAL) 8 % (16-48); MONOCYTES % (MANUAL) 2 % (0-11.0); NEUTROPHILS % (MANUAL) 76 (42-76)
[2018-03-22] MEDS: CARVEDILOL 12.5 MG TABLET GT SCH (18:10)
[2018-03-22] MEDS: HYDROCODONE/APAP 5/325MG 1 EACH TABLET GT SCH (18:11)
[2018-03-22] MEDS: LEVETIRACETAM SOL (5 ML) 100 MG/ML UDC GT SCH (18:11)
[2018-03-22] MEDS: SUCRALFATE 1 G/10 ML UDC GT SCH ×2 (18:11→21:51)
[2018-03-22] MEDS: FERROUS SULFATE UDC 300 MG/5 ML UDC GT SCH (18:14)
[2018-03-22] MEDS: GLUCERNA 1.2 1,000 ML BOTTLE GT SCH (18:15)
[2018-03-22] MEDS: CALCIUM ACETATE 667 MG TABLET GT SCH (18:15)
[2018-03-22 18:29] LABS: BASOPHILS % (AUTO) 0.7 % (0.0-2.0); EOSINOPHILS % (AUTO) 3.3 % (0.0-6.0); HEMATOCRIT 23 % (33-45); HEMOGLOBIN 7.2 g/dL (11.5-14.8); LYMPHOCYTES # (AUTO) 0.5 /CMM (0.8-4.8); LYMPHOCYTES % (AUTO) 7.9 % (20.0-44.0); MEAN CORPUSCULAR HEMOGLOBIN 28 PG (26.0-33.0); MEAN CORPUSCULAR HGB CONC 31 g/dl (31.0-36.0); MEAN CORPUSCULAR VOLUME 91 fL (82-100); MONOCYTES # (AUTO) 0.4 /CMM (0.1-1.30); MONOCYTES % (AUTO) 7.7 % (2.0-12.0); NEUTROPHILS # (AUTO) 4.6 /CMM (1.8-8.9); NEUTROPHILS % (AUTO) 80.4 % (43.0-81.0); PLATELET COUNT (AUTO) 286 /CMM (150-450); RDW COEFFICIENT OF VARIATION 16.8 (11.5-15.0); RED BLOOD CELL COUNT(AUTO) 2.55 MIL/uL (4.0-5.2); WHITE BLOOD COUNT (AUTO) 5.8 K/uL (4.3-11.0)
--- NOTE | 2018-03-22 18:30 | NUR ---
SELECTOR PACKER NOTE G TUBE FEEDING ORDERED STARTED, KEEP HOB ELEVATED AT ALL TIME ,PER DR RANDHAWA HG 7.2 AWARE ,NO BLOOD TRANSFUSION AT THIS TIME
[2018-03-22] MEDS: BLOOD SUGAR DIAGNOSTIC 1 EACH STRIP IN SCH ×2 (18:31→23:59)
--- NOTE | 2018-03-22 18:43 | NUR ---
SPONSORSHIP COORDINATOR NOTES TRANSFUSION PARAMETERS PER DR KING TRANSFUSE 1 UNIT BLOOD IF HGB 6.7-7. IF BELOW 6.7 2U.
--- NOTE | 2018-03-22 18:43 | NUR ---
SCENIC DESIGNER NOTES LAB REPORTED 6PM HGB LEVEL IS 7.2. AND NO PAST HX OF BLOOD TRANSFUSION REACTION
--- NOTE | 2018-03-22 19:24 | NUR ---
PIER MASTER ASSISTANT ENDING NOTES ENDORSED PATIENT TO PM NURSE FOR ONGOING CARE. ALL NEEDS MET. PT IN STABLE CONDITION. NOT IN RESP DISTRESS. NOTIFIED NURSE OF LATEST H&H LABS AND PARAMETERS FOR TRANSFUSION. BED IN LOCKED/LOWEST POSITON. CALL LIGHT W/IN REACH.
[2018-03-22] MEDS ORDERED: ALBUTEROL FS 2.5 MG/3 ML VIAL.NEB NEB PRN (19:30)
[2018-03-22 20:00] VITALS: BP 143/50
--- NOTE | 2018-03-22 20:00 | NUR ---
RN INITIAL NOTE RECEIVED PATENT IN BED AWAKE WITH OPEN BOTH EYES , UNABLE TO FOLLOW ANY COMMAND , WITH TRACH TO VENT SETTING ORDERED WITH MARION CATH TO GRAVITY. G TUBE INFUSING @ 30. IV #20 IN R UA S/L , CALL LIGHT WITHIN REACH , WILL CONT TO MONITOR.
[2018-03-22] MEDS: ALBUTEROL FS 2.5 MG/0.5 ML VIAL.NEB NEB SCH (20:25)
[2018-03-22] MEDS: IPRATROPIUM NEB FS 0.5 MG/2.5 ML AMPUL.NEB IH SCH (20:25)
--- NOTE | 2018-03-22 20:29 | NUR ---
PATIENT RECEIVED TRACHED ON MECHANICAL VENTILATION. AMBU BAG @ BEDSIDE. VENT PLUGGED INTO RED OUTLET. ALARMS ON AND AUDIBLE. CUFF CHECKED VIA FURNACE HELPER. TX GIVEN, NO ADVERSE REACTIONS NOTED. SX DONE, SMALL THICK RODAS SECRETIONS NOTED. NO DISTRESS NOTED. WILL MONITOR T/O SHIFT. Addendum: 03/22/18 at 2030 by SHON ERICKSON RT Amended: Links added.
[2018-03-22] MEDS: CHLORHEXIDINE GLUCONATE 15 ML UDC MM SCH (21:51)
[2018-03-22] MEDS: DOCUSATE SODIUM 100 MG CAPSULE PO SCH (21:51)
--- NOTE | 2018-03-22 22:00 | NUR ---
RN NOTES ALL SAFETY PRECAUTIONS IN PLACE. VENT PLUGGED INTO RED OUTLET.
[2018-03-23] VITALS (13 sets, daily range): BP systolic 128–191; BP diastolic 30–96
[2018-03-23] MEDS: ALBUTEROL FS 2.5 MG/0.5 ML VIAL.NEB NEB SCH ×4 (01:11→19:46)
[2018-03-23] MEDS: IPRATROPIUM NEB FS 0.5 MG/2.5 ML AMPUL.NEB IH SCH ×4 (01:11→19:46)
[2018-03-23] MEDS: BLOOD SUGAR DIAGNOSTIC 1 EACH STRIP IN SCH ×4 (06:13→23:12)
--- NOTE | 2018-03-23 07:10 | NUR ---
GOVERNMENT RELATIONS MANAGER OPENING NOTE RECEIVED PATIENT IN STABLE CONDITION, TRACH VENT DEPENDENT, SETTINGS ORDERED. AWAKE, NO RESPIRATORY DISTRESS NOTED. IV SITE ON RIGHT UPPER ARM INTACT. G TUBE FEEDING INFUSING, AFIB HR 65 ON CAR FILLER. MARION CATHETER DRAINING CLEAR YELLOW URINE TO GRAVITY. HEAD OF BED ELEVATED, BED LOW AND LOCKED, WILL CONTINUE TO MONITOR.
[2018-03-23 07:21] LABS: BASOPHILS % (AUTO) 0.6 % (0.0-2.0); EOSINOPHILS % (AUTO) 1.8 % (0.0-6.0); HEMATOCRIT 21 % (33-45); LYMPHOCYTES # (AUTO) 0.4 /CMM (0.8-4.8); MEAN CORPUSCULAR HEMOGLOBIN 28 PG (26.0-33.0); MEAN CORPUSCULAR HGB CONC 32 g/dl (31.0-36.0); MEAN CORPUSCULAR VOLUME 90 fL (82-100); MONOCYTES # (AUTO) 0.4 /CMM (0.1-1.30); MONOCYTES % (AUTO) 7.3 % (2.0-12.0); NEUTROPHILS # (AUTO) 4.8 /CMM (1.8-8.9); NEUTROPHILS % (AUTO) 83.3 % (43.0-81.0); PLATELET COUNT (AUTO) 277 /CMM (150-450); RDW COEFFICIENT OF VARIATION 16.5 (11.5-15.0); RED BLOOD CELL COUNT(AUTO) 2.35 MIL/uL (4.0-5.2); WHITE BLOOD COUNT (AUTO) 5.7 K/uL (4.3-11.0)
[2018-03-23 07:36] LABS: CALCIUM, SERUM 8.9 mg/dL (8.5-10.1); CREATININE 0.8 mg/dL (0.6-1.3); MAGNESIUM 2.4 mg/dL (1.8-2.4); PHOSPHORUS 3.5 mg/dL (2.5-4.9); POTASSIUM 3.9 mmol/L (3.5-5.1)
--- NOTE | 2018-03-23 07:45 | NUR ---
RECEIVED A CALL FROM LAB THAT PATIENT'S HEMOGLOBIN IS 6.7. PAGED DR. RANDHAWA AND RECEIVED AN ORDER TO REPEAT H&H AT 10AM.
[2018-03-23 07:56] LABS: HEMOGLOBIN 6.7 g/dL (11.5-14.8)
--- NOTE | 2018-03-23 08:05 | NUR ---
RN CLOSING NOTES PT IN STABLE CONDITION. NOT IN RESP DISTRESS. NOTIFIED NURSE OF LATEST H&H LABS AND PARAMETERS FOR TRANSFUSION. BED IN LOCKED/LOWEST POSITON. CALL LIGHT W/IN REACH. WILL ENDORSE TO AM RN.
--- NOTE | 2018-03-23 08:57 | NUR ---
WOUND CARE CONSULT: PT PRESENTS WITH STAGE 4 ULCER TO SACRUM WITH PURULENT DRAINAGE AND UNDERMINING. RECOMMENDATIONS MADE FOR WOUND CARE AND SKIN PROTECTION. DISCUSSED WITH NURSING STAFF. PT ON DENISA ISOFLEX LOW AIRLOSS BED. ALL SKIN PROTECTION MEASURES IN PLACE. WILL SEE PRN. RECOMMEND SURGICAL CONSULT. M D IN AGREEMENT WITH PLAN OF CARE. CURRENT BALJEET SCORE IS 12. PT IS VERY THIN AND BONY. Addendum: 03/23/18 at 0858 by MUSTAPHA TORRES Amended: Links added. Addendum: 03/23/18 at 0900 by MUSTAPHA TORRES SACRAL ULCER WAS PRESENT ON ADMISSION. DIETARY CONSULT ORDERED.
[2018-03-23] MEDS ORDERED: Medication Not On Formulary EA (Cran/Vitc/Mannose/Inulin/Brom (Uti-Stat Liquid) 30 ML) GT SCH (09:00)
[2018-03-23] MEDS ORDERED: SEVELAMER CARBONATE 0.8 GM POWD.PACK GT SCH (09:00)
--- NOTE | 2018-03-23 10:10 | NUR ---
PATIENT WAS RECEIVED ON CONTINUOUS VENT SUPPORT ON NOTED VENT SETTINGS. B/S RHONCHI SUCTIONED WITH A MODERATE AMOUNT OF THIN PALE YELLOWISH SECRETIONS .VENT PLUGGED INTO RED OUTLET. AMBUBAG AND SPARE TRACH AT BEDSIDE. WILL CONTINUE TO MONITOR. Addendum: 03/23/18 at 1013 by LOUIS SINGH RT Amended: Links added.
--- NOTE | 2018-03-23 10:40 | NUR ---
BASKET MACHINE OPERATOR NOTE RECEIVED A CALL FROM LAB THAT PATIENT'S HEMOGLOBIN IS 6.8. PAGED DR. RANDHAWA AND RECEIVED AN ORDER TO TRANSFUSE 1 UNIT OF PRBCS. ALSO CALLED RESPONSIBLE REPUBLICAN NEPHFIOR LIMON AND RECEIVED VERBAL CONSENT WITH ANOTHER NURSE TO TRANSFUSE PATIENT.
[2018-03-23 10:51] LABS: HEMOGLOBIN 6.8 g/dL (11.5-14.8)
[2018-03-23] MEDS: BUMETANIDE (1 MG) 1 MG TABLET GT SCH ×2 (11:01→17:26)
[2018-03-23] MEDS: CHLORHEXIDINE GLUCONATE 15 ML UDC MM SCH ×2 (11:01→21:06)
[2018-03-23] MEDS: SUCRALFATE 1 G/10 ML UDC GT SCH ×4 (11:01→21:06)
[2018-03-23] MEDS: CALCIUM ACETATE 667 MG TABLET GT SCH ×3 (11:01→18:52)
[2018-03-23] MEDS: FERROUS SULFATE UDC 300 MG/5 ML UDC GT SCH (11:02)
[2018-03-23] MEDS: ATORVASTATIN 10 MG TABLET GT SCH (11:02)
[2018-03-23] MEDS: LEVETIRACETAM SOL (5 ML) 100 MG/ML UDC GT SCH ×2 (11:03→17:26)
[2018-03-23] MEDS: HYDROCODONE/APAP 5/325MG 1 EACH TABLET GT SCH ×2 (11:03→17:26)
[2018-03-23] MEDS: ASCORBIC ACID 500 MG TABLET GT SCH (11:04)
[2018-03-23] MEDS: ACIDOPHILUS/BULGARICUS 1 EACH TAB.CHEW GT SCH (11:04)
[2018-03-23] MEDS: LOSARTAN/HCTZ 50-12.5MG/ 1 EA TABLET GT SCH (11:04)
[2018-03-23] MEDS: CARVEDILOL 12.5 MG TABLET GT SCH ×2 (11:05→17:26)
[2018-03-23] MEDS: PANTOPRAZOLE 40 MG/PACK PACK GT SCH (11:06)
[2018-03-23] MEDS: EPOETIN ALFA (4000 UNIT) 4,000 UNIT/ML VIAL SQ SCH (11:09)
[2018-03-23] MEDS: PROSOURCE / PROSTAT (PYXIS) 30 ML UDC GT SCH (11:10)
[2018-03-23] MEDS: DAKINS QUARTER STRENGTH (0.125%) 480 ML BOTTLE TOP SCH (11:11)
[2018-03-23 11:12] LABS: BAND % (MANUAL) 4 % (0.0-5.0); LYMPHOCYTES % (MANUAL) 9 % (16-48); MONOCYTES % (MANUAL) 4 % (0-11.0); NEUTROPHILS % (MANUAL) 83 (42-76)
[2018-03-23] MEDS: MULTIVITAMINS,THERAGRAN 1 UDTAB TABLET GT SCH (11:17)
[2018-03-23] MEDS ORDERED: DIGOXIN 0.125 MG TABLET GT SCH (13:00)
--- NOTE | 2018-03-23 14:50 | NUR ---
PATIENT'S BLOOD PRESSURE ONE HOUR AFTER TRANSFUSION OF PRBCS IS 190/71. PAGED DOCTOR AND RECEIVED AN ORDER TO SLOW THE RATE AT THIS TIME. WILL CONTINUE TO MONITOR.
--- NOTE | 2018-03-23 17:59 | NUR ---
BREAK OUT WORKER NOTE DUE TO COMPUTER TIME OUT, TRANSFUSION END TIME IS NOW INCORRECT ON THE COMPUTER. TRANSFUSION WAS FINISHED AT THE RIGHT TIME AT 17:38.
[2018-03-23] MEDS ORDERED: FUROSEMIDE 20 MG/2 ML VIAL IV ONE (18:00)
--- NOTE | 2018-03-23 19:25 | NUR ---
GUNNERY/ORDNANCE OFFICER CLOSING NOTE PATIENT RESTING IN BED IN STABLE CONDITION. VENT SETTINGS ORDERED. AFIB HR 64 ON SIMULATION ANALYST. GLUCERNA INFUSING WITH MINIMAL RESIDUAL. WOUND CARE DONE, SUCTIONING OF SECRETIONS DONE NEEDED, TURNED AND REPOSITIONED. IV SITE ON RIGHT UPPER ARM INTACT. VITAL SIGNS STABLE AFTER TRANSFUSION OF PRBS. NO RESPIRATORY DISTRESS NOTED. HEAD OF BED ELEVATED, BED LOW AND LOCKED, WILL ENDORSE CARE TO ONCOMING NURSE.
--- NOTE | 2018-03-23 19:36 | NUR ---
RETAIL SALES MERCHANDISER DEVELOPMENT NOTES SPOKE TO ASHLY( PT NEPHEW) ABOUT CODE STATUS OF THE PATIENT. ASHLY WISHES PT TO BE DO NOT RESUSCITATE STATUS.
--- NOTE | 2018-03-23 19:37 | NUR ---
EXPLOSIVE OPERATOR BOMB NOTES RECEIVED PT ON BED. A/OX1 ON [facility] VENT SETTING SATURATING WELL. NO RESPIRATORY DISTRESS NOTED. ON TELE MONITOR AFIB 65. IV ACCESS ON MAGEN MIDLINE PATENT AND INTACT. GTUBE FEEDING GLUCERNA @40CC/HR NO RESIDUAL NOTED. MARION CATH DRAINING WELL. HEAD OF BED ELEVATED. SIDE RAILS UP. CALL LIGHT WITHIN REACH. BED ALARM ON. WILL CONTINUE TO MONITOR PT CLOSELY. Addendum: 03/23/18 at 1957 by REBECCA SPRAGUE RN PT HAS RIGHT UPPER ARM PERIPHERAL LINE. NOT MIDLINE
--- NOTE | 2018-03-23 19:56 | NUR ---
BROOMMAKER NOTES PT HAS RIGHT UPPER ARM PERIPHERAL LINE. NOT MIDLINE
[2018-03-23 20:26] LABS: OCCULT BLOOD STOOL POSITIVE (NEGATIVE)
[2018-03-23] MEDS: DOCUSATE SODIUM 100 MG CAPSULE PO SCH (21:06)
[2018-03-24] VITALS (7 sets, daily range): BP systolic 125–190; BP diastolic 53–82
[2018-03-24] MEDS: ALBUTEROL FS 2.5 MG/0.5 ML VIAL.NEB NEB SCH ×4 (01:10→19:34)
[2018-03-24] MEDS: IPRATROPIUM NEB FS 0.5 MG/2.5 ML AMPUL.NEB IH SCH ×4 (01:10→19:34)
--- NOTE | 2018-03-24 03:59 | NUR ---
RT NOTES PT RECEIVED TRACHED ON [facility] VENT WITH NOTED SETTING. . VENT TO RED OUTLET. ALARM SET AND AUDIBLE. DETENTION DEPUTY DONE. PT TOLERATING VENT SETTING WELL. Q6 TX GIVEN WITH NO ADVERSE EFFECTS NOTED. NO SOB OR RESP DISTRESS NOTED. Addendum: 03/24/18 at 0400 by FRANCISCO CARPNETER RT Amended: Links added.
[2018-03-24] MEDS: BLOOD SUGAR DIAGNOSTIC 1 EACH STRIP IN SCH ×4 (05:17→23:09)
[2018-03-24] MEDS: GLUCERNA 1.2 1,000 ML BOTTLE GT SCH ×2 (05:19→23:10)
--- NOTE | 2018-03-24 05:30 | NUR ---
NARCOTICS AND VICE DETECTIVE NOTES NOTICED SOME SCANTY BLOOD IN THE DIAPER FROM THE ANUS. WILL ENDORSE TO THE AM NURSE TO FOLLOW UP WITH THE AM
--- NOTE | 2018-03-24 06:31 | NUR ---
DOPING SUPERVISOR NOTES NO ACUTE CHANGES NOTED DURING THE SHIFT. PROVIDED COMFORT AND SAFETY. WILL ENDORSE TO THE AM NURSE FOR CONTINUITY OF CARE.
[2018-03-24 06:33] LABS: DIGOXIN 1.16 ng/mL (0.90-2.00)
[2018-03-24 06:36] LABS: CREATININE 0.8 mg/dL (0.6-1.3); POTASSIUM 3.9 mmol/L (3.5-5.1)
--- NOTE | 2018-03-24 07:30 | NUR ---
APPRENTICESHIP CONSULTANT OPENING NOTE RECEIVED PATIENT RESTING IN BED IN STABLE CONDITION. VENTILATOR SETTINGS PRESCRIBED. NO RESPIRATORY DISTRESS NOTED. CONTROLLED AFIB ON TEXTILE SCREEN PRINTER, HEART RATE 65. G TUBE FEEDING INFUSING, MARION CATHETER DRAINING YELLOW URINE TO GRAVITY. IV SITE ON RIGHT UPPER ARM INTACT. BED LOW AND LOCKED, WILL CONTINUE TO MONITOR.
[2018-03-24 07:59] LABS: BASOPHILS % (AUTO) 0.8 % (0.0-2.0); EOSINOPHILS % (AUTO) 1.5 % (0.0-6.0); HEMATOCRIT 27 % (33-45); HEMOGLOBIN 8.5 g/dL (11.5-14.8); LYMPHOCYTES # (AUTO) 0.5 /CMM (0.8-4.8); LYMPHOCYTES % (AUTO) 7.5 % (20.0-44.0); MEAN CORPUSCULAR HEMOGLOBIN 29 PG (26.0-33.0); MEAN CORPUSCULAR HGB CONC 32 g/dl (31.0-36.0); MEAN CORPUSCULAR VOLUME 92 fL (82-100); MONOCYTES # (AUTO) 0.5 /CMM (0.1-1.30); MONOCYTES % (AUTO) 7.3 % (2.0-12.0); NEUTROPHILS # (AUTO) 5.1 /CMM (1.8-8.9); NEUTROPHILS % (AUTO) 82.9 % (43.0-81.0); PLATELET COUNT (AUTO) 268 /CMM (150-450); RDW COEFFICIENT OF VARIATION 16.9 (11.5-15.0); RED BLOOD CELL COUNT(AUTO) 2.92 MIL/uL (4.0-5.2); WHITE BLOOD COUNT (AUTO) 6.2 K/uL (4.3-11.0)
[2018-03-24] MEDS: CHLORHEXIDINE GLUCONATE 15 ML UDC MM SCH ×2 (11:17→21:02)
[2018-03-24] MEDS: FERROUS SULFATE UDC 300 MG/5 ML UDC GT SCH (11:20)
[2018-03-24] MEDS: SUCRALFATE 1 G/10 ML UDC GT SCH ×4 (11:20→21:02)
[2018-03-24] MEDS: LEVETIRACETAM SOL (5 ML) 100 MG/ML UDC GT SCH ×2 (11:21→18:08)
[2018-03-24] MEDS: PANTOPRAZOLE 40 MG/PACK PACK GT SCH (11:23)
[2018-03-24] MEDS: PROSOURCE / PROSTAT (PYXIS) 30 ML UDC GT SCH (11:23)
[2018-03-24] MEDS: CARVEDILOL 12.5 MG TABLET GT SCH ×2 (11:24→18:09)
[2018-03-24] MEDS: LOSARTAN/HCTZ 50-12.5MG/ 1 EA TABLET GT SCH (11:24)
[2018-03-24] MEDS: DAKINS QUARTER STRENGTH (0.125%) 480 ML BOTTLE TOP SCH (11:25)
[2018-03-24] MEDS: HYDROCODONE/APAP 5/325MG 1 EACH TABLET GT SCH ×2 (11:30→18:09)
[2018-03-24] MEDS: ASCORBIC ACID 500 MG TABLET GT SCH (11:30)
[2018-03-24] MEDS: BUMETANIDE (1 MG) 1 MG TABLET GT SCH ×2 (11:30→18:08)
[2018-03-24] MEDS: MULTIVITAMINS,THERAGRAN 1 UDTAB TABLET GT SCH (11:30)
[2018-03-24] MEDS: ACIDOPHILUS/BULGARICUS 1 EACH TAB.CHEW GT SCH (11:30)
[2018-03-24] MEDS: ATORVASTATIN 10 MG TABLET GT SCH (11:33)
[2018-03-24] MEDS: DIGOXIN 0.125 MG TABLET GT SCH (13:38)
--- NOTE | 2018-03-24 19:26 | NUR ---
SELVAGE MACHINE OPERATOR CLOSING NOTE PATIENT RESTING IN BED IN STABLE CONDITION. SUCTIONED SECRETIONS, POSITIONED FOR COMFORT. NO DISTRESS NOTED. VENT SETTINGS PRESCRIBED. IV SITE ON RIGHT UPPER ARM INTACT SALINE LOCK. MARION CATHETER DRAINING YELLOW CLEAR URINE TO GRAVITY. G TUBE FEEDING INFUSING PRESCRIBED. HEAD OF BED ELEVATED, BED LOW AND LOCKED, WILL ENDORSE CARE TO ONCOMING NURSE.
--- NOTE | 2018-03-24 19:29 | NUR ---
LAYBOY TENDER NOTES RECEIVED PT ON BED. A/OX1 . ON [facility] VENT SETTING SATURATING WELL. ON TELE MONITOR AFIB 61. MARION CATH DRAINING WELL. GTUBE FEEDING RUNNING AT 60CC/HR, NO RESIDUAL. HEAD OF BED ELEVATED. SIDE RAILS UP. CALL LIGHT WITHIN REACH. BED ALARM ON. WILL CONTINUE TO MONITOR PT CLOSELY.
--- NOTE | 2018-03-24 19:34 | NUR ---
RT NOTE: RECEIVED TRACH PT ON MECHANICAL VENTILATION. AMBU BAG @ BEDSIDE. VENT PLUGGED INTO RED OUTLET. ALARMS ON AND AUDIBLE. CUFF CHECKED VIA EQUITY STRUCTURER. HHN BREATHING TX GIVEN ORDERED PER MD. NO ADVERSE REACTIONS NOTED. SX SMALL AMOUNT OF THICK PALE YELLOW SECRETIONS. NO RESP DISTRESS NOTED. WILL CONT TO MONITOR PT. Addendum: 03/25/18 at 0021 by ISAC SCHAEFFER RT Amended: Links added.
[2018-03-24] MEDS: DOCUSATE SODIUM 100 MG CAPSULE PO SCH (21:00)
--- NOTE | 2018-03-24 22:28 | NUR ---
RN NAVIGATOR NOTES PT NOT SLEEPING SINCE YESTERDAY. WILL GIVE AMBIEN PRN FOR INSOMNIA.
[2018-03-25] VITALS (7 sets, daily range): BP systolic 123–162; BP diastolic 42–73
[2018-03-25] MEDS: ALBUTEROL FS 2.5 MG/0.5 ML VIAL.NEB NEB SCH ×4 (01:11→19:50)
[2018-03-25] MEDS: IPRATROPIUM NEB FS 0.5 MG/2.5 ML AMPUL.NEB IH SCH ×4 (01:11→19:50)
[2018-03-25] MEDS: BLOOD SUGAR DIAGNOSTIC 1 EACH STRIP IN SCH ×4 (05:10→23:17)
--- NOTE | 2018-03-25 06:43 | NUR ---
CASING BUILDER NOTES NO ACUTE CHANGES NOTED DURING THE SHIFT. WOUND CARE DONE. PROVIDED COMFORT AND SAFETY. WILL ENDORSE TO THE AM NURSE FOR CONTINUITY OF CARE.
[2018-03-25 06:44] LABS: CALCIUM, SERUM 8.8 mg/dL (8.5-10.1); CREATININE 0.8 mg/dL (0.6-1.3); POTASSIUM 3.7 mmol/L (3.5-5.1)
[2018-03-25 07:27] LABS: BASOPHILS % (AUTO) 0.2 % (0.0-2.0); EOSINOPHILS % (AUTO) 0.9 % (0.0-6.0); HEMATOCRIT 26 % (33-45); HEMOGLOBIN 8.4 g/dL (11.5-14.8); LYMPHOCYTES # (AUTO) 0.5 /CMM (0.8-4.8); LYMPHOCYTES % (AUTO) 5.2 % (20.0-44.0); MEAN CORPUSCULAR HEMOGLOBIN 29 PG (26.0-33.0); MEAN CORPUSCULAR HGB CONC 32 g/dl (31.0-36.0); MEAN CORPUSCULAR VOLUME 92 fL (82-100); MONOCYTES # (AUTO) 0.6 /CMM (0.1-1.30); NEUTROPHILS # (AUTO) 8.3 /CMM (1.8-8.9); NEUTROPHILS % (AUTO) 87.7 % (43.0-81.0); PLATELET COUNT (AUTO) 241 /CMM (150-450); RDW COEFFICIENT OF VARIATION 17.1 (11.5-15.0); RED BLOOD CELL COUNT(AUTO) 2.87 MIL/uL (4.0-5.2); WHITE BLOOD COUNT (AUTO) 9.4 K/uL (4.3-11.0)
--- NOTE | 2018-03-25 07:45 | NUR ---
RUBBER CHEMIST NOTE: RECEIVED PATIENT ALERT TO HER NAME, ABLE TO OPEN EYES, NONVERBAL. RESPIRATION EVEN AND UNLABORED SATURATING 100%. NO FACIAL GRIMACING NOTED. HOB ELEVATED. ON COURT MANAGER, A. FIB HR= 61. ON GT FEEDING OF GLUCERNA @60CC/HR, TOLERATING WELL NO RESIDUAL. MARION CATHETER IN PLACED WITH YELLOW URINE DRAINING TO GRAVITY. BED ALARMED AND LOCKED AT ALL TIMES. ON SEIZURE PRECAUTION. CALL LIGHT WITHIN REACH. NEEDS ANTICIPATED.
--- NOTE | 2018-03-25 09:30 | NUR ---
SERVICE STATION HELPER NOTE: PATIENT ON STABLE CONDITION. NO CHANGE OF CONDITION NOTED. REPORT GIVEN TO PM SHIFT NURSE FOR CONTINUITY OF CARE.
[2018-03-25] MEDS: BUMETANIDE (1 MG) 1 MG TABLET GT SCH ×2 (09:37→17:34)
[2018-03-25] MEDS: SUCRALFATE 1 G/10 ML UDC GT SCH ×4 (09:37→20:43)
[2018-03-25] MEDS: FERROUS SULFATE UDC 300 MG/5 ML UDC GT SCH (09:37)
[2018-03-25] MEDS: ACIDOPHILUS/BULGARICUS 1 EACH TAB.CHEW GT SCH (09:38)
[2018-03-25] MEDS: LEVETIRACETAM SOL (5 ML) 100 MG/ML UDC GT SCH ×2 (09:38→17:34)
[2018-03-25] MEDS: MULTIVITAMINS,THERAGRAN 1 UDTAB TABLET GT SCH (09:38)
[2018-03-25] MEDS: PROSOURCE / PROSTAT (PYXIS) 30 ML UDC GT SCH (09:38)
[2018-03-25] MEDS: PANTOPRAZOLE 40 MG/PACK PACK GT SCH (09:38)
[2018-03-25] MEDS: ATORVASTATIN 10 MG TABLET GT SCH (09:38)
[2018-03-25] MEDS: CHLORHEXIDINE GLUCONATE 15 ML UDC MM SCH ×2 (09:38→20:44)
[2018-03-25] MEDS: ASCORBIC ACID 500 MG TABLET GT SCH (09:38)
[2018-03-25] MEDS: HYDROCODONE/APAP 5/325MG 1 EACH TABLET GT SCH ×2 (09:39→17:35)
[2018-03-25] MEDS: DAKINS QUARTER STRENGTH (0.125%) 480 ML BOTTLE TOP SCH (09:40)
[2018-03-25] MEDS: LOSARTAN/HCTZ 50-12.5MG/ 1 EA TABLET GT SCH (10:00)
[2018-03-25] MEDS: CARVEDILOL 12.5 MG TABLET GT SCH ×2 (10:00→17:36)
--- NOTE | 2018-03-25 10:00 | NUR ---
CTC OPERATOR NOTE: PATIENT'S BP 132/60 HR 52. JEANE AND [place] WAS HELD. DR. RANDHAWA WAS MADE AWARE WITH NO NEW ORDER.
[2018-03-25] MEDS: IV NS 0.9% 1,000 ML IV PRN ×2 (10:28→20:15)
[2018-03-25] MEDS ORDERED: IV NS 0.9% 1,000 ML BAG IV PRN (10:30)
[2018-03-25] MEDS ORDERED: DEXTROSE 50%-WATER 50 ML DISP.SYRIN IV PRN (12:00)
[2018-03-25] MEDS: DIGOXIN 0.125 MG TABLET GT SCH (12:10)
[2018-03-25] MEDS: INSULIN REGULAR, HUMAN 100 UNIT/ML 3 ML VIAL SQ PRN ×2 (12:10→23:17)
[2018-03-25] MEDS ORDERED: SILVER NITRATE APPLICATOR 1 EA BOX TP ONE (14:30)
--- NOTE | 2018-03-25 14:40 | NUR ---
MOBILE SALES EXPERT NOTE: CALLED AND LEFT A VOICE MESSAGE FOR THELMA VASQUEZ RE: THE PATIENT'S EXCISIONAL DEBRIDEMENT SACRAL WOUND PER SHAREE PACHECO. AWAITING FOR CALL BACK.
--- NOTE | 2018-03-25 16:35 | NUR ---
ADMINISTRATIVE HEARING OFFICER NOTE: RECEIVED A CALL BACK FROM THELMA VASQUEZ AND HE CONSENTED FOR THE EXCISIONAL DEBRIDEMENT OF THE SACRAL WOUND. INFORMED CONSENT SIGNED BY 2 RNS AND FILED ON THE PATIENT'S CHART.
[2018-03-25] MEDS: GLUCERNA 1.2 1,000 ML BOTTLE GT SCH (20:15)
[2018-03-25] MEDS: DOCUSATE SODIUM 100 MG CAPSULE PO SCH (21:07)
[2018-03-26] VITALS (7 sets, daily range): BP systolic 140–181; BP diastolic 39–89
[2018-03-26] MEDS: ALBUTEROL FS 2.5 MG/0.5 ML VIAL.NEB NEB SCH ×4 (02:27→20:17)
[2018-03-26] MEDS: IPRATROPIUM NEB FS 0.5 MG/2.5 ML AMPUL.NEB IH SCH ×4 (02:27→20:17)
[2018-03-26] MEDS: IV NS 0.9% 1,000 ML IV PRN ×2 (06:17→21:13)
[2018-03-26] MEDS: INSULIN REGULAR, HUMAN 100 UNIT/ML 3 ML VIAL SQ PRN ×2 (06:20→23:08)
[2018-03-26] MEDS: BLOOD SUGAR DIAGNOSTIC 1 EACH STRIP IN SCH ×4 (06:20→23:07)
[2018-03-26 06:27] LABS: EOSINOPHILS % (AUTO) 1.8 % (0.0-6.0); HEMATOCRIT 25 % (33-45); HEMOGLOBIN 8.1 g/dL (11.5-14.8); LYMPHOCYTES # (AUTO) 0.4 /CMM (0.8-4.8); LYMPHOCYTES % (AUTO) 4.6 % (20.0-44.0); MEAN CORPUSCULAR HEMOGLOBIN 30 PG (26.0-33.0); MEAN CORPUSCULAR HGB CONC 33 g/dl (31.0-36.0); MEAN CORPUSCULAR VOLUME 90 fL (82-100); MONOCYTES # (AUTO) 0.4 /CMM (0.1-1.30); MONOCYTES % (AUTO) 4.3 % (2.0-12.0); NEUTROPHILS # (AUTO) 8.6 /CMM (1.8-8.9); NEUTROPHILS % (AUTO) 89.3 % (43.0-81.0); PLATELET COUNT (AUTO) 231 /CMM (150-450); RDW COEFFICIENT OF VARIATION 16.1 (11.5-15.0); RED BLOOD CELL COUNT(AUTO) 2.72 MIL/uL (4.0-5.2); WHITE BLOOD COUNT (AUTO) 9.6 K/uL (4.3-11.0)
[2018-03-26 06:41] LABS: DIGOXIN 1.48 ng/mL (0.90-2.00)
[2018-03-26 06:42] LABS: CREATININE 0.7 mg/dL (0.6-1.3); POTASSIUM 3.5 mmol/L (3.5-5.1)
[2018-03-26] MEDS: FERROUS SULFATE UDC 300 MG/5 ML UDC GT SCH (09:49)
[2018-03-26] MEDS: CHLORHEXIDINE GLUCONATE 15 ML UDC MM SCH ×2 (09:51→21:19)
[2018-03-26] MEDS: LEVETIRACETAM SOL (5 ML) 100 MG/ML UDC GT SCH ×2 (09:51→18:15)
[2018-03-26] MEDS: SUCRALFATE 1 G/10 ML UDC GT SCH ×4 (09:51→21:19)
[2018-03-26] MEDS: BUMETANIDE (1 MG) 1 MG TABLET GT SCH ×2 (09:52→18:15)
[2018-03-26] MEDS: LOSARTAN/HCTZ 50-12.5MG/ 1 EA TABLET GT SCH (09:53)
[2018-03-26] MEDS: CARVEDILOL 12.5 MG TABLET GT SCH ×2 (09:54→18:16)
[2018-03-26] MEDS: PANTOPRAZOLE 40 MG/PACK PACK GT SCH (09:54)
[2018-03-26] MEDS: ASCORBIC ACID 500 MG TABLET GT SCH (09:54)
[2018-03-26] MEDS: ATORVASTATIN 10 MG TABLET GT SCH (09:54)
[2018-03-26] MEDS: ACIDOPHILUS/BULGARICUS 1 EACH TAB.CHEW GT SCH (09:54)
[2018-03-26] MEDS: DAKINS QUARTER STRENGTH (0.125%) 480 ML BOTTLE TOP SCH (10:04)
[2018-03-26] MEDS: EPOETIN ALFA (4000 UNIT) 4,000 UNIT/ML VIAL SQ SCH (10:08)
[2018-03-26] MEDS: PROSOURCE / PROSTAT (PYXIS) 30 ML UDC GT SCH (10:08)
[2018-03-26] MEDS: MULTIVITAMINS,THERAGRAN 1 UDTAB TABLET GT SCH (10:20)
[2018-03-26] MEDS: HYDROCODONE/APAP 5/325MG 1 EACH TABLET GT SCH ×2 (10:21→18:32)
[2018-03-26] MEDS: DIGOXIN 0.125 MG TABLET GT SCH (13:49)
--- NOTE | 2018-03-26 16:55 | NUR ---
RT NOTE: PATIENT RECEIVED TRACHED ON [facility] VENT. ALARMS VERIFIED AND AUDIBLE. SUCTIONED AND LAVAGED LARGE AMOUNT OF THICK RODAS SECRETIONS. VENT PLUGGED INTO RED OUTLET. AMBU BAG AT [facility].
--- NOTE | 2018-03-26 19:30 | NUR ---
Handoff to night nurse, Alexandru Harrison RN. Govind Lovelace RN
--- NOTE | 2018-03-26 20:21 | NUR ---
pt received on vent via trach with charted settings. airway patent. trach secure via trach tie. pt awake. ambu bag and back up trach at bedside. alarms set and audible, disconnect alarms checked plugged into red outlet suctioned a moderate amount of thick white secretions. pt receiving breathing tx q6 at this time. pt hob at 30 degrees. suctioned oral secretion from pts mouth Addendum: 03/26/18 at 2022 by BRODY VAZ RT Amended: Links added.
[2018-03-26] MEDS: DOCUSATE SODIUM 100 MG CAPSULE PO SCH (21:19)
[2018-03-27] VITALS (8 sets, daily range): BP systolic 141–175; BP diastolic 35–67
[2018-03-27] MEDS: ALBUTEROL FS 2.5 MG/0.5 ML VIAL.NEB NEB SCH ×4 (01:41→20:11)
[2018-03-27] MEDS: IPRATROPIUM NEB FS 0.5 MG/2.5 ML AMPUL.NEB IH SCH ×4 (01:41→20:11)
[2018-03-27] MEDS: BLOOD SUGAR DIAGNOSTIC 1 EACH STRIP IN SCH ×3 (05:43→18:11)
[2018-03-27] MEDS: INSULIN REGULAR, HUMAN 100 UNIT/ML 3 ML VIAL SQ PRN (05:46)
[2018-03-27] MEDS: FERROUS SULFATE UDC 300 MG/5 ML UDC GT SCH (09:25)
[2018-03-27] MEDS: LEVETIRACETAM SOL (5 ML) 100 MG/ML UDC GT SCH ×2 (09:25→16:36)
[2018-03-27] MEDS: CHLORHEXIDINE GLUCONATE 15 ML UDC MM SCH ×2 (09:25→21:57)
[2018-03-27] MEDS: BUMETANIDE (1 MG) 1 MG TABLET GT SCH ×2 (09:25→16:36)
[2018-03-27] MEDS: PROSOURCE / PROSTAT (PYXIS) 30 ML UDC GT SCH (09:25)
[2018-03-27] MEDS: ATORVASTATIN 10 MG TABLET GT SCH (09:26)
[2018-03-27] MEDS: ASCORBIC ACID 500 MG TABLET GT SCH (09:26)
[2018-03-27] MEDS: PANTOPRAZOLE 40 MG/PACK PACK GT SCH (09:26)
[2018-03-27] MEDS: ACIDOPHILUS/BULGARICUS 1 EACH TAB.CHEW GT SCH (09:26)
[2018-03-27] MEDS: SUCRALFATE 1 G/10 ML UDC GT SCH ×4 (09:27→21:57)
[2018-03-27] MEDS: CARVEDILOL 12.5 MG TABLET GT SCH ×2 (09:27→16:38)
[2018-03-27] MEDS: LOSARTAN/HCTZ 50-12.5MG/ 1 EA TABLET GT SCH (09:27)
[2018-03-27] MEDS: MULTIVITAMINS,THERAGRAN 1 UDTAB TABLET GT SCH (09:28)
[2018-03-27] MEDS: HYDROCODONE/APAP 5/325MG 1 EACH TABLET GT SCH ×2 (09:28→16:37)
[2018-03-27] MEDS: DAKINS QUARTER STRENGTH (0.125%) 480 ML BOTTLE TOP SCH (09:29)
--- NOTE | 2018-03-27 09:54 | NUR ---
RT NOTE RECEIVED PT MECHANICALLY VENTILATED VIA PORTEX 7 CUFFED TRACHEOSTOMY TUBE. CUFF INFLATED VIA PL SQL PROGRAMMER. CUFF MIDLINE AND SECURE. VENTILATOR SETTINGS PRESCRIBED. ALARMS SET PER PROTOCOL AND AUDIBLE. VENT PLUGGED IN TO RED OUTLET. AMBU BAG AT BED SIDE. NO DISTRESS NOTED. Addendum: 03/27/18 at 0956 by GAIL SINGH RT Amended: Links added.
[2018-03-27] MEDS: DIGOXIN 0.125 MG TABLET GT SCH (12:18)
--- NOTE | 2018-03-27 18:00 | NUR ---
RN NOTE PT WAS SUPPOSED TO BE DISCHARGED TO [facility], REPORT WAS GIVEN TO TASHA, INCLUDING RECENT VITAL SIGNS, BUT UPON ARRIVAL OF AMBULANCE, PT BP WAS FLUCTUATING FROM HIGH SYSTOLIC AND LOW DIASTOLIC BP. 1700 MEDICATIONS GIVEN, MOST RECENT BPS WERE ARM 144/49, LEG 164/57. CASE MANAGEMENT AWARE, FACILITY WILL NOT ACCEPT PT AT THIS TIME, AMBULANCE LET GO AND WILL CALL BACK WHEN BP STABLE, THEIR PARAMETER 150/60 MMHG. WILL ENDORSE TO LONG TERM CARE SOCIAL WORKER. DR PULIDO IS AWARE.
--- NOTE | 2018-03-27 19:30 | NUR ---
TELE/RN NOTES: RECEIVED PT. IN BED W/ HOB ELEVATED. ON MECH. VENTILATOR TOLERATING VENT SETTINGS WELL. ON TELE MONITOR W/ AFIB 76. OBTUNDED. OPENS EYES. NON VERBAL/CONTRACTED. W/ F/C INPLACE DRAINING TO CLEAR YELLOW URINE. SACRAL TREATMENT DONE PER ORDER. W/ GLUCERNA @ 60CC/HR. LH G 22 PATENT AND INTACT W/ NO S/S OF INFECTION/INFILTRATION NOTED. BP CHECKED STILL HIGH. DR. ELSA SANTIAGO AWARE OF BP READING THAT PT. IS UNABLE TO BE DISCHARGED TO [facility] DUE TO HER BP READING. NOCTURNIST PHYSICIAN AWARE. WILL CONTINUE TO MONITOR.
--- NOTE | 2018-03-27 20:17 | NUR ---
PT ON VENT VERNA WELL WITH NO RESPIRATORY DISTRESS NOTED ATT. PT HAS A TRACH WHICH IS INTACT SECURE AND PATENT. BREATH SOUNDS COURSE SX PRN RETURNING SMALL TO MODERATE PALE YELLOW SECRETIONS. VENT ALARMS CHECKED FOUND TO BE FUNCTIONAL, AUDIBLE, AND WITHIN LIMITS. VENT PLUGGED INTO RED OUTLET. HANDLE LATHE OPERATOR DONE, BREATHING TX MD ORDERED VERNA WELL WITH NO RESPIRATORY DISTRESS NOTED. BVM AT BEDSIDE.
[2018-03-27] MEDS: GLUCERNA 1.2 1,000 ML BOTTLE GT SCH (20:23)
[2018-03-27] MEDS: DOCUSATE SODIUM 100 MG CAPSULE PO SCH (21:57)
[2018-03-28] VITALS: BP 175/38
[2018-03-28] MEDS: BLOOD SUGAR DIAGNOSTIC 1 EACH STRIP IN SCH ×2 (00:45→06:01)
[2018-03-28] MEDS: ALBUTEROL FS 2.5 MG/0.5 ML VIAL.NEB NEB SCH ×3 (02:28→13:58)
[2018-03-28] MEDS: IPRATROPIUM NEB FS 0.5 MG/2.5 ML AMPUL.NEB IH SCH ×3 (02:28→13:58)
[2018-03-28 04:00] VITALS: BP 147/51
--- NOTE | 2018-03-28 07:25 | NUR ---
TELE/RN NOTES: REPORT GIVEN TO NEXT SHIFT NURSE FOR GAYLE.
[2018-03-28 08:00] VITALS: BP 145/64
--- NOTE | 2018-03-28 08:38 | NUR ---
RT RECEIVED PT TRACH VENT DEPENDENT WITH NOTED SETTINGS, CONTROL PANEL OPERATOR DONE AND TRACH IS SECURE. VENT ALARMS CHECKED AND AUDIBLE. VENT IS PLUGGED IN RED OUTLET. SX WITH MOD THK WHITE/CLEAR SECRETIONS, BREATHING TX GIVEN AND PT TOLERATING SETTINGS WELL. AMBU BAG NOTED HOB. PT ON CONTINUOUS PULSE OX. NO SOB OR RESP DISTRESS NOTED, WILL CONTINUE TO MONITOR T/O SHIFT.
[2018-03-28] MEDS: EPOETIN ALFA (4000 UNIT) 4,000 UNIT/ML VIAL SQ SCH (09:00)
[2018-03-28] MEDS: CHLORHEXIDINE GLUCONATE 15 ML UDC MM SCH (09:15)
[2018-03-28] MEDS: FERROUS SULFATE UDC 300 MG/5 ML UDC GT SCH (09:15)
[2018-03-28] MEDS: SUCRALFATE 1 G/10 ML UDC GT SCH (09:15)
[2018-03-28] MEDS: LEVETIRACETAM SOL (5 ML) 100 MG/ML UDC GT SCH (09:15)
[2018-03-28] MEDS: HYDROCODONE/APAP 5/325MG 1 EACH TABLET GT SCH (09:16)
[2018-03-28] MEDS: ACIDOPHILUS/BULGARICUS 1 EACH TAB.CHEW GT SCH (09:16)
[2018-03-28] MEDS: MULTIVITAMINS,THERAGRAN 1 UDTAB TABLET GT SCH (09:16)
[2018-03-28] MEDS: PANTOPRAZOLE 40 MG/PACK PACK GT SCH (09:16)
[2018-03-28] MEDS: ASCORBIC ACID 500 MG TABLET GT SCH (09:17)
[2018-03-28] MEDS: BUMETANIDE (1 MG) 1 MG TABLET GT SCH (09:17)
[2018-03-28] MEDS: ATORVASTATIN 10 MG TABLET GT SCH (09:17)
[2018-03-28] MEDS: DAKINS QUARTER STRENGTH (0.125%) 480 ML BOTTLE TOP SCH (09:18)
[2018-03-28] MEDS: PROSOURCE / PROSTAT (PYXIS) 30 ML UDC GT SCH (09:31)
[2018-03-28] MEDS: LOSARTAN/HCTZ 50-12.5MG/ 1 EA TABLET GT SCH (10:20)
[2018-03-28] MEDS: CARVEDILOL 12.5 MG TABLET GT SCH (10:20)
--- NOTE | 2018-03-28 11:00 | NUR ---
RN NOTES/BP PT WITH DISCHARGE ORDERS, BP REMAINS STABLE 143/73 HR 73 PICTURES OF SKIN WITHIN 24 HOURS, WILL CONTINUE TO ASSIST WITH DC PROCESS
[2018-03-28 12:00] VITALS: BP 152/62
[2018-03-28] MEDS ORDERED: hydrALAZINE HCL IV 20 MG VIAL IV PRN (13:00)
--- NOTE | 2018-03-28 14:35 | NUR ---
POSTPARTUM RN NOTES PT. IN BED W/ HOB ELEVATED. ON MECH. VENTILATOR TOLERATING VENT SETTINGS WELL. ON TELE MONITOR W/ AFIB 76. NONVERBAL OPENS EYES.CONTRACTED. W/ F/C INPLACE DRAINING TO CLEAR YELLOW URINE. GLUCERNA @ 60CC/HR. LH G 22 PATENT AND INTACT W/ NO S/S OF INFECTION/INFILTRATION NOTED. BLOOD PRESSURE RANGES FOR SBP 152-155 BP AT THIS TIME 152/62 GAVE REPORT TO OLIVIER AT [facility] PER OLIVIER BP TOO HIGH EXPLAINED PT HAS RENAL INSUFFICIENCY AND PT BASELINE, METAL CRAFTS TEACHER SOMMER SPOKE TO [facility] [employer] MARKETING MANAGER AND OKAYED DISCHARGE AND WILL ACCEPT PATIENT, REPORT GIVEN TO EMT FOR CONTINUITY OF CARE, DISCHARGED IN STABLE CONDITION
--- NOTE | 2018-03-28 15:29 | NUR ---
CONTRACT POST OFFICE CLERK OPENING NOTES RECEIVED PT. IN BED W/ HOB ELEVATED. ON MECH. VENTILATOR TOLERATING VENT SETTINGS WELL. ON TELE MONITOR W/ AFIB 76. NONVERBAL OPENS EYES.CONTRACTED. W/ F/C INPLACE DRAINING TO CLEAR YELLOW URINE. GLUCERNA @ 60CC/HR. LH G 22 PATENT AND INTACT W/ NO S/S OF INFECTION/INFILTRATION NOTED. SAFETY MEASURES IN PLACE, CALL LIGHT WITHIN EASY REACH, WILL CONTINUE TO MONITOR
== END 2018-03-28 14:30 | DRG 951 ==
LOC: ER 13:10 → TELE1 15:50
PROVIDERS: ADMIT Family Medicine; ATTEND Family Medicine
PROC: 5A1955Z Respiratory Ventilation, Greater than 96 Consecutive Hours (ICD-10-PCS; principal; 2018-03-22)
PROC: 30233N1 Transfusion of Nonautologous Red Blood Cells into Peripheral Vein, Percutaneous Approach (ICD-10-PCS; 2018-03-23)
PROC: 0KBN0ZZ Excision of Right Hip Muscle, Open Approach (ICD-10-PCS; 2018-03-26)
PROC: 0KBP0ZZ Excision of Left Hip Muscle, Open Approach (ICD-10-PCS; 2018-03-26)
DX: K92.2 Gastrointestinal hemorrhage, unspecified (principal); N17.0 Acute kidney failure with tubular necrosis; E43 Unspecified severe protein-calorie malnutrition; Z99.11 Dependence on respirator [ventilator] status; G93.40 Encephalopathy, unspecified; J96.11 Chronic respiratory failure with hypoxia; L89.154 Pressure ulcer of sacral region, stage 4; R53.2 Functional quadriplegia; Z93.0 Tracheostomy status; D68.59 Other primary thrombophilia; D64.9 Anemia, unspecified; E11.22 Type 2 diabetes mellitus with diabetic chronic kidney disease; E87.1 Hypo-osmolality and hyponatremia; E87.2 Acidosis; E78.5 Hyperlipidemia, unspecified; I25.10 Atherosclerotic heart disease of native coronary artery without angina pectoris; N18.9 Chronic kidney disease, unspecified; Z93.1 Gastrostomy status; G40.909 Epilepsy, unspecified, not intractable, without status epilepticus; R13.10 Dysphagia, unspecified; E88.09 Other disorders of plasma-protein metabolism, not elsewhere classified; Z68.1 Body mass index [BMI] 19.9 or less, adult; I50.32 Chronic diastolic (congestive) heart failure; Z66 Do not resuscitate; Z95.0 Presence of cardiac pacemaker; Z95.1 Presence of aortocoronary bypass graft; I48.2 Chronic atrial fibrillation; I13.0 Hypertensive heart and chronic kidney disease with heart failure and stage 1 through stage 4 chronic kidney disease, or unspecified chronic kidney disease; D63.8 Anemia in other chronic diseases classified elsewhere; Z79.4 Long term (current) use of insulin; E86.1 Hypovolemia; I25.2 Old myocardial infarction; Z95.2 Presence of prosthetic heart valve
CPT/HCPCS: 31720; 36415; 71045-TC; 80048-TC; 80061-TC; 80076-TC; 80162-TC; 82272-TC; 82962-TC; 83735-TC; 84100-TC; 85025-TC; 85027-TC; 85730-TC; 86850-TC; 86921-TC; 87070-TC; 87081-TC; 87186-TC; 94003-TC; 94760-TC; 94762-TC; A4606; A6253; A6402; A6403; J0885; J1815; J1940; J1953; J7030; J7050; P9016-BL; Z7610

== ENCOUNTER 2018-04-09 13:00 | Inpatient (IN) ==
[~2018-04-09] VITALS: Ht 149.9 cm; Wt 49.0 kg
[~2018-04-09 13:00] MED LIST changes: +ACET-2605 GT; -FLUC100T8 PO; +HYDR-4384 GT; -HYDR-552 GT; +INSU100I34 SQ; -INSU100V11 SQ; +NUT.237L30 GT; -NUTR250L50 GT; +PHEN28OI6 RC; -VANC500V IV; -ZINC220T GT
[2018-04-09 13:25] VITALS: BP 141/64
--- NOTE | 2018-04-09 13:28 | NUR ---
RT NOTE PT PLACED ON VENT PER MD ORDER. SETTINGS ENDORSED BY TRANSPORT RT AC 14 450 40% +5. PT HAS A PORTEX 7 CUFFED [address]ACHEOSTOMY TUBE IN PLACE. CUFF INFLATED VIA MELT SUPERINTENDANT. ALARMS SET PER PROTOCOL AND AUDIBLE. VENT PLUGGED IN TO RED OUTLET. AMBU BAG AT BED SIDE. NO DISTRESS NOTED AT MOMENT. Addendum: 04/09/18 at 1330 by GAIL SINGH RT Amended: Links added.
[2018-04-09] MEDS ORDERED: PANTOPRAZOLE 80 MG in IV NS 0.9% 500 ML IV ONE (13:30)
--- NOTE | 2018-04-09 13:30 | NUR ---
NEW IV STARTED ON LEFT FOREARM, 20G. BLOOD DRAWN AND SENT TO LAB.
--- NOTE | 2018-04-09 13:30 | NUR ---
VIKA FROM [facility] D/T ABN. LAB HGB 6.8. PATIENT IS VENT/TRACH DEPENDENT. ALTERED AT BASELINE. GTUBE AND MARION CATH IN PLACE. NO SOB, NO DISTRESS. VITALS STABLE. SAFETY AND COMFORT MEASURES IN PLACE. AWAITING MD ORDERS.
[2018-04-09] MEDS ORDERED: PANTOPRAZOLE 40 MG VIAL ONE (13:38)
[2018-04-09] MEDS ORDERED: LORA-258 PO (13:45)
--- NOTE | 2018-04-09 13:45 | NUR ---
OFFICE MACHINE REPAIR SHOP SUPERVISOR AT BEDSIDE.
[2018-04-09 13:47] LABS: BASOPHILS # (AUTO) 0.1 /CMM (0.0-0.2); BASOPHILS % (AUTO) 0.8 % (0.0-2.0); EOSINOPHILS % (AUTO) 3.5 % (0.0-6.0); HEMATOCRIT 21 % (33-45); LYMPHOCYTES # (AUTO) 0.6 /CMM (0.8-4.8); LYMPHOCYTES % (AUTO) 8.9 % (20.0-44.0); MEAN CORPUSCULAR HGB CONC 33 g/dl (31.0-36.0); MEAN CORPUSCULAR VOLUME 88 fL (82-100); MONOCYTES # (AUTO) 0.5 /CMM (0.1-1.30); MONOCYTES % (AUTO) 8.4 % (2.0-12.0); NEUTROPHILS # (AUTO) 5.1 /CMM (1.8-8.9); NEUTROPHILS % (AUTO) 78.4 % (43.0-81.0); PLATELET COUNT (AUTO) 250 /CMM (150-450); RDW COEFFICIENT OF VARIATION 16.6 (11.5-15.0); RED BLOOD CELL COUNT(AUTO) 2.41 MIL/uL (4.0-5.2); WHITE BLOOD COUNT (AUTO) 6.5 K/uL (4.3-11.0)
[2018-04-09] MEDS ORDERED: PANTOPRAZOLE 40 MG VIAL IV ONE (14:00)
[2018-04-09 14:03] LABS: TROPONIN I 0.135 ng/mL (0.00-0.056)
[2018-04-09 14:05] LABS: ALBUMIN 1.8 g/dL (3.4-5.0); BILIRUBIN,DIRECT 0.3 mg/dL (0.0-0.2); BILIRUBIN,TOTAL 0.5 mg/dL (0.2-1.0); CALCIUM, SERUM 8.7 mg/dL (8.5-10.1); CREATININE 0.8 mg/dL (0.6-1.3); POTASSIUM 3.9 mmol/L (3.5-5.1); TOTAL PROTEIN, SERUM 8.5 g/dL (6.4-8.2)
[2018-04-09 14:09] LABS: IRON, SERUM 28 ug/dl (50-175); TOTAL IRON BINDING CAPACITY 197 ug/dl (250-450)
[2018-04-09 14:10] LABS: INR 1.07 (0.85-1.15)
[2018-04-09 14:18] LABS: FERRITIN 510 ng/mL (8-388)
[2018-04-09] MEDS ORDERED: IV NS 0.9% 500 ML BAG IV ONE (14:30)
[2018-04-09 15:22] VITALS: BP 142/50
--- NOTE | 2018-04-09 15:40 | NUR ---
PT IS ASSIGNED TO 307-2
--- NOTE | 2018-04-09 15:45 | NUR ---
REPORT GIVEN TO LAMIN ARZATE FOR GAYLE UPON ADMISSION.
[2018-04-09 16:00] VITALS: BP 105/46
--- NOTE | 2018-04-09 16:16 | NUR ---
PATIENT TRANSPORTED TO [facility] VIA ACLS PROTOCOL FOR ADMISSION. RNLAMIN TO PROVIDE GAYLE.
--- NOTE | 2018-04-09 17:00 | NUR ---
WELDING MACHINE OPERATOR FRICTION NOTE RECEIVED PT. PT IS STABLE AND RESTING IN BED. PT IS NON-VERBAL, TRACHED AND VENT DEPENDENT. VENT SETTINGS IN PLACE. NO S/S OF RESP DISTRESS/SOB. PT DOES NOT APPEAR TO BE IN PAIN. PHOTOS TAKEN OF SACRAL AND GLUTEAL WOUNDS, PLACED IN CHART. MD NOTIFIED OF PT'S ARRIVAL. AWAITING ADMISSION ORDERS. SAFETY MEASURES IN PLACE, CALL LIGHT WITHIN REACH. WILL CONTINUE TO MONITOR.
--- NOTE | 2018-04-09 18:49 | NUR ---
RN CLOSING NOTE PT IN BED RESTING. NO S/S OF RESP DISTRESS/SOB. PT DOES NOT APPEAR TO BE IN PAIN. AWAITING ADMISSION ORDERS FROM ADMITTING MD. ALL PT NEEDS ANTICIPATED AND MET. SAFETY MEASURES IN PLACE, CALL LIGHT WITHIN REACH. WILL ENDORSE TO ZIPPER SEWING MACHINE OPERATOR FOR GAYLE.
[2018-04-09] MEDS ORDERED: BISACODYL SUPP (10 MG) 10 MG/SUPP.RECT SUPP.RECT RC PRN (19:00)
[2018-04-09] MEDS ORDERED: LORAZEPAM 0.5 MG TABLET GT PRN (19:00)
[2018-04-09] MEDS ORDERED: IPRATROPIUM NEB FS 0.5 MG/2.5 ML AMPUL.NEB IH PRN (19:00)
[2018-04-09] MEDS ORDERED: Z GUARD REMEDY 2 OZ OINT TP PRN (19:30)
[2018-04-09] MEDS ORDERED: ONDANSETRON HCL/PF 4 MG/2 ML VIAL IVP PRN (19:30)
--- NOTE | 2018-04-09 19:30 | NUR ---
BLEACH MAKER NOTE: PATIENT RESTING IN BED, NO ACUTE DISTRESS NOTED. BREATHING EVEN AND UNLABORED, NO SOB NOTED. VENT SETTING IN PLACE. IV TO LFA IN PLACE. TELE READING A-FIB 62. F/C IN PLACE, EMPTY AT THIS TIME. G-TUBE IN PLACE. BED LOCKED AND IN LOWEST POSITION, CALL LIGHT IN REACH. WILL CONTINUE TO MONITOR.
[2018-04-09] MEDS: ALBUTEROL FS 2.5 MG/0.5 ML VIAL.NEB NEB SCH ×2 (19:50→23:19)
[2018-04-09 20:00] VITALS: BP 119/50
[2018-04-09 20:00] LABS: TROPONIN I 0.136 ng/mL (0.00-0.056)
[2018-04-09 20:16] LABS: DIGOXIN 2.05 ng/mL (0.90-2.00)
[2018-04-09] MEDS: EPOETIN ALFA (4000 UNIT) 4,000 UNIT/ML VIAL SQ SCH (20:48)
[2018-04-09] MEDS: SUCRALFATE 1 G/10 ML UDC GT SCH (21:37)
[2018-04-09] MEDS: CHLORHEXIDINE GLUCONATE 15 ML UDC MM SCH (21:38)
[2018-04-09] MEDS: DOCUSATE SODIUM LIQ 100 MG/10 ML UDC GT SCH (21:38)
[2018-04-09] MEDS: PANTOPRAZOLE 40 MG VIAL IV SCH (21:39)
[2018-04-09] MEDS: IV D5/ 0.9% NACL 1,000 ML IV PRN (21:39)
[2018-04-09] MEDS ORDERED: ATORVASTATIN 10 MG TABLET GT SCH (22:00)
[2018-04-09 22:28] LABS: HEMOGLOBIN 7.1 g/dL (11.5-14.8)
--- NOTE | 2018-04-09 22:30 | NUR ---
LUMBER CUTTER NOTE: PATIENT NO G-TUBE FEEDING ORDER, CORRECTIONAL SUPERVISOR , DR. [place] ON THE FLOOR. RECEIVED ORDERS TO CONTINUE PATIENT G-TUBE FEEDINGS RECEIVED IN SNF, GLUCERNA 1.2 AT 60ML/HR. PATIENT ALSO WITH H/H LABS EVERY 6 HOURS. ORDER TO TRANSFUSE 1 UNIT OF PRBC ONLY IF HGB LESS THAN 7.0. ORDER NOTED AND CARRIED OUT. WILL CONTINUE TO MONITOR. Addendum: 04/09/18 at 2335 by MORAIMA YOON RN NO ACUTE BLEEDING NOTED.
[2018-04-10] VITALS: BP 124/56
[2018-04-10] MEDS: ALBUTEROL FS 2.5 MG/0.5 ML VIAL.NEB NEB SCH ×6 (02:54→23:16)
[2018-04-10] MEDS ORDERED: GLUCERNA 1.2 1,000 ML BOTTLE GT PRN (03:00)
[2018-04-10 04:00] VITALS: BP 141/69
--- NOTE | 2018-04-10 06:10 | NUR ---
SWEATBAND FLANGER NOTE: PATIENT RESTING IN BED, NO ACUTE DISTRESS NOTED. BREATHING EVEN AND UNLABORED, NO SOB NOTED. VENT SETTING IN PLACE. IV TO LFA IN PLACE, INFUSING D5NS AT 75ML/HR. TELE READING A-FIB HR 50-60. F/C IN PLACE. G-TUBE IN PLACE, INFUSING GLUCERNA AT 60ML/HR. BED LOCKED AND IN LOWEST POSITION, CALL LIGHT IN REACH. WILL ENDORSE TO DAY NURSE TO CONTINUE WITH PLAN OF CARE.
[2018-04-10 06:22] LABS: HEMATOCRIT 23 % (33-45); HEMOGLOBIN 7.6 g/dL (11.5-14.8); MEAN CORPUSCULAR HGB CONC 33 g/dl (31.0-36.0); MEAN CORPUSCULAR VOLUME 90 fL (82-100); RDW COEFFICIENT OF VARIATION 16.9 (11.5-15.0)
[2018-04-10 06:23] LABS: BASOPHILS % (AUTO) 0.6 % (0.0-2.0); EOSINOPHILS % (AUTO) 1.3 % (0.0-6.0); LYMPHOCYTES % (AUTO) 7.7 % (20.0-44.0); MONOCYTES % (AUTO) 7.9 % (2.0-12.0); NEUTROPHILS % (AUTO) 82.5 % (43.0-81.0); PLATELET COUNT (AUTO) 248 /CMM (150-450)
[2018-04-10 06:45] LABS: ALBUMIN 1.9 g/dL (3.4-5.0); BILIRUBIN,TOTAL 0.6 mg/dL (0.2-1.0); CALCIUM, SERUM 8.8 mg/dL (8.5-10.1); CREATININE 0.9 mg/dL (0.6-1.3); MAGNESIUM 2.6 mg/dL (1.8-2.4); PHOSPHORUS 3.5 mg/dL (2.5-4.9); POTASSIUM 3.5 mmol/L (3.5-5.1); TOTAL PROTEIN, SERUM 8.6 g/dL (6.4-8.2)
[2018-04-10 06:50] LABS: THYROID STIMULATING HORMONE 1.37 uIU/mL (0.358-3.74)
--- NOTE | 2018-04-10 07:00 | NUR ---
JUNIOR SALES ASSISTANT NOTE: RECEIVE CALL FROM LAB FOR CRITICAL RESULT, BUN 116. PATIENT BUN EARLIER 128, TENDING DOWN. WILL ENDORSE TO DAY NURSE TO FOLLOW UP WITH MD.
[2018-04-10 08:00] VITALS: BP 120/58
[2018-04-10 08:54] LABS: OCCULT BLOOD STOOL POSITIVE (NEGATIVE)
[2018-04-10] MEDS ORDERED: FERROUS SULFATE (325 MG) 325 MG/TAB TABLET GT SCH (09:00)
[2018-04-10] MEDS: CHLORHEXIDINE GLUCONATE 15 ML UDC MM SCH ×2 (10:14→21:52)
[2018-04-10] MEDS: SUCRALFATE 1 G/10 ML UDC GT SCH ×4 (10:14→21:52)
[2018-04-10] MEDS: DOCUSATE SODIUM LIQ 100 MG/10 ML UDC GT SCH (10:15)
[2018-04-10] MEDS: CALCIUM ACETATE 667 MG TABLET GT SCH ×3 (10:15→18:19)
[2018-04-10] MEDS: BUMETANIDE (1 MG) 1 MG TABLET GT SCH ×2 (10:15→18:19)
[2018-04-10] MEDS: MULTIVITAMINS,THERAGRAN 1 UDTAB TABLET GT SCH (10:16)
[2018-04-10] MEDS: ACIDOPHILUS/BULGARICUS 1 EACH TAB.CHEW GT SCH (10:16)
[2018-04-10] MEDS: LEVETIRACETAM SOL (5 ML) 100 MG/ML UDC GT SCH ×2 (10:16→18:19)
[2018-04-10] MEDS: SEVELAMER CARBONATE 0.8 GM POWD.PACK GT SCH (10:16)
[2018-04-10] MEDS: PANTOPRAZOLE 40 MG VIAL IV SCH ×2 (10:20→21:52)
--- NOTE | 2018-04-10 10:22 | NUR ---
RT NOTE CHARGE NURSE NOTIFIED AND AWARE THAT THE DEPARTMENT HAS A SHORTAGE OF CONTINUOS PULSE OXES. PLACED PT ON A VITAL SIGNS MACHINE AT THIS TIME TO MONITOR SATURATION AND HEART RATE. RN NOTIFIED
[2018-04-10 10:23] LABS: HEMOGLOBIN 7.2 g/dL (11.5-14.8)
--- NOTE | 2018-04-10 11:15 | NUR ---
PT RCVD TRACH'D ON MECHANICAL VENT WITH CHARTED SETTINGS. PT TOLERATING SETTINGS WELL AT THIS TIME. TX GIVEN AND NO ADVERSE REACTION NOTED. SX DONE. PT TRACH PATENT AND SECURE. AMBU BAG AT BEDSIDE. VENT PLUGGED INTO RED OUTLET. ALARMS ARE ON AND AUDIBLE. WILL CONTINUE TO MONITOR. Addendum: 04/10/18 at 1115 by RADHA STRICKLAND RT Amended: Links added.
--- NOTE | 2018-04-10 11:16 | NUR ---
WOUND CARE CONSULT: PT PRESENTS WITH STAGE 4 ULCER TO SACRUM AND INCONTINENCE ASSOCIATED DENUDED SKIN TO PERIANAL, PERINEAL AND UPPER THIGH AREAS, PRESENT ON ADMISSION. PT INCONTINENT OF FREQUENT LOOSE STOOLS. RECOMMENDATIONS MADE FOR WOUND CARE AND SKIN PROTECTION. DISCUSSED WITH NURSING STAFF. FIRST STEP LOW AIRLOSS MATTRESS ORDERED. WILL SEE PRN. LÓPEZ IN AGREEMENT WITH PLAN OF CARE. SURGICAL CONSULT RECOMMENDED. Addendum: 04/10/18 at 1118 by MUSTAPHA LAZCANO WNDNU Amended: Links added.
[2018-04-10] MEDS: IV D5/ 0.9% NACL 1,000 ML IV PRN (11:59)
[2018-04-10 12:00] VITALS: BP 129/49
[2018-04-10] MEDS: CARVEDILOL 12.5 MG TABLET GT SCH ×2 (12:59→18:20)
[2018-04-10] MEDS: LOSARTAN/HCTZ 50-12.5MG/ 1 EA TABLET GT SCH (13:00)
[2018-04-10] MEDS: DIGOXIN 0.125 MG TABLET GT SCH (13:00)
[2018-04-10] MEDS: SOD FERRIC GLUC 125 MG in IV NS 0.9% 100 ML IV SCH (15:03)
[2018-04-10 16:00] VITALS: BP 137/59
[2018-04-10] MEDS: DAKINS QUARTER STRENGTH (0.125%) 480 ML BOTTLE TOP SCH (16:36)
--- NOTE | 2018-04-10 18:00 | NUR ---
VENT SETTINGS UNCHANGED,SUCTIONED SEVERAL TIMES FOR THIN YELLOWISH SECRETIONS FROM TRACH.AWAITING [facility] MATRESS PLACEMENT.
--- NOTE | 2018-04-10 18:54 | NUR ---
rt note pt placed on bedside continuos pulse ox monitor. rn and charge nurse notified and aware.
--- NOTE | 2018-04-10 19:05 | NUR ---
MACHINE CLOTHING REPLACER OPENING NOTES PATIENT IN BED, NO ACUTE DISTRESS NOTED. BREATHING EVEN AND UNLABORED, NO SOB NOTED. VENT SETTING IN PLACE. IV TO LFA IN PLACE, INFUSING D5NS AT 75ML/HR. TELE READING A-FIB HR 40-50. F/C IN PLACE. G-TUBE IN PLACE, INFUSING GLUCERNA AT 60ML/HR.SHOULD BE OFF AT 2300 AND ON AT 0300.PT'S FAMILY AT BED SIDE. BED LOCKED AND IN LOWEST POSITION, CALL LIGHT IN REACH. WILL CONTINUE TO MONITOR.
[2018-04-10 20:00] VITALS: BP 148/55
--- NOTE | 2018-04-10 23:16 | NUR ---
RT NOTE: RECEIVED TRACH PT ON MECHANICAL VENT WITH NOTED SETTINGS. BREATHING TX GIVEN PER MD ORDER. NO ADVERSE REACTION NOTED. SX DONE WITH MODERATE AMOUNT OF THICK YELLOW SECRETIONS. PT TRACH PATENT AND SECURE. CAGE OPERATOR DONE. AMBU BAG AT BEDSIDE. VENT PLUGGED INTO RED OUTLET. ALARMS ARE ON AND AUDIBLE. WILL CONTINUE TO MONITOR Addendum: 04/11/18 at 0125 by ISAC SCHAEFFER RT Amended: Links added.
[2018-04-11] VITALS: BP 141/44
[2018-04-11] MEDS: GLUCERNA 1.2 1,000 ML BOTTLE GT PRN (02:36)
[2018-04-11] MEDS: IV D5/ 0.9% NACL 1,000 ML IV PRN ×2 (02:49→17:17)
[2018-04-11] MEDS: ALBUTEROL FS 2.5 MG/0.5 ML VIAL.NEB NEB SCH ×6 (03:23→23:46)
[2018-04-11 04:00] VITALS: BP 100/47
--- NOTE | 2018-04-11 06:32 | NUR ---
CORDUROY BRUSHER OPERATOR CLOSING NOTES PATIENT IN BED, NO ACUTE DISTRESS NOTED. BREATHING EVEN AND UNLABORED, NO SOB NOTED. VENT SETTING IN PLACE. IV TO LFA IN PLACE, INFUSING D5NS AT 75ML/HR. TELE READING A-FIB HR 40-66. F/C IN PLACE WITH OUTPUT 900 ML. G-TUBE IN PLACE, INFUSING GLUCERNA AT 60ML/HR STARTED AT 0300 TOLERATED WELL WITH NO RESIDUAL.WOUND CARE DONE. ALL NEEDS ATTENDED , MEDS GIVEN. BED IN LOWEST POSITION,HOB ELEVATED. CALL LIGHT IN REACH
--- NOTE | 2018-04-11 07:56 | NUR ---
PT RECEIVED ON MECHANICAL VENT ON NOTED SETTINGS. TRACH IS SECURE. PT SUCTIONED: SMALL WHITE SECRETIONS. BREATHING TX WAS GIVEN, NO ADVERSE REACTIONS NOTED AT THIS TIME. NO RESP DISTRESS OR SOB NOTED. VENT IS PLUGGED INTO RED OUTLET. VENT ALARMS ARE ON AND AUDIBLE. AMBU BAG IS AT BEDSIDE. WILL CONT TO MONITOR PT. Addendum: 04/11/18 at 0759 by VENTURA GUERRERO RT Amended: Links added.
--- NOTE | 2018-04-11 08:00 | NUR ---
RN NOTES RECEIVED PATIENT IN THE BED TRACHEA/ VENT DEPENDENT, PATIENT EYES OPEN AT THIS TIME. PATIENT HAS NO ACUTE RESPIRATORY DISTRESS . PATIENT ON TELE MONITOR SB-53/55. PATIENT TOTAL CARE. IV ON LEFT FA INTACT INFUSING D5 AT 75 ML/HR INTACT. F/C DRAIN LIGHT YELLOW OUTPUT. G- TUBE FEEDING GLUCERNA 1.2 AT 60 ML/HR RESIDUAL 20 ML, PLACEMENT ALSO CHECKED. MEDICATION ADMINISTERED VIA G-TUBE, KEEP HOB ELEVATED FOR ASPIRATION PRECAUTION. ASSIST TURN AND REPOSTION Q2 HR. PATIENT MRSA OF WOUND. DRESSING CHANGED. CALL LIGHT WITHIN TO REACH. SAFETY PRECAUTION MAINTAINED ALL THE TIME.
[2018-04-11 08:14] VITALS: BP 133/47
[2018-04-11 08:18] VITALS: BP 133/47
[2018-04-11 08:38] LABS: EOSINOPHILS % (AUTO) 0.6 % (0.0-6.0); HEMATOCRIT 22 % (33-45); LYMPHOCYTES # (AUTO) 0.8 /CMM (0.8-4.8); LYMPHOCYTES % (AUTO) 9.1 % (20.0-44.0); MEAN CORPUSCULAR HGB CONC 31 g/dl (31.0-36.0); MEAN CORPUSCULAR VOLUME 91 fL (82-100); MONOCYTES # (AUTO) 0.4 /CMM (0.1-1.30); MONOCYTES % (AUTO) 4.7 % (2.0-12.0); NEUTROPHILS # (AUTO) 7.9 /CMM (1.8-8.9); NEUTROPHILS % (AUTO) 85.6 % (43.0-81.0); PLATELET COUNT (AUTO) 248 /CMM (150-450); RDW COEFFICIENT OF VARIATION 17.6 (11.5-15.0); RED BLOOD CELL COUNT(AUTO) 2.38 MIL/uL (4.0-5.2); WHITE BLOOD COUNT (AUTO) 9.2 K/uL (4.3-11.0)
[2018-04-11 08:41] LABS: HEMOGLOBIN 6.7 g/dL (11.5-14.8)
[2018-04-11 09:05] LABS: BAND % (MANUAL) 1 % (0.0-5.0); EOSINOPHILS % (MANUAL) 2 % (0-4); LYMPHOCYTES % (MANUAL) 7 % (16-48); MONOCYTES % (MANUAL) 2 % (0-11.0); NEUTROPHILS % (MANUAL) 88 (42-76)
[2018-04-11] MEDS: CHLORHEXIDINE GLUCONATE 15 ML UDC MM SCH ×2 (09:42→20:41)
[2018-04-11] MEDS: CALCIUM ACETATE 667 MG TABLET GT SCH ×3 (09:43→17:10)
[2018-04-11] MEDS: PANTOPRAZOLE 40 MG VIAL IV SCH ×2 (09:43→20:41)
[2018-04-11] MEDS: SUCRALFATE 1 G/10 ML UDC GT SCH ×4 (09:43→20:41)
[2018-04-11] MEDS: SEVELAMER CARBONATE 0.8 GM POWD.PACK GT SCH (09:43)
[2018-04-11] MEDS: LEVETIRACETAM SOL (5 ML) 100 MG/ML UDC GT SCH ×2 (09:43→17:10)
[2018-04-11] MEDS: MULTIVITAMINS,THERAGRAN 1 UDTAB TABLET GT SCH (09:43)
[2018-04-11] MEDS: BUMETANIDE (1 MG) 1 MG TABLET GT SCH ×2 (09:43→17:10)
[2018-04-11] MEDS: ACIDOPHILUS/BULGARICUS 1 EACH TAB.CHEW GT SCH (09:44)
[2018-04-11] MEDS: CARVEDILOL 12.5 MG TABLET GT SCH ×2 (09:45→17:10)
[2018-04-11] MEDS: DAKINS QUARTER STRENGTH (0.125%) 480 ML BOTTLE TOP SCH (09:46)
[2018-04-11] MEDS: LOSARTAN/HCTZ 50-12.5MG/ 1 EA TABLET GT SCH (09:49)
--- NOTE | 2018-04-11 12:00 | NUR ---
RN NOTES PATIENT STABLE, NO ACUTE RESPIRATORY DISTRESS, G-TUBE FEEDING INTACT, ASSIST TURN AND REPOSITION Q 2 HR. CALL LIGHT WITHIN TO REACH, SAFETY PRECAUTION MAINTAINED ALL THE TIME.
[2018-04-11] MEDS: DIGOXIN 0.125 MG TABLET GT SCH (12:26)
[2018-04-11] MEDS: SOD FERRIC GLUC 125 MG in IV NS 0.9% 100 ML IV SCH (14:26)
[2018-04-11 16:00] VITALS: BP 127/60
--- NOTE | 2018-04-11 18:30 | NUR ---
RN NOTES PATIENT STABLE AT THIS TIME, NO ACUTE RESPIRATORY DISTRESS, PATIENT HAS TWO EPISODE OF JUNCTION THROUGH THE SHIFT. INFUSING D5NS AT 75 ML/HR INTACT, G-TUBE FEEDING INTACT, F/S DRAIN LIGHT YELLOW OUTPUT WITH SEDIMENTS. ASSIST TURN AND REPOSTION Q2 HR. CALL LIGHT WITHIN TO REACH. ENDORSED ONCOMING NURSE FOR PLAN OF CARE.
--- NOTE | 2018-04-11 19:30 | NUR ---
PROCESSING MGR OPENING NOTES RECEIVED PATIENT IN BED AWAKE. NONVERBAL. STABLE CONDITION. BREATHING EVEN AND UNLABORED. NO SOB NOTED - ON VENT WITH ORDERED SETTINGS. NO S/S OF PAIN OR DISCOMFORT. NO FACIAL GRIMACING. IV ACCESS INTACT AND PATENT - INFUSING D5NS @ 75ML/HR. GTUBE IN PLACE - INTACT AND INFUSING GLUCERNA 1.2 AT 60ML/HR. PATIENT NOTED WITH MARION CATH - DRAINING WELL. SKIN DRY AND WARM TO TOUCH. AFEBRILE. ALL OTHER NEEDS ATTENDED TO. SAFETY MEASURES IN PLACE. CALL LIGHT WITHIN REACH. WILL CONTINUE TO MONITOR.
[2018-04-11 20:00] VITALS: BP 133/57
--- NOTE | 2018-04-11 20:00 | NUR ---
PANELBOARD OPERATOR NOTES INFORMED DR. GARCIA OF PATIENT'S H/H OF 6.08/31 - NO EVIDENCE OF ACTIVE BLEEDING. INFORMED DR. GARCIA THAT I WILL ALSO GIVE EPOGEN 4,000 UNIT SUBQ. ASKED IF SHE WOULD LIKE TO TRANSFUSE PRBC. PER DR. GARCIA, NO BLOOD TRANSFUSION; REPEAT LABS TOMORROW AM. [facility] ALREADY SCHEDULE FOR TOMORROW AM.
[2018-04-11] MEDS: EPOETIN ALFA (4000 UNIT) 4,000 UNIT/ML VIAL SQ SCH (20:41)
[2018-04-11] MEDS: DOCUSATE SODIUM LIQ 100 MG/10 ML UDC GT SCH (21:00)
[2018-04-12] VITALS (9 sets, daily range): BP systolic 118–150; BP diastolic 50–67
--- NOTE | 2018-04-12 01:07 | NUR ---
PATIENT WAS RECEIVED ON MECHANICAL VENT WITH NOTED SETTINGS. BREATHING TX GIVEN PER MD ORDER. NO ADVERSE REACTION NOTED. SX DONE WITH MODERATE AMOUNT OF THICK YELLOW SECRETIONS. TRACH TUBE PATENT AND SECURED. DENTAL SCHEDULER DONE. AMBU BAG AT BEDSIDE. VENT PLUGGED INTO RED OUTLET. ALARMS ARE ON AND AUDIBLE. WILL CONTINUE TO MONITOR Addendum: 04/12/18 at 0109 by LOUIS SINGH RT Amended: Links added.
[2018-04-12] MEDS: GLUCERNA 1.2 1,000 ML BOTTLE GT PRN ×2 (03:19→17:40)
[2018-04-12] MEDS: IV D5/ 0.9% NACL 1,000 ML IV PRN ×2 (06:36→17:40)
--- NOTE | 2018-04-12 06:51 | NUR ---
TENSION MACHINE OPERATOR CLOSING NOTES PATIENT IN BED AWAKE. NONVERBAL. STABLE CONDITION. NO ACUTE CHANGES THROUGHOUT SHIFT. BREATHING EVEN AND UNLABORED. NO SOB NOTED - ON VENT WITH ORDERED SETTINGS. TRACH CARE DONE BY RT. SUCTIONED NEEDED THROUGHOUT THE NIGHT. NO S/S OF PAIN OR DISCOMFORT. NO FACIAL GRIMACING. IV ACCESS INTACT AND PATENT - INFUSING D5NS @ 75ML/HR. GTUBE IN PLACE - INTACT AND INFUSING GLUCERNA 1.2 AT 60ML/HR. PATIENT WITH MARION CATH - DRAINING CLEAR YELLOW URINE. ALL OTHER NEEDS ATTENDED TO. SAFETY MEASURES IN PLACE. CALL LIGHT WITHIN REACH. ENDORSE TO ONCOMING NURSE FOR CONTINUITY OF CARE.
[2018-04-12] MEDS: ALBUTEROL FS 2.5 MG/0.5 ML VIAL.NEB NEB SCH ×5 (07:19→23:33)
--- NOTE | 2018-04-12 07:30 | NUR ---
MS/RN Patient received Patient received from maintenance supervisor 2nd shift. Vent settings verified, saturation >94%, appears comfortable and in no distress. Vega catheter draining to gravity, IVF fluids infusing at 75ml/hr, no signs of infiltration seen. Safety measures in place, will continue to monitor and ensure safety.
[2018-04-12 07:36] LABS: EOSINOPHILS % (AUTO) 0.1 % (0.0-6.0); HEMATOCRIT 21 % (33-45); LYMPHOCYTES # (AUTO) 0.4 /CMM (0.8-4.8); LYMPHOCYTES % (AUTO) 2.4 % (20.0-44.0); MEAN CORPUSCULAR HGB CONC 31 g/dl (31.0-36.0); MEAN CORPUSCULAR VOLUME 91 fL (82-100); MONOCYTES # (AUTO) 0.4 /CMM (0.1-1.30); MONOCYTES % (AUTO) 2.1 % (2.0-12.0); NEUTROPHILS # (AUTO) 16.3 /CMM (1.8-8.9); NEUTROPHILS % (AUTO) 95.4 % (43.0-81.0); PLATELET COUNT (AUTO) 212 /CMM (150-450); RDW COEFFICIENT OF VARIATION 17.8 (11.5-15.0); RED BLOOD CELL COUNT(AUTO) 2.32 MIL/uL (4.0-5.2); WHITE BLOOD COUNT (AUTO) 17.1 K/uL (4.3-11.0)
[2018-04-12 07:51] LABS: HEMOGLOBIN 6.5 g/dL (11.5-14.8)
[2018-04-12 07:53] LABS: CALCIUM, SERUM 8.6 mg/dL (8.5-10.1); CREATININE 0.9 mg/dL (0.6-1.3); MAGNESIUM 2.2 mg/dL (1.8-2.4); PHOSPHORUS 2.1 mg/dL (2.5-4.9)
--- NOTE | 2018-04-12 08:30 | NUR ---
MS/RN S/B Dr Santos Seen by Dr Santos - one unit of blood ordered for Hb 6.5. Also to collect urine for urinalysis and culture.
[2018-04-12] MEDS: MULTIVITAMINS,THERAGRAN 1 UDTAB TABLET GT SCH (08:40)
[2018-04-12] MEDS: ACIDOPHILUS/BULGARICUS 1 EACH TAB.CHEW GT SCH (08:40)
[2018-04-12] MEDS: CHLORHEXIDINE GLUCONATE 15 ML UDC MM SCH ×2 (08:40→21:42)
[2018-04-12] MEDS: LEVETIRACETAM SOL (5 ML) 100 MG/ML UDC GT SCH ×2 (08:40→17:25)
[2018-04-12] MEDS: BUMETANIDE (1 MG) 1 MG TABLET GT SCH ×2 (08:40→17:25)
[2018-04-12] MEDS: SUCRALFATE 1 G/10 ML UDC GT SCH ×4 (08:40→21:41)
[2018-04-12] MEDS: PANTOPRAZOLE 40 MG VIAL IV SCH ×2 (08:41→21:42)
[2018-04-12] MEDS: CARVEDILOL 12.5 MG TABLET GT SCH ×2 (08:41→17:25)
[2018-04-12] MEDS: SEVELAMER CARBONATE 0.8 GM POWD.PACK GT SCH (08:41)
[2018-04-12] MEDS: CALCIUM ACETATE 667 MG TABLET GT SCH ×3 (08:42→17:25)
[2018-04-12] MEDS: LOSARTAN/HCTZ 50-12.5MG/ 1 EA TABLET GT SCH (08:42)
[2018-04-12 08:50] LABS: LYMPHOCYTES % (MANUAL) 3 % (16-48); MONOCYTES % (MANUAL) 4 % (0-11.0); NEUTROPHILS % (MANUAL) 93 (42-76)
[2018-04-12] MEDS ORDERED: POTASSIUM CHLORIDE 20 MEQ TAB.PRT.SR PO ONE (09:00)
[2018-04-12] MEDS: DAKINS QUARTER STRENGTH (0.125%) 480 ML BOTTLE TOP SCH (09:07)
--- NOTE | 2018-04-12 10:35 | NUR ---
MS/RN Blood transfusion H&H 6.11/27, one unit PRBC ordered. Blood transfusion started, no reaction noted, vital signs recorded as per hospital policy.
--- NOTE | 2018-04-12 11:12 | NUR ---
MS/RN Urine collected Urine collected, sent to lab for urinalysis and culture.
--- NOTE | 2018-04-12 11:58 | NUR ---
MS/RN S/B Dr Rapp Seen by Dr Rapp - no new orders, continue to monitor H&H, and observe for any signs of bleeding, including excessive blleding from sacral wound and notify MD.
[2018-04-12 12:04] LABS: APPEARANCE,URINE CLOUDY (CLEAR); BILIRUBIN,URINE NEGATIVE (NEGATIVE); BLOOD, URINE 1+ Ery/uL (NEGATIVE); COLOR,URINE YELLOW (YELLOW); KETONES,URINE NEGATIVE (NEGATIVE); LEUKOCYTE ESTERASE ,URINE 3+ (NEGATIVE); NITRITE, URINE NEGATIVE (NEGATIVE); PROTEIN,URINE 1+ mg/dl (NEGATIVE); UGLUCOSE NEGATIVE (NEGATIVE); UROBILINOGEN,URINE 0.2 EU/dL (0.2)
[2018-04-12 12:31] LABS: WBC,URINE 21-50 /HPF (0-3)
[2018-04-12 12:32] LABS: BACTERIA,URINE Many /HPF (None Seen); SQUAMOUS EPITHELIAL CELL,UR Few /HPF (None Seen)
[2018-04-12 12:33] LABS: TRIPLE PHOSPHATE CRYSTAL,UR Few /HPF (None Seen)
[2018-04-12] MEDS: DIGOXIN 0.125 MG TABLET GT SCH (12:49)
--- NOTE | 2018-04-12 15:00 | NUR ---
MS/RN S/B Dr Barber Seen by Dr Barber - patient to be consented for debridement of sacral wound.
[2018-04-12] MEDS ORDERED: SILVER NITRATE APPLICATOR 1 EA BOX TP ONE (15:30)
--- NOTE | 2018-04-12 15:30 | NUR ---
MS/RN Consents Consent of debridement obtained via telephone from alida Simmons. All supplies for procedure obtained and placed in basin at bedside.
[2018-04-12] MEDS: SOD FERRIC GLUC 125 MG in IV NS 0.9% 100 ML IV SCH (15:48)
[2018-04-12] MEDS ORDERED: NEUTRA PHOS 1 POWD.PACKET GT ONE (16:00)
--- NOTE | 2018-04-12 18:07 | NUR ---
RT NOTE PATIENT WAS RECEIVED ON MECHANICAL VENT WITH NOTED SETTINGS. BREATHING TX GIVEN PER MD ORDER. NO ADVERSE REACTION NOTED. SX DONE WITH MODERATE AMOUNT OF THICK YELLOW SECRETIONS. TRACH TUBE PATENT AND SECURED. ENTERPRISE RESOURCE ANALYST DONE. AMBU BAG AT BEDSIDE. VENT PLUGGED INTO RED OUTLET. ALARMS ARE ON AND AUDIBLE. WILL CONTINUE TO MONITOR
--- NOTE | 2018-04-12 18:08 | NUR ---
MS/RN End note Patient remains in stable condition. All wound care as ordered, patient has been turned and repositioned every 2-3 hoursthroughout shift to prevent further skin breakdown. GT feeding and IV infusing as ordered, both have new bags hung at this time. Vital signs stable, fraire catheter draining 350ml from this shift of dark colored foul smelling urine. Specimen already collected and sent to lab. Will endorse to operations supervisor 2nd shift.
--- NOTE | 2018-04-12 19:30 | NUR ---
COST ESTIMATING CLERK NOTE: PATIENT RESTING IN BED, NO ACUTE DISTRESS NOTED. BREATHING EVEN AND UNLABORED, NO SOB NOTED. VENT SETTING IN PLACE. IV TO LFA IN PLACE, INFUSING D5NS AT 75ML/HR. TELE READING A-FIB 60. F/C IN PLACE, EMPTY AT THIS TIME. G-TUBE IN PLACE WITH 5ML RESIDUAL, INFUSING GLUCERNA 1.2 AT 60ML/HR. ISOLATION PRECAUTIONS OBSERVED. BED LOCKED AND IN LOWEST POSITION, CALL LIGHT IN REACH. WILL CONTINUE TO MONITOR.
[2018-04-12] MEDS: DOCUSATE SODIUM LIQ 100 MG/10 ML UDC GT SCH (21:42)
[2018-04-13] VITALS: BP 131/50
[2018-04-13] MEDS: ALBUTEROL FS 2.5 MG/0.5 ML VIAL.NEB NEB SCH ×6 (03:47→23:46)
[2018-04-13 04:03] VITALS: BP 116/68
--- NOTE | 2018-04-13 06:00 | NUR ---
ENGINEERING WRITER NOTE: PATIENT RESTING IN BED, NO ACUTE DISTRESS NOTED. BREATHING EVEN AND UNLABORED, NO SOB NOTED. VENT SETTING IN PLACE. IV TO LFA IN PLACE, INFUSING D5NS AT 75ML/HR. TELE READING A-FIB 60-70'S. F/C IN PLACE. G-TUBE IN PLACE, INFUSING GLUCERNA 1.2 AT 60ML/HR. ISOLATION PRECAUTIONS OBSERVED. BED LOCKED AND IN LOWEST POSITION, CALL LIGHT IN REACH. WILL ENDORSE TO DAY NURSE TO CONTINUE WITH PLAN OF CARE.
[2018-04-13 06:35] LABS: EOSINOPHILS % (AUTO) 0.8 % (0.0-6.0); HEMATOCRIT 24 % (33-45); HEMOGLOBIN 7.6 g/dL (11.5-14.8); LYMPHOCYTES # (AUTO) 0.4 /CMM (0.8-4.8); LYMPHOCYTES % (AUTO) 3.4 % (20.0-44.0); MEAN CORPUSCULAR HGB CONC 31 g/dl (31.0-36.0); MEAN CORPUSCULAR VOLUME 90 fL (82-100); MONOCYTES # (AUTO) 0.4 /CMM (0.1-1.30); MONOCYTES % (AUTO) 3.6 % (2.0-12.0); NEUTROPHILS # (AUTO) 11.1 /CMM (1.8-8.9); NEUTROPHILS % (AUTO) 92.2 % (43.0-81.0); PLATELET COUNT (AUTO) 214 /CMM (150-450); RDW COEFFICIENT OF VARIATION 19.2 (11.5-15.0)
[2018-04-13 06:57] LABS: CALCIUM, SERUM 8.6 mg/dL (8.5-10.1); CREATININE 0.9 mg/dL (0.6-1.3); MAGNESIUM 2.2 mg/dL (1.8-2.4); PHOSPHORUS 1.9 mg/dL (2.5-4.9); POTASSIUM 4.4 mmol/L (3.5-5.1)
--- NOTE | 2018-04-13 07:31 | NUR ---
OUTSIDE SALES REPRESENTATIVE INSURANCE OPENING NOTES RECEIVED PATIENT IN STABLE CONDITION. IN NO APPARENT DISTRESS. BEDSIDE RAILS ARE UPX2. BED IS LOCKED AND LOWERED. MARION CATHETER WORKING PROPERLY. TUBE FEEDING WORKING PROPERLY. CALL LIGHT IS WITHIN REACH. IV LINE IS INTACT AND PATENT. WILL CONTINUE TO MONITOR PATIENT.
[2018-04-13] MEDS: IV D5/ 0.9% NACL 1,000 ML IV PRN (07:34)
[2018-04-13 08:00] VITALS: BP_SYST 133; BP_SYST 134; BP_DIAS 60; BP_DIAS 69
[2018-04-13] MEDS: LEVETIRACETAM SOL (5 ML) 100 MG/ML UDC GT SCH ×2 (09:03→16:51)
[2018-04-13] MEDS: SEVELAMER CARBONATE 0.8 GM POWD.PACK GT SCH (09:04)
[2018-04-13] MEDS: PANTOPRAZOLE 40 MG VIAL IV SCH ×2 (09:04→21:12)
[2018-04-13] MEDS: BUMETANIDE (1 MG) 1 MG TABLET GT SCH ×2 (09:04→16:52)
[2018-04-13] MEDS: SUCRALFATE 1 G/10 ML UDC GT SCH ×4 (09:04→21:11)
[2018-04-13] MEDS: CARVEDILOL 12.5 MG TABLET GT SCH ×2 (09:04→16:51)
[2018-04-13] MEDS: ACIDOPHILUS/BULGARICUS 1 EACH TAB.CHEW GT SCH (09:04)
[2018-04-13] MEDS: CALCIUM ACETATE 667 MG TABLET GT SCH ×2 (09:04→13:31)
[2018-04-13] MEDS: CHLORHEXIDINE GLUCONATE 15 ML UDC MM SCH ×2 (09:04→21:11)
[2018-04-13] MEDS: DAKINS QUARTER STRENGTH (0.125%) 480 ML BOTTLE TOP SCH (09:05)
[2018-04-13] MEDS: MULTIVITAMINS,THERAGRAN 1 UDTAB TABLET GT SCH (09:05)
[2018-04-13] MEDS: LOSARTAN/HCTZ 50-12.5MG/ 1 EA TABLET GT SCH (09:05)
--- NOTE | 2018-04-13 11:09 | NUR ---
RT Female pt received trachd and on [facility] vent. Vent is plugged into red outlet w alarms on and audible w ambubag at the hob. Division Officer Weapons Department cuff pressure noted. Pt is alert and nonverbal. Trach is secure and airway is patent. Small amounts of thick yellow/white secretions observed. Pt is tolerating hhn tx and vent settings well. Will continue to monitor. Addendum: 04/13/18 at 1115 by DOMINICK VARMA RT Amended: Links added.
[2018-04-13 12:00] VITALS: BP 136/54
[2018-04-13] MEDS: CEFTRIAXONE 1 G in IV D5W 50 ML IV SCH (13:31)
[2018-04-13] MEDS: DIGOXIN 0.125 MG TABLET GT SCH (13:31)
[2018-04-13] MEDS: GLUCERNA 1.2 1,000 ML BOTTLE GT PRN (13:36)
[2018-04-13] MEDS: SOD FERRIC GLUC 125 MG in IV NS 0.9% 100 ML IV SCH (14:47)
[2018-04-13 16:00] VITALS: BP 133/65
[2018-04-13] MEDS ORDERED: NEUTRA PHOS 1 POWD.PACKET GT ONE (17:00)
--- NOTE | 2018-04-13 18:18 | NUR ---
MECHANICAL DESIGN ENGINEER FACILITIES CLOSING NOTES PATIENT IS IN STABLE CONDITION. IN NO APPARENT DISTRESS. BEDSIDE RAILS ARE UPX2. BED IS LOCKED AND LOWERED. CALL LIGHT IS WITHIN REACH. IV LINE IS INTACT AND PATENT. ALL NEEDS WEER MET. WILL ENDORSE CARE TO CLINICAL EDUCATION SPECIALIST NURSE FOR GAYLE.
[2018-04-13] MEDS: EPOETIN ALFA (4000 UNIT) 4,000 UNIT/ML VIAL SQ SCH (18:38)
--- NOTE | 2018-04-13 19:35 | NUR ---
REGIONAL TANKER TRUCK DRIVER NOTE RECEIVED PATIENT FROM DAY SHIFT, PATIENT IS NON-VERBAL, VENT DEPENDENT, ON BED BOUND, NO S/S OF RESPIRATORY DISTRESS AND NO FACIAL GRIMACE NOTED. IV ON LEFT WRIST IS PATENT AND INTACT, FLUID IS RUNNING. G TUBE PRESENT WITH NO RESIDUAL NOTED, MARION PRESENT ALSO WITH CLEAR YELLOW URINE. TELE MONITOR AFIB 69. SRX2, BED IN LOW POSITION, CALL LIGHT WITHIN REACH, WILL CONTINUE TO MONITOR PATIENT.
[2018-04-13 20:00] VITALS: BP 144/79
[2018-04-13 20:43] LABS: EOSINOPHILS % (AUTO) 0.6 % (0.0-6.0); HEMATOCRIT 23 % (33-45); LYMPHOCYTES # (AUTO) 0.4 /CMM (0.8-4.8); LYMPHOCYTES % (AUTO) 5.1 % (20.0-44.0); MEAN CORPUSCULAR HGB CONC 31 g/dl (31.0-36.0); MEAN CORPUSCULAR VOLUME 89 fL (82-100); MONOCYTES # (AUTO) 0.4 /CMM (0.1-1.30); MONOCYTES % (AUTO) 4.3 % (2.0-12.0); NEUTROPHILS # (AUTO) 7.7 /CMM (1.8-8.9); PLATELET COUNT (AUTO) 205 /CMM (150-450); RED BLOOD CELL COUNT(AUTO) 2.55 MIL/uL (4.0-5.2); WHITE BLOOD COUNT (AUTO) 8.6 K/uL (4.3-11.0)
[2018-04-13] MEDS: DOCUSATE SODIUM LIQ 100 MG/10 ML UDC GT SCH (21:11)
--- NOTE | 2018-04-13 21:12 | NUR ---
BROODMARE FOREMAN NOTE REPEATED CBC RESULTED; HGB 7.0. REPORTED TO ONCEMILIE GARCIA, AND GOT AN ORDER OF 1UNIT PRBC. ORDERS PUT IN AND CALLED THE LAB. CONSENT OBTAINED LAST NIGHT.
--- NOTE | 2018-04-13 21:44 | NUR ---
PATIENT WAS RECEIVED ON MECHANICAL VENT WITH NOTED SETTINGS. BREATHING TX GIVEN PER MD ORDER. NO ADVERSE REACTION NOTED. SX DONE WITH MODERATE AMOUNT OF THICK PALE YELLOW SECRETIONS. TRACH TUBE PATENT AND SECURED. QUILL CLEANER DONE. AMBU BAG AT BEDSIDE. VENT PLUGGED INTO RED OUTLET. ALARMS ARE ON AND AUDIBLE. WILL CONTINUE TO MONITOR Addendum: 04/13/18 at 2144 by LOUIS SINGH RT Amended: Links added.
[2018-04-14] VITALS: BP 159/99
--- NOTE | 2018-04-14 01:30 | NUR ---
RN NOTES: PER RN KATHIA, SHE RECEIVED CALL FROM BLOOD BANK THAT BLOOD IS AVAILABLE, UPON CHECKING PT'S VS, TEMP IS 100.2, COOLING MEASURES PROVIDED, UPON RECHECKING OF TEMP, PT REMAINS TO HAVE 100.1, CONTINUE COOLING MEASURES. NOTED MODERATE AMOUNT OF BLOODY FOUL SMELLING STOOL, DIAPER FOUND TO BE SOAKING WET WITH BLOOD, HOOK AND EYE ATTACHER MD MADE NOTIFIED, RECEIVED CALL BACK, PER MD TO HOLD BLOOD TRANSFUSION, AND CONTINUE COOLING MEASURES, WITH REGARDS TO ACTIVE BLEEDING, PER MD CONTINUE MONITORING. READ BACK AND VERIFIED.
[2018-04-14] MEDS: IV D5/ 0.9% NACL 1,000 ML IV PRN (02:10)
[2018-04-14] MEDS: ALBUTEROL FS 2.5 MG/0.5 ML VIAL.NEB NEB SCH ×6 (02:53→22:39)
[2018-04-14 04:00] VITALS: BP 105/44
--- NOTE | 2018-04-14 05:00 | NUR ---
DEPUTY JUVENILE OFFICER NOTE REINSERTED IV ON LEFT WRIST 20G, GOOD BLOOD RETURNED NOTED.
[2018-04-14 06:36] LABS: BASOPHILS % (AUTO) 0.2 % (0.0-2.0); EOSINOPHILS % (AUTO) 0.6 % (0.0-6.0); HEMATOCRIT 24 % (33-45); HEMOGLOBIN 7.4 g/dL (11.5-14.8); LYMPHOCYTES # (AUTO) 0.7 /CMM (0.8-4.8); LYMPHOCYTES % (AUTO) 7.7 % (20.0-44.0); MEAN CORPUSCULAR HGB CONC 31 g/dl (31.0-36.0); MEAN CORPUSCULAR VOLUME 90 fL (82-100); MONOCYTES # (AUTO) 0.5 /CMM (0.1-1.30); MONOCYTES % (AUTO) 5.5 % (2.0-12.0); NEUTROPHILS # (AUTO) 7.5 /CMM (1.8-8.9); PLATELET COUNT (AUTO) 189 /CMM (150-450); RDW COEFFICIENT OF VARIATION 18.5 (11.5-15.0); RED BLOOD CELL COUNT(AUTO) 2.63 MIL/uL (4.0-5.2); WHITE BLOOD COUNT (AUTO) 8.8 K/uL (4.3-11.0)
--- NOTE | 2018-04-14 06:39 | NUR ---
PERFORMANCE IMPROVEMENT SPECIALIST NOTE PATIENT IS RESTING IN BED, TELE MONITOR AFIB 52. MORNING CARE RENDERED, ALL DUE MEDS GIVEN. IV ON LEFT WRIST IS PATENT AND INTACT, FLUID IS RUNNING. WILL ENDORSE TO DAY SHIFT NURSE FOR GAYLE.
[2018-04-14 06:47] LABS: CALCIUM, SERUM 8.7 mg/dL (8.5-10.1); CREATININE 0.9 mg/dL (0.6-1.3); MAGNESIUM 2.3 mg/dL (1.8-2.4); PHOSPHORUS 2.3 mg/dL (2.5-4.9); POTASSIUM 3.8 mmol/L (3.5-5.1)
--- NOTE | 2018-04-14 07:35 | NUR ---
PIANO MACHINE OPERATOR OPENING NOTES RECEIVED PATIENT IN STABLE CONDITION. IN NO APPARENT DISTRESS. BEDSIDE RAILS ARE UPX2. BED IS LOCKED AND LOWERED. CALL LIGHT IS WITHIN REACH. IV LINE IS INTACT AND PATENT. MARION CATHETER IS IN PLACE. WILL CONTINUE TO MONITOR PATIENT.
[2018-04-14 08:00] VITALS: BP 133/60
[2018-04-14] MEDS: CARVEDILOL 12.5 MG TABLET GT SCH ×2 (09:00→16:17)
[2018-04-14] MEDS: BUMETANIDE (1 MG) 1 MG TABLET GT SCH ×2 (09:00→16:16)
[2018-04-14] MEDS: SUCRALFATE 1 G/10 ML UDC GT SCH ×4 (09:00→21:02)
[2018-04-14] MEDS: ACIDOPHILUS/BULGARICUS 1 EACH TAB.CHEW GT SCH (09:00)
[2018-04-14] MEDS: MULTIVITAMINS,THERAGRAN 1 UDTAB TABLET GT SCH (09:00)
[2018-04-14] MEDS: SEVELAMER CARBONATE 0.8 GM POWD.PACK GT SCH (09:00)
--- NOTE | 2018-04-14 09:00 | NUR ---
HELD RENBESSIEA DUE TO LOW PHOSPHORUS OF 2.3
[2018-04-14] MEDS: LOSARTAN/HCTZ 50-12.5MG/ 1 EA TABLET GT SCH (09:01)
[2018-04-14] MEDS: CHLORHEXIDINE GLUCONATE 15 ML UDC MM SCH ×2 (09:01→21:02)
[2018-04-14] MEDS: PANTOPRAZOLE 40 MG VIAL IV SCH ×2 (09:02→21:01)
[2018-04-14] MEDS: LEVETIRACETAM SOL (5 ML) 100 MG/ML UDC GT SCH ×2 (09:02→16:16)
[2018-04-14] MEDS: DAKINS QUARTER STRENGTH (0.125%) 480 ML BOTTLE TOP SCH (09:10)
[2018-04-14] MEDS ORDERED: IV D5/0.45 NACL 1,000 ML IV ONE (09:30)
--- NOTE | 2018-04-14 10:06 | NUR ---
SPOKE TO DR. PORRAS IN REGARDS TO PATIENTS LOW HEMOGLOBIN LEVEL. BLOOD TRANSFUSION WAS HELD LAST NIGHT DUE TO FEVER. TODAY HEMOGLOBIN IS 7.4. INFORMED DR. PORRAS. PER DOCTOR, HOLD BLOOD TRANSFUSION FOR NOW.
[2018-04-14] MEDS: CEFTRIAXONE 1 G in IV D5W 50 ML IV SCH (11:53)
[2018-04-14 12:00] VITALS: BP 132/54
[2018-04-14] MEDS: DIGOXIN 0.125 MG TABLET GT SCH (12:01)
[2018-04-14] MEDS ORDERED: NEUTRA PHOS 1 POWD.PACKET NG ONE (14:00)
--- NOTE | 2018-04-14 14:55 | NUR ---
CALLED PHARMACY TO PROVIDE FERRLECIT. PHARMACY WILL PROVIDE
[2018-04-14] MEDS: SOD FERRIC GLUC 125 MG in IV NS 0.9% 100 ML IV SCH (15:41)
[2018-04-14 16:00] VITALS: BP 139/53
[2018-04-14 18:41] LABS: OCCULT BLOOD STOOL POSITIVE (NEGATIVE)
--- NOTE | 2018-04-14 18:43 | NUR ---
CAMERA PERSON OPENING NOTES PATIENT IS IN STABLE CONDITION. IN NO APPARENT DISTRESS. BEDSIDE RAILS ARE UPX2. BED IS LOCKED AND LOWERED. CALL LIGHT IS WITHIN REACH. IV LINE IS INTACT AND PATENT. ALL NEEDS WERE MET. WILL ENDORSE CARE TO FABRIC LAY OUT WORKER NURSE FOR GAYLE.
[2018-04-14] MEDS: GLUCERNA 1.2 1,000 ML BOTTLE GT PRN (19:20)
--- NOTE | 2018-04-14 19:35 | NUR ---
CITIZENSHIP INSTRUCTOR NOTE RECEIVED PATIENT FROM DAY SHIFT, PATIENT IS NON-VERBAL, VENT DEPENDENT, ON BED BOUND, NO S/S OF RESPIRATORY DISTRESS AND NO FACIAL GRIMACE NOTED. IV ON LEFT WRIST IS PATENT AND INTACT, FLUID IS RUNNING. G TUBE PRESENT WITH NO RESIDUAL NOTED, MARION PRESENT ALSO WITH CLEAR YELLOW URINE. TELE MONITOR AFIB 62. SRX2, BED IN LOW POSITION, CALL LIGHT WITHIN REACH, WILL CONTINUE TO MONITOR PATIENT.
[2018-04-14 20:00] VITALS: BP 133/45
[2018-04-14] MEDS: DOCUSATE SODIUM LIQ 100 MG/10 ML UDC GT SCH (22:00)
--- NOTE | 2018-04-14 22:17 | NUR ---
GROUP UNDERWRITER NOTE DOCUSATE SODIUM 2200 DID NOT ADMINISTER DUE TO ACTIVE GI BLEEDING AND BLOODY LOOSE STOOL.
[2018-04-15] VITALS: BP 131/53
[2018-04-15] MEDS: ALBUTEROL FS 2.5 MG/0.5 ML VIAL.NEB NEB SCH ×6 (03:05→23:40)
[2018-04-15 04:00] VITALS: BP 125/63
--- NOTE | 2018-04-15 06:36 | NUR ---
FIGHTING VEHICLE INFANTRYMAN NOTE PATIENT IS RESTING IN BED, TELE MONITOR AFIB 62. MORNING CARE RENDERED, ALL DUE MEDS GIVEN. IV ON LEFT WRIST IS PATENT AND INTACT, FLUID IS RUNNING. WILL ENDORSE TO DAY SHIFT NURSE FOR GAYLE.
--- NOTE | 2018-04-15 07:39 | NUR ---
PT RECIEVED ON MECHANICAL VENT ON THE FOLLOWING SETTINGS: AC 14, 450, 40%, +5. TRACH IS SECURE. SX'D PT MOD THIN CLEAR SECRETIONS. BREATHING TX GIVEN, NO ADVERSE REACTIONS NOTED AT THIS TIME. VENT IS PLUGGED INTO RED OUTLET. AMBU BAG IS AT HEAD OF BED. VENT ALARMS ARE ON AND AUDIBLE. WILL CONT TO MONITOR PT. Addendum: 04/15/18 at 0741 by VENTURA GUERRERO RT Amended: Links added.
[2018-04-15 08:00] VITALS: BP 168/73
--- NOTE | 2018-04-15 08:00 | NUR ---
RN NOTES RECEIVED PATIENT IN THE BED VENT/TRACHEA DEPENDENT, PATIENT HAS NO ACUTE RESPIRATORY DISTRESS. PATIENT AWAKE EYES OPEN. PATIENT TELE SB-50.IV ACCESS ON LEFT WRIST INTACT. G-TUBE FEEDING GLUCERNA 1.2 AT 60 ML/HR INTACT, MEDICATION ADMINISTERED VIA G-TUBE V/S STABLE, F/C DRAIN LIGHT YELLOW OUTPUT. ASSIST TURN AND REPOSTION Q 2 HR, NEEDS ATTENDED AND ANTICIPATED, CALL LIGHT WITHIN TO REACH, SAFETY PRECAUTION MAINTAINED ALL THE TIME.
[2018-04-15] MEDS: CHLORHEXIDINE GLUCONATE 15 ML UDC MM SCH ×2 (09:58→21:08)
[2018-04-15] MEDS: SUCRALFATE 1 G/10 ML UDC GT SCH ×4 (09:58→21:08)
[2018-04-15] MEDS: LEVETIRACETAM SOL (5 ML) 100 MG/ML UDC GT SCH ×2 (09:58→17:13)
[2018-04-15] MEDS: PANTOPRAZOLE 40 MG VIAL IV SCH (09:59)
[2018-04-15] MEDS: ACIDOPHILUS/BULGARICUS 1 EACH TAB.CHEW GT SCH (09:59)
[2018-04-15] MEDS: SEVELAMER CARBONATE 0.8 GM POWD.PACK GT SCH (09:59)
[2018-04-15] MEDS: MULTIVITAMINS,THERAGRAN 1 UDTAB TABLET GT SCH (09:59)
[2018-04-15] MEDS ORDERED: POTASSIUM PHOSPHATE MM 15 MMOL in IV D5W 250 ML IV SCH (10:00)
[2018-04-15] MEDS: CARVEDILOL 12.5 MG TABLET GT SCH ×2 (10:00→17:15)
[2018-04-15] MEDS: LOSARTAN/HCTZ 50-12.5MG/ 1 EA TABLET GT SCH (10:07)
[2018-04-15] MEDS: BUMETANIDE (1 MG) 1 MG TABLET GT SCH ×2 (10:14→17:13)
[2018-04-15] MEDS: DAKINS QUARTER STRENGTH (0.125%) 480 ML BOTTLE TOP SCH (10:15)
[2018-04-15] MEDS ORDERED: LEVOFLOXACIN 500 MG /D5W 100ML 500 MG in PREMIX 1 EA IV SCH (11:00)
--- NOTE | 2018-04-15 11:00 | NUR ---
rn notes GET LAB RESULT FROM MICROBIOLOGY PATIENT POSITIVE FOR CDIFF, AND CRE OF URINE CULTURE. DO DANTE AWARE OF. CONTINUED MONITORING.
[2018-04-15 12:08] LABS: BASOPHILS % (AUTO) 0.4 % (0.0-2.0); EOSINOPHILS % (AUTO) 2.7 % (0.0-6.0); HEMATOCRIT 25 % (33-45); HEMOGLOBIN 7.4 g/dL (11.5-14.8); LYMPHOCYTES # (AUTO) 0.2 /CMM (0.8-4.8); LYMPHOCYTES % (AUTO) 3.9 % (20.0-44.0); MEAN CORPUSCULAR HGB CONC 29 g/dl (31.0-36.0); MEAN CORPUSCULAR VOLUME 94 fL (82-100); MONOCYTES # (AUTO) 0.4 /CMM (0.1-1.30); MONOCYTES % (AUTO) 7.6 % (2.0-12.0); NEUTROPHILS # (AUTO) 4.9 /CMM (1.8-8.9); NEUTROPHILS % (AUTO) 85.4 % (43.0-81.0); PLATELET COUNT (AUTO) 154 /CMM (150-450); RDW COEFFICIENT OF VARIATION 19.1 (11.5-15.0); WHITE BLOOD COUNT (AUTO) 5.8 K/uL (4.3-11.0)
[2018-04-15] MEDS: DIGOXIN 0.125 MG TABLET GT SCH (13:00)
--- NOTE | 2018-04-15 13:35 | NUR ---
rn notes patient picking supervisor for CT of abd and pelvic at this time, RT with the patient.
[2018-04-15] MEDS: POTASSIUM PHOSPHATE MM 7.5 MMOL in IV D5W 100 ML IV SCH ×2 (13:36→15:58)
[2018-04-15] MEDS: CEFTRIAXONE 1 G in IV D5W 50 ML IV SCH (13:50)
--- NOTE | 2018-04-15 13:50 | NUR ---
RN NOTES PATIENT CAME BACK FROM CT, PATIENT STABLE NO ACUTE RESPIRATORY DISTRESS,CONTINUED G-TUBE FEEDING, AND IV MEDICATION PRESCRIBED. ASSIST TURN AND REPOSTION Q 2 HR. CALL LIGHT WITHIN TO REACH, CONTINUED MONITORING.
[2018-04-15] MEDS: GLUCERNA 1.2 1,000 ML BOTTLE GT PRN (13:54)
[2018-04-15 15:31] LABS: CALCIUM, SERUM 8.3 mg/dL (8.5-10.1); POTASSIUM 3.4 mmol/L (3.5-5.1)
[2018-04-15 15:32] LABS: CREATININE 0.9 mg/dL (0.6-1.3); MAGNESIUM 2.1 mg/dL (1.8-2.4); PHOSPHORUS 3.2 mg/dL (2.5-4.9)
[2018-04-15] MEDS ORDERED: IBUPROFEN 400 MG TABLET ONE (15:42)
[2018-04-15] MEDS ORDERED: MUPIROCIN OINT 2% 22 GM TUBE ONE (15:42)
[2018-04-15] MEDS ORDERED: TDAP [DIPH/PERTUSSIS/TET] 0.5 ML VIAL IM ONE (15:43)
[2018-04-15 16:00] VITALS: BP 142/67
--- NOTE | 2018-04-15 17:00 | NUR ---
RN NOTES PATIENT STABLE, NO ACUTE RESPIRATORY DISTRESS, CHANGED F/C , SCHEDULED MEDICATION ADMINISTERED, V/S STABLE, DRESSING CHANGED. ASSIST TURN AND REPOSTION Q 2 HR. CALL LIGHT WITHIN TO REACH. CONTINUED MONITORING.
[2018-04-15] MEDS: VANCOMYCIN HCL 125 MG/2.5 ML ORAL.SUSP PO SCH ×2 (17:34→23:56)
[2018-04-15] MEDS ORDERED: GENTAMICIN 320 MG in IV D5W 100 ML IV ONE (18:30)
--- NOTE | 2018-04-15 18:30 | NUR ---
RN NOTES PATIENT STABLE ON TRACHEA /VENT DEPENDENT, NO ACUTE RESPIRATORY DISTRESS, INFUSING ANTIBIOTIC 100 ML AT THIS TIME ON LEFT FA AREA INTACT, PATIENT STABLE, ENDORSED ONCOMING NURSE FOR PLAN OF CARE.
[2018-04-15] MEDS: METRONIDAZOLE 500MG/ NS 100ML 500 MG in PREMIX 1 EA IV SCH ×2 (18:42→22:16)
[2018-04-15] MEDS: NYSTATIN CREAM 15 GM TUBE TP SCH (18:50)
[2018-04-15] MEDS ORDERED: PANTOPRAZOLE 80 MG in IV NS 0.9% 500 ML IV PRN (19:00)
--- NOTE | 2018-04-15 19:10 | NUR ---
SALVAGE WINDER OPENING NOTE Patient was seen lying in bed awake and alert, but not oriented and is non-verbal. Patient has a trach and is on ventilator, tolerating settings well with no signs of SOB or aspiration. Flagyl is running through the left wrist IV with no signs of leaking or infiltration. SL IV in the right FA is intact and patent. Glucerna is running at 60 ml/hr through the G-tube. Bed is low/locked, three side rails up. Patient appears comfortable at this time with no signs of acute distress. Will continue to monitor.
[2018-04-15 20:00] VITALS: BP 126/91
[2018-04-15 20:17] VITALS: BP 126/91
--- NOTE | 2018-04-15 20:26 | NUR ---
PATIENT WAS RECEIVED ON MECHANICAL VENT WITH NOTED SETTINGS. BREATHING TX GIVEN PER MD ORDER. NO ADVERSE REACTION NOTED. SUCTIONED WITH A MODERATE AMOUNT OF THICK PALE YELLOW SECRETIONS. TRACH TUBE PATENT AND SECURED. CASE MANAGEMENT SOCIAL WORKER DONE. AMBU BAG AT BEDSIDE. VENT PLUGGED INTO RED OUTLET. ALARMS ARE ON AND AUDIBLE. WILL CONTINUE TO MONITOR Addendum: 04/15/18 at 2026 by LOUIS SINGH RT Amended: Links added.
--- NOTE | 2018-04-15 20:50 | NUR ---
CADD INSTRUCTOR NOTE - Nuc Med Study moved to tomorrow Due to patient's condition, patient is unable to sign consent form for Nuclear Medicine study. Phone call was made to Next of Kin, Charly Iris at [phone], but there was no answer; message was left on answering machine. Dr. Josey Fontenot (ordering physician for Nuc Med study) was informed. Per MD, it is okay to move Nuc Med study to tomorrow when Next of Kin can be more likely to be reached.
--- NOTE | 2018-04-15 20:53 | NUR ---
INTERACTIVE MEDIA MARKETING SPECIALIST NOTE - Orders from Dr. Fontenot Per Dr. Fontenot, since there are no signs of upper GI bleed from G-tube suction, it is okay to stop the order for low-intermittent suction. Dr. Fontenot wants G-tube to stay clamped, stop tube feeding, only meds to be administered through G-tube. MD discontinued Protonix drip and re-ordered IV Protonix 40mg BID. New order for D5-1/2 NS at 70ml/hr. Per MD, continue to monitor stool color/consistency for signs of bleed. Orders have been entered/edited electronically per MD verbal orders.
[2018-04-15] MEDS: DOCUSATE SODIUM LIQ 100 MG/10 ML UDC GT SCH (21:08)
[2018-04-15] MEDS: NITROFURANTOIN/NITROFURAN MAC 100 MG CAPSULE PO SCH (21:08)
[2018-04-15] MEDS: IV D5/0.45 NACL 1,000 ML IV PRN (23:56)
[2018-04-16] VITALS (7 sets, daily range): BP systolic 100–159; BP diastolic 51–84
[2018-04-16] MEDS: ALBUTEROL FS 2.5 MG/0.5 ML VIAL.NEB NEB SCH ×6 (03:46→23:00)
[2018-04-16] MEDS: METRONIDAZOLE 500MG/ NS 100ML 500 MG in PREMIX 1 EA IV SCH ×3 (04:44→21:11)
[2018-04-16] MEDS: VANCOMYCIN HCL 125 MG/2.5 ML ORAL.SUSP PO SCH ×4 (05:54→23:16)
[2018-04-16 06:22] LABS: BASOPHILS % (AUTO) 0.4 % (0.0-2.0); CALCIUM, SERUM 8.7 mg/dL (8.5-10.1); CREATININE 0.9 mg/dL (0.6-1.3); EOSINOPHILS % (AUTO) 1.7 % (0.0-6.0); HEMATOCRIT 24 % (33-45); HEMOGLOBIN 7.4 g/dL (11.5-14.8); LYMPHOCYTES # (AUTO) 0.4 /CMM (0.8-4.8); LYMPHOCYTES % (AUTO) 6.8 % (20.0-44.0); MAGNESIUM 2.3 mg/dL (1.8-2.4); MEAN CORPUSCULAR HGB CONC 31 g/dl (31.0-36.0); MEAN CORPUSCULAR VOLUME 89 fL (82-100); MONOCYTES # (AUTO) 0.4 /CMM (0.1-1.30); MONOCYTES % (AUTO) 6.6 % (2.0-12.0); NEUTROPHILS # (AUTO) 5.6 /CMM (1.8-8.9); NEUTROPHILS % (AUTO) 84.5 % (43.0-81.0); PHOSPHORUS 4.3 mg/dL (2.5-4.9); PLATELET COUNT (AUTO) 185 /CMM (150-450); RED BLOOD CELL COUNT(AUTO) 2.65 MIL/uL (4.0-5.2); WHITE BLOOD COUNT (AUTO) 6.6 K/uL (4.3-11.0)
--- NOTE | 2018-04-16 07:15 | NUR ---
WIRELESS STORE MANAGER CLOSING NOTE Patient with trach/vent, tolerating settings well. Telemonitor shows sinus rhythm with intermittent rate controlled afib & occasional PVCs. G-tube is clamped per orders. Vega cath is draining yellow urine, 950ml out. D5-1/2NS is running at 70ml/hr with no signs of leaking or infiltration. SL IV in the right FA is intact and patent. Wound care has been provided as ordered. Patient turned/repositioned q2h. Patient care endorsed to day shift nurse.
--- NOTE | 2018-04-16 07:30 | NUR ---
MS/RN Patient received Patient received from third shift lieutenant. Vent settings confirmed, saturation 100%, no respiratory distress noted. GT remains clamped, no signs of any active bleeding at this time. Will continue to monitor and ensure safety.
[2018-04-16] MEDS: LEVETIRACETAM SOL (5 ML) 100 MG/ML UDC GT SCH ×2 (08:38→16:54)
[2018-04-16] MEDS: SUCRALFATE 1 G/10 ML UDC GT SCH ×4 (08:38→21:08)
[2018-04-16] MEDS: CHLORHEXIDINE GLUCONATE 15 ML UDC MM SCH ×2 (08:38→21:08)
[2018-04-16] MEDS: PANTOPRAZOLE 40 MG VIAL IV SCH ×2 (08:38→16:55)
[2018-04-16] MEDS: SEVELAMER CARBONATE 0.8 GM POWD.PACK GT SCH (08:38)
[2018-04-16] MEDS: NITROFURANTOIN/NITROFURAN MAC 100 MG CAPSULE PO SCH ×2 (08:38→21:08)
[2018-04-16] MEDS: MULTIVITAMINS,THERAGRAN 1 UDTAB TABLET GT SCH (08:38)
[2018-04-16] MEDS: ACIDOPHILUS/BULGARICUS 1 EACH TAB.CHEW GT SCH (08:38)
[2018-04-16] MEDS: BUMETANIDE (1 MG) 1 MG TABLET GT SCH ×2 (08:39→16:48)
[2018-04-16] MEDS: CARVEDILOL 12.5 MG TABLET GT SCH ×2 (08:39→16:48)
[2018-04-16] MEDS: DAKINS QUARTER STRENGTH (0.125%) 480 ML BOTTLE TOP SCH (08:40)
[2018-04-16] MEDS: NYSTATIN CREAM 15 GM TUBE TP SCH ×3 (08:41→17:00)
[2018-04-16] MEDS: LOSARTAN/HCTZ 50-12.5MG/ 1 EA TABLET GT SCH (08:45)
--- NOTE | 2018-04-16 08:54 | NUR ---
RT RECD PT TRACHED INTACT AND SECURED ON MECH VENT VERNA ORDERED SETTING. ALARMS ON AND AUDIBLE, BAG AND MASK AT HOB VENT PLUGGED IN REDOUT TX GIVEN VERNA WELL NO ADVERSE REACTION NOTED ATT SX THICK YELLOW SECRETIONS. NO RESP DISTRESS NOTED ATT WILL CONTINUE TO MONITOR
--- NOTE | 2018-04-16 08:56 | NUR ---
MS/RN Medications Morning medications administered as ordered via GT.
--- NOTE | 2018-04-16 12:00 | NUR ---
TRANSFER NOTES RECEIVED PATIENT IN BED IN STABLE CONDITION. PATIENT AWAKE, VENTILATOR DEPENDENT. NO ACUTE DISTRESS, NO SOB, NO S/S OF PAIN OR DISCOMFORT. GTUBE IN PLACE, CLAMPED. IV SITE INTACT AND PATENT. MARION IN PLACE, DRAINING CLEAR YELLOW URINE. KEPT PATIENT SAFE AND COMFORTABLE. BED IN LOW/LOCKED POSITION, SIDERAILS UP, HOB ELEVATED. CALL LIGHT IN REACH. WILL CONTINUE TO MONIOTR ACCORDINGLY..
[2018-04-16] MEDS: DIGOXIN 0.125 MG TABLET GT SCH (13:58)
[2018-04-16] MEDS ORDERED: FEE PK DOSING 1 MIN EA MC ONE (14:35)
[2018-04-16] MEDS: IV D5/0.45 NACL 1,000 ML IV PRN (16:54)
--- NOTE | 2018-04-16 17:52 | NUR ---
JAMI GI HOME HEALTH ADMINISTRATOR ORDERED TO CANCEL NM GI BLEED STUDY AT THIS TIME, AND SHE WILL DISCUSS POSSIBLE EGD/COLONOSCOPY WITH GI. PT EXAMINED BY DR. WESTON AND NO ACTIVE BLEEDING NOTED, STOOL IS BROWN.
--- NOTE | 2018-04-16 18:49 | NUR ---
PATIENT IN STABLE CONDITION. ALL NEEDS ATTENDED AND PROVIDED. ALL DUE MEDICATIONS GIVEN. TURNED AND REPOSITIONED PATIENT EVERY 2HRS NEEDED. SUCTIONED PATIENT'S SECRETIONS NEEDED. KEPT PATIENT SAFE AND COMFORTABLE. BED IN LOW/LOCKED POSITION, HOB ELEVATED, SIDERAILS UP, CALL LIGHT IN REACH. WILL ENDORSED TO NIGHT RN FOR GAYLE.
--- NOTE | 2018-04-16 19:08 | NUR ---
RECEIVED TRACH PT WITH PORTEX 7 ON MECHANICAL VENT WITH NOTED SETTINGS. PT IS AWAKE , RESPONDS TO STIMULI WHEN SUCTIONED. BREATHING TX GIVEN PER MD'S ORDER. NO ADVERSE REACTION NOTED. SX DONE WITH MODERATE AMOUNT OF THICK YELLOW SECRETIONS. NO RESPIRATORY DISTRESS NOTED AT THIS TIME. PT TRACH PATENT AND SECURE. INFORMATION SECURITY MANAGER DONE. AMBU BAG AT BEDSIDE. VENT PLUGGED INTO RED OUTLET. ALARMS ARE ON AND AUDIBLE. WILL CONTINUE TO MONITOR
--- NOTE | 2018-04-16 19:10 | NUR ---
PLANTING MATERIAL CARRIER OPENING NOTE Patient was seen lying in bed in high-Lyons's position, breathing with a trach/vent and tolerating settings well with no signs of respiratory distress. Patient is awake but not oriented. Telemonitor shows afib in the 60s and few PVCs. Per orders, G-tube is clamped. D5-1/2NS at 70ml/hr is running through the IV in left wrist with no signs of leaking or infiltration. IV in the right FA is intact and patent. Vega is draining yellow urine. Bed is low/locked with three side rails up. Patient appears comfortable at this time. Will continue to monitor.
[2018-04-16] MEDS: EPOETIN ALFA (4000 UNIT) 4,000 UNIT/ML VIAL SQ SCH (19:26)
[2018-04-16] MEDS: DOCUSATE SODIUM LIQ 100 MG/10 ML UDC GT SCH (21:08)
[2018-04-16] MEDS: HYDROCODONE/APAP 5/325MG 1 EACH TABLET GT PRN (23:33)
[2018-04-17] VITALS: BP 175/71
[2018-04-17] MEDS ORDERED: GLUCERNA 1.2 1,000 ML BOTTLE GT PRN (02:30)
[2018-04-17] MEDS: ALBUTEROL FS 2.5 MG/0.5 ML VIAL.NEB NEB SCH ×6 (03:01→23:11)
[2018-04-17 04:00] VITALS: BP 150/81
--- NOTE | 2018-04-17 05:00 | NUR ---
COPYMAN NOTE - Wound Care Wound care provided to sacral wound and buttocks/perianal wound as ordered. Patient tolerated well.
[2018-04-17] MEDS: METRONIDAZOLE 500MG/ NS 100ML 500 MG in PREMIX 1 EA IV SCH ×3 (05:09→21:01)
[2018-04-17] MEDS: VANCOMYCIN HCL 125 MG/2.5 ML ORAL.SUSP PO SCH ×3 (06:02→16:37)
[2018-04-17] MEDS: IV D5/0.45 NACL 1,000 ML IV PRN ×2 (06:02→16:38)
--- NOTE | 2018-04-17 06:52 | NUR ---
ELECTRONIC WARFARE OPERATOR CLOSING NOTE Patient is lying in bed in high-Lyons's position, breathing with a trach/vent and tolerating settings well with no signs of respiratory distress. Telemonitor shows afib in the 50s with PVCs. D5-1/2NS at 70ml/hr is running through the IV in left wrist with no signs of leaking or infiltration. IV in the right FA is intact and patent. Vega is draining clear, yellow urine (700ml out). Bed is low/locked with three side rails up. Patient care endorsed to day shift nurse.
[2018-04-17 07:18] LABS: CALCIUM, SERUM 7.6 mg/dL (8.5-10.1); CREATININE 0.9 mg/dL (0.6-1.3); MAGNESIUM 2.2 mg/dL (1.8-2.4); PHOSPHORUS 4.2 mg/dL (2.5-4.9)
--- NOTE | 2018-04-17 07:23 | NUR ---
MS/RN Patient received Patient received form shift foreman. Vent settings verified, saturation 100%, GT feeding to be restarted at 0900. Appears in no respiratory distress or discomfort. Will continue to monitor and ensure safety.
[2018-04-17 07:39] LABS: BASOPHILS % (AUTO) 0.3 % (0.0-2.0); EOSINOPHILS % (AUTO) 2.3 % (0.0-6.0); HEMATOCRIT 23 % (33-45); HEMOGLOBIN 7.1 g/dL (11.5-14.8); LYMPHOCYTES # (AUTO) 0.4 /CMM (0.8-4.8); LYMPHOCYTES % (AUTO) 10.2 % (20.0-44.0); MEAN CORPUSCULAR HGB CONC 31 g/dl (31.0-36.0); MEAN CORPUSCULAR VOLUME 89 fL (82-100); MONOCYTES # (AUTO) 0.3 /CMM (0.1-1.30); MONOCYTES % (AUTO) 8.2 % (2.0-12.0); NEUTROPHILS # (AUTO) 3.3 /CMM (1.8-8.9); PLATELET COUNT (AUTO) 162 /CMM (150-450); RDW COEFFICIENT OF VARIATION 18.5 (11.5-15.0); RED BLOOD CELL COUNT(AUTO) 2.59 MIL/uL (4.0-5.2); WHITE BLOOD COUNT (AUTO) 4.2 K/uL (4.3-11.0)
[2018-04-17 07:52] LABS: POTASSIUM 2.8 mmol/L (3.5-5.1)
[2018-04-17] MEDS: NITROFURANTOIN/NITROFURAN MAC 100 MG CAPSULE PO SCH ×2 (08:19→21:03)
[2018-04-17] MEDS: SUCRALFATE 1 G/10 ML UDC GT SCH ×4 (08:19→21:03)
[2018-04-17] MEDS: CHLORHEXIDINE GLUCONATE 15 ML UDC MM SCH ×2 (08:19→21:00)
[2018-04-17] MEDS: PANTOPRAZOLE 40 MG VIAL IV SCH ×2 (08:19→16:36)
[2018-04-17] MEDS: LEVETIRACETAM SOL (5 ML) 100 MG/ML UDC GT SCH ×2 (08:19→16:36)
[2018-04-17] MEDS: MULTIVITAMINS,THERAGRAN 1 UDTAB TABLET GT SCH (08:19)
[2018-04-17] MEDS: ACIDOPHILUS/BULGARICUS 1 EACH TAB.CHEW GT SCH (08:19)
[2018-04-17] MEDS: BUMETANIDE (1 MG) 1 MG TABLET GT SCH ×2 (08:19→16:37)
[2018-04-17] MEDS: LOSARTAN/HCTZ 50-12.5MG/ 1 EA TABLET GT SCH (08:20)
[2018-04-17] MEDS: CARVEDILOL 12.5 MG TABLET GT SCH ×2 (08:20→16:37)
[2018-04-17] MEDS: DAKINS QUARTER STRENGTH (0.125%) 480 ML BOTTLE TOP SCH (08:21)
[2018-04-17] MEDS: SEVELAMER CARBONATE 0.8 GM POWD.PACK GT SCH (08:21)
[2018-04-17] MEDS: NYSTATIN CREAM 15 GM TUBE TP SCH ×3 (08:21→16:39)
[2018-04-17] MEDS: POTASSIUM CHLORIDE 20 MEQ POWDER PACKET GT SCH ×5 (08:48→12:20)
--- NOTE | 2018-04-17 09:00 | NUR ---
MS/RN S/B Dr Schreiber Seen by Dr Schreiber - potassium replaced with 20meq X5 dosages.
--- NOTE | 2018-04-17 10:32 | NUR ---
MS/RN S/B Dr Kim Seen by Dr Kim - labs ordered for tomorrow. Made aware of slight drop in hemiglobin, no orders to transfuse.
[2018-04-17 12:00] VITALS: BP 126/70
[2018-04-17] MEDS: DIGOXIN 0.125 MG TABLET GT SCH (12:21)
--- NOTE | 2018-04-17 14:00 | NUR ---
MS/RN S/B Dr Barber Seen by Dr Barber PROTECTION MANAGER - no new orders, to continue with current wound care treatments.
[2018-04-17 16:00] VITALS: BP 126/66
--- NOTE | 2018-04-17 17:25 | NUR ---
MS/RN S/B GI Seen by GI - for possible colonoscopy on if family in agreement, no orders as of this time to obtain consent.
--- NOTE | 2018-04-17 18:16 | NUR ---
MS/RN End note Remains in stable condition, all needs attended. Has been turned and repositioned every 2-3 hours to prevent further skin breakdown, please see BIT SETTER flow sheet for positioning. Dressings clean and dry. GI informed that patient had one very large episode of diarrhea this afternoon , which did not have the odor of c-diff. Noted that diarrhea only started when feeding was started this morning, possible feeding intolerance.
[2018-04-17 20:00] VITALS: BP 145/84
--- NOTE | 2018-04-17 20:00 | NUR ---
TELE/RN OPENING NOTES RECEIVED PATIENT IN BED, HOB ELEVATED ON ISOLATION PRECAUTION MEASURES PROTOCOL, HANDHYGIENE FOLLOWED AND PPE/. ON TELE READING WITH AFIB AT 50. MECHANICAL VENT, SRTTING OXYGENATION AT 100%, AC 14, PEEP 5, TV 450, FI02 40%, GTUBE FLUSHED WITH NO RESIDUAL, MARION DRAINING URINE YELLOW COLORED. NO GRIMACE AND GUARDING OBSERVED ARMS CONTRACTED, REPOSITION FOR COMFORT, NON VERBAL. SKIN WARM TO TOUCH. BED IN LOCK POSITION. WILL MONITOR. RECEIVED ENDORSEMENT FROM AM RN FOR GAYLE.
[2018-04-17 20:40] VITALS: BP 145/84
[2018-04-17] MEDS ORDERED: GENTAMICIN 320 MG in IV D5W 100 ML IV SCH (21:00)
[2018-04-17] MEDS: DOCUSATE SODIUM LIQ 100 MG/10 ML UDC GT SCH (21:58)
--- NOTE | 2018-04-17 21:58 | NUR ---
MS/RN NOTES RECEIVED REPORT DIARHEA/LOOSE STOOL IN AM, TO HOLD COLACE AT THIS TIME, WILL MONITOR.
[2018-04-18] VITALS: BP 150/79
[2018-04-18 00:20] VITALS: BP 150/79
[2018-04-18] MEDS: VANCOMYCIN HCL 125 MG/2.5 ML ORAL.SUSP PO SCH ×4 (00:48→18:45)
[2018-04-18] MEDS: GLUCERNA 1.2 1,000 ML BOTTLE GT PRN (03:34)
[2018-04-18] MEDS: ALBUTEROL FS 2.5 MG/0.5 ML VIAL.NEB NEB SCH ×5 (03:56→19:54)
[2018-04-18 04:00] VITALS: BP 133/82
[2018-04-18] MEDS: IV D5/0.45 NACL 1,000 ML IV PRN (04:34)
[2018-04-18] MEDS: METRONIDAZOLE 500MG/ NS 100ML 500 MG in PREMIX 1 EA IV SCH (04:35)
--- NOTE | 2018-04-18 06:37 | NUR ---
307-2 TELE/RN CLOSING NOTES PATIENT AWAKE AND NON VERBAL, EXTENSIVE ASSISTANCE PROVIDED, KEPT SKIN INTACT AND DRY, RESIDUAL CHECKED ON MECHANICAL VENT WITH PRESCRIBES SETTING WITH NO CHANGES, SUCTION NEEDED, INFECTION CONTROL MEASURES PROVIDED. BED IN LOCKED POSITION, CALL LIGHTS WITHIN REACH, WILL ENDORSE TO AM RN FOR GAYLE. MONITORED FOR ANY CHANGES.
[2018-04-18 06:47] LABS: BASOPHILS % (AUTO) 0.3 % (0.0-2.0); HEMATOCRIT 25 % (33-45); HEMOGLOBIN 7.7 g/dL (11.5-14.8); LYMPHOCYTES # (AUTO) 0.4 /CMM (0.8-4.8); LYMPHOCYTES % (AUTO) 7.7 % (20.0-44.0); MEAN CORPUSCULAR HGB CONC 31 g/dl (31.0-36.0); MEAN CORPUSCULAR VOLUME 90 fL (82-100); MONOCYTES # (AUTO) 0.5 /CMM (0.1-1.30); MONOCYTES % (AUTO) 9.2 % (2.0-12.0); NEUTROPHILS # (AUTO) 4.2 /CMM (1.8-8.9); NEUTROPHILS % (AUTO) 78.8 % (43.0-81.0); PLATELET COUNT (AUTO) 183 /CMM (150-450); RDW COEFFICIENT OF VARIATION 19.4 (11.5-15.0); RED BLOOD CELL COUNT(AUTO) 2.78 MIL/uL (4.0-5.2); WHITE BLOOD COUNT (AUTO) 5.3 K/uL (4.3-11.0)
[2018-04-18 07:19] LABS: CALCIUM, SERUM 8.4 mg/dL (8.5-10.1); POTASSIUM 4.3 mmol/L (3.5-5.1)
--- NOTE | 2018-04-18 07:35 | NUR ---
RN OPENING NOTES RECEIVED PT. PT STABLE AND RESTING IN BED. NO S/S OF RESP DISTRESS OR SOB. NO C/O PAIN. WILL CONTINUE TO MONITOR.
[2018-04-18 08:00] VITALS: BP 138/74
[2018-04-18] MEDS: LEVETIRACETAM SOL (5 ML) 100 MG/ML UDC GT SCH ×2 (08:28→17:39)
[2018-04-18] MEDS: CHLORHEXIDINE GLUCONATE 15 ML UDC MM SCH ×2 (08:28→21:56)
[2018-04-18] MEDS: MULTIVITAMINS,THERAGRAN 1 UDTAB TABLET GT SCH (08:28)
[2018-04-18] MEDS: SUCRALFATE 1 G/10 ML UDC GT SCH ×4 (08:28→21:56)
[2018-04-18] MEDS: SEVELAMER CARBONATE 0.8 GM POWD.PACK GT SCH (08:29)
[2018-04-18] MEDS: ACIDOPHILUS/BULGARICUS 1 EACH TAB.CHEW GT SCH (08:29)
[2018-04-18] MEDS: NITROFURANTOIN/NITROFURAN MAC 100 MG CAPSULE PO SCH ×2 (08:29→21:56)
[2018-04-18] MEDS: PANTOPRAZOLE 40 MG VIAL IV SCH ×2 (08:29→17:39)
[2018-04-18] MEDS: BUMETANIDE (1 MG) 1 MG TABLET GT SCH ×2 (08:30→17:39)
[2018-04-18] MEDS: CARVEDILOL 12.5 MG TABLET GT SCH ×2 (08:31→17:00)
[2018-04-18] MEDS: NYSTATIN CREAM 15 GM TUBE TP SCH ×3 (08:32→17:31)
[2018-04-18] MEDS: DAKINS QUARTER STRENGTH (0.125%) 480 ML BOTTLE TOP SCH (08:32)
[2018-04-18] MEDS: LOSARTAN/HCTZ 50-12.5MG/ 1 EA TABLET GT SCH (08:43)
[2018-04-18] MEDS ORDERED: PEG 3350/NA SULF,BICARB,CL/KCL 4,000 ML BOTTLE PO ONE (12:00)
[2018-04-18] MEDS ORDERED: MAGNESIUM CITRATE 296 ML BOTTLE PO ONE (12:00)
[2018-04-18] MEDS ORDERED: NA PHOS,M-B/NA PHOS,DI-BA 1 EA ENEMA RC PRN (12:00)
[2018-04-18] MEDS: DIGOXIN 0.125 MG TABLET GT SCH (12:32)
[2018-04-18] MEDS: METRONIDAZOLE 500 MG TABLET PO SCH ×2 (12:32→21:56)
[2018-04-18 16:00] VITALS: BP 154/58
[2018-04-18] MEDS: EPOETIN ALFA (4000 UNIT) 4,000 UNIT/ML VIAL SQ SCH (18:47)
--- NOTE | 2018-04-18 19:22 | NUR ---
RN CLOSING NOTE PT TO HAVE EGD/COLONOSCOPY IN AM. ALL PT NEEDS ANTICIPATED AND MET. SAFETY MEASURES IN PLACE. CALL LIGHT WITHIN REACH. WILL CONTINUE TO MONITOR.
--- NOTE | 2018-04-18 19:40 | NUR ---
RN OPENING NOTES RECEIVED REPORT FROM DAYSHIFT HUEY KIMBLE. Pt IS NONVERBAL, ON VENT-TRACH. NO S/S OF ACUTE DISTRESS OR SOB NOTED. ON TELE MONITOR, BASELINE HR SB 53. VENT SETTINGS: AC 14, TV 450, FI02 40%, & PEEP 5 WITH PORTEX #7. MARION CATHETER IN PLACE. NPO EXCEPT MEDS STARTING AT [place] DUE TO EGD & COLONOSCOPY SCHEDULED 04/19/18 IN THE AM. PER RN LAMIN GOT CONSENT SIGNED BY SON ASHLY, PLACE IN CHART. WILL CONT GIVING GOLYTELY TO Pt VIA GTUBE. SAFETY MEASURES IN PLACE. BED LOW, LOCKED, HOB ELEVATED, SIDE RAILS UP FOR SAFETY. WILL CONTINUE TO MONITOR Pt THROUGHOUT THE NIGHT.
[2018-04-18 20:00] VITALS: BP_SYST 126; BP_SYST 145; BP_DIAS 55; BP_DIAS 66
[2018-04-18] MEDS: DOCUSATE SODIUM LIQ 100 MG/10 ML UDC GT SCH (21:57)
--- NOTE | 2018-04-18 21:57 | NUR ---
RN NOTES DID NOT ADMINISTER COLACE FOR Pt DUE TO Pt RECEIVING GOLYTELY FOR COLONOSCOPY SCHEDULED FOR 1011 IN AM.
[2018-04-19] VITALS: BP 164/68
[2018-04-19] MEDS: ALBUTEROL FS 2.5 MG/0.5 ML VIAL.NEB NEB SCH ×6 (00:18→20:06)
[2018-04-19] MEDS: VANCOMYCIN HCL 125 MG/2.5 ML ORAL.SUSP PO SCH ×4 (00:19→17:43)
--- NOTE | 2018-04-19 02:50 | NUR ---
PATIENT RECEIVED TRACHED ON MECHANICAL VENTILATION. AMBU BAG @ HOB. VENT PLUGGED INTO RED OUTLET. ALARMS ON AND AUDIBLE. TX GIVEN, NO ADVERSE REACTIONS NOTED. SX DONE, TRACH SECURED AND PATENT. MODERATE THICK YELLOW SECRETIONS NOTED. NO DISTRESS NOTED. WILL MONITOR T/O SHIFT. Addendum: 04/19/18 at 0250 by SHON ERICKSON RT Amended: Links added.
[2018-04-19 04:00] VITALS: BP 146/70
[2018-04-19] MEDS: IV D5/0.45 NACL 1,000 ML IV PRN ×2 (05:12→21:51)
[2018-04-19] MEDS: METRONIDAZOLE 500 MG TABLET PO SCH ×3 (05:12→20:58)
--- NOTE | 2018-04-19 07:00 | NUR ---
RN CLOSING NOTES NO SIGNIFICANT CHANGES IN Pt's CONDITION. NO S/S OF ACUTE DISTRESS OR SOB NOTED DURING THE NIGHT. ALL ORDERS CARRIED OUT. TELE READING SB 52. SAFETY MEASURES IN PLACE. BED LOW, LOCKED, HOB ELEVATED, SIDE RAILS UP, CALL LIGHT AND BEDSIDE TABLE WITHIN REACH. WILL ENDORSE TO DAYSHIFT RN FOR Pt's GAYLE.
--- NOTE | 2018-04-19 07:10 | NUR ---
PARAMEDIC OPENING NOTES. PT RECEIVED OBTUNDED, VENT AND TRACH DEPENDENT. PT TOLERATING VENT WITHOUT DISTRESS, VENT SETTING REVIEWED AND UNIT PLUGGED TO RED POWER POINT WITH AMBU BAG AT BEDSIDE. PT WITHOUT S/S OF DISTRESS OR DISCOMFORT. PT WITH IVCX2, IVC AT L WRIST G#20 INTACT AND SL, IVC AT FA G#20 MIN WITH IVF PER RX. G.TUBE FEED HELD R/T AM GAS/COL. PT WITH LITE-MUSTARD YELLOW STOOL R/T COL. PRREP, ABDO DISTENDED, NON TENDER, MD AWARE. PT REPOSITIONED AND OFFLOADED. BED IN LOWEST LOCKED POSITION WITH HANDRAILX4, WILL CONTINUE POC.
[2018-04-19 07:29] LABS: BASOPHILS % (AUTO) 0.9 % (0.0-2.0); EOSINOPHILS % (AUTO) 4.8 % (0.0-6.0); HEMATOCRIT 23 % (33-45); HEMOGLOBIN 7.1 g/dL (11.5-14.8); LYMPHOCYTES # (AUTO) 0.4 /CMM (0.8-4.8); LYMPHOCYTES % (AUTO) 9.3 % (20.0-44.0); MEAN CORPUSCULAR HGB CONC 31 g/dl (31.0-36.0); MEAN CORPUSCULAR VOLUME 90 fL (82-100); MONOCYTES # (AUTO) 0.4 /CMM (0.1-1.30); NEUTROPHILS # (AUTO) 2.9 /CMM (1.8-8.9); PLATELET COUNT (AUTO) 152 /CMM (150-450); RDW COEFFICIENT OF VARIATION 19.8 (11.5-15.0); RED BLOOD CELL COUNT(AUTO) 2.55 MIL/uL (4.0-5.2); WHITE BLOOD COUNT (AUTO) 3.9 K/uL (4.3-11.0)
[2018-04-19 07:37] LABS: CALCIUM, SERUM 8.3 mg/dL (8.5-10.1); CREATININE 0.8 mg/dL (0.6-1.3); POTASSIUM 3.4 mmol/L (3.5-5.1)
[2018-04-19 08:00] VITALS: BP 153/79
[2018-04-19] MEDS: NYSTATIN CREAM 15 GM TUBE TP SCH ×3 (09:00→17:32)
[2018-04-19] MEDS: CARVEDILOL 12.5 MG TABLET GT SCH ×2 (09:00→17:00)
[2018-04-19] MEDS: PANTOPRAZOLE 40 MG VIAL IV SCH ×2 (09:59→17:22)
[2018-04-19] MEDS: CHLORHEXIDINE GLUCONATE 15 ML UDC MM SCH ×2 (09:59→20:58)
[2018-04-19] MEDS: SEVELAMER CARBONATE 0.8 GM POWD.PACK GT SCH (10:00)
[2018-04-19] MEDS: LEVETIRACETAM SOL (5 ML) 100 MG/ML UDC GT SCH ×2 (10:02→17:22)
[2018-04-19] MEDS: ACIDOPHILUS/BULGARICUS 1 EACH TAB.CHEW GT SCH (10:03)
[2018-04-19] MEDS: SUCRALFATE 1 G/10 ML UDC GT SCH ×4 (10:03→20:58)
[2018-04-19] MEDS: BUMETANIDE (1 MG) 1 MG TABLET GT SCH ×2 (10:03→17:22)
[2018-04-19] MEDS: MULTIVITAMINS,THERAGRAN 1 UDTAB TABLET GT SCH (10:03)
[2018-04-19] MEDS: LOSARTAN/HCTZ 50-12.5MG/ 1 EA TABLET GT SCH (10:06)
[2018-04-19] MEDS: DAKINS QUARTER STRENGTH (0.125%) 480 ML BOTTLE TOP SCH (10:07)
[2018-04-19] MEDS: GLUCERNA 1.2 1,000 ML BOTTLE GT PRN (10:28)
[2018-04-19] MEDS: POTASSIUM CL. PREMIX PERIPHER. 50 ML IV SCH ×2 (11:22→12:11)
[2018-04-19] MEDS: DIGOXIN 0.125 MG TABLET GT SCH (12:10)
[2018-04-19 16:00] VITALS: BP 145/57
--- NOTE | 2018-04-19 18:34 | NUR ---
SNAKER DRIVING HORSES CLOSING NOTES. PT REMAINS ALERT TO SELF. TOLERATING VENT WITHOUT DISTRESS AND WITHOUT S/S OF DISTRESS OR DISCOMFORT. PT IVC AT R FA G#20 WITH IVF PER RX. G.TUBE FEED TOLERATED WELL WITH <5CC RESIDUAL. PT REMAINS WITH LOOSE STOOL. WOUND CARE COMPLETED PER RX AND MULTI PRN FOR SOILING. SIMON ANAL ARE SKIN IMPROVING. PT REPOSITIONED AND OFFLOADED. BED IN LOWEST LOCKED POSITION WITH HANDRAILX4, WILL ENDORSE TO NIGHT NURSE AT BEDSIDE FOR GAYLE.
--- NOTE | 2018-04-19 19:30 | NUR ---
RN NOTES RECEIVED PT. SLEEPING,AROUSABLE TO PAINFUL STIMULI, VENT DEPENDENT, A-FIB ON TELE MONITOR HR-51, ON GLUCERNA 1.2 RUNNING @ 60ML/HR, RESIDUAL 50ML NOTED, F/C DRAINING CLEAR YELLOW URINE, IV FLUID D5 1/2 NS RUNNING @ 70ML/HR, NOT IN DISTRESS, NO PAIN NOTED, SIDERAILSUPX2, CONTINUE TO MONITOR
[2018-04-19 20:00] VITALS: BP 126/55
[2018-04-19] MEDS ORDERED: D5W IV SCH (21:00)
[2018-04-19] MEDS ORDERED: GENTAMICIN IV SCH (21:00)
[2018-04-19] MEDS: DOCUSATE SODIUM LIQ 100 MG/10 ML UDC GT SCH (22:00)
[2018-04-20] VITALS: BP 160/53
[2018-04-20] MEDS: VANCOMYCIN HCL 125 MG/2.5 ML ORAL.SUSP PO SCH ×4 (00:06→17:31)
[2018-04-20] MEDS: ALBUTEROL FS 2.5 MG/0.5 ML VIAL.NEB NEB SCH ×7 (00:13→23:19)
[2018-04-20 04:00] VITALS: BP 125/55
[2018-04-20] MEDS: METRONIDAZOLE 500 MG TABLET PO SCH ×3 (05:15→21:55)
[2018-04-20 06:18] LABS: BASOPHILS % (AUTO) 0.1 % (0.0-2.0); HEMATOCRIT 25 % (33-45); HEMOGLOBIN 7.9 g/dL (11.5-14.8); LYMPHOCYTES # (AUTO) 0.4 /CMM (0.8-4.8); LYMPHOCYTES % (AUTO) 8.9 % (20.0-44.0); MEAN CORPUSCULAR HGB CONC 32 g/dl (31.0-36.0); MEAN CORPUSCULAR VOLUME 91 fL (82-100); MONOCYTES # (AUTO) 0.4 /CMM (0.1-1.30); MONOCYTES % (AUTO) 7.5 % (2.0-12.0); NEUTROPHILS % (AUTO) 79.5 % (43.0-81.0); PLATELET COUNT (AUTO) 185 /CMM (150-450); RDW COEFFICIENT OF VARIATION 19.4 (11.5-15.0); RED BLOOD CELL COUNT(AUTO) 2.73 MIL/uL (4.0-5.2)
[2018-04-20 06:40] LABS: CALCIUM, SERUM 7.9 mg/dL (8.5-10.1); CREATININE 0.9 mg/dL (0.6-1.3); POTASSIUM 4.3 mmol/L (3.5-5.1)
--- NOTE | 2018-04-20 07:15 | NUR ---
FILLING AND PACKING SUPERVISOR OPENING NOTES. PT RECEIVED EYES OPEN, VENT AND TRACH DEPENDENT. PT TOLERATING VENT WITHOUT DISTRESS, VENT SETTING REVIEWED WITH RT AND CORRECT AND UNIT PLUGGED TO RED POWER POINT WITH AMBU BAG AT BEDSIDE. PT WITHOUT S/S OF DISTRESS OR DISCOMFORT. PT WITH IVC AT R FA G#20 WITH IVF PER RX. G.TUBE FEED PAUSED FOR 4HRS PER RX. MARION INTACT AND OPERATIONAL WITH DARK YELLOW URINE IN COLLECTION. PT REPOSITIONED AND OFFLOADED. BED IN LOWEST LOCKED POSITION WITH HANDRAILX4, WILL CONTINUE POC.
--- NOTE | 2018-04-20 07:26 | NUR ---
RN NOTES SLEEPING BUT AROUSABLE TO PAINFUL STIMULI, G-TUBE FEEDING IN PLACE, F/C DRAINING CLEAR YELLOW URINE, NOT IN DISTRESS, NO PAIN NOTED, MORNING CARE RENDERED PT NEEDS ATTENDED
--- NOTE | 2018-04-20 08:20 | NUR ---
RT PT RECEIVED [facility] WITH CHARTED SETTINGS. NO SIGNS OF RESP DISTRESS. AIRWAY PATENT AND SECURED. PT SUCTIONED. PT ORDERED HHN TX GIVEN. AMBUBAG AND BACK UP TRACH AT BEDSIDE. ALARMS SET AND AUDIBLE. VENT CONNECTED TO RED OUTLET.
[2018-04-20 08:33] VITALS: BP 170/78
[2018-04-20] MEDS: CARVEDILOL 12.5 MG TABLET GT SCH ×2 (09:00→17:00)
[2018-04-20] MEDS: ACIDOPHILUS/BULGARICUS 1 EACH TAB.CHEW GT SCH (09:15)
[2018-04-20] MEDS: CHLORHEXIDINE GLUCONATE 15 ML UDC MM SCH ×2 (09:15→21:55)
[2018-04-20] MEDS: BUMETANIDE (1 MG) 1 MG TABLET GT SCH ×2 (09:15→17:20)
[2018-04-20] MEDS: LEVETIRACETAM SOL (5 ML) 100 MG/ML UDC GT SCH ×2 (09:15→17:20)
[2018-04-20] MEDS: SEVELAMER CARBONATE 0.8 GM POWD.PACK GT SCH (09:19)
[2018-04-20] MEDS: LOSARTAN/HCTZ 50-12.5MG/ 1 EA TABLET GT SCH (09:19)
[2018-04-20] MEDS: SUCRALFATE 1 G/10 ML UDC GT SCH ×4 (09:19→21:55)
[2018-04-20] MEDS: DAKINS QUARTER STRENGTH (0.125%) 480 ML BOTTLE TOP SCH (09:20)
[2018-04-20] MEDS: NYSTATIN CREAM 15 GM TUBE TP SCH ×3 (09:20→17:21)
[2018-04-20] MEDS: MULTIVITAMINS,THERAGRAN 1 UDTAB TABLET GT SCH (09:20)
[2018-04-20] MEDS: PANTOPRAZOLE 40 MG VIAL IV SCH ×2 (09:20→17:20)
--- NOTE | 2018-04-20 10:00 | NUR ---
MINESH ARZATE. PHOSPHATIC FERTILIZER SUPERVISOR CC- OK TO HOLD IVF AT THIS TIME R/T HYPERTENSION.
[2018-04-20] MEDS ORDERED: NYST15CR TP (10:15)
[2018-04-20] MEDS ORDERED: EPOE40002 SQ (10:15)
[2018-04-20] MEDS ORDERED: PANT40TA2 PO (10:15)
[2018-04-20] MEDS ORDERED: METR500T PO (10:15)
[2018-04-20] MEDS ORDERED: VANC125C11 PO (10:15)
[2018-04-20] MEDS ORDERED: hydrALAZINE HCL 10 MG TABLET PO PRN (10:30)
[2018-04-20] MEDS: GLUCERNA 1.2 1,000 ML BOTTLE GT PRN (12:31)
[2018-04-20] MEDS: DIGOXIN 0.125 MG TABLET GT SCH (12:36)
[2018-04-20 16:03] VITALS: BP 123/58
[2018-04-20] MEDS: EPOETIN ALFA (4000 UNIT) 4,000 UNIT/ML VIAL SQ SCH (18:02)
--- NOTE | 2018-04-20 18:05 | NUR ---
TECHNICAL AID CLOSING NOTES. PT REMAINS STABLE AND TOLERATING VENT WITHOUT DISTRESS AND WITHOUT S/S OF DISTRESS OR DISCOMFORT. PT WITH IVC AT FA G#20 WITH IVF PER RX. G.TUBE INTACT AND OPERATIONAL AND NAD. PT REPOSITIONED AND OFFLOADED Q2HR OR SOONER. WOUND CARE PER RX. PHOTOS COMPLETED FOR PENDING D/C, BED IN LOWEST LOCKED POSITION WITH HANDRAILX4. ALL DAY NURSE DUTIES ATTENDED, WILL ENDORSE TO NIGHT NURSE AT BEDSIDE FOR GAYLE.
--- NOTE | 2018-04-20 19:14 | NUR ---
RT NOTE: RECEIVED TRACH PT ON MECHANICAL VENT WITH NOTED SETTINGS. Q4 BREATHING TX GIVEN PER MD ORDER. NO ADVERSE REACTION NOTED. SX DONE WITH SMALL AMOUNT OF THICK YELLOW SECRETIONS. PT TRACH PATENT AND SECURE. LOOPING INSPECTOR DONE. AMBU BAG AT BEDSIDE. VENT PLUGGED INTO RED OUTLET. ALARMS ARE ON AND AUDIBLE. WILL CONTINUE TO MONITOR. Addendum: 04/20/18 at 2026 by ISAC SCHAEFFER RT Amended: Links added.
[2018-04-20 20:00] VITALS: BP 146/46
--- NOTE | 2018-04-20 20:30 | NUR ---
SCRATCH FINISHER NOTE: PATIENT RESTING IN BED, NO ACUTE DISTRESS NOTED. BREATHING EVEN AND UNLABORED, NO SOB NOTED. VENT SETTING IN PLACE. TELE READING A-FIB, HR 53. IV TO RFA IN PLACE. G-TUBE IN PLACE, WITH 5ML RESIDUAL, INFUSING GLUCERNA 1.2 AT 60ML/HR. ISOLATION PRECAUTIONS OBSERVED. BED LOCKED AND IN LOWEST POSITION, CALL LIGHT IN REACH. WILL CONTINUE TO MONITOR.
[2018-04-20] MEDS: DOCUSATE SODIUM LIQ 100 MG/10 ML UDC GT SCH (21:55)
[2018-04-21] VITALS: BP 146/52
[2018-04-21] MEDS: VANCOMYCIN HCL 125 MG/2.5 ML ORAL.SUSP PO SCH ×4 (00:18→17:24)
[2018-04-21] MEDS: ALBUTEROL FS 2.5 MG/0.5 ML VIAL.NEB NEB SCH ×6 (02:43→22:52)
[2018-04-21 04:00] VITALS: BP 135/60
[2018-04-21] MEDS: METRONIDAZOLE 500 MG TABLET PO SCH ×3 (04:25→22:28)
[2018-04-21] MEDS: IV D5/0.45 NACL 1,000 ML IV PRN (05:22)
--- NOTE | 2018-04-21 06:05 | NUR ---
CONFIGURATION MANAGEMENT SPECIALIST NOTE: PATIENT RESTING IN BED, NO ACUTE DISTRESS NOTED. BREATHING EVEN AND UNLABORED, NO SOB NOTED. VENT SETTING IN PLACE. TELE READING A-FIB, HR 60. IV TO RFA IN PLACE, INFUSING D5 1/2NS AT 70ML/HR. G-TUBE IN PLACE, FEEDING STOPPED AT THIS TIME. ISOLATION PRECAUTIONS OBSERVED. BED LOCKED AND IN LOWEST POSITION, CALL LIGHT IN REACH. WILL ENDORSE TO DAY NURSE TO CONTINUE WITH PLAN OF CARE.
[2018-04-21 06:26] LABS: BASOPHILS % (AUTO) 0.1 % (0.0-2.0); EOSINOPHILS % (AUTO) 2.9 % (0.0-6.0); HEMATOCRIT 24 % (33-45); HEMOGLOBIN 7.7 g/dL (11.5-14.8); LYMPHOCYTES # (AUTO) 0.4 /CMM (0.8-4.8); LYMPHOCYTES % (AUTO) 5.5 % (20.0-44.0); MEAN CORPUSCULAR HGB CONC 31 g/dl (31.0-36.0); MEAN CORPUSCULAR VOLUME 90 fL (82-100); MONOCYTES # (AUTO) 0.4 /CMM (0.1-1.30); MONOCYTES % (AUTO) 5.1 % (2.0-12.0); NEUTROPHILS # (AUTO) 6.3 /CMM (1.8-8.9); NEUTROPHILS % (AUTO) 86.4 % (43.0-81.0); PLATELET COUNT (AUTO) 173 /CMM (150-450); RDW COEFFICIENT OF VARIATION 19.4 (11.5-15.0); RED BLOOD CELL COUNT(AUTO) 2.72 MIL/uL (4.0-5.2); WHITE BLOOD COUNT (AUTO) 7.3 K/uL (4.3-11.0)
[2018-04-21 06:53] LABS: CALCIUM, SERUM 8.3 mg/dL (8.5-10.1); CREATININE 0.9 mg/dL (0.6-1.3); MAGNESIUM 2.2 mg/dL (1.8-2.4); PHOSPHORUS 2.2 mg/dL (2.5-4.9); POTASSIUM 3.9 mmol/L (3.5-5.1)
--- NOTE | 2018-04-21 07:23 | NUR ---
WAITER/WAITRESS DINING CAR OPENING NOTES PT WAS RECEIVED IN BED AT LOWEST AND LOCKED POSITION WITH SIDE RAILS UP X2, PY IS OBTUNDED NON-VERBAL BUT OPENS EYES, PT WAS NOTED TO HAVE VENT PORTEX 9 WITH VENT SETTINGS NOTED, ON TELE MONITOR AND NOTED TO HAVE A-FIB IN THE 50S, MARION IN PLACE AND DRAINING, IV IS PATENT AND INTACT, PT IS ALSO NOTED TO HAVE GT WITH FEEDING THAT IS CURRENTLY OFF, NO S/S OF PAIN OR DISTRESS NOTED, BREATHING IS CURRENTLY EVEN AND UNLABORED, CALL LIGHT WITHIN REACH, SAFETY PRECAUTIONS IN PLACE, WILL CONTINUE TO MONITOR ACCORDINGLY
[2018-04-21 08:00] VITALS: BP 143/80
[2018-04-21] MEDS: PANTOPRAZOLE 40 MG VIAL IV SCH ×2 (09:00→16:25)
[2018-04-21] MEDS: ACIDOPHILUS/BULGARICUS 1 EACH TAB.CHEW GT SCH (09:00)
[2018-04-21] MEDS: MULTIVITAMINS,THERAGRAN 1 UDTAB TABLET GT SCH (09:01)
[2018-04-21] MEDS: BUMETANIDE (1 MG) 1 MG TABLET GT SCH ×2 (09:01→16:24)
[2018-04-21] MEDS: SUCRALFATE 1 G/10 ML UDC GT SCH ×4 (09:02→22:28)
[2018-04-21] MEDS: LEVETIRACETAM SOL (5 ML) 100 MG/ML UDC GT SCH ×2 (09:02→16:24)
[2018-04-21] MEDS: CHLORHEXIDINE GLUCONATE 15 ML UDC MM SCH ×2 (09:02→22:28)
[2018-04-21] MEDS: CARVEDILOL 12.5 MG TABLET GT SCH ×2 (09:02→16:25)
[2018-04-21] MEDS: SEVELAMER CARBONATE 0.8 GM POWD.PACK GT SCH (09:02)
[2018-04-21] MEDS: LOSARTAN/HCTZ 50-12.5MG/ 1 EA TABLET GT SCH (09:03)
[2018-04-21] MEDS: FERROUS SULFATE (325 MG) 325 MG/TAB TABLET PO SCH ×2 (09:03→16:24)
[2018-04-21] MEDS: DAKINS QUARTER STRENGTH (0.125%) 480 ML BOTTLE TOP SCH (09:12)
[2018-04-21] MEDS: NYSTATIN CREAM 15 GM TUBE TP SCH ×3 (09:12→16:25)
[2018-04-21] MEDS: GLUCERNA 1.2 1,000 ML BOTTLE NG PRN (10:04)
--- NOTE | 2018-04-21 11:30 | NUR ---
PT RECEIVED ON [facility] VENT ON THE FOLLOWING SETTINGS: AC 14, 450, 40%, +5. PT'S TRACH IS SECURE. PT SUCTIONED THICK MOD YELLOW/WHITE SECRETIONS. NO RESP DISTRESS OR SOB NOTED. PT IS IN ISOLATION. VENT IS PLUGGED INTO RED OUTLET. VENT ALARMS ARE ON AND AUDIBLE. WILL CONT TO MONITOR PT. Addendum: 04/21/18 at 1132 by VENTURA GUERRERO RT Amended: Links added.
[2018-04-21] MEDS: DIGOXIN 0.125 MG TABLET GT SCH (12:13)
[2018-04-21] MEDS ORDERED: K PHOS NEUTRAL 250 MG TABLET PO ONE (15:30)
[2018-04-21 16:00] VITALS: BP 153/68
--- NOTE | 2018-04-21 18:13 | NUR ---
HUMAN RESOURCE OFFICER CLOSING NOTES PT IN BED AT LOWEST AND LOCKED POSITION WITH SIDE RAILS UP X2, PATIENT IS OBTUNDED NON-VERBAL BUT OPENS EYES, PT WAS NOTED TO HAVE VENT PORTEX 7 WITH VENT SETTINGS NOTED, BREATHING IS CURRENTLY EVEN AND UNLABORED, ON TELE MONITOR AND NOTED TO HAVE A-FIB IN THE 50S, MARION IN PLACE AND DRAINING, IV IS PATENT AND INTACT, PT IS ALSO NOTED TO HAVE GT WITH FEEDING THAT IS CURRENTLY RUNNING AT 60 ML/HR, NO S/S OF PAIN OR DISTRESS NOTED, ALL NEEDS ATTENDED TO, CALL LIGHT WITHIN REACH, SAFETY PRECAUTIONS IN PLACE, WILL ENDORSE TO DAY SHIFT FOR CONTINUITY OF CARE
--- NOTE | 2018-04-21 19:40 | NUR ---
RN OPENING NOTES RECEIVED REPORT FROM [facility] [place]. Pt IS NONVERBAL, ON VENT-TRACH. NO S/S OF ACUTE DISTRESS OR SOB NOTED. ON TELE MONITOR, BASELINE HR SB 50s. VENT SETTINGS: AC 14, TV 450, FI02 40%, & PEEP 5 WITH PORTEX #7. MARION CATHETER IN PLACE, DRAINING WELL. ON GTF GLUCERNA @60ML/HR; OFF @0600 & ON @1000. SAFETY MEASURES IN PLACE. BED LOW, LOCKED, HOB ELEVATED, & SIDE RAILS UP FOR SAFETY. WILL CONTINUE TO MONITOR Pt THROUGHOUT THE NIGHT FOR SAFETY AND FOR Pt's GAYLE.
[2018-04-21 20:00] VITALS: BP 141/60
--- NOTE | 2018-04-21 21:10 | NUR ---
RN NOTES Pt's BP IS 141/60. NOTED TEARS IN Pt's EYES. ADMINISTERED NORCO-5 FOR POSSIBLE PAIN MANAGEMENT.
[2018-04-21] MEDS: DOCUSATE SODIUM LIQ 100 MG/10 ML UDC GT SCH (22:00)
[2018-04-21] MEDS: HYDROCODONE/APAP 5/325MG 1 EACH TABLET GT PRN (22:29)
[2018-04-22] VITALS: BP 143/73
[2018-04-22] MEDS: VANCOMYCIN HCL 125 MG/2.5 ML ORAL.SUSP PO SCH ×5 (00:14→23:50)
[2018-04-22 04:00] VITALS: BP 155/77
[2018-04-22] MEDS: ALBUTEROL FS 2.5 MG/0.5 ML VIAL.NEB NEB SCH ×6 (04:17→22:31)
[2018-04-22] MEDS: METRONIDAZOLE 500 MG TABLET PO SCH ×3 (04:56→20:26)
--- NOTE | 2018-04-22 05:00 | NUR ---
RN NOTES ADMINISTERED PRN ATIVAN 0.5MG FOR POSSIBLE AGITATION. NOTED BP IS 155/77, HR 106.
--- NOTE | 2018-04-22 06:01 | NUR ---
RN NOTES TURNED OFF GTUBE FEEDING. WILL ENDORSE TO DAYSHIFT RN TO TURN BACK ON AT 1000.
--- NOTE | 2018-04-22 06:35 | NUR ---
RN CLOSING NOTES NO SIGNIFICANT CHANGES IN Pt's CONDITION. Pt REMAINS STABLE AT THIS TIME. NO S/S OF ACUTE DISTRESS OR SOB NOTED DURING THE NIGHT. ALL NEEDS MET AND ATTENDED TO. SAFETY MEASURES IN PLACE. TELE READING BASELINE SB 53. WILL ENDORSE TO DAYSHIFT RN FOR Pt's GAYLE.
--- NOTE | 2018-04-22 07:26 | NUR ---
MODEL AND MOLD MAKER OPENING NOTES RECEIVED PT FROM [facility] NURSE IN STABLE CONDITION. PT IS OBTUNDED, OPENS HER EYES SPONTANEOUSLY, AND RESPONSIVE TO TACTILE STIMULI. PT TRACH AND VENT DEPENDENT. VENTILATOR SETTINGS CHECKED FOR ACCURACY. PT TOLERATING SETTINGS WELL. NO SOB OR ACUTE SIGNS OF DISTRESS NOTED. EQUAL CHEST RISE AND FALL. PT CURRENTLY AFIB ON THE TELE MONITOR WITH A HR OF 65. MARION CATHETER NOTED TO BE DRAINING CLEAR, BEKAH URINE TO GRAVITY. GTUBE NOTED TO BE PATENT NAD INTACT. PLACEMENT VERIFIED VIA AUSCULTATION. NO RESIDUALS ASPIRATED AT THIS TIME. PT TOLERATING FEEDINGS WELL. IV TO RIGHT FA NOTED TO BE PATENT AND INTACT. NO REDNESS OR SIGNS OF INFILTRATION NOTED. WOUND CARE RENDERED BY [facility] NURSE PRIOR TO HER LEAVING. DRESSINGS NOTED TO BE CLEAN, DRY, AND INTACT. BED IN LOW LOCKED POSITION, SIDE RAILS UP X3, CALL LIGHT WITHIN REACH, BED ALARM ON, CONTACT ISOLATION PRECAUTIONS MAINTAINED. WILL CONTINUE TO MONITOR
[2018-04-22 08:00] VITALS: BP 100/57
[2018-04-22 08:55] LABS: BASOPHILS % (AUTO) 0.5 % (0.0-2.0); HEMATOCRIT 23 % (33-45); HEMOGLOBIN 7.4 g/dL (11.5-14.8); LYMPHOCYTES # (AUTO) 0.6 /CMM (0.8-4.8); LYMPHOCYTES % (AUTO) 8.4 % (20.0-44.0); MEAN CORPUSCULAR HGB CONC 32 g/dl (31.0-36.0); MEAN CORPUSCULAR VOLUME 90 fL (82-100); MONOCYTES # (AUTO) 0.5 /CMM (0.1-1.30); MONOCYTES % (AUTO) 6.9 % (2.0-12.0); NEUTROPHILS # (AUTO) 5.3 /CMM (1.8-8.9); NEUTROPHILS % (AUTO) 80.2 % (43.0-81.0); PLATELET COUNT (AUTO) 159 /CMM (150-450); RDW COEFFICIENT OF VARIATION 19.2 (11.5-15.0); RED BLOOD CELL COUNT(AUTO) 2.57 MIL/uL (4.0-5.2); WHITE BLOOD COUNT (AUTO) 6.6 K/uL (4.3-11.0)
[2018-04-22] MEDS: PANTOPRAZOLE 40 MG VIAL IV SCH ×2 (08:55→17:14)
[2018-04-22] MEDS: CHLORHEXIDINE GLUCONATE 15 ML UDC MM SCH ×2 (08:55→20:26)
[2018-04-22] MEDS: FERROUS SULFATE (325 MG) 325 MG/TAB TABLET PO SCH ×2 (08:55→17:15)
[2018-04-22] MEDS: SEVELAMER CARBONATE 0.8 GM POWD.PACK GT SCH (08:55)
[2018-04-22] MEDS: LEVETIRACETAM SOL (5 ML) 100 MG/ML UDC GT SCH ×2 (08:55→17:15)
[2018-04-22] MEDS: SUCRALFATE 1 G/10 ML UDC GT SCH ×4 (08:55→20:26)
[2018-04-22] MEDS: DAKINS QUARTER STRENGTH (0.125%) 480 ML BOTTLE TOP SCH (08:56)
[2018-04-22] MEDS: BUMETANIDE (1 MG) 1 MG TABLET GT SCH ×2 (08:56→17:15)
[2018-04-22] MEDS: MULTIVITAMINS,THERAGRAN 1 UDTAB TABLET GT SCH (08:56)
[2018-04-22 08:57] LABS: CALCIUM, SERUM 8.2 mg/dL (8.5-10.1); CREATININE 0.8 mg/dL (0.6-1.3); POTASSIUM 3.9 mmol/L (3.5-5.1)
[2018-04-22] MEDS: ACIDOPHILUS/BULGARICUS 1 EACH TAB.CHEW GT SCH (08:57)
[2018-04-22] MEDS: CARVEDILOL 12.5 MG TABLET GT SCH ×2 (08:58→17:17)
[2018-04-22] MEDS: LOSARTAN/HCTZ 50-12.5MG/ 1 EA TABLET GT SCH (08:58)
[2018-04-22] MEDS: IV D5/0.45 NACL 1,000 ML IV PRN (09:04)
[2018-04-22] MEDS: GLUCERNA 1.2 1,000 ML BOTTLE NG PRN (09:06)
[2018-04-22] MEDS: NYSTATIN CREAM 15 GM TUBE TP SCH ×3 (09:09→17:36)
[2018-04-22] MEDS: DIGOXIN 0.125 MG TABLET GT SCH (12:20)
[2018-04-22 16:00] VITALS: BP 133/68
[2018-04-22] MEDS: ACETAMINOPHEN 650 MG/SUPP.RECT RC PRN (17:15)
--- NOTE | 2018-04-22 18:52 | NUR ---
APPLICATION DEVELOPMENT DIRECTOR CLOSING NOTES PT REMAINS STABLE. ALL NEEDS WERE MET DURING SHIFT AND ORDERS CARRIED OUT ACCORDINGLY. ALL DUE MEDS GIVEN. WOUND AND SKIN CARE RENDERED ORDERED. PT WAS REPOSITIONED AND TURNED PER HOSPITAL PROTOCOL. SHE CONTINUES TOLERATING BOTH GTUBE AND TRACH SETTINGS WELL. IV REMAINS PATENT AND INTACT. SAFETY AND ISOLATION PRECAUTIONS REMAIN IN PLACE. WILL ENDORSE TO NIGHTSHIFT NURSE FOR GAYLE
--- NOTE | 2018-04-22 19:34 | NUR ---
TELE/RN OPENNG NOTES RECEIVED PATIENT IN BED, NON VERBAL OPENS EYES, CONTRACTED . ON ISOLATION CONTACT FOR CDIFF WITH MECHANICAK VENT AT PRESCRIBED SETTING, TELE READU=ING AT AFIB IN 50'S, WITH MARION DRAINING YELLOW URINE, WITH SACRAL WOUNDS AND TURNED AND REPOSITION, LOWER AIR LOSS MATTRESS ON USE. RFA GAUGE 20 WITH D5 1/2 NS MONITORING FOR ANY CHANGES, RECEIVED ENDORSEMENT.FROM AM RN FOR GAYLE.
--- NOTE | 2018-04-22 19:34 | NUR ---
PT RECIEVED ON MECHANICAL VENT ON THE FOLLOWING SETTINGS: AC 14, 450, 40%, +5. PT HAS MOD WHITE/YELLOW THIN SECRETIONS WHEN SUCTIONED. BREATHING TX WAS GIVEN, NO ADVERSE REACTIONS NOTED AT THIS TIME. VENT IS PLUGGED INTO RED OUTLET. VENT ALARMS ARE ON AND AUDIBLE. MARCELA JUNE IS AT BEDSIDE. WILL CONT TO MONITOR PT. PT IS STILL IN ISOLATION PRECAUTIONS. Addendum: 04/22/18 at 1939 by VENTURA GUERRERO RT Amended: Links added.
[2018-04-22 20:00] VITALS: BP 123/63
[2018-04-22 20:20] VITALS: BP 123/63
[2018-04-22] MEDS: DOCUSATE SODIUM LIQ 100 MG/10 ML UDC GT SCH (20:26)
[2018-04-23] VITALS (8 sets, daily range): BP systolic 113–152; BP diastolic 51–81
[2018-04-23] MEDS: ACETAMINOPHEN 650 MG/SUPP.RECT RC PRN (01:04)
[2018-04-23] MEDS: GLUCERNA 1.2 1,000 ML BOTTLE NG PRN (01:04)
--- NOTE | 2018-04-23 01:13 | NUR ---
TELE/RN NOTES TYLENOL SUPPOSITORY GIVEN DUE TO ELEVATED TEMP OF 100 DEG, WITH COOLING MEASURES PROVIDED. WILL MONITOR.
[2018-04-23] MEDS: IV D5/0.45 NACL 1,000 ML IV PRN ×2 (01:56→17:54)
[2018-04-23] MEDS: ALBUTEROL FS 2.5 MG/0.5 ML VIAL.NEB NEB SCH ×6 (02:33→23:02)
--- NOTE | 2018-04-23 02:33 | NUR ---
teLe/rn notes RECHECKED TEMPERATURE AT 97.9 DEG F
[2018-04-23] MEDS: METRONIDAZOLE 500 MG TABLET PO SCH ×2 (05:41→13:39)
[2018-04-23] MEDS: VANCOMYCIN HCL 125 MG/2.5 ML ORAL.SUSP PO SCH ×2 (05:41→13:40)
--- NOTE | 2018-04-23 06:48 | NUR ---
307-2 TELE/RN NOTES PATIENT ATTEND TO NEEDS, MONITORED FOR CHANGES AND KEPT SKIN INTACT, TEMPERTAURE ELEVATED AND NEEDED TYLENOL SUPPOSITORY ADMINISTERED, REPOSITIONED FOR COMFORT, KEPT SKIN INTACT, WILL MONITOR , BED IN LOCLED POSITION. WILL ENDORSE TO AM RN FOR GAYLE.
[2018-04-23 07:06] LABS: BASOPHILS # (AUTO) 0.1 /CMM (0.0-0.2); BASOPHILS % (AUTO) 0.8 % (0.0-2.0); HEMATOCRIT 24 % (33-45); HEMOGLOBIN 7.9 g/dL (11.5-14.8); LYMPHOCYTES # (AUTO) 0.5 /CMM (0.8-4.8); LYMPHOCYTES % (AUTO) 8.3 % (20.0-44.0); MEAN CORPUSCULAR HGB CONC 32 g/dl (31.0-36.0); MEAN CORPUSCULAR VOLUME 91 fL (82-100); MONOCYTES # (AUTO) 0.5 /CMM (0.1-1.30); MONOCYTES % (AUTO) 7.9 % (2.0-12.0); NEUTROPHILS # (AUTO) 5.2 /CMM (1.8-8.9); PLATELET COUNT (AUTO) 173 /CMM (150-450); RDW COEFFICIENT OF VARIATION 20.2 (11.5-15.0); WHITE BLOOD COUNT (AUTO) 6.6 K/uL (4.3-11.0)
[2018-04-23 07:19] LABS: POTASSIUM 3.7 mmol/L (3.5-5.1)
--- NOTE | 2018-04-23 08:00 | NUR ---
RN NOTES RECEIVED PATIENT IN THE BED ISOLATION, PATIENT TRACHEA/MARYA T DEPENDENT, NONVERBAL. PATIENT ON TELE MONITOR AFIB SB-50. PATIENT HAS NO ACUTE RESPIRATORY DISTRESS. PATIENT TOTAL CARE. RESIDUAL/PLACEMENT CHECKED. MEDICATION ADMINISTERED VIA G-TUBE, , KEEP HOB ELEVATED FOR ASPIRATION PRECAUTION. GLUCERNA 60 ML/HR G-TUBE FEEDING. INFUSING IV D5 1/2 NS AT 70 ML/HE INTACT ON RIGHT FA. ASSIST TURN AND REPOSTION Q 2 HR. DRESSING CHANGED. CALL LIGHT WITHIN TO REACH, SAFETY PRECAUTION MAINTAINED ALL THE TIME.
[2018-04-23] MEDS: CHLORHEXIDINE GLUCONATE 15 ML UDC MM SCH ×2 (10:48→21:26)
[2018-04-23] MEDS: LEVETIRACETAM SOL (5 ML) 100 MG/ML UDC GT SCH ×2 (10:48→17:29)
[2018-04-23] MEDS: ACIDOPHILUS/BULGARICUS 1 EACH TAB.CHEW GT SCH (10:48)
[2018-04-23] MEDS: PANTOPRAZOLE 40 MG VIAL IV SCH ×2 (10:49→17:30)
[2018-04-23] MEDS: FERROUS SULFATE (325 MG) 325 MG/TAB TABLET PO SCH (10:49)
[2018-04-23] MEDS: MULTIVITAMINS,THERAGRAN 1 UDTAB TABLET GT SCH (10:50)
[2018-04-23] MEDS: SEVELAMER CARBONATE 0.8 GM POWD.PACK GT SCH (10:50)
[2018-04-23] MEDS: CARVEDILOL 12.5 MG TABLET GT SCH ×2 (10:50→17:31)
[2018-04-23] MEDS: LOSARTAN/HCTZ 50-12.5MG/ 1 EA TABLET GT SCH (10:50)
[2018-04-23] MEDS: BUMETANIDE (1 MG) 1 MG TABLET GT SCH ×2 (10:50→17:30)
[2018-04-23] MEDS: DAKINS QUARTER STRENGTH (0.125%) 480 ML BOTTLE TOP SCH (10:51)
[2018-04-23] MEDS: NYSTATIN CREAM 15 GM TUBE TP SCH ×3 (10:53→17:33)
[2018-04-23] MEDS: SUCRALFATE 1 G/10 ML UDC GT SCH ×4 (10:54→21:26)
[2018-04-23] MEDS: DIGOXIN 0.125 MG TABLET GT SCH (13:00)
--- NOTE | 2018-04-23 14:49 | NUR ---
RT NOTE: PATIENT RECEIVED TRACHED ON PB 840 VENT. ALARMS VERIFIED AND AUDIBLE. SUCTIONED AND LAVAGED LARGE AMOUNT OF THICK RODAS SECRETIONS. VENT PLUGGED INTO THE RED OUTLET. AMBU BAG AT [facility].
--- NOTE | 2018-04-23 15:52 | NUR ---
RN NOTES PATIENT STABLE NO ACUTE RESPIRATORY DISTRESS, V/S STABLE, ASSIST TURN AND REPOSTION Q 2 HR. CALL LIGHT WITHIN TO REACH. CONTINUED MONITORING.
[2018-04-23] MEDS ORDERED: FERROUS SULFATE (325 MG) 325 MG/TAB TABLET GT SCH (16:57)
[2018-04-23] MEDS ORDERED: hydrALAZINE HCL 10 MG TABLET GT PRN (16:58)
[2018-04-23] MEDS ORDERED: PHARMACY TO CHANGE PO MEDS TO GT/NG XX PRN (17:00)
[2018-04-23] MEDS: VANCOMYCIN HCL 125 MG/2.5 ML ORAL.SUSP GT SCH (17:36)
[2018-04-23] MEDS: EPOETIN ALFA (4000 UNIT) 4,000 UNIT/ML VIAL SQ SCH (17:54)
--- NOTE | 2018-04-23 18:30 | NUR ---
RN NOTES PATIENT GETTING BREATHING TX AT THIS TIME, NO ACUTE RESPIRATORY DISTRESS, SCHEDULED MEDICATION GIVEN VIA G-TUBE, V/S STABLE, F/C DRAIN LIGHT YELLOW OUTPUT, IV IN RIGHT FA INFUSING D5NS AT 70 ML/HR INTACT. KEEP HOB ELEVATED FOR ASPIRATION PRECAUTION, CALL LIGHT WITHIN WITHIN TO REACH. ENDORSED ONCOMING NURSE FOR PLAN OF CARE.
[2018-04-23] MEDS: PROSOURCE / PROSTAT (PYXIS) 30 ML UDC GT SCH (19:08)
--- NOTE | 2018-04-23 19:30 | NUR ---
MS/TELE/RN RECEIVE PATIENT AWAKE, NON VERBAL, FLAT AFFECT, APPEAR COMFORTABLE, VENT WORKING WELL, NO DISTRESS NOTED, HOB ELEVATED, GT FEEDING INFUSING, WILL MONITOR.
--- NOTE | 2018-04-23 19:48 | NUR ---
RT NOTE: RECEIVED TRACH PT ON MECHANICAL VENT WITH NOTED SETTINGS. Q4 BREATHING TX GIVEN PER MD ORDER. NO ADVERSE REACTION NOTED. SX DONE WITH MOD AMOUNT OF THICK PALE YELLOW SECRETIONS. PT TRACH PATENT AND SECURE. STACKER ATTENDANT DONE. AMBU BAG AT BEDSIDE. VENT PLUGGED INTO RED OUTLET. ALARMS ARE ON AND AUDIBLE. WILL CONTINUE TO MONITOR. Addendum: 04/23/18 at 2021 by ISAC SCHAEFFER RT Amended: Links added.
[2018-04-23] MEDS: METRONIDAZOLE 500 MG TABLET GT SCH (21:26)
[2018-04-23] MEDS: DOCUSATE SODIUM LIQ 100 MG/10 ML UDC GT SCH (21:26)
[2018-04-24] VITALS: BP 157/75
[2018-04-24] MEDS: VANCOMYCIN HCL 125 MG/2.5 ML ORAL.SUSP GT SCH ×5 (00:41→23:50)
[2018-04-24] MEDS: ALBUTEROL FS 2.5 MG/0.5 ML VIAL.NEB NEB SCH ×6 (03:34→23:41)
[2018-04-24 04:00] VITALS: BP 133/74
[2018-04-24] MEDS: GLUCERNA 1.2 1,000 ML BOTTLE NG PRN ×2 (04:10→19:47)
[2018-04-24] MEDS: METRONIDAZOLE 500 MG TABLET GT SCH ×3 (05:18→21:46)
--- NOTE | 2018-04-24 06:50 | NUR ---
MS/RN PATIENT IS AWAKE, CALM AND COMFORTABLE, NO DISTRESS NOTED, HOB ELEVATED, GT FEEDING INFUSING, VENT WORKING WELL, ALL NEEDS ATTENDED AT THIS TIME.
[2018-04-24 07:06] LABS: BASOPHILS % (AUTO) 0.3 % (0.0-2.0); EOSINOPHILS % (AUTO) 3.5 % (0.0-6.0); HEMATOCRIT 25 % (33-45); HEMOGLOBIN 7.9 g/dL (11.5-14.8); LYMPHOCYTES # (AUTO) 0.4 /CMM (0.8-4.8); LYMPHOCYTES % (AUTO) 5.3 % (20.0-44.0); MEAN CORPUSCULAR HGB CONC 32 g/dl (31.0-36.0); MEAN CORPUSCULAR VOLUME 90 fL (82-100); MONOCYTES # (AUTO) 0.5 /CMM (0.1-1.30); NEUTROPHILS # (AUTO) 6.2 /CMM (1.8-8.9); NEUTROPHILS % (AUTO) 83.9 % (43.0-81.0); PLATELET COUNT (AUTO) 219 /CMM (150-450); RDW COEFFICIENT OF VARIATION 21.6 (11.5-15.0); RED BLOOD CELL COUNT(AUTO) 2.76 MIL/uL (4.0-5.2); WHITE BLOOD COUNT (AUTO) 7.4 K/uL (4.3-11.0)
[2018-04-24 07:26] LABS: POTASSIUM 3.5 mmol/L (3.5-5.1)
--- NOTE | 2018-04-24 07:36 | NUR ---
DOWEL POINTER OPENING NOTES RECEIVED PT LAYING IN BED WITH HOB ELEVATED. PT IS AWAKE, BUT NONVERBAL. CURRENTLY ON MECHANICAL VENT, TOLERATING WELL. PT DOES NOT APPEAR IN ANY APPARENT DISTRESS. GT IS IN CORRECT PLACEMENT, INTACT, FLUSHING WELL, FREE OF KINKS. NO RESIDUAL NOTED. IV ACCESS INTACT, NO INFILTRATION NOTED. DRESSING KEPT CLEAN AND DRY. WILL REPOSITION THROUGHOUT SHIFT PER PROTOCOL. SAFETY MEASURES ARE IN PLACE. WILL CONTINUE TO MONITOR THROUGHOUT SHIFT FOR CONTINUITY OF CARE.
[2018-04-24 08:00] VITALS: BP 157/85
[2018-04-24] MEDS: ACIDOPHILUS/BULGARICUS 1 EACH TAB.CHEW GT SCH (09:00)
[2018-04-24] MEDS: LEVETIRACETAM SOL (5 ML) 100 MG/ML UDC GT SCH ×2 (09:00→17:41)
[2018-04-24] MEDS: SUCRALFATE 1 G/10 ML UDC GT SCH ×4 (09:00→21:45)
[2018-04-24] MEDS: MULTIVITAMINS,THERAGRAN 1 UDTAB TABLET GT SCH (09:00)
[2018-04-24] MEDS: BUMETANIDE (1 MG) 1 MG TABLET GT SCH ×2 (09:01→17:42)
[2018-04-24] MEDS: PANTOPRAZOLE 40 MG VIAL IV SCH ×2 (09:01→17:41)
[2018-04-24] MEDS: CARVEDILOL 12.5 MG TABLET GT SCH ×2 (09:01→17:42)
[2018-04-24] MEDS: SEVELAMER CARBONATE 0.8 GM POWD.PACK GT SCH (09:01)
[2018-04-24] MEDS: IV D5/0.45 NACL 1,000 ML IV PRN ×2 (09:02→23:49)
[2018-04-24] MEDS: LOSARTAN/HCTZ 50-12.5MG/ 1 EA TABLET GT SCH (09:05)
[2018-04-24] MEDS: FERROUS SULFATE UDC 300 MG/5 ML UDC GT SCH ×2 (09:05→17:47)
[2018-04-24] MEDS: PROSOURCE / PROSTAT (PYXIS) 30 ML UDC GT SCH (09:06)
[2018-04-24] MEDS: NYSTATIN CREAM 15 GM TUBE TP SCH ×3 (09:07→17:42)
[2018-04-24] MEDS: DAKINS QUARTER STRENGTH (0.125%) 480 ML BOTTLE TOP SCH (09:07)
[2018-04-24] MEDS: CHLORHEXIDINE GLUCONATE 15 ML UDC MM SCH ×2 (09:10→21:45)
[2018-04-24] MEDS: DIGOXIN 0.125 MG TABLET GT SCH (12:40)
[2018-04-24 16:00] VITALS: BP 143/57
--- NOTE | 2018-04-24 18:22 | NUR ---
CONFERENCE SERVICES MANAGER CLOSING NOTES ALL DUE MEDS GIVEN. PT REMAINS AWAKE AND NONVERBAL. [facility], TOLERATING WELL. NOT IN ANY APPARENT DISTRESS NOTED. IV SITE REMAINS INTACT, NO INFILTRATION NOTED. DRESSING KEPT CLEAN AND DRY. MARINO CATH IN PLACE, DRAINAGE BEKAH COLORED URINE. TUBING IS FREE OF KINKS AND DRAINING WELL. GT IN PROPER PLACEMENT, FLUSHED WELL W/ NO RESIDUAL. ABLE TO TOLERATED TUBE FEEDINGS. SAFETY MEASURES ARE IN PLACE. BED IS IN ITS LOWEST AND LOCKED POSITIONED. REPOSITIONED Q2H TO PREVENT FURTHER SKIN ISSUES. WILL CONTINUE TO MONITOR THROUGHOUT SHIFT FOR CONTINUITY OF CARE.
--- NOTE | 2018-04-24 19:30 | NUR ---
MS/RN RECEIVE PATIENT AWAKE, NON VERBAL, COMFORTABLE, VENT WORKING WELL, NO DISTRESS NOTED, HOB ELEVATED, GT FEEDING INFUSING NO RESIDUAL NOTED, WILL MONITOR.
[2018-04-24 20:28] VITALS: BP 137/75
[2018-04-24] MEDS: DOCUSATE SODIUM LIQ 100 MG/10 ML UDC GT SCH (21:46)
[2018-04-25 00:08] VITALS: BP 146/89
[2018-04-25] MEDS: ALBUTEROL FS 2.5 MG/0.5 ML VIAL.NEB NEB SCH ×6 (03:42→23:17)
--- NOTE | 2018-04-25 05:03 | NUR ---
MS/RN MORNING CARE DONE, TOTAL LINEN CHANGE RENDERED, SKIN CARE, ORAL CARE, TRACH CARE DONE, TOLERATED. F/C CARE DONE. REPOSITIONED TO COMFORT. WILL CONTINUE TO MONITOR.
[2018-04-25] MEDS: METRONIDAZOLE 500 MG TABLET GT SCH ×3 (05:14→20:21)
[2018-04-25] MEDS: VANCOMYCIN HCL 125 MG/2.5 ML ORAL.SUSP GT SCH ×3 (05:18→17:23)
--- NOTE | 2018-04-25 07:00 | NUR ---
OIL EXPERT OPENING NOTE RECEIVED PT IN BED SLEEPING, PT IS NON-VERBAL, EYES OPEN TO TOUCH. PT IS ON SHAFT TENDER WITH ATRIAL FIBRILLATION, PT TOLERATING CURRENT MECHANICAL VENTILATION SETTINGS, ALARMS AND CONNECTIONS CHECKED. NO SIGNS OF ACUTE DISTRESS AT THIS TIME. R FA @20G IV IS INFUSING D51/2NS @ 70ML/HR WITHOUT REDNESS OR SWELLING, MARION CATHETER NOTED TO BE DRAINING CLEAR, YELLOW URINE. PT IS ON GLUCERNA TUBE FEEDING @ 60ML/HR, ASPIRATION AND CONTACT PRECAUTIONS MAINTAINED. BED IS LOCKED AND IN LOWEST POSITION, SIDE RAILS UP X3, BED ALARM ON, CALL LIGHT WITHIN REACH.
[2018-04-25 08:00] VITALS: BP 157/82
[2018-04-25] MEDS: MULTIVITAMINS,THERAGRAN 1 UDTAB TABLET GT SCH (08:55)
[2018-04-25] MEDS: PROSOURCE / PROSTAT (PYXIS) 30 ML UDC GT SCH (08:55)
[2018-04-25] MEDS: ACIDOPHILUS/BULGARICUS 1 EACH TAB.CHEW GT SCH (08:55)
[2018-04-25] MEDS: PANTOPRAZOLE 40 MG VIAL IV SCH ×2 (08:55→16:09)
[2018-04-25] MEDS: CHLORHEXIDINE GLUCONATE 15 ML UDC MM SCH ×2 (08:55→20:21)
[2018-04-25] MEDS: LEVETIRACETAM SOL (5 ML) 100 MG/ML UDC GT SCH ×2 (08:55→16:08)
[2018-04-25] MEDS: SUCRALFATE 1 G/10 ML UDC GT SCH ×4 (08:55→20:21)
[2018-04-25] MEDS: SEVELAMER CARBONATE 0.8 GM POWD.PACK GT SCH (08:56)
[2018-04-25] MEDS: LOSARTAN/HCTZ 50-12.5MG/ 1 EA TABLET GT SCH (09:00)
[2018-04-25] MEDS: BUMETANIDE (1 MG) 1 MG TABLET GT SCH ×2 (09:01→16:08)
[2018-04-25] MEDS: NYSTATIN CREAM 15 GM TUBE TP SCH ×3 (09:06→17:23)
[2018-04-25] MEDS: DAKINS QUARTER STRENGTH (0.125%) 480 ML BOTTLE TOP SCH (09:06)
[2018-04-25 09:50] VITALS: BP 137/67
[2018-04-25] MEDS: CARVEDILOL 12.5 MG TABLET GT SCH ×2 (09:50→16:35)
[2018-04-25] MEDS: FERROUS SULFATE UDC 300 MG/5 ML UDC GT SCH ×2 (09:50→16:11)
--- NOTE | 2018-04-25 11:16 | NUR ---
PT RCLOPES'D ON MECHANICAL VENT WITH CHARTED SETTINGS. HHN TX GIVEN AND NO ADVERSE REACTION NOTED. SX DONE. PT BESSY IS PATENT AND SECURE. AMBU BAG AT BEDSIDE. VENT PLUGGED INTO RED OUTLET. ALARMS ARE SET AND AUDIBLE. WILL CONTINUE TO MONITOR. Addendum: 04/25/18 at 1119 by RADHA STRICKLAND RT Amended: Links added.
[2018-04-25] MEDS: DIGOXIN 0.125 MG TABLET GT SCH (13:00)
[2018-04-25] MEDS: IV D5/0.45 NACL 1,000 ML IV PRN (14:25)
--- NOTE | 2018-04-25 15:04 | NUR ---
CARBURETOR MECHANIC TRACH CARE PROVIDED TRACH CARE PROVIDED WITH RESPIRATORY THERAPIST. PORTEX #7 INNER CANNULA CHANGED PER POLICY, SKIN AROUND STOMA SITE CLEANSED WITH NS AND OBSERVED TO BE WITHOUT REDNESS, DISCOLORATION, OR BREAKDOWN. DRESSING CHANGED. PT TOLERATED PROCEDURE WELL.
[2018-04-25 16:00] VITALS: BP 121/57
--- NOTE | 2018-04-25 16:35 | NUR ---
FINANCIAL SECRETARY NON ADMINISTRATION NOTE COREG HELD DUE TO PT'S PULSE BEING IN 50'S. BP: 121/57. PT ASYMPTOMATIC AT THIS TIME, NO SIGNS OF ACUTE DISTRESS, NEUROLOGIC STATUS AT BASELINE. WILL CONTINUE TO MONITOR.
[2018-04-25] MEDS: EPOETIN ALFA (4000 UNIT) 4,000 UNIT/ML VIAL SQ SCH (18:20)
--- NOTE | 2018-04-25 18:36 | NUR ---
STEAMFITTER ABDOMEN IS MORE DISTENDED THAN EARLIER. ABDOMEN IS SOFT, NO SIGNS OF PAIN WHEN PALPATED, BP: 120/50, HR: 55. NO BLOOD IN URINE OR STOOL TODAY, TF RESIDUAL IS 10ML. CONTACTED DR. ISATU MULLER, AWAITING RESPONSE/NEW ORDERS.
--- NOTE | 2018-04-25 18:52 | NUR ---
CLOTH FINISHING RANGE TENDER CLOSING NOTE PT IN BED SLEEPING, AROUSABLE TO TACTILE STIMULI AND NON-VERBAL. NO SIGNS OF ACUTE DISTRESS OR PAIN NOTED AT THIS TIME. PT IN ON VIDEO OPERATOR WITH ATRIAL FIBRILLATION. PT ON MECHANICAL VENTILATOR, TOLERATED CURRENT SETTINGS FOR THE DURATION OF THE SHIFT. G-TUBE FEEDING IS GLUCERNA @ 60ML/HR CONTINUOUS, PT TOLERATING CURRENT FEEDING WITH RESIDUAL CHECKS X3 UNDER 10ML. R FA #20G IV IS INFUSING D5 1/2 NS @ 70ML/HR WITHOUT REDNESS OR SWELLING. MARION CATHETER NOTED TO BE DRAINING CLEAR, YELLOW URINE. WOUND CARE PROVIDED ORDERED, ASPIRATION AND CONTACT PRECAUTIONS MAINTAINED. SCDS IN PLACE, BED IS LOCKED AND IN LOWEST POSITION, SIDE RAILS UP X2, BED ALARM ON, CALL LIGHT WITHIN REACH. PENDING RESPONSE FROM DR. ISATU MULLER REGARDING DISTENDED ABDOMEN AND WILL ENDORSE TO HAND BOOKED FOLDER AND STITCHER RN FOR CONTINUITY OF CARE.
[2018-04-25] MEDS: GLUCERNA 1.2 1,000 ML BOTTLE NG PRN (18:56)
--- NOTE | 2018-04-25 19:00 | NUR ---
GLOBAL MARKETING OPERATIONS MANAGER NO NEW ORDERS PER DR. MULLER.
--- NOTE | 2018-04-25 19:30 | NUR ---
RECEIVED PATIENT IN BED AWAKE, OBTUNDED; RESPONSIVE TO VOICE AND TOUCH. APHASIC. NO ACUTE DISTRESS NOTED. NO SIGNS OF PAIN NOTED. VENT SETTINGS ORDERED. TRACH INTACT. IV SITE PATENT, INTACT; IVF INFUSING ORDERED. MARION CATH PATENT, INTACT; DRAINING CLEAR YELLOW URINE. ON LOW BED WITH BILATERAL UPPER SIDE RAILS UP. CALL ARAUJO WITHIN EASY REACH. WILL CONTINUE TO MONITOR.
[2018-04-25 20:00] VITALS: BP 116/71
--- NOTE | 2018-04-25 20:01 | NUR ---
PT REC'D TRACHED ON [facility] VENT ON AC MODE. NO RESP DISTRESS OR SOB NOTED. PT SX'D FOR THICK MODL AMT OF YELLOW SECRETIONS. TRACH TUBE PATENT AND SECURED. ALARMS ARE SET AND AUDIBLE. VENT PLUGGED INTO RED OUTLET. AMBU BAG BEDSIDE. WILL CONTINUE TO MONITOR Addendum: 04/26/18 at 0518 by PEPITO KWOK RT Amended: Links added.
[2018-04-25] MEDS: DOCUSATE SODIUM LIQ 100 MG/10 ML UDC GT SCH (21:37)
[2018-04-26] VITALS: BP 121/60
[2018-04-26] MEDS: VANCOMYCIN HCL 125 MG/2.5 ML ORAL.SUSP GT SCH ×3 (00:26→12:08)
[2018-04-26] MEDS: ALBUTEROL FS 2.5 MG/0.5 ML VIAL.NEB NEB SCH ×3 (03:48→11:21)
[2018-04-26 04:00] VITALS: BP 140/72
[2018-04-26 04:39] VITALS: BP 140/72
[2018-04-26] MEDS: IV D5/0.45 NACL 1,000 ML IV PRN (05:28)
[2018-04-26] MEDS: METRONIDAZOLE 500 MG TABLET GT SCH ×2 (05:28→13:25)
--- NOTE | 2018-04-26 06:30 | NUR ---
PATIENT ASLEEP, EASILY AROUSABLE. RESPIRATIONS EVEN. NO SIGNS OF PAIN NOTED. DUE MEDS GIVEN WITH NO ASE NOTED. NEEDS ATTENDED. KEPT CLEAN, DRY, AND COMFORTABLE. SAFETY PRECAUTIONS AND COMFORT MEASURES IN PLACE. WILL GIVE REPORT TO DAY SHIFT FOR CONTINUITY OF CARE.
[2018-04-26 08:00] VITALS: BP 156/66
[2018-04-26 08:14] LABS: HEMATOCRIT 24 % (33-45); HEMOGLOBIN 7.8 g/dL (11.5-14.8); LYMPHOCYTES # (AUTO) 0.4 /CMM (0.8-4.8); MEAN CORPUSCULAR HGB CONC 33 g/dl (31.0-36.0); MEAN CORPUSCULAR VOLUME 90 fL (82-100); MONOCYTES # (AUTO) 0.6 /CMM (0.1-1.30); NEUTROPHILS # (AUTO) 3.8 /CMM (1.8-8.9); PLATELET COUNT (AUTO) 165 /CMM (150-450); RDW COEFFICIENT OF VARIATION 22.5 (11.5-15.0); RED BLOOD CELL COUNT(AUTO) 2.65 MIL/uL (4.0-5.2)
[2018-04-26 08:30] LABS: CREATININE 0.9 mg/dL (0.6-1.3); POTASSIUM 3.7 mmol/L (3.5-5.1)
[2018-04-26] MEDS: PANTOPRAZOLE 40 MG VIAL IV SCH (09:35)
[2018-04-26] MEDS: BUMETANIDE (1 MG) 1 MG TABLET GT SCH (09:35)
[2018-04-26] MEDS: CHLORHEXIDINE GLUCONATE 15 ML UDC MM SCH (09:35)
[2018-04-26] MEDS: SEVELAMER CARBONATE 0.8 GM POWD.PACK GT SCH (09:35)
[2018-04-26] MEDS: LEVETIRACETAM SOL (5 ML) 100 MG/ML UDC GT SCH (09:35)
[2018-04-26] MEDS: CARVEDILOL 12.5 MG TABLET GT SCH (09:36)
[2018-04-26] MEDS: SUCRALFATE 1 G/10 ML UDC GT SCH ×2 (09:36→13:25)
[2018-04-26] MEDS: ACIDOPHILUS/BULGARICUS 1 EACH TAB.CHEW GT SCH (09:36)
[2018-04-26] MEDS: MULTIVITAMINS,THERAGRAN 1 UDTAB TABLET GT SCH (09:36)
[2018-04-26 09:39] LABS: BAND % (MANUAL) 1 % (0.0-5.0); EOSINOPHILS % (MANUAL) 1 % (0-4); LYMPHOCYTES % (MANUAL) 4 % (16-48); MONOCYTES % (MANUAL) 8 % (0-11.0); NEUTROPHILS % (MANUAL) 86 (42-76)
[2018-04-26] MEDS: PROSOURCE / PROSTAT (PYXIS) 30 ML UDC GT SCH (09:42)
[2018-04-26] MEDS: LOSARTAN/HCTZ 50-12.5MG/ 1 EA TABLET GT SCH (09:48)
[2018-04-26] MEDS: FERROUS SULFATE UDC 300 MG/5 ML UDC GT SCH (09:48)
[2018-04-26] MEDS: DAKINS QUARTER STRENGTH (0.125%) 480 ML BOTTLE TOP SCH (10:01)
[2018-04-26] MEDS: NYSTATIN CREAM 15 GM TUBE TP SCH ×2 (10:30→13:28)
[2018-04-26 12:00] VITALS: BP 134/58
[2018-04-26] MEDS: DIGOXIN 0.125 MG TABLET GT SCH (13:25)
--- NOTE | 2018-04-26 14:20 | NUR ---
RN NOTES/ DISCHARGE PT. WAS DISCHARGED IN STABLE CONDITION. REPORT WAS GIVEN TO BEULAH, NURSING MANAGER TECHNICAL TRAINING AT [facility]. DISCHARGE INSTRUCTIONS WERE GIVEN TO RN VIA PHONE, AND SIGNED DISCHARGE PAPERS WITH ANOTHER NURSE. BELONGINGS LIST WAS CHECKED AND SIGNED. IV AND ID BAND WAS REMOVED WITHOUT COMPLICATIONS. PT. LEFT ON A MECHANICAL VENTILATOR WITH PORTEX TRACHEOSTOMY SIZE 7, AC 14, FIO2 40%, PEEP5, TV 450, AND VENT SENSITIVITY 2. REPORT WAS GIVEN TO AMBULANCE CREW ON PT.'S CONDITION, AND TRANSFER. AMBULANCE CREW TRANSFERRED PT. OUT OF BED WITHOUT COMPLICATIONS, AND LEFT WITH DISCHARGE PACKET.
--- NOTE | 2018-04-26 14:55 | NUR ---
RT NOTE [facility]. NO RESP DISTRESS OR SOB NOTED. PT SX'D FOR THICK MODL AMT OF YELLOW SECRETIONS. TRACH TUBE PATENT AND SECURED. ALARMS ARE SET AND AUDIBLE. VENT PLUGGED INTO RED OUTLET. AMBU BAG BEDSIDE. WILL CONTINUE TO MONITOR, PT WAS DISCHARGED IN STABLE CONDITION WILL CONTINUE TO MONITOR
== END 2018-04-26 14:15 | DRG 951 ==
LOC: ER 13:09 → TELE 16:43
PROVIDERS: ADMIT Nurse Practitioner Acute Care; ATTEND Nurse Practitioner Acute Care
PROC: 30233N1 Transfusion of Nonautologous Red Blood Cells into Peripheral Vein, Percutaneous Approach (ICD-10-PCS; principal; 2018-04-09)
PROC: 5A1955Z Respiratory Ventilation, Greater than 96 Consecutive Hours (ICD-10-PCS; principal; 2018-04-09)
PROC: 0KBN0ZZ Excision of Right Hip Muscle, Open Approach (ICD-10-PCS; 2018-04-13)
PROC: 0KBP0ZZ Excision of Left Hip Muscle, Open Approach (ICD-10-PCS; 2018-04-13)
PROC: 0DBL8ZZ Excision of Transverse Colon, Via Natural or Artificial Opening Endoscopic (ICD-10-PCS; 2018-04-19)
PROC: 0DB78ZX Excision of Stomach, Pylorus, Via Natural or Artificial Opening Endoscopic, Diagnostic (ICD-10-PCS; 2018-04-19)
DX: K29.70 Gastritis, unspecified, without bleeding (principal); I21.A1 Myocardial infarction type 2; J96.21 Acute and chronic respiratory failure with hypoxia; Z99.11 Dependence on respirator [ventilator] status; E43 Unspecified severe protein-calorie malnutrition; G93.49 Other encephalopathy; A04.72 Enterocolitis due to Clostridium difficile, not specified as recurrent; D68.59 Other primary thrombophilia; K61.1 Rectal abscess; L89.154 Pressure ulcer of sacral region, stage 4; R53.2 Functional quadriplegia; E87.1 Hypo-osmolality and hyponatremia; N39.0 Urinary tract infection, site not specified; D62 Acute posthemorrhagic anemia; R13.10 Dysphagia, unspecified; Z93.0 Tracheostomy status; Z93.1 Gastrostomy status; Z87.01 Personal history of pneumonia (recurrent); E11.22 Type 2 diabetes mellitus with diabetic chronic kidney disease; E11.65 Type 2 diabetes mellitus with hyperglycemia; E78.5 Hyperlipidemia, unspecified; Z79.4 Long term (current) use of insulin; Z79.899 Other long term (current) drug therapy; Z95.2 Presence of prosthetic heart valve; Z87.440 Personal history of urinary (tract) infections; N18.9 Chronic kidney disease, unspecified; G40.909 Epilepsy, unspecified, not intractable, without status epilepticus; M62.40 Contracture of muscle, unspecified site; I48.0 Paroxysmal atrial fibrillation; Z79.01 Long term (current) use of anticoagulants; R18.8 Other ascites; E87.0 Hyperosmolality and hypernatremia; E87.6 Hypokalemia; E83.51 Hypocalcemia; D12.3 Benign neoplasm of transverse colon; L98.9 Disorder of the skin and subcutaneous tissue, unspecified; L30.9 Dermatitis, unspecified; K25.9 Gastric ulcer, unspecified as acute or chronic, without hemorrhage or perforation; K62.89 Other specified diseases of anus and rectum; I25.10 Atherosclerotic heart disease of native coronary artery without angina pectoris; I13.0 Hypertensive heart and chronic kidney disease with heart failure and stage 1 through stage 4 chronic kidney disease, or unspecified chronic kidney disease; I50.32 Chronic diastolic (congestive) heart failure; K44.9 Diaphragmatic hernia without obstruction or gangrene
CPT/HCPCS: 31720; 36415; 71045-TC; 80048-TC; 80053-TC; 80061-TC; 80076-TC; 80162-TC; 80170-TC; 81000-TC; 82272-TC; 82728-TC; 83540-TC; 83690-TC; 83735-TC; 84100-TC; 84443-TC; 84484-TC; 85025-TC; 85027-TC; 85730-TC; 86850-TC; 86921-TC; 87040-TC; 87070-TC; 87081-TC; 87086-TC; 87186-TC; 88305-TC; 88313-TC; 88342; 90715; 94003-TC; 94760-TC; 94762-TC; A4216; A4606; A4623; A6253; A6402; A6403; C9113; G0378; J0696; J0885; J1580; J1953; J1956; J2704; J2916; J3480; J3490; J7030; J7040; J7042; J7050; J7060; J7070; P9016-BL; Z7610

== ENCOUNTER 2018-07-16 10:28 | Inpatient (IN) | payer OTHER ==
[~2018-07-16] VITALS: Ht 152.4 cm; Wt 50.8 kg
[~2018-07-16 10:28] MED LIST changes: -AMIN30LI4 GT; -ASCO500T9 GT; -CRAN3875 GT; -EPOE4000 SQ; +EPOE40002 SQ; -FERR220S17 GT; +FERR220S18 GT; +LORA-258 PO; +METR500T PO; +NYST15CR TP; -OMEP20CA10 GT; +PANT40TA2 PO; -PHEN28OI6 RC; +VANC125C11 PO
--- NOTE | 2018-07-16 10:45 | NUR ---
BIB PRIVATE EMS FROM [facility] 57 YEAR P;D FEMALE SONIA FOR LOW H/H SENT BY PMD. HGB 6.6 HCT 29. PATIENT IS VENT/TRACH DEPENDENT. ALERT TO TACTILE STIMULI. PATIENT NOTED WITH UPPER AND LOWER CONTRACTION. CAME IN WITH F/C, NOTED WITH GT TUBE. SKIN COOL TO TOUCH. WILL CONTUNIE TO MONITOR. AWAITING TO BE SEEN BY .
--- NOTE | 2018-07-16 10:46 | NUR ---
NOTED WITH SACRUM REDNESS EXCORIATION AND PRESSURE SORE. BITLAERAL ELBOW SCAB AND ADB SCAB
[2018-07-16 10:47] VITALS: BP 136/73
--- NOTE | 2018-07-16 10:55 | NUR ---
PT RECEIVED ON VENT VIA A PORTEX 7 CUFF TRACH. INNER TUBE TUBER MACHINE OPERATOR DONE, VENT SETTINGS PER DR. GALVAN. VENT ALARMS CHECKED AND AUDIBLE PER POLICY. VENT PLUGGED IN TO RED OUTLET, AMBU BAG AT BEDSIDE. BREATH SOUNDS ARE COARSE WITH EXPIRATORY WHEEZE. SUCTION OUT SCANTS THICK YELLOW SECRETIONS. Addendum: 07/16/18 at 1101 by ELOISA ARAMBULA RT Amended: Links added.
[2018-07-16 10:57] LABS: BASOPHILS # (AUTO) 0.1 /CMM (0.0-0.2); BASOPHILS % (AUTO) 1.2 % (0.0-2.0); EOSINOPHILS % (AUTO) 3.9 % (0.0-6.0); HEMATOCRIT 22 % (33-45); LYMPHOCYTES # (AUTO) 0.2 /CMM (0.8-4.8); LYMPHOCYTES % (AUTO) 2.7 % (20.0-44.0); MEAN CORPUSCULAR HGB CONC 32 g/dl (31.0-36.0); MEAN CORPUSCULAR VOLUME 95 fL (82-100); MONOCYTES # (AUTO) 0.5 /CMM (0.1-1.30); MONOCYTES % (AUTO) 7.4 % (2.0-12.0); NEUTROPHILS # (AUTO) 5.4 /CMM (1.8-8.9); NEUTROPHILS % (AUTO) 84.8 % (43.0-81.0); PLATELET COUNT (AUTO) 143 /CMM (150-450); RED BLOOD CELL COUNT(AUTO) 2.29 MIL/uL (4.0-5.2); WHITE BLOOD COUNT (AUTO) 6.4 K/uL (4.3-11.0)
[2018-07-16 10:59] LABS: APPEARANCE,URINE Turbid (CLEAR); BILIRUBIN,URINE Negative (NEGATIVE); BLOOD, URINE Small Ery/uL (NEGATIVE); COLOR,URINE Yellow (YELLOW); KETONES,URINE Negative (NEGATIVE); LEUKOCYTE ESTERASE ,URINE Large (NEGATIVE); NITRITE, URINE Negative (NEGATIVE); PROTEIN,URINE 30 mg/dl (NEGATIVE); UGLUCOSE Negative (NEGATIVE); UROBILINOGEN,URINE 0.2 EU/dL (0.2)
[2018-07-16 11:03] LABS: PH,URINE >9.0 (5.0-8.0)
[2018-07-16 11:10] LABS: BACTERIA,URINE Moderate /HPF (None Seen); SQUAMOUS EPITHELIAL CELL,UR Few /HPF (None Seen); URINE AMORPHOUS PHOSPHATES Few /HPF (None Seen); WBC,URINE 20-50 /HPF (0-3)
[2018-07-16 11:11] LABS: ALANINE AMINOTRANSFERASE 22 U/L (12-78); ALBUMIN 2.1 g/dL (3.4-5.0); ALKALINE PHOSPHATASE 259 U/L (46-116); ASPARTATE AMINOTRANSFERASE 33 U/L (15-37); BILIRUBIN,DIRECT 0.3 mg/dL (0.0-0.2); BILIRUBIN,TOTAL 0.5 mg/dL (0.2-1.0); CALCIUM, SERUM 9.2 mg/dL (8.5-10.1); CARBON DIOXIDE 36 mmol/L (21-32); CHLORIDE 83 mmol/L (98-107); CREATININE 1.1 mg/dL (0.6-1.3); GLUCOSE 117 mg/dL (74-106); POTASSIUM 5.3 mmol/L (3.5-5.1); TOTAL PROTEIN, SERUM 7.9 g/dL (6.4-8.2)
[2018-07-16 11:14] LABS: SODIUM SERUM 118 mmol/L (136-145); UREA NITROGEN, BLOOD 127 mg/dL (7-18)
--- NOTE | 2018-07-16 11:56 | NUR ---
TELE 109
[2018-07-16] MEDS ORDERED: PANTOPRAZOLE 40 MG VIAL IV ONE (12:00)
[2018-07-16] MEDS ORDERED: IV NS 0.9% 1,000 ML BAG IV ONE (12:00)
[2018-07-16] MEDS ORDERED: PANTOPRAZOLE 40 MG VIAL ONE (12:10)
--- NOTE | 2018-07-16 12:21 | NUR ---
PATIENT WILL BE TRANSFERRED TO ROOM 109, REPORT GIVEN TO TIFFANY.
[2018-07-16 12:30] VITALS: BP 128/55
--- NOTE | 2018-07-16 12:56 | NUR ---
RT PT TRANSFERRED TO [facility], NO COMPLICATIONS, PT ON VENT SETTINGS ORDERED PER MD, VENT PLUGGED IN RED OUTLET, ALARMS ON AND AUDIBLE, BAG MASK AND SPARE TRACH AT [facility], SUCTIONED PT WITH THIN WHITE CLEAR SECRETIONS, NO SOB, NO RESPIRATORY DISTRESS NOTED AT THIS TIME, WILL CONTINUE TO MONITOR. Addendum: 07/16/18 at 1259 by SARAH DE LA CRUZ RT Amended: Links added.
[2018-07-16] MEDS ORDERED: MAG HYDROX/AL HYDROX/SIMETH 30 ML UDC PO PRN (13:00)
[2018-07-16] MEDS ORDERED: ACETAMINOPHEN 325 MG TABLET PO PRN (13:00)
[2018-07-16] MEDS ORDERED: MAGNESIUM HYDROXIDE 30 ML UDC PO PRN (13:00)
[2018-07-16] MEDS ORDERED: ZOLPIDEM TARTRATE 5 MG TABLET PO PRN (13:00)
[2018-07-16] MEDS ORDERED: Z GUARD REMEDY 2 OZ OINT TP PRN (13:00)
[2018-07-16] MEDS ORDERED: ONDANSETRON HCL/PF 4 MG/2 ML VIAL IVP PRN (13:00)
--- NOTE | 2018-07-16 13:00 | NUR ---
CART ATTENDANT NOTES ADMITTED 57 YEAR OLD FEMALE, FROM ER. ARRIVED VIA GURNEY, PATIENT ON VENT/TRACH. NON-VERBAL. NO ACUTE DISTRESS. NO FACIAL GRIMACE NOTED AT THIS TIME. MARION CATHETER IN PLACE WITH YELLOW URINE OUTPUT. IV NS X 1L TO FINISH AT UNIT. REPORT RECEIVED FROM ADRIANA ARZATE. CODING AND REIMBURSEMENT SPECIALIST PLACED ON PATIENT. PATIENT ADMITTED UNDER DR. CANADA, AWARE OF PATIENT ARRIVAL. PATIENT KEPT CLEAN, DRY AND COMFORTABLE. WILL CONTINUE TO MONITOR. BED LOCKED AND IN LOW POSITION. BILATERAL UPPER SIDE RAILS UP AND LOCKED. CALL LIGHT WITHIN EASY REACH
--- NOTE | 2018-07-16 14:06 | NUR ---
BODY CLEANER NOTES PATIENT SEEN AND EXAMINED BY DR. CANADA, AWARE OF H/H LEVEL. NO BLOOD TRANSFUSION ORDERS GIVEN AT THIS TIME. WITH NEW ORDER FOR MIDLINE INSERTION. ORDER NOTED AND CARRIED OUT. NURSING INTERMEDIATE DESIGNER VENTURA POWELL, WILL INFORM IV TEAM. WILL CONTINUE TO MONITOR
--- NOTE | 2018-07-16 14:29 | NUR ---
CLOTH TRIMMER HAND NOTES MIDLINE INSERTION DONE BY IV/PICCLINE NURSE, 18G, RIGHT BASILIC. PATIENT TOLERATED PROCEDURE WELL. WILL CONTINUE TO MONITOR
[2018-07-16] MEDS: FAMOTIDINE/PF INJ 20 MG/2 ML VIAL IV SCH ×2 (15:12→20:27)
[2018-07-16 16:00] VITALS: BP 141/60
--- NOTE | 2018-07-16 16:10 | NUR ---
PT REC'D TRACHED ON [facility] VENT ON AC MODE. NO RESP DISTRESS OR SOB NOTED. SX'D FOR THICK MOD AMT OF PALE YELLOW SECRETIONS. TRACH PATENT AND SECURED. ALARMS ARE SET AND AUDIBLE. VENT PLUGGED INTO RED OUTLET. AMBU BAG BEDSIDE. WILL CONTINUE TO MONITOR. Addendum: 07/16/18 at 1715 by PEPITO KWOK RT Amended: Links added.
--- NOTE | 2018-07-16 16:13 | NUR ---
METAL PRODUCTS VIEWER NOTES PATIENT WITH POLST IN CHART, STATES DNR WITH FULL TREATMENT. WITNESSED BY CHARGE NURSE. AWARE. WILL CONTINUE TO MONITOR
[2018-07-16] MEDS: CEFTRIAXONE 1 G in IV D5W 50 ML IV SCH (18:00)
[2018-07-16] MEDS: IV NS 0.9% 1,000 ML IV PRN (18:00)
--- NOTE | 2018-07-16 18:48 | NUR ---
TRAFFIC OPERATOR NOTES PATIENT RESTING INSIDE ROOM. NON-VERBAL. CONTINUE WITH VENT/TRACH. NO ACUTE DISTRESS NOTED AT THIS TIME. CONTINUE WITH TELEMETRY, PULP PILER IN PLACE. MARION CATHETER IN PLACE. YELLOW URINE OUTPUT NOTED. GT IN PLACE. MAINTAINED ASPIRATION PRECAUTION. REQUESTED [employer] MATTRESS FROM [facility], TO APPLY WHEN AVAILABLE. MAGEN MIDLINE PATENT AND IN PLACE. WILL ENDORSE TO INCOMING SHIFT FOR GAYLE. BED LOCKED AND IN LOW POSITION. BILATERAL UPPER SIDE RAILS UP AND LOCKED. CALL LIGHT WITHIN EASY REACH
--- NOTE | 2018-07-16 19:30 | NUR ---
TEL RN NOTE PATIENT RECEIVED INSIDE ROOM. NON-VERBAL. CONTINUE WITH VENT/TRACH, PATIENT RESPIRATIONS EVEN NON LABORED AT 16, SET TO 14. O2 SATURATION 100%. NO ACUTE DISTRESS NOTED AT THIS TIME. CONTINUE WITH TELEMETRY, PLATE MILL HAND . MARION CATHETER IN PLACE. YELLOW URINE OUTPUT NOTED. GT IN PLACE. MAINTAINED ASPIRATION PRECAUTION. REQUESTED [employer] MATTRESS FROM [facility], TO APPLY WHEN AVAILABLE. MAGEN MIDLINE PATENT AND IN PLACE. WILL ENDORSE TO INCOMING SHIFT FOR GAYLE. BED LOCKED AND IN LOW POSITION. BILATERAL UPPER SIDE RAILS UP AND LOCKED. CALL LIGHT WITHIN EASY REACH Addendum: 07/16/18 at 1949 by LATA RANGEL RN PATIENT HR IN THE 60'S SR. RN WILL CONTINUE TO MONITOR CLOSELY
[2018-07-16 20:00] VITALS: BP 94/71
--- NOTE | 2018-07-16 20:11 | NUR ---
PT RECEIVED ON VENT VIA TRACH. OPERATIONS OFFICER TRUST DEPARTMENT DONE, VENT SETTINGS CHARTED. PT RESPONSIVE TO PAIN. TRACH SECURE VIA TRACH TIE. VENT ALARMS CHECKED AND AUDIBLE. VENT PLUGGED IN TO RED OUTLET. AMBU BAG AT BEDSIDE. SUCTIONED A SMALL MOUNT OF THICK YELLOW SECRETIONS. PT RECEIVING NO BREATHING TX AT THIS TIME. HEAD OF BED AT 30 DEGREES Addendum: 07/16/18 at 2015 by BRODY VAZ RT Amended: Links added.
--- NOTE | 2018-07-16 20:30 | NUR ---
B OPERATOR NOTE PATIENT SUCTIONED, GIVEN BED BATH, WOUND CARE DONE ORDERED, AND AIR MATTRESS APPLIED AND TURNED AND REPOSITIONED
--- NOTE | 2018-07-16 23:30 | NUR ---
SOCIAL STAFF WORKER NOTE PATIENT NOTED TO HAVE COPIOUS AMOUNTS OF FOUL SMELLING STOOL, THIN CONSISTENCY. CHARGE NURSE NOTIFIED, PER CHARGE MADDY, COLLECT STOOL AND GIVE TO LAB. STOOL COLLECTED AND SENT TO LAB ORDERED.
[2018-07-17] VITALS (12 sets, daily range): BP systolic 103–135; BP diastolic 23–77
[2018-07-17 01:26] LABS: OCCULT BLOOD STOOL POSITIVE (NEGATIVE)
--- NOTE | 2018-07-17 02:00 | NUR ---
MS ARZATE NOTE PATIENT TURNED AND REPOSITIONED FOR COMFORT. Addendum: 07/17/18 at 0200 by LATA RANGEL RN CORRECTION, MINESH WINTER
--- NOTE | 2018-07-17 04:00 | NUR ---
RADIOLOGY SCHEDULER NOTE PATIENT TURNED AND REPOSITIONED FOR COMFORT
[2018-07-17 06:20] LABS: BASOPHILS % (AUTO) 0.8 % (0.0-2.0); EOSINOPHILS % (AUTO) 4.5 % (0.0-6.0); LYMPHOCYTES # (AUTO) 0.3 /CMM (0.8-4.8); LYMPHOCYTES % (AUTO) 5.5 % (20.0-44.0); MEAN CORPUSCULAR HGB CONC 32 g/dl (31.0-36.0); MEAN CORPUSCULAR VOLUME 94 fL (82-100); MONOCYTES # (AUTO) 0.4 /CMM (0.1-1.30); MONOCYTES % (AUTO) 7.7 % (2.0-12.0); NEUTROPHILS % (AUTO) 81.5 % (43.0-81.0); PLATELET COUNT (AUTO) 131 /CMM (150-450); RED BLOOD CELL COUNT(AUTO) 2.16 MIL/uL (4.0-5.2)
[2018-07-17 06:29] LABS: HEMATOCRIT 20 % (33-45); HEMOGLOBIN 6.6 g/dL (11.5-14.8)
--- NOTE | 2018-07-17 06:34 | NUR ---
LEGAL PROJECT MANAGER NOTE AT 288, NOTIFIED OF CRITICAL HGB LAB AND POSITIVE OCCULT BLOOD. MD HUNTER PAGED AT [phone]. PENDING ORDERS
[2018-07-17 06:42] LABS: ALANINE AMINOTRANSFERASE 18 U/L (12-78); ALBUMIN 1.8 g/dL (3.4-5.0); ALKALINE PHOSPHATASE 206 U/L (46-116); ASPARTATE AMINOTRANSFERASE 28 U/L (15-37); BILIRUBIN,TOTAL 0.5 mg/dL (0.2-1.0); CALCIUM, SERUM 8.4 mg/dL (8.5-10.1); CARBON DIOXIDE 31 mmol/L (21-32); CHLORIDE 87 mmol/L (98-107); GLUCOSE 55 mg/dL (74-106); MAGNESIUM 2.1 mg/dL (1.8-2.4); PHOSPHORUS 3.9 mg/dL (2.5-4.9); POTASSIUM 4.9 mmol/L (3.5-5.1); SODIUM SERUM 122 mmol/L (136-145); TOTAL PROTEIN, SERUM 6.8 g/dL (6.4-8.2)
[2018-07-17 06:46] LABS: UREA NITROGEN, BLOOD 122 mg/dL (7-18)
--- NOTE | 2018-07-17 06:47 | NUR ---
OPERATIONS LABEL CLERK NOTE MD ORDERED 1 PRBC
--- NOTE | 2018-07-17 06:54 | NUR ---
GRIDDLE ATTENDANT NOTE MD NOTIFIED THAT PATIENT IS OBTUNDED AND WILL NEED TWO MD SIGNATURES ON CONSENT TO PREFORM TRANSFUSION. REPLIED, " AND I NEED TO KNOW THIS 6 MIN BEFORE THE END OF MY SHIFT?" WILL ENDORSE TO AM SHIFT FOR CONTINUITY OF CARE.
[2018-07-17 07:25] LABS: CHOLESTEROL 58 mg/dL (<200); HDL CHOLESTEROL 50 mg/dL (40-60); LDL 21 mg/dL (0-99); THYROID STIMULATING HORMONE 2.505 uIU/mL (0.358-3.74)
[2018-07-17 07:30] LABS: TRIGLYCERIDES < 15 mg/dL (30-150)
[2018-07-17 07:57] LABS: BAND % (MANUAL) 2 % (0.0-5.0); BASOPHILS % (MANUAL) 1 % (0.0-2.0); EOSINOPHILS % (MANUAL) 6 % (0-4); LYMPHOCYTES % (MANUAL) 6 % (16-48); MONOCYTES % (MANUAL) 4 % (0-11.0); NEUTROPHILS % (MANUAL) 81 (42-76)
[2018-07-17 09:30] LABS: ABG BASE EXCESS 7.4 mmol/L; ABG OXYGEN SATURATION 99.2 % (92.0-98.5); ABG PCO2 35.8 mmHg (35.0-45.0); ABG PH 7.546 (7.350-7.450); ABG PO2 150.8 mmHg (75.0-100.0); AaDO2 93.2 mmHg; MetHb 0.9 % (0.0-1.5); O2Hb 97.3 % (94.0-97.0); SITE, ABG Left Radial; VENT MODE, BG AC 14 450 40% +5
--- NOTE | 2018-07-17 09:30 | NUR ---
G TAKEN, RESULTS AND RECOMMENDATION GIVEN TO RN.
[2018-07-17] MEDS: FAMOTIDINE/PF INJ 20 MG/2 ML VIAL IV SCH ×2 (09:53→22:23)
[2018-07-17] MEDS: IV NS 0.9% 1,000 ML IV PRN (09:53)
--- NOTE | 2018-07-17 12:24 | NUR ---
DECREASED VT TO [address] NG REQUEST Addendum: 07/17/18 at 1234 by PEPITO KWOK RT Amended: Links added.
[2018-07-17] MEDS ORDERED: EPOE1VIA7 SQ (12:45)
[2018-07-17] MEDS ORDERED: ATOR10TA GT (12:45)
[2018-07-17] MEDS ORDERED: BUME1TAB4 GT (12:45)
[2018-07-17] MEDS ORDERED: AMIN887L GT (12:45)
[2018-07-17] MEDS ORDERED: LACT1CAP7 GT (12:45)
[2018-07-17] MEDS ORDERED: DOCU100T2 GT (12:45)
[2018-07-17] MEDS ORDERED: CRAN3875 GT (12:45)
[2018-07-17] MEDS ORDERED: ACET325T53 GT (12:45)
[2018-07-17] MEDS ORDERED: PANT40SU2 GT (12:45)
[2018-07-17] MEDS ORDERED: ASCO-340 GT (12:45)
[2018-07-17] MEDS ORDERED: ZINC220C6 GT (12:45)
[2018-07-17] MEDS ORDERED: NEPRO 1.8 GT (12:45)
[2018-07-17] MEDS ORDERED: CRAN425C6 GT (12:45)
[2018-07-17] MEDS: HYDROGEL DRESSING 90 GM TUBE TP SCH (15:29)
[2018-07-17] MEDS: CEFTRIAXONE 1 G in IV D5W 50 ML IV SCH (18:00)
--- NOTE | 2018-07-17 18:37 | NUR ---
Non admin antibiotic as blood product is transfusing.
--- NOTE | 2018-07-17 20:13 | NUR ---
RN OPENING NOTES RECEIVED REPORT FROM VISHAL ARZATE. PATIENT A/A/O X1 TO NAME, NON-VERBAL & UNABLE TO MAKE NEEDS KNOWN. BREATHING EVEN & UNLABORED W/ TRACH INTACT & TOLERATING VENT SETTINGS. RADIAL PULSES PRESENT. RIGHT UPPER ARM MIDLINE & RIGHT HAND IV #20 INTACT & PATENT W/ DRESSING CDI & BLOOD TRANSFUSION IN PROGRESS. NO S/S OF PAIN OR DISCOMFORT @ THIS TIME. SAFETY MEASURES IN PLACE W/ SIDE RAILS UP & BED ALARM ON. WILL CONTINUE TO MONITOR.
--- NOTE | 2018-07-17 20:34 | NUR ---
RN NOTES BLOOD TRANSFUSION ENDED. NO ADVERSE REACTIONS NOTED & VSS.
[2018-07-18] VITALS: BP 113/45
[2018-07-18 04:00] VITALS: BP 147/62
[2018-07-18 06:56] LABS: BASOPHILS % (AUTO) 0.2 % (0.0-2.0); EOSINOPHILS % (AUTO) 2.4 % (0.0-6.0); HEMATOCRIT 30 % (33-45); HEMOGLOBIN 10.1 g/dL (11.5-14.8); LYMPHOCYTES # (AUTO) 0.2 /CMM (0.8-4.8); LYMPHOCYTES % (AUTO) 3.1 % (20.0-44.0); MEAN CORPUSCULAR HGB CONC 34 g/dl (31.0-36.0); MEAN CORPUSCULAR VOLUME 90 fL (82-100); MONOCYTES # (AUTO) 0.3 /CMM (0.1-1.30); MONOCYTES % (AUTO) 4.5 % (2.0-12.0); NEUTROPHILS # (AUTO) 5.1 /CMM (1.8-8.9); NEUTROPHILS % (AUTO) 89.8 % (43.0-81.0); PLATELET COUNT (AUTO) 147 /CMM (150-450); RED BLOOD CELL COUNT(AUTO) 3.37 MIL/uL (4.0-5.2); WHITE BLOOD COUNT (AUTO) 5.7 K/uL (4.3-11.0)
[2018-07-18] MEDS: IV NS 0.9% 1,000 ML IV PRN (07:08)
--- NOTE | 2018-07-18 07:30 | NUR ---
RN NOTES RECEIVED PATIENT. SPONTANEOUS EYE OPENING, A/O X1, NON-VERBAL, ON VENT WITH PRESCRIBED SETTING, BREATHING EVEN & UNLABORED, NO SIGN AND SYMPTOM OF DISTRESS NOTED AT THIS TIME, CONTROLLED AFIB ON THE MONITOR HR AT 70'S, RIGHT UPPER ARM MIDLINE & RIGHT HAND IV [address] AND INTACT, NO S/S OF INFILTRATION NOTED. WITH ONGOING IVF OF NS AT 75CC/HR. GT IN PLACE AND PATENT ON FLUSHING, CLAMPED AT THIS TIME. MARION CATHETER IN PLACE AND DRAINING WELL. HOB KEPT ELEVATED SAFETY MEASURES OBSERVED AND KEPT IN PLACE. SIDE RAILS X2, BED LOW AND LOCKED POSITION. WILL ANTICIPATE NEED AND CONTINUE TO MONITOR.
[2018-07-18 08:00] VITALS: BP 151/27
--- NOTE | 2018-07-18 08:27 | NUR ---
WOUND CARE CONSULT WOUND CARE RECEIVED CONSULT FOR OPEN TUNNELING SACRAL SORE. WOUND CARE WILL DEFER CONSULT AND ALL TREATMENT PLANS TO GENERAL SURGICAL TEAM AND DPM DR BROWER FOR BILATERAL LE TREATMENT PLANS. PATIENT WITH BALJEET AT 12, ALL PRESSURE ULCER PREVENTION MEASURES ARE NOTED TO BE IN PLACE. WILL SEE PRN.
[2018-07-18 08:30] LABS: CALCIUM, SERUM 8.3 mg/dL (8.5-10.1); CREATININE 1.1 mg/dL (0.6-1.3); MAGNESIUM 2.2 mg/dL (1.8-2.4); PHOSPHORUS 4.2 mg/dL (2.5-4.9); POTASSIUM 4.3 mmol/L (3.5-5.1)
[2018-07-18 08:55] LABS: URIC ACID 9.3 mg/dL (2.6-7.2)
--- NOTE | 2018-07-18 09:15 | NUR ---
RN NOTES RECEIVED PHONE CALL FROM LABORATORY FOR CRITICAL VALUE OF BLOOD SUGAR OF 15. WENT TO BED SIDE AND RECHECKED BLOOD SUGAR. WAS AT 14. INFORMED ATTENDING- DR PULIDO. OBTAINED ORDER FOR 2 VIAL OF D50/50 ORDER NOTED AND CARRIED OUT
[2018-07-18] MEDS ORDERED: DEXTROSE 50%-WATER 50 ML DISP.SYRIN IVP ONE ×3 (09:30→12:30)
--- NOTE | 2018-07-18 09:45 | NUR ---
RN NOTES INFORMED MD THAT BLOOD SUGAR BUMPED UP TO 124MG AFTER FIRST VIAL OF D50/50. ALSO INFORMED THAT PATIENT ON NS AT 75CC/HR AND PATIENT STILL ON NPO STATUS. OBTAINED ORDER TO CHANGE IV TO D5NS AT THE SAME RATE. ORDER NOTED AND CARRIED OUT
[2018-07-18] MEDS: FAMOTIDINE/PF INJ 20 MG/2 ML VIAL IV SCH ×2 (10:21→21:42)
[2018-07-18] MEDS: SUCRALFATE 1 G/10 ML UDC GT SCH ×4 (10:21→21:42)
[2018-07-18] MEDS: HYDROGEL DRESSING 90 GM TUBE TP SCH (10:22)
[2018-07-18 12:00] VITALS: BP 136/60
[2018-07-18] MEDS ORDERED: NEPRO 1,000 ML BOTTLE GT PRN ×2 (12:30)
--- NOTE | 2018-07-18 14:00 | NUR ---
RN NOTES INFORMED DR PULIDO THAT STOOL WITH BLOOD. NO NEW ORDER OBTAIN AT THIS TIME
[2018-07-18 16:00] VITALS: BP 133/50
[2018-07-18] MEDS ORDERED: DEXTROSE 50%-WATER 50 ML DISP.SYRIN IV PRN (17:00)
[2018-07-18] MEDS: CEFTRIAXONE 1 G in IV D5W 50 ML IV SCH (17:19)
[2018-07-18] MEDS: BLOOD SUGAR DIAGNOSTIC 1 EACH STRIP IN SCH (17:19)
--- NOTE | 2018-07-18 19:26 | NUR ---
RN NOTES INFORMED DR PULIDO ON PATIENT'S BLOOD SUGAR AGAIN AT 56. OBTAINED ORDER FOR D50/50 AND FEEDING ORDER. ORDER NOTED AND CARRIED OUT. Addendum: 07/18/18 at 1928 by NADEEM WILDER RN ALSO OBTAINED ORDER FOR ONDINA Q6
--- NOTE | 2018-07-18 19:34 | NUR ---
RN NOTES ENDORSED PATIENT FOR CONTINUITY OF CARE. ALL NURSING NEEDS ATTENDED AND MET. SAFETY MEASURES IN PLACE AT ALL TIMES. CALL LIGHT WITHIN SHIFT
[2018-07-18] MEDS: IV D5/ 0.9% NACL 1,000 ML IV PRN (19:37)
[2018-07-18 20:00] VITALS: BP 138/94
--- NOTE | 2018-07-18 20:00 | NUR ---
RN OPENING NOTES RECEIVED REPORT FROM NADEEM RN. PATIENT A/A/O X1 TO NAME, NON-VERBAL & UNABLE TO MAKE NEEDS KNOWN. BREATHING EVEN & UNLABORED W/ TRACH INTACT & TOLERATING VENT SETTINGS. SOME PINK-TINGED SECRETIONS NOTED WHEN SUCTIONED ORALLY, POSSIBLY FROM PT BITING TONGUE. ON TELE W/ A-FIB & OCCASIONAL PVC , HR 86. RIGHT UPPER ARM MIDLINE & RIGHT HAND IV #20 INTACT & PATENT W/ DRESSING CDI & IVF D5 NS INFUSING WELL @ 75 ML/HR. SAFETY MEASURES IN PLACE W/ SIDE RAILS UP & BED ALARM ON. WILL CONTINUE TO MONITOR.
[2018-07-18] MEDS: HYDROCODONE/APAP 5/325MG 1 EACH TABLET PO PRN (20:15)
[2018-07-19] VITALS (8 sets, daily range): BP systolic 121–167; BP diastolic 53–89
[2018-07-19] MEDS: IV D5/ 0.9% NACL 1,000 ML IV PRN ×2 (00:30→17:30)
[2018-07-19] MEDS: BLOOD SUGAR DIAGNOSTIC 1 EACH STRIP IN SCH ×4 (00:30→17:30)
[2018-07-19] MEDS: HYDROCODONE/APAP 5/325MG 1 EACH TABLET PO PRN ×3 (01:46→17:36)
[2018-07-19 06:21] LABS: BASOPHILS % (AUTO) 0.7 % (0.0-2.0); EOSINOPHILS % (AUTO) 3.7 % (0.0-6.0); HEMATOCRIT 31 % (33-45); HEMOGLOBIN 10.3 g/dL (11.5-14.8); LYMPHOCYTES # (AUTO) 0.3 /CMM (0.8-4.8); LYMPHOCYTES % (AUTO) 4.3 % (20.0-44.0); MEAN CORPUSCULAR HGB CONC 33 g/dl (31.0-36.0); MEAN CORPUSCULAR VOLUME 91 fL (82-100); MONOCYTES # (AUTO) 0.5 /CMM (0.1-1.30); MONOCYTES % (AUTO) 7.7 % (2.0-12.0); NEUTROPHILS # (AUTO) 4.9 /CMM (1.8-8.9); NEUTROPHILS % (AUTO) 83.6 % (43.0-81.0); PLATELET COUNT (AUTO) 162 /CMM (150-450); RED BLOOD CELL COUNT(AUTO) 3.43 MIL/uL (4.0-5.2); WHITE BLOOD COUNT (AUTO) 5.9 K/uL (4.3-11.0)
[2018-07-19 06:42] LABS: CREATININE 1.3 mg/dL (0.6-1.3); MAGNESIUM 2.1 mg/dL (1.8-2.4); PHOSPHORUS 4.1 mg/dL (2.5-4.9)
[2018-07-19] MEDS: FAMOTIDINE/PF INJ 20 MG/2 ML VIAL IV SCH ×2 (09:14→21:48)
[2018-07-19] MEDS: SUCRALFATE 1 G/10 ML UDC GT SCH ×4 (09:14→21:48)
[2018-07-19] MEDS: HYDROGEL DRESSING 90 GM TUBE TP SCH (09:14)
[2018-07-19 12:57] LABS: CREATININE, URINE 31.3 MG/DL (30.0-125.0); URINE TOTAL PROTEIN 80.7 mg/dL (0-11.9)
[2018-07-19 13:06] LABS: APPEARANCE,URINE CLOUDY (CLEAR); BILIRUBIN,URINE NEGATIVE (NEGATIVE); BLOOD, URINE 3+ Ery/uL (NEGATIVE); COLOR,URINE ORANGE (YELLOW); KETONES,URINE NEGATIVE (NEGATIVE); LEUKOCYTE ESTERASE ,URINE 3+ (NEGATIVE); NITRITE, URINE NEGATIVE (NEGATIVE); PROTEIN,URINE 2+ mg/dl (NEGATIVE); UGLUCOSE NEGATIVE (NEGATIVE); UROBILINOGEN,URINE 0.2 EU/dL (0.2)
[2018-07-19 13:25] LABS: BACTERIA,URINE 3+ /HPF (None Seen); MUCUS,URINE Few /LPF (None Seen); RBC,URINE TOO NUMEROUS TO COUN /HPF (0-2)
[2018-07-19 13:26] LABS: URINE AMORPHOUS URATE Moderate /HPF (None Seen)
[2018-07-19 13:53] LABS: EOSINOPHIL,URINE None Seen
[2018-07-19] MEDS ORDERED: MEROPENEM 1 G in IV NS 0.9% 100 ML IV SCH (15:30)
[2018-07-19] MEDS ORDERED: MEROPENEM 1 G in IV NS 0.9% 100 ML IV ONE (16:00)
--- NOTE | 2018-07-19 18:42 | NUR ---
RN NOTES: PATIENT REMAINS ALERT AWAKE, NON VERBAL. ON VENT-TRAC, SETTINGS TOLERATING WELL. NO BREATHING DISTRESS NOTED. NEEDS FREQUENT ORAL SUCTION/ORAL CARE WITH MINIMAL CONTINUES ORAL SECRETIONS. MULTIPLE ORAL SCABS (BLOODY) NOTED. ASPIRATION PRECAUTIONS OBSERVED. TUBE FEEDING ON HOLD FOR NOW ORDERED BY MD DUE TO ABDOMINAL DISTENTION. KUB IS PENDING. NORCO GIVEN TWICE TODAY DUE TO SINUS TACHY 130S, FACIAL DISTRESS, NOTED EFFECTIVE. SAFETY MEASURES OBSERVED. MARION CATH DRAINING WITH GRAVITY. CONTINUE WITH PLAN OF CARE.
--- NOTE | 2018-07-19 20:41 | NUR ---
RN OPENING NOTES RECEIVED REPORT FROM MAHIN ARZATE. PATIENT A/A/O X1 TO NAME, NON-VERBAL & UNABLE TO MAKE NEEDS KNOWN. BREATHING EVEN & UNLABORED W/ TRACH INTACT & TOLERATING VENT SETTINGS. SOME PINK-TINGED SECRETIONS NOTED WHEN SUCTIONED ORALLY, POSSIBLY FROM PT BITING TONGUE. ON TELE W/ A-FIB & OCCASIONAL PVC , HR 114. RIGHT UPPER ARM MIDLINE & RIGHT HAND IV #20 INTACT & PATENT W/ DRESSING CDI & IVF D5 NS INFUSING WELL @ 75 ML/HR. MARION CATH DRAINING YELLOW URINE. SAFETY MEASURES IN PLACE W/ SIDE RAILS UP & BED ALARM ON. WILL CONTINUE TO MONITOR.
[2018-07-19] MEDS ORDERED: diphenhydrAMINE HCL 50 MG/ML VIAL IV PRN (23:00)
--- NOTE | 2018-07-19 23:30 | NUR ---
INSTRUCTOR OF SPANISH NOTES INFORMED DR HERNANDEZ OF PATIENT'S SWOLLEN FACE & SOME RED SPOTS ON FACE D/T POSSIBLE ALLERGIC REACTION TO IV MERREM STARTED TODAY DURING DAY SHIFT. RECEIVED NEW ORDER FOR IV BENADRYL & OK TO GIVE NEXT DOSE OF IV MERREM @ 0500.
[2018-07-20] VITALS: BP 124/71
[2018-07-20] MEDS: BLOOD SUGAR DIAGNOSTIC 1 EACH STRIP IN SCH ×5 (00:12→23:31)
[2018-07-20] MEDS: HYDROCODONE/APAP 5/325MG 1 EACH TABLET PO PRN (02:19)
[2018-07-20 04:00] VITALS: BP 102/63
[2018-07-20] MEDS: MEROPENEM 1 G in IV NS 0.9% 100 ML IV SCH ×2 (05:35→20:24)
[2018-07-20 06:32] LABS: BASOPHILS # (AUTO) 0.1 /CMM (0.0-0.2); BASOPHILS % (AUTO) 0.8 % (0.0-2.0); EOSINOPHILS % (AUTO) 2.4 % (0.0-6.0); HEMATOCRIT 31 % (33-45); HEMOGLOBIN 10.1 g/dL (11.5-14.8); LYMPHOCYTES # (AUTO) 0.3 /CMM (0.8-4.8); LYMPHOCYTES % (AUTO) 4.4 % (20.0-44.0); MEAN CORPUSCULAR HGB CONC 33 g/dl (31.0-36.0); MEAN CORPUSCULAR VOLUME 92 fL (82-100); MONOCYTES # (AUTO) 0.6 /CMM (0.1-1.30); MONOCYTES % (AUTO) 10.1 % (2.0-12.0); NEUTROPHILS # (AUTO) 5.2 /CMM (1.8-8.9); NEUTROPHILS % (AUTO) 82.3 % (43.0-81.0); PLATELET COUNT (AUTO) 122 /CMM (150-450); RED BLOOD CELL COUNT(AUTO) 3.37 MIL/uL (4.0-5.2); WHITE BLOOD COUNT (AUTO) 6.3 K/uL (4.3-11.0)
[2018-07-20 06:37] LABS: BILIRUBIN,TOTAL 0.5 mg/dL (0.2-1.0); CALCIUM, SERUM 8.1 mg/dL (8.5-10.1); CREATININE 1.3 mg/dL (0.6-1.3); MAGNESIUM 2.2 mg/dL (1.8-2.4); PHOSPHORUS 3.8 mg/dL (2.5-4.9); POTASSIUM 3.8 mmol/L (3.5-5.1); TOTAL PROTEIN, SERUM 7.7 g/dL (6.4-8.2)
--- NOTE | 2018-07-20 07:00 | NUR ---
WET WASHER MACHINE OPENING NOTES PT IN BED, ASLEEP BUT AROUSABLE TO LIGHT PAIN. VENT SETTINGS MD ORDERED AND TOLERATING WELL. O2 SAT 100%. WHEEZING NOTED IN UPPER LOBES. PT HAS NO FEVER. GTF ON HOLD PER MD ORDER. GT FLUSHED/NO RESIDUAL. IV FLUIDS INFUSING VIA MAGEN MIDLINE. R HAND #20 FLUSHED/PATENT. NO S/SX OF INFECTION. PT IS SR ON TELE. EDEMA PITTING 2+ ON EXTREMITIES.PERIPHERAL PULSES +1. ABD DISTENDED WITH HYPOACTIVE BS. BED IN LOCKED/LOWEST POSITION. CALL LIGHT IN REACH. WILL CONT TO MONITOR.
[2018-07-20 08:00] VITALS: BP 116/62
[2018-07-20] MEDS: FAMOTIDINE/PF INJ 20 MG/2 ML VIAL IV SCH ×2 (09:20→21:42)
[2018-07-20] MEDS: SUCRALFATE 1 G/10 ML UDC GT SCH ×4 (09:20→21:42)
[2018-07-20] MEDS: HYDROGEL DRESSING 90 GM TUBE TP SCH (09:45)
[2018-07-20 12:00] VITALS: BP 102/59
[2018-07-20] MEDS: IV D5/ 0.9% NACL 1,000 ML IV PRN (12:20)
[2018-07-20] MEDS: NEPRO 1,000 ML BOTTLE GT PRN (13:56)
[2018-07-20 16:00] VITALS: BP 115/57
--- NOTE | 2018-07-20 18:20 | NUR ---
RECORDS OFFICER NOTES PT LEFT ON GURNEY WITH AMBULANCE CREW. PT LEFT WITH F/C AND IV'S PER MD ORDER. PICS TAKEN. DISCHARGE INSTRUCTIONS SENT WITH PT. PT HAD NO BELONGINGS. TELE BOX REMOVED. ALL NEEDS ATTENDED TO.
--- NOTE | 2018-07-20 19:00 | NUR ---
AUTOMATION MANAGER NOTES PT BROUGHT BACK TO ROOM AMBULANCE CREW REPORTED PT DESAT AND TACHYCARDIC ONCE THEY TRIED TO TRANSFER TO AMBULANCE VENT. ABG DONE/CHEST XRAY DONE PER DR PULIDO. SPOKE TO DR ALVAREZ REGARDING PT STAYING OVERNIGHT PER DR PULIDO RECOMMENDATION. OK WITH DR ALVAREZ. GINA DOYLE ORDERED PARACENTESIS.
[2018-07-20 19:47] LABS: ABG BASE EXCESS 3.1 mmol/L; ABG OXYGEN SATURATION 93.7 % (92.0-98.5); ABG PCO2 45.9 mmHg (35.0-45.0); ABG PH 7.407 (7.350-7.450); ABG PO2 71.4 mmHg (75.0-100.0); COHb 0.8 % (0.5-1.5); MetHb 0.6 % (0.0-1.5); O2Hb 92.4 % (94.0-97.0); PEEP,BG 5 cm H2O; SITE, ABG Left Radial
[2018-07-20 20:00] VITALS: BP 98/54
--- NOTE | 2018-07-20 20:00 | NUR ---
DRUG SAFETY SCIENTIST NOTES PT PLACED BACK ON TELE. PT IS 92-94% ON VENT SETTINGS. PT DOES NOT HAVE LABORED BREATHING. REPORT GIVEN TO PM NURSE FOR GAYLE. CHARGE NURSE SOMMER AWARE. PT IS NOT IN DISTRESS AT THIS TIME.
--- NOTE | 2018-07-20 20:15 | NUR ---
FUNDING COORDINATOR: RECEIVED PT WT EYES CLOSED. ABLE TO OPEN EYES, TRACK BUT UNABLE TO FOLLOW SIMPLE COMMANDS. ON MECH VENT WT SETTINGS ORDERED. NO ACUTE DISTRESS, NO EVIDENCE OF DISCOMFORT. A. FIB ON TELE MONITOR. AFEBRILE. GTF RUNNING NEPRO AT 20ML/HR WT NO RESIDUAL. ABDOMINAL DISTENTION NOTED WT HYPOACTIVE BOWEL SOUNDS. NO S/S OF IV INFILTRATION. F/C PATENT AND INTACT DRAINING YELLOW URINE TO GRAVITY. HOB AT 35 DEGREES. SAFETY PRECAUTION NOTED. WILL CONTINUE TO MONITOR.
--- NOTE | 2018-07-20 20:37 | NUR ---
RT NOTE LATE ENTRY. @1905 CALLED TO [facility]. MET TRANSPORT RT IN PATIENT ROOM. TRANSPORT RT NOTED THAT THEIR VENTILATOR WAS NOT FUNCTIONING PROPERLY. PLACED PT BACK ON MECHANICAL VENT WITH PREVIOUS NOTED SETTINGS. SX DONE. NO RESP DISTRESS NOTED. ABG RESULTS NOTED TO RN. PT SATING 94%. PT TRACH PATENT AND SECURE. VENT PLUGGED INTO RED OUTLET. ALARMS ARE SET AND AUDIBLE. AMBU BAG AT BEDSIDE. WILL CONTINUE TO MONITOR.
[2018-07-21] VITALS (7 sets, daily range): BP systolic 113–153; BP diastolic 63–99
[2018-07-21] MEDS ORDERED: INSULIN REGULAR, HUMAN 100 UNIT/ML 3 ML VIAL SQ PRN
[2018-07-21] MEDS: HYDROCODONE/APAP 5/325MG 1 EACH TABLET PO PRN ×3 (01:16→17:31)
--- NOTE | 2018-07-21 01:20 | NUR ---
BRANCH ACCOUNT EXECUTIVE: PT NOTED WT ELEVATED HR AND GRIMACING SHORTLY AFTER GIVEN BED BATH. NORCO GIVEN. WILL CONTINUE TO MONITOR EFFECTIVITY.
--- NOTE | 2018-07-21 03:00 | NUR ---
WOOD CAULKER: DR. KIM GAMEZ MADE AWARE OF ELEVATED HR IN THE 120s-130s, A. FIB ON TELE MONITOR AND DISCUSSED CURRENT MEDS AND NO CARDIO ORDER. HAS NO NEW ORDER AT THIS TIME. WILL CONTINUE TO MONITOR.
--- NOTE | 2018-07-21 03:27 | NUR ---
RT NOTE LATE ENTRY. @ 0215 PLACED PT ON CONTINUOS PULSE OX MONITORING.
--- NOTE | 2018-07-21 04:15 | NUR ---
WORKDAY CONSULTANT: HR IMPROVED AND NOW LESS THAN 120. PT IN NO ACUTE DISTRESS. WILL CONTINUE TO MONITOR.
[2018-07-21] MEDS: MEROPENEM 1 G in IV NS 0.9% 100 ML IV SCH ×2 (05:32→15:55)
[2018-07-21] MEDS: BLOOD SUGAR DIAGNOSTIC 1 EACH STRIP IN SCH ×3 (05:45→17:46)
--- NOTE | 2018-07-21 06:45 | NUR ---
DIVEMASTER: PT. REMAINED ALERT AND AWAKE. HR IN 90s TO LOW 100s. NO ACUTE DISTRESS, NO EVIDENCE OF DISCOMFORT SUCH FACIAL GRIMACING. ALL NEEDS MET. WILL ENDORSE TO DAY SHIFT FOR CONTINUITY OF CARE.
--- NOTE | 2018-07-21 07:00 | NUR ---
BEAM MACHINE OPERATOR NOTES RECEIVED REPORT FROM PM NURSE. PT'S HR IS 130'S. AFIB. VENT SETTINGS MD ORDERED. O2 SAT 100%. SUCTIONED TRACH/ORAL. PT HAS 2+ EDEMA ALL EXTREMITIES. ABD DISTENDED AND FIRM TO TOUCH. FEEDING RUNNING VIA GT AT 25ML/HR. FLUSHED/ASPIRATED-NO RESIDUAL. HYPOACTIVE BOWEL SOUNDS ALL QUADS. F/C DRAINING CLEAR YELLOW URINE. MAGEN MIDLINE PATENT/FLUSHED. RH #20 PATENT. BED IN LOCKED/LOWEST POSITION, CALL LIGHT IN REACH. WILL CONT TO MONITOR.
[2018-07-21 07:51] LABS: BASOPHILS # (AUTO) 0.1 /CMM (0.0-0.2); BASOPHILS % (AUTO) 1.4 % (0.0-2.0); HEMATOCRIT 31 % (33-45); HEMOGLOBIN 9.9 g/dL (11.5-14.8); LYMPHOCYTES # (AUTO) 0.2 /CMM (0.8-4.8); LYMPHOCYTES % (AUTO) 4.1 % (20.0-44.0); MEAN CORPUSCULAR HGB CONC 32 g/dl (31.0-36.0); MEAN CORPUSCULAR VOLUME 93 fL (82-100); MONOCYTES # (AUTO) 0.6 /CMM (0.1-1.30); MONOCYTES % (AUTO) 10.5 % (2.0-12.0); NEUTROPHILS # (AUTO) 4.4 /CMM (1.8-8.9); PLATELET COUNT (AUTO) 121 /CMM (150-450); RED BLOOD CELL COUNT(AUTO) 3.31 MIL/uL (4.0-5.2); WHITE BLOOD COUNT (AUTO) 5.6 K/uL (4.3-11.0)
[2018-07-21 08:01] LABS: CALCIUM, SERUM 6.8 mg/dL (8.5-10.1); CREATININE 1.2 mg/dL (0.6-1.3); MAGNESIUM 2.1 mg/dL (1.8-2.4); PHOSPHORUS 3.1 mg/dL (2.5-4.9); POTASSIUM 3.6 mmol/L (3.5-5.1)
[2018-07-21] MEDS: SUCRALFATE 1 G/10 ML UDC GT SCH ×4 (08:32→21:26)
[2018-07-21] MEDS: FAMOTIDINE/PF INJ 20 MG/2 ML VIAL IV SCH ×2 (08:32→21:26)
[2018-07-21] MEDS: HYDROGEL DRESSING 90 GM TUBE TP SCH (09:00)
[2018-07-21] MEDS: IV D5/ 0.9% NACL 1,000 ML IV PRN (11:28)
[2018-07-21] MEDS: METOPROLOL TARTRATE 50 MG TABLET GT SCH ×2 (11:29→17:32)
--- NOTE | 2018-07-21 13:30 | NUR ---
CRYSTAL MACHINING COORDINATOR NOTES PT HAD 2.9L ASCITIC FLUID REMOVED. PT'S VS STABLE. WILL CONT TO MONITOR.
--- NOTE | 2018-07-21 15:20 | NUR ---
SALES TEAM MANAGER NOTES ROTOPRINTER REPORTED JUNCTIONAL RHYTHM HR 59-61. REPORTED TO DR BURRELL. WILL FOLLOW UP WITH MD FOR ORDERS.
--- NOTE | 2018-07-21 15:53 | NUR ---
REHABILITATION NURSE NOTES PER DR BURRELL, PT HAS PACEMAKER.
--- NOTE | 2018-07-21 18:26 | NUR ---
RT NOTE PT REMAINS MECHANICALLY VENTILATED VIA PORTEX 7 CUFFED TRACHEOSTOMY TUBE. CUFF INFLATED. TRACH TUBE MIDLINE AND SECURE. VENTILATOR SETTINGS PRESCRIBED. ALARMS SET PER PROTOCOL AND AUDIBLE. VENT PLUGGED IN TO RED OUTLET. AMBU BAG AT BED SIDE. NO DISTRESS NOTED. Addendum: 07/21/18 at 1826 by GAIL SINGH RT Amended: Links added.
--- NOTE | 2018-07-21 19:10 | NUR ---
FIELD ASSISTANT NOTES PT ENDORSED TO PM NURSE FOR GAYLE. PT IS NOT IN RESP DISTRESS. AMBU BAG AT BEDSIDE. GTF RUNNING/ NO RESIDUAL. TOLERATING WELL. BED IN LOCKED/LOWEST POSITION. CALL LIGHT IN REACH. ALL NEEDS ATTENDED TO.
--- NOTE | 2018-07-21 19:15 | NUR ---
PT RCVD BESSY'D ON MECHANICAL VENT WITH CHARTED SETTINGS. SX DONE. PT TRACH IS PATENT AND SECURE. VENT PLUGGED INTO RED OUTLET. ALARMS ARE SET AND AUDIBLE. AMBU BAG AT BEDSIDE. WILL CONTINUE TO MONITOR. Addendum: 07/21/18 at 1915 by RADHA STRICKLAND RT Amended: Links added.
--- NOTE | 2018-07-21 20:28 | NUR ---
TELE1/RN ASSUMED CARE FOR CONTINUITY OF CARE. PATIENT APPEAR SLEEPING, APPEAR COMFORTABLE, NO SIGNS OF DISTRESS NOTED, HOB ELEVATED, GT FEEDING INFUSING WELL, WILL MONITOR.
[2018-07-22] VITALS (7 sets, daily range): BP systolic 111–160; BP diastolic 25–72
[2018-07-22] MEDS: BLOOD SUGAR DIAGNOSTIC 1 EACH STRIP IN SCH ×4 (00:23→17:50)
[2018-07-22] MEDS: METOPROLOL TARTRATE 50 MG TABLET GT SCH ×4 (01:14→17:49)
[2018-07-22] MEDS: NEPRO 1,000 ML BOTTLE GT PRN (04:07)
[2018-07-22] MEDS: MEROPENEM 1 G in IV NS 0.9% 100 ML IV SCH ×2 (05:22→17:48)
--- NOTE | 2018-07-22 06:35 | NUR ---
TELE1/RN PATIENT IS SLEEPING AT THIS TIME, APPEAR COMFORTABLE, NO SIGNS OF DISTRESS NOTE, HOB ELEVATED, GT FEEDING INFUSING, NO RESIDUAL NOTED. ALL NEEDS ATTENDED AT THIS TIME, WILL CONTINUE TO MONITOR.
[2018-07-22 07:37] LABS: BASOPHILS % (AUTO) 0.1 % (0.0-2.0); EOSINOPHILS % (AUTO) 8.8 % (0.0-6.0); HEMATOCRIT 32 % (33-45); HEMOGLOBIN 10.1 g/dL (11.5-14.8); LYMPHOCYTES # (AUTO) 0.3 /CMM (0.8-4.8); LYMPHOCYTES % (AUTO) 6.4 % (20.0-44.0); MEAN CORPUSCULAR HGB CONC 32 g/dl (31.0-36.0); MEAN CORPUSCULAR VOLUME 95 fL (82-100); MONOCYTES # (AUTO) 0.5 /CMM (0.1-1.30); NEUTROPHILS # (AUTO) 3.9 /CMM (1.8-8.9); NEUTROPHILS % (AUTO) 74.7 % (43.0-81.0); PLATELET COUNT (AUTO) 93 /CMM (150-450); RED BLOOD CELL COUNT(AUTO) 3.34 MIL/uL (4.0-5.2); WHITE BLOOD COUNT (AUTO) 5.3 K/uL (4.3-11.0)
--- NOTE | 2018-07-22 07:37 | NUR ---
RT PT RECEIVED WITH A PORTEX 7 TRACH ON THE VENT WITH NOTED SETTINGS. PT IS AWAKE AND TRACKS WITH EYES. VENT ALARMS ARE SET AND AUDIBLE WITH BVM BY BEDSIDE. KILN CAR REPAIRER CUFF PRESSURE NOTED. VENT IS PLUGGED INTO RED OUTLET. SX'D MODERATE THICK PALE YELLOW SECRETIONS. NO RESPIRATORY DISTRESS NOTED AT THIS TIME, WILL CONTINUE TO MONITOR. Addendum: 07/22/18 at 1754 by FALGUNI ENGEL RT Amended: Links added.
[2018-07-22 08:10] LABS: CREATININE 1.1 mg/dL (0.6-1.3); PHOSPHORUS 3.2 mg/dL (2.5-4.9)
[2018-07-22] MEDS: FAMOTIDINE/PF INJ 20 MG/2 ML VIAL IV SCH ×2 (08:46→21:20)
[2018-07-22] MEDS: SUCRALFATE 1 G/10 ML UDC GT SCH ×4 (08:47→21:20)
[2018-07-22] MEDS: HYDROGEL DRESSING 90 GM TUBE TP SCH (09:00)
[2018-07-22] MEDS ORDERED: SILVER NITRATE APPLICATOR 1 EA BOX TP ONE (15:30)
[2018-07-22] MEDS ORDERED: SILVER NITRATE APPLICATOR 1 EA BOX TP SCH (17:00)
--- NOTE | 2018-07-22 20:00 | NUR ---
WELDING PANTOGRAPH MACHINE OPERATOR NOTE PT IN BED AWAKE. NON VERBAL. ON VENT/TRACH TOLERATING THE SETTINGS WELL. SUCTIONED HER FREQUENTLY THIN WHITE/YELLOWISH SECRETIONS NOTED. KEPT HER HOB ELEVATED. NO DISTRESS OR DISCOMFORT NOTED. NO S/S OF PAIN NOTED. F/C INTACT AND PATENT DRAINING YELLOWISH COLOR URINE. GTF NEPRO INFUSING AT 40 M/HR, 0 ML RESIDUAL NOTED. MAGEN MID LINE INTACT AND PATENT INFUSING D5NS @ 45 ML/HR, NO S/S OF INFILTRATION NOTED. RFA SL INTACT AND PATNET. BED BATH GIVEN. BLOODY STOOL NOTED. DRESSING CHANGED ON SACRAL WOUND. ON TELE MONITOR A FIB / JUNCTIONAL HR 74. REPOSITION HER FOR SKIN MANAGEMENT. SIDE RAILS UP X 3 AND CALL LIGHT WITHIN REACH. VSS. CONTINUE TO MONITOR HER.
[2018-07-23] VITALS: BP_SYST 133; BP_DIAS 77; BP_DIAS 79
[2018-07-23] MEDS: BLOOD SUGAR DIAGNOSTIC 1 EACH STRIP IN SCH ×3 (00:10→12:00)
[2018-07-23] MEDS: METOPROLOL TARTRATE 50 MG TABLET GT SCH ×3 (00:31→12:00)
[2018-07-23 04:00] VITALS: BP 112/54
[2018-07-23] MEDS: MEROPENEM 1 G in IV NS 0.9% 100 ML IV SCH (05:33)
[2018-07-23] MEDS: DEXTROSE 50%-WATER 50 ML DISP.SYRIN IV PRN ×2 (05:52→11:28)
--- NOTE | 2018-07-23 06:00 | NUR ---
GEOTECHNICIAN NOTE BS 51, DEXTROSE 50% IVP GIVEN. CONTINUE TO MONITOR HER.
--- NOTE | 2018-07-23 06:30 | NUR ---
CLINICAL DATA ASSOCIATE NOTE PT IN BED WITH EYES CLOSED. AROUSABLE. NO DISTRESS OR DISCOMFORT NOTED. NO S/S OF PAIN NOTED. IVF INFUSING WELL, NO S/S OF INFILTRATION NOTED. GTF INFUSING WELL. 0 ML RESIDUAL NOTED. KEPT HOB ELEVATED. BS RECHECKED 75. REPOSITION HER Q2H FOR SKIN MANAGEMENT. SIDE RAILS UP X 2 AND CALL LIGHT WITHIN REACH. VSS. WILL ENDORSE TO DAY SHIFT NURSE FOR CONTINUE TO CARE.
--- NOTE | 2018-07-23 07:10 | NUR ---
RN NOTES RECEIVED PT ON BED, NONVERBAL , VENT/TRACH DEPENDENT, ON TRACH SUCTION DONE, ON TELE V-PACING , MARION DRINING TO GRAVITY , NEPRO AT 40CC/ HR RUNNING VIA GT , NO RESIDUAL NOTED, TOLERATING WELL, D5NS AT 45CC/HR RUNNING VIA R UPPER ARM MIDLINE, SITE CLEAN AND DRY , SR UP x3, CALL LIGHT WITHIN EASY REACH, BED LOCKED AND IN LOWEST POSITION, CONTINUE TO MONITOR
[2018-07-23 08:00] VITALS: BP 137/64
[2018-07-23] MEDS: SUCRALFATE 1 G/10 ML UDC GT SCH ×2 (08:34→11:59)
[2018-07-23] MEDS: FAMOTIDINE/PF INJ 20 MG/2 ML VIAL IV SCH (08:34)
[2018-07-23] MEDS: HYDROGEL DRESSING 90 GM TUBE TP SCH (08:37)
--- NOTE | 2018-07-23 11:30 | NUR ---
RN NOTES BLOOD SUGAR REGISTER LOW , D50 IV ONE AMP GIVEN PER PROTOCOL , MD NOTIFIED CONTINUE TO MONITOR .
--- NOTE | 2018-07-23 11:40 | NUR ---
RN NOTES BLOOD SUGAR 93 AT THIS TIME, CONTINUE TO MONITOR
[2018-07-23 12:00] VITALS: BP 139/66
[2018-07-23] MEDS ORDERED: IV 10% DEXTROSE 1,000 ML IV PRN (12:30)
--- NOTE | 2018-07-23 13:00 | NUR ---
RN NOTES MD NOTIFED REGARDING BG 93, PT WILL BE DISCHARGE TODAY PER DR ANDRES WITH D10 AT 45CC/HR IV .
[2018-07-23] MEDS ORDERED: MERO1VIA IV (14:15)
[2018-07-23] MEDS ORDERED: METO50TA16 PO (14:15)
[2018-07-23 16:00] VITALS: BP 157/87
--- NOTE | 2018-07-23 17:30 | NUR ---
RN NOTES REPORT GIVEN TO SNF , PT BG =139, SH=477/65, PT LEFT THE FLOOR TO SNF VIA AMBULANCE ACCOMPANIED BY EMT IN STABLE CONDITION .
== END 2018-07-23 17:30 | DRG 951 ==
LOC: ER 10:31 → TELE1 12:51
PROVIDERS: ADMIT Internal Medicine; ATTEND Student in an Organized Health Care Education/Training Program
PROC: B546ZZA Ultrasonography of Right Subclavian Vein, Guidance (ICD-10-PCS; principal; 2018-07-16)
PROC: 05H533Z Insertion of Infusion Device into Right Subclavian Vein, Percutaneous Approach (ICD-10-PCS; principal; 2018-07-16)
PROC: 5A1955Z Respiratory Ventilation, Greater than 96 Consecutive Hours (ICD-10-PCS; principal; 2018-07-16)
PROC: 30233N1 Transfusion of Nonautologous Red Blood Cells into Peripheral Vein, Percutaneous Approach (ICD-10-PCS; 2018-07-17)
PROC: 0W9G3ZZ Drainage of Peritoneal Cavity, Percutaneous Approach (ICD-10-PCS; 2018-07-21)
PROC: 0KBP0ZZ Excision of Left Hip Muscle, Open Approach (ICD-10-PCS; 2018-07-23)
PROC: 0KBN0ZZ Excision of Right Hip Muscle, Open Approach (ICD-10-PCS; 2018-07-23)
DX: K27.4 Chronic or unspecified peptic ulcer, site unspecified, with hemorrhage (principal); N17.0 Acute kidney failure with tubular necrosis; G93.1 Anoxic brain damage, not elsewhere classified; Z99.11 Dependence on respirator [ventilator] status; E43 Unspecified severe protein-calorie malnutrition; J96.11 Chronic respiratory failure with hypoxia; L89.154 Pressure ulcer of sacral region, stage 4; Z93.0 Tracheostomy status; D69.6 Thrombocytopenia, unspecified; E11.22 Type 2 diabetes mellitus with diabetic chronic kidney disease; D62 Acute posthemorrhagic anemia; E87.1 Hypo-osmolality and hyponatremia; B96.20 Unspecified Escherichia coli [E. coli] as the cause of diseases classified elsewhere; E78.5 Hyperlipidemia, unspecified; G40.909 Epilepsy, unspecified, not intractable, without status epilepticus; N39.0 Urinary tract infection, site not specified; Z16.12 Extended spectrum beta lactamase (ESBL) resistance; I50.32 Chronic diastolic (congestive) heart failure; Z95.2 Presence of prosthetic heart valve; E87.5 Hyperkalemia; E88.09 Other disorders of plasma-protein metabolism, not elsewhere classified; Z68.21 Body mass index [BMI] 21.0-21.9, adult; L89.629 Pressure ulcer of left heel, unspecified stage; L89.619 Pressure ulcer of right heel, unspecified stage; I25.10 Atherosclerotic heart disease of native coronary artery without angina pectoris; E11.649 Type 2 diabetes mellitus with hypoglycemia without coma; B96.4 Proteus (mirabilis) (morganii) as the cause of diseases classified elsewhere; B96.5 Pseudomonas (aeruginosa) (mallei) (pseudomallei) as the cause of diseases classified elsewhere; R18.8 Other ascites; I09.9 Rheumatic heart disease, unspecified; I48.0 Paroxysmal atrial fibrillation; L98.8 Other specified disorders of the skin and subcutaneous tissue; T50.1X5A Adverse effect of loop [high-ceiling] diuretics, initial encounter; T50.2X5A Adverse effect of carbonic-anhydrase inhibitors, benzothiadiazides and other diuretics, initial encounter; Y92.129 Unspecified place in nursing home as the place of occurrence of the external cause; E86.1 Hypovolemia; I25.2 Old myocardial infarction; M24.562 Contracture, left knee; Z86.19 Personal history of other infectious and parasitic diseases; Z95.1 Presence of aortocoronary bypass graft; D12.3 Benign neoplasm of transverse colon
CPT/HCPCS: 31720; 36415; 36569; 36600; 71045-TC; 74018; 76942-TC; 80048-TC; 80053-TC; 80061-TC; 80076-TC; 81000-TC; 82040-TC; 82272-TC; 82570-TC; 82803-TC; 82962-TC; 83605-TC; 83615-TC; 83735-TC; 84100-TC; 84155-TC; 84300-TC; 84443-TC; 84484-TC; 84550-TC; 85025-TC; 85610-TC; 85730-TC; 86850-TC; 86921-TC; 87040-TC; 87070-TC; 87081-TC; 87086-TC; 87186-TC; 89051-TC; 94002-TC; 94003-TC; 94760-TC; 94762-TC; A6248; A6253; A6402; A6403; A7526; C9113; G0378; J0696; J1815; J2185; J3490; J7030; J7042; J7060; P9016-BL; Q2036

== ENCOUNTER 2018-08-02 10:27 | Inpatient (IN) | payer OTHER ==
[2018-08-02] VITALS (18 sets, daily range): BP systolic 89–153; BP diastolic 18–84
[~2018-08-02] VITALS: Ht 162.6 cm; Wt 54.9 kg
[~2018-08-02 10:27] MED LIST changes: +ACET325T53 GT; -ACID1TAB12 GT; +AMIN887L GT; +ASCO-340 GT; +ATOR10TA GT; -ATOR20TA GT; -BLOO-668 IN; -BUME2TAB3 GT; -CARV12.52 GT; +CRAN3875 GT; +CRAN425C6 GT; -DIGO125T GT; -DOCU-141 GT; +DOCU100T2 GT; +EPOE1VIA7 SQ; -EPOE40002 SQ; -HYDR-4384 GT; -INSU100I34 SQ; +LACT1CAP7 GT; -LORA-258 PO; +MERO1VIA IV; +METO50TA16 PO; -METR500T PO; +NEPRO 1.8 GT; -NUT.237L30 GT; -NYST15CR TP; +PANT40SU2 GT; -PANT40TA2 PO; -VANC125C11 PO; +ZINC220C6 GT
[2018-08-02] MEDS ORDERED: MULT-24 GT (10:50)
[2018-08-02] MEDS ORDERED: METO25TA6 GT (10:50)
[2018-08-02] MEDS ORDERED: HYDR-4384 GT (10:50)
[2018-08-02] MEDS ORDERED: IV NS 0.9% 1,000 ML BAG IV ONE (11:00)
--- NOTE | 2018-08-02 11:07 | NUR ---
URINE OBTAINED FROM EXISTING MARION CATHETER - VERY LIGHT RED DRAINAGE - SENT TO LAB
--- NOTE | 2018-08-02 11:09 | NUR ---
ORAL SUCTIONED PERFORMED FOAMY - ORAL CARE, LINEN CHANGED AND REPOSITIONED IN BED
--- NOTE | 2018-08-02 11:20 | NUR ---
PAGED RT FOR G
--- NOTE | 2018-08-02 11:21 | NUR ---
DR SINGH SEEN AND EVZULY PT MADE AWARE OF O2SATS AND TEMP 92.4 R PAGED RT FOR ABG.
--- NOTE | 2018-08-02 11:36 | NUR ---
RT ATTEMPTING TO DRAW ABG , BLOOD BANK LABORATORY PROFESSIONAL X 2 ALSO ATTEMPTING TO GET BLOOD
[2018-08-02 11:37] LABS: BASOPHILS % (AUTO) 0.7 % (0.0-2.0); EOSINOPHILS % (AUTO) 1.6 % (0.0-6.0); HEMATOCRIT 28 % (33-45); HEMOGLOBIN 8.9 g/dL (11.5-14.8); LYMPHOCYTES # (AUTO) 0.2 /CMM (0.8-4.8); LYMPHOCYTES % (AUTO) 3.8 % (20.0-44.0); MEAN CORPUSCULAR HGB CONC 32 g/dl (31.0-36.0); MEAN CORPUSCULAR VOLUME 94 fL (82-100); MONOCYTES # (AUTO) 0.4 /CMM (0.1-1.30); MONOCYTES % (AUTO) 9.6 % (2.0-12.0); NEUTROPHILS # (AUTO) 3.7 /CMM (1.8-8.9); NEUTROPHILS % (AUTO) 84.3 % (43.0-81.0); PLATELET COUNT (AUTO) 96 /CMM (150-450); RED BLOOD CELL COUNT(AUTO) 2.93 MIL/uL (4.0-5.2); WHITE BLOOD COUNT (AUTO) 4.4 K/uL (4.3-11.0)
[2018-08-02 11:40] LABS: ABG BASE EXCESS -1.2 mmol/L; ABG OXYGEN SATURATION 99.4 % (92.0-98.5); ABG PCO2 49.5 mmHg (35.0-45.0); ABG PH 7.322 (7.350-7.450); ABG PO2 267.8 mmHg (75.0-100.0); AaDO2 395.7 mmHg; COHb 1.2 % (0.5-1.5); MetHb 0.4 % (0.0-1.5); O2Hb 97.8 % (94.0-97.0); PEEP,BG 5 cm H2O; SITE, ABG Right Radial; VT, ABG 400 mL
--- NOTE | 2018-08-02 11:42 | NUR ---
ABG RESULT GIVEN TO DR SINGH , FIO2 DROPPED TO 80% BY RT WILL CONTINUE TO MONITOR
[2018-08-02 12:01] LABS: ALANINE AMINOTRANSFERASE 26 U/L (12-78); ALBUMIN 1.7 g/dL (3.4-5.0); ALKALINE PHOSPHATASE 373 U/L (46-116); ASPARTATE AMINOTRANSFERASE 44 U/L (15-37); BILIRUBIN,DIRECT 0.3 mg/dL (0.0-0.2); BILIRUBIN,TOTAL 0.6 mg/dL (0.2-1.0); CALCIUM, SERUM 8.9 mg/dL (8.5-10.1); CARBON DIOXIDE 24 mmol/L (21-32); CHLORIDE 87 mmol/L (98-107); CREATININE 1.8 mg/dL (0.6-1.3); GLUCOSE 113 mg/dL (74-106); POTASSIUM 4.5 mmol/L (3.5-5.1); TOTAL PROTEIN, SERUM 7.8 g/dL (6.4-8.2)
[2018-08-02 12:05] LABS: SODIUM SERUM 118 mmol/L (136-145); UREA NITROGEN, BLOOD 132 mg/dL (7-18)
[2018-08-02 12:11] LABS: BILIRUBIN,URINE Negative (NEGATIVE); BLOOD, URINE Large Ery/uL (NEGATIVE); KETONES,URINE Negative (NEGATIVE); LEUKOCYTE ESTERASE ,URINE Small (NEGATIVE); NITRITE, URINE Negative (NEGATIVE); PH,URINE 5.5 (5.0-8.0); PROTEIN,URINE 100 mg/dl (NEGATIVE); UGLUCOSE Negative (NEGATIVE); UROBILINOGEN,URINE 0.2 EU/dL (0.2)
[2018-08-02 12:13] LABS: APPEARANCE,URINE HAZY (CLEAR); COLOR,URINE RED (YELLOW)
[2018-08-02 12:16] LABS: BACTERIA,URINE 1+ /HPF (None Seen); SQUAMOUS EPITHELIAL CELL,UR Few /HPF (None Seen)
[2018-08-02 12:17] LABS: URINE AMORPHOUS URATE Few /HPF (None Seen)
[2018-08-02] MEDS ORDERED: ALBUTEROL FS 2.5 MG/3 ML VIAL.NEB NEB PRN (13:30)
[2018-08-02] MEDS ORDERED: ONDANSETRON HCL/PF 4 MG/2 ML VIAL IVP PRN (13:30)
[2018-08-02] MEDS ORDERED: ACETAMINOPHEN 325 MG TABLET PO PRN (13:30)
[2018-08-02] MEDS ORDERED: MAG HYDROX/AL HYDROX/SIMETH 30 ML UDC PO PRN (13:30)
[2018-08-02] MEDS ORDERED: HYDROCODONE/APAP 5/325MG 1 EACH TABLET GT PRN (13:30)
[2018-08-02] MEDS ORDERED: CEFTRIAXONE 1GM BAG (ER ONLY) 50 ML IV ONE ×2 (13:30→13:44)
[2018-08-02] MEDS ORDERED: MAGNESIUM HYDROXIDE 30 ML UDC PO PRN (13:30)
--- NOTE | 2018-08-02 13:52 | NUR ---
PLACED RECEIVED IN ER. FOR ABNORMAL LABS TRACH VENT DEPENDANT. SETTING FROM PREVIOUS FACILITY. TRACH MIDLINE. B/S EQUAL. PINK FROTHY SECRETION. ALARMS SET AND AUDIBLE. AMBU-BAG AT HEAD OF BED. Addendum: 08/02/18 at 1355 by OCTAVIANO ELDER RT Amended: Links added.
[2018-08-02 13:57] LABS: URINE SODIUM, RANDOM 128 mmol/l (40-220)
[2018-08-02 14:02] LABS: OSMOLALITY,URINE 294 mOS/kg (340-1090)
--- NOTE | 2018-08-02 14:21 | NUR ---
report called to Alon BED RUBBER
--- NOTE | 2018-08-02 14:36 | NUR ---
incontinent care and oral care performed - waiting for RT for transport
[2018-08-02 14:41] LABS: OSMOLALITY,SERUM 306 mOS/kg (278-305)
[2018-08-02] MEDS ORDERED: IV NS 0.9% 1,000 ML IV PRN (15:00)
[2018-08-02 15:03] LABS: BAND % (MANUAL) 14 % (0.0-5.0); MONOCYTES % (MANUAL) 6 % (0-11.0); NEUTROPHILS % (MANUAL) 80 (42-76)
[2018-08-02] MEDS: MEROPENEM 500 MG in IV NS 0.9% 50 ML IV SCH (15:41)
--- NOTE | 2018-08-02 16:47 | NUR ---
RN NOTE 1500: Admitted patient from ER. Obtunded, opens eyes but 4 ext are rigid. With trache to vent, settings as ff: AC 14 400 80% +5. V pacing 50's. Noted with hypothermia 93.4, placed in rectal tube and applied kalyan hugger. Noted with abdominal distention and tenderness, informed [place] EXPLOSIVE OPERATOR FUSE plan to do CT abd but patient still on FIO2 80%, EXPLOSIVE OPERATOR FUSE orderd KUB XR for now instead. Also made him aware with bleeding on the stoma. Skin assessment done, taken pictures and attached to chart. MAGEN midline intact. 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 Vega in, with pinkish UOP. 1645: Temp now 95.2 on kalyan hugger. On NS @ 50mL/hr. FIO2 70% now.
[2018-08-02 17:01] LABS: CALCIUM, SERUM 8.9 mg/dL (8.5-10.1); CREATININE 1.9 mg/dL (0.6-1.3); POTASSIUM 4.4 mmol/L (3.5-5.1)
--- NOTE | 2018-08-02 19:30 | NUR ---
MINE SURVEYOR: RECEIVED CHRONIC VENT DEPENDENT TO TRACH PT WT VENT SETTINGS ORDERED. OPENS EYES AND UNABLE TO FOLLOW TO FOLLOW SIMPLE COMMANDS. NO ACUTE DISTRESS, NO EVIDENCE OF DISCOMFORT. V-PACING WHEN HR GOES BELOW 50 WT CONTROLLED A. FIB ON COMMERCIAL RETOUCHER. ON CHE HUGGER FOR HYPOTHERMIA WT CORE TEMP OF 97. ABDOMINAL DISTENTION NOTED WT HYPOACTIVE BOWEL SOUNDS IN FOUR QUADRANTS. GT CLAMPED WT STOMA MINIMAL BLEEDING NOTED. MAGEN MIDLINE INFUSING NS AT 50ML/HR WT NO S/S OF INFILTRATION. F/C PATENT AND INTACT DRAINING TEA COLORED URINE TO GRAVITY. HOB AT 35 DEGREES. SAFETY PRECAUTION NOTED. WILL CONTINUE TO MONITOR.
[2018-08-03] VITALS (35 sets, daily range): BP systolic 92–127; BP diastolic 20–74
[2018-08-03] MEDS: MEROPENEM 500 MG in IV NS 0.9% 50 ML IV SCH ×2 (01:54→13:38)
[2018-08-03 04:53] LABS: APPEARANCE,URINE TURBID (CLEAR)
[2018-08-03 04:54] LABS: COLOR,URINE OTHER (YELLOW); LEUKOCYTE ESTERASE ,URINE 1+ (NEGATIVE); NITRITE, URINE NEGATIVE (NEGATIVE); PROTEIN,URINE TRACE mg/dl (NEGATIVE); UROBILINOGEN,URINE 0.2 EU/dL (0.2)
[2018-08-03 04:55] LABS: BILIRUBIN,URINE TRACE (NEGATIVE); BLOOD, URINE 3+ Ery/uL (NEGATIVE); KETONES,URINE NEGATIVE (NEGATIVE); UGLUCOSE NEGATIVE (NEGATIVE)
[2018-08-03 04:56] LABS: BASOPHILS % (AUTO) 0.7 % (0.0-2.0); EOSINOPHILS % (AUTO) 2.2 % (0.0-6.0); HEMATOCRIT 23 % (33-45); HEMOGLOBIN 7.6 g/dL (11.5-14.8); LYMPHOCYTES # (AUTO) 0.2 /CMM (0.8-4.8); LYMPHOCYTES % (AUTO) 3.4 % (20.0-44.0); MEAN CORPUSCULAR HGB CONC 33 g/dl (31.0-36.0); MEAN CORPUSCULAR VOLUME 91 fL (82-100); MONOCYTES # (AUTO) 0.4 /CMM (0.1-1.30); MONOCYTES % (AUTO) 7.4 % (2.0-12.0); NEUTROPHILS # (AUTO) 4.1 /CMM (1.8-8.9); NEUTROPHILS % (AUTO) 86.3 % (43.0-81.0); PLATELET COUNT (AUTO) 89 /CMM (150-450); RED BLOOD CELL COUNT(AUTO) 2.52 MIL/uL (4.0-5.2); WHITE BLOOD COUNT (AUTO) 4.8 K/uL (4.3-11.0)
[2018-08-03 05:06] LABS: CREATININE, URINE 92.1 MG/DL (30.0-125.0); URINE TOTAL PROTEIN 195.7 mg/dL (0-11.9)
[2018-08-03 05:07] LABS: ALBUMIN 1.5 g/dL (3.4-5.0); BILIRUBIN,TOTAL 0.7 mg/dL (0.2-1.0); CALCIUM, SERUM 8.9 mg/dL (8.5-10.1); CREATININE 1.9 mg/dL (0.6-1.3); PHOSPHORUS 5.2 mg/dL (2.5-4.9); POTASSIUM 4.2 mmol/L (3.5-5.1); TOTAL PROTEIN, SERUM 6.9 g/dL (6.4-8.2)
[2018-08-03 05:19] LABS: BACTERIA,URINE Few /HPF (None Seen); RBC,URINE TOO NUMEROUS TO COUN /HPF (0-2); SQUAMOUS EPITHELIAL CELL,UR Few /HPF (None Seen)
--- NOTE | 2018-08-03 05:30 | NUR ---
WATCH SUPERVISOR: FI02 DECREASED TO 60%. NO ACUTE DISTRESS. WILL CONTINUE TO MONITOR.
[2018-08-03 05:35] LABS: EOSINOPHILS % (MANUAL) 1 % (0-4); LYMPHOCYTES % (MANUAL) 3 % (16-48); MONOCYTES % (MANUAL) 7 % (0-11.0); NEUTROPHILS % (MANUAL) 89 (42-76)
[2018-08-03 05:38] LABS: EOSINOPHIL,URINE None Seen
--- NOTE | 2018-08-03 05:55 | NUR ---
FERRYBOAT PILOT: BLOOD GLUCOSE FROM MORNING LAB DRAW=56. ACCUCHEK DONE WT RESULT OF 48, REPEATED TEST=45. NO S/S OF HYPOGLYCEMIA. PAGED HOSPITALIST. AWAITING TO CALL BACK.
--- NOTE | 2018-08-03 06:15 | NUR ---
FACE PAINTER: SHAREE CHAPARRO CALLED BACK AND MADE AWARE OF LOW BLOOD SUGAR WT NEW ORDERS. NOTED AND CARRIED OUT.
[2018-08-03] MEDS: DEXTROSE 50%-WATER 50 ML DISP.SYRIN IV PRN ×2 (06:29→11:30)
[2018-08-03] MEDS ORDERED: INSULIN REGULAR, HUMAN 100 UNIT/ML 3 ML VIAL SQ PRN (06:30)
[2018-08-03] MEDS: IV D5/ 0.9% NACL 1,000 ML IV PRN ×2 (06:34→20:56)
--- NOTE | 2018-08-03 06:55 | NUR ---
WAX MOLDER: BLOOD SUGAR CHECKED AFTER GIVEN D50 WT GOOD EFFECT = 91. STILL NOTED WT PINK TINGED TRACHEAL SECRETIONS AND MINIMAL ORAL BLEEDING. ALL NEEDS MET. WILL ENDORSE TO DAY SHIFT FOR CONTINUITY OF CARE.
[2018-08-03] MEDS: PANTOPRAZOLE 40 MG VIAL IV SCH (08:40)
[2018-08-03] MEDS: HYDROGEL DRESSING 90 GM TUBE TP SCH (08:40)
[2018-08-03] MEDS: Z GUARD REMEDY 2 OZ OINT TP SCH (08:41)
--- NOTE | 2018-08-03 08:51 | NUR ---
received pt from hydrologic engineer, obtunded, V pace, on the vent, lungs congested, pitting/weeping edema throughout, GT clamped, some black/green discharge from stoma, KUB ordered, f/c low output, MD aware, v/s stable, no pain, pt turned and repositioned, seen by wound care nurse.
--- NOTE | 2018-08-03 08:56 | NUR ---
WOUND CARE CONSULT: PT PRESENTS WITH MULTIPLE SKIN ISSUES INCLUDING PROFOUND GENERALIZED PITTING EDEMA (4+) WITH WEEPING, SKIN TEARS TO RT POPLITEAL AREA, ABDOMEN AND BILATERAL BUTTOCKS, STAGE 4 SACRAL ULCER, HYPERGRANULAR TISSUE TO G TUBE SITE WITH SOME BLEEDING NOTED, DEEP TISSUE INJURIES TO BILATERAL HEELS, SCARRING TO BILATERAL ELBOWS, VERY LARGE ABDOMEN WITH TIGHT SHINY SKIN AND TIGHT SHINY SKIN TO LEGS, ALL PRESENT ON ADMISSION. RECOMMENDATIONS FOR WOUND CARE AND SKIN PROTECTION DISCUSSED WITH NURSING STAFF AND Wilma RIOS SURGICAL N.P. PT ON [facility] LOW AIRLOSS BED. WILL SEE PRN. LÓPEZ IN AGREEMENT WITH PLAN OF CARE.
[2018-08-03] MEDS: BLOOD SUGAR DIAGNOSTIC 1 EACH STRIP IN SCH ×2 (11:30→18:12)
--- NOTE | 2018-08-03 12:24 | NUR ---
pt is resting in the bed, v/s stable, no pain, BS 48, D50 given, recheck 124, pt turned and repositioned q2hrs.
--- NOTE | 2018-08-03 16:07 | NUR ---
pt is resting in the bed, obtunded, v/s stable, no pain, pitting/weeping edema, low urine output, pt cleaned, changed and repositioned q2hrs.
--- NOTE | 2018-08-03 16:51 | NUR ---
Patient is trach/vent dependent resides at [facility] [phone]. He is bedfast, totally dependent with adl's. May need HD if no improvement in 1-2 days per renal. Current dc plan is to return to [facility] once discharge. Addendum: 08/03/18 at 1652 by SHAHRIAR GARZA RN Amended: Links added.
--- NOTE | 2018-08-03 17:36 | NUR ---
PT REMAINS ON [facility]. VENT SETTINGS ORDERED. ZERO DISTRESS NOTED ALARMS SET AND AUDIBLE DAVIES AND HME CHANGED. B/S AMBU-BAG AT HEAD OF BED. Addendum: 08/03/18 at 1737 by OCTAVIANO ELDER RT Amended: Links added.
--- NOTE | 2018-08-03 21:50 | NUR ---
SUPERVISOR FLESHING INITIAL ASSESSMENT. RECEIVED THE PT REST ON THE BED. TRACH TO VENT CONNECTED. PT IS NONVERBAL OBTUNDED. ELECTRIC TRUCK OPERATOR SHOWING AFIB, VENT SETTINGS AC 14, TV 40%, FIO2 60%, PEEP 5. SAT 98%. NO ACUTE DISTRESS NOTED. IV RT UPPER ARM MID LINE. IVF D5NS 75ML/H.GT CLAMPED. HOB ELEVATED. WILL CONTINUE TO MONITOR VITALS.
[2018-08-04] VITALS (25 sets, daily range): BP systolic 11–149; BP diastolic 41–72
[2018-08-04] MEDS: BLOOD SUGAR DIAGNOSTIC 1 EACH STRIP IN SCH ×4 (01:09→17:25)
[2018-08-04] MEDS: MEROPENEM 500 MG in IV NS 0.9% 50 ML IV SCH ×2 (01:39→13:37)
--- NOTE | 2018-08-04 03:19 | NUR ---
EVISCERATOR. AM CARE, ORAL CARE, BED BATH GIVEN LINEN CHANGED. REMAINING SAME VENT SETTING TOLERATED WELL. SAT 98%. NO ACUTE DISTRESS NOTED. MASTIC SPRAYER SHOWING AFIB. GT CLAMPED. FC PATENT, HOB ELEVATED, WOUND DRESSING DONE. HOB ELEVATED. RT UPPER ARM MID LINE IVF D5NS 75ML/H. TURN AND REPOSITION Q2H. WILL CONTINUE TO MONITOR VITALS.
[2018-08-04 04:29] LABS: BASOPHILS # (AUTO) 0.1 /CMM (0.0-0.2); HEMOGLOBIN 7.5 g/dL (11.5-14.8); LYMPHOCYTES # (AUTO) 0.2 /CMM (0.8-4.8); MEAN CORPUSCULAR HGB CONC 34 g/dl (31.0-36.0); WHITE BLOOD COUNT (AUTO) 3.7 K/uL (4.3-11.0)
[2018-08-04 04:48] LABS: CALCIUM, SERUM 8.4 mg/dL (8.5-10.1); CREATININE 1.8 mg/dL (0.6-1.3); POTASSIUM 3.8 mmol/L (3.5-5.1)
[2018-08-04 05:05] LABS: BASOPHILS % (AUTO) 1.4 % (0.0-2.0); EOSINOPHILS % (AUTO) 4.3 % (0.0-6.0); HEMATOCRIT 22 % (33-45); LYMPHOCYTES % (AUTO) 4.5 % (20.0-44.0); MEAN CORPUSCULAR VOLUME 90 fL (82-100); MONOCYTES # (AUTO) 0.3 /CMM (0.1-1.30); MONOCYTES % (AUTO) 8.8 % (2.0-12.0); PLATELET COUNT (AUTO) 102 /CMM (150-450); RED BLOOD CELL COUNT(AUTO) 2.47 MIL/uL (4.0-5.2)
--- NOTE | 2018-08-04 07:15 | NUR ---
RN INITIAL NOTES RECEIVED PT NON-VERBAL, EYES OPEN, NOT FOLLOWING COMMANDS. TRACH IN PLACE. ON VENT. NO RESPIRATORY DISTRESS NOTED. NO SOB NOTED. NO SIGNS OF PAIN NOTED. MAGEN MIDLINE IN PLACE. IVF INFUSING. GT IN PLACE, CLAMPED. FC IN PLACE. BLE ELEVATED. PT COMFORTABLE. WILL MONITOR.
[2018-08-04] MEDS: PANTOPRAZOLE 40 MG VIAL IV SCH (08:08)
[2018-08-04] MEDS: Z GUARD REMEDY 2 OZ OINT TP SCH (08:19)
[2018-08-04] MEDS: HYDROGEL DRESSING 90 GM TUBE TP SCH (08:19)
[2018-08-04] MEDS: IV D5/ 0.9% NACL 1,000 ML IV PRN (09:21)
--- NOTE | 2018-08-04 10:40 | NUR ---
RN NOTES 0930 SEEN AND EXAMINED BY DR CORDERO. PT ON VENT. NO RESPIRATORY DISTRESS NOTED. HOB ELEVATED. FI02 TITRATED DOWN TO 40%. ABG IN 1 HR. WILL MONITOR. 1030 ABG RESULT RELAYED TO DR CORDERO. FI02 TITRATED TO 30%. 02 SAT 100&, RR 30S. NO RESPIRATORY DISTRESS NOTED. NO SOB NOTED. WILL CONTINUE TO MONITOR.
[2018-08-04 11:33] LABS: ABG BASE EXCESS 0.1 mmol/L; ABG OXYGEN SATURATION 98.3 % (92.0-98.5); ABG PCO2 39.1 mmHg (35.0-45.0); ABG PH 7.417 (7.350-7.450); ABG PO2 132.8 mmHg (75.0-100.0); AaDO2 107.4 mmHg; COHb 0.5 % (0.5-1.5); MetHb 1.1 % (0.0-1.5); O2Hb 96.7 % (94.0-97.0); SITE, ABG Left Radial; VENT MODE, BG AC 14 400 40% +5
[2018-08-04] MEDS: BUMETANIDE INJ 2 MG in IV NS 0.9% 32 ML IV SCH (12:09)
--- NOTE | 2018-08-04 17:05 | NUR ---
RN NOTES TRANSFERRED PT TO ROOM 101. LIBERTAD RN TOOK OVER PT'S CARE. PT IN STABLE CONDITION
--- NOTE | 2018-08-04 17:10 | NUR ---
PT MOVED TO STEP DOWN UNIT PER MD ORDERS FIO2 30%. ZERO DISTRESS NOTED. SETTINGS ORDERED ALARMS SET AMBU-BAG AT HEAD OF BED. Addendum: 08/04/18 at 1712 by OCTAVIANO ELDER RT Amended: Links added.
--- NOTE | 2018-08-04 17:12 | NUR ---
KASSY RN NOTE RECEIVED PATIENT FROM ICU AWAKE BUT NONVERBAL, UNABLE TO FOLLOW SIMPLE COMMAND , BOTH EYES OPEN. PT ON TELE MONITOR AFIB HR 95. GT CLOGGED ORDERED. FC GRAVITY YELLOW CLEAR URINE. PT HAS IV FLUID ORDERED. HAS R UPPER MIDLINE. NPO EXCEPT MEDS. KCI MATTRESS IN PLACED. GEN EDEMA NOTED. KEEP UPPER EXT ELEVATED. BED LOCKED AND LOWEST POSITION. TRACH SUCTION DONE. RT AT BEDSIDE. HAS A WARM BLANKET IN PLACED. PT VS STABLE. WILL MONITOR CLOSELY.
--- NOTE | 2018-08-04 18:45 | NUR ---
KASSY RN NOTE PATIENT ON VENT TRACH. O2 SAT 100%. NO SOB. CONT CARE. ENDORSED TO NEXT SHIFT RN.
--- NOTE | 2018-08-04 19:42 | NUR ---
KASSY RN NOTE RECEIVED PATIENT FROM ICU AWAKE BUT NONVERBAL, UNABLE TO FOLLOW SIMPLE COMMAND , BOTH EYES OPEN. PT ON TELE MONITOR AFIB HR 75. GT CLAMPED ORDERED. FC GRAVITY YELLOW CLEAR URINE. PT HAS IV FLUID ORDERED. HAS R UPPER MIDLINE. NPO EXCEPT MEDS. KCI MATTRESS IN PLACED. GEN EDEMA NOTED. KEEP UPPER EXT ELEVATED. BED LOCKED AND LOWEST POSITION. TRACH SUCTION DONE. RT AT BEDSIDE. HAS A WARM BLANKET IN PLACED. PT VS STABLE. WILL MONITOR CLOSELY.
[2018-08-04] MEDS: VORICONAZOLE 200 MG TABLET PO SCH (21:55)
[2018-08-05 00:54] VITALS: BP 127/52
[2018-08-05] MEDS: BLOOD SUGAR DIAGNOSTIC 1 EACH STRIP IN SCH ×5 (00:57→23:21)
[2018-08-05] MEDS: BUMETANIDE INJ 2 MG in IV NS 0.9% 32 ML IV SCH ×3 (01:00→23:21)
--- NOTE | 2018-08-05 02:00 | NUR ---
BS RECHECKED 83.
[2018-08-05] MEDS: MEROPENEM 500 MG in IV NS 0.9% 50 ML IV SCH ×2 (02:44→14:33)
[2018-08-05 04:00] VITALS: BP 116/52
[2018-08-05 06:17] LABS: BASOPHILS % (AUTO) 0.4 % (0.0-2.0); HEMATOCRIT 23 % (33-45); HEMOGLOBIN 7.6 g/dL (11.5-14.8); LYMPHOCYTES # (AUTO) 0.2 /CMM (0.8-4.8); LYMPHOCYTES % (AUTO) 5.9 % (20.0-44.0); MEAN CORPUSCULAR HGB CONC 33 g/dl (31.0-36.0); MEAN CORPUSCULAR VOLUME 90 fL (82-100); MONOCYTES # (AUTO) 0.3 /CMM (0.1-1.30); MONOCYTES % (AUTO) 9.6 % (2.0-12.0); NEUTROPHILS # (AUTO) 2.7 /CMM (1.8-8.9); NEUTROPHILS % (AUTO) 76.1 % (43.0-81.0); PLATELET COUNT (AUTO) 104 /CMM (150-450); RED BLOOD CELL COUNT(AUTO) 2.54 MIL/uL (4.0-5.2); WHITE BLOOD COUNT (AUTO) 3.6 K/uL (4.3-11.0)
[2018-08-05 06:40] LABS: CALCIUM, SERUM 8.2 mg/dL (8.5-10.1); CREATININE 1.7 mg/dL (0.6-1.3); PHOSPHORUS 4.9 mg/dL (2.5-4.9); POTASSIUM 3.7 mmol/L (3.5-5.1)
--- NOTE | 2018-08-05 07:04 | NUR ---
KASSY RN NOTE ENDORSED PATIENT TO AM RN AWAKE BUT NONVERBAL, UNABLE TO FOLLOW SIMPLE COMMAND , BOTH EYES OPEN. PT ON TELE MONITOR AFIB HR 80. GT CLAMPED ORDERED. FC GRAVITY YELLOW CLEAR URINE. PT HAS IV FLUID ORDERED. HAS R UPPER MIDLINE. NPO EXCEPT MEDS. KCI MATTRESS IN PLACED. GEN EDEMA NOTED. KEEP UPPER EXT ELEVATED. BED LOCKED AND LOWEST POSITION. TRACH SUCTION DONE. RT AT BEDSIDE. HAS A WARM BLANKET IN PLACED. PT VS STABLE. WILL MONITOR CLOSELY.
--- NOTE | 2018-08-05 07:10 | NUR ---
RN INITIAL NOTES: Rec'd pt on bed, obtunded, opens eyes spontaneously. On MV via trach, sating at 98%. On telemonitor, controlled Afib. Has MAGEN midline, patent & intact w/ no s/sx of infection/infiltration w/ D5NS x 30cc/hr infusing well. Has GT clamped at this time, NPO except meds, noted hypergranulation on the site. Has FC draining to BSB w/ adequate UOP, pink tinged in color. Safety precautions in place. Bed in lowest & locked pos. Call light w/in reach. 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 Will cont to monitor & attend pt needs.
[2018-08-05 08:00] VITALS: BP 126/44
[2018-08-05] MEDS: PANTOPRAZOLE 40 MG VIAL IV SCH (08:08)
[2018-08-05] MEDS: HYDROGEL DRESSING 90 GM TUBE TP SCH (08:08)
[2018-08-05] MEDS: VORICONAZOLE 200 MG TABLET PO SCH ×2 (08:08→20:18)
[2018-08-05] MEDS: Z GUARD REMEDY 2 OZ OINT TP SCH (08:09)
--- NOTE | 2018-08-05 09:45 | NUR ---
BS noted to be trending down despite of current IVF. RD recommended to start GTF Nepro x 10cc/hr to advance to reach goal rate of 30cc/hr. Marcellus CLINICAL TRIALS MANAGER made aware & agreed.
[2018-08-05] MEDS: NEPRO 1,000 ML BOTTLE GT PRN (09:57)
[2018-08-05 12:00] VITALS: BP 142/60
--- NOTE | 2018-08-05 13:11 | NUR ---
Pt tolerating GTF, per Marcellus may change sliding scale to mild q6H TF.
[2018-08-05 16:00] VITALS: BP 127/50
[2018-08-05] MEDS: HYDROCODONE/APAP 10/325MG 1 EA TABLET GT PRN (17:08)
[2018-08-05] MEDS: INSULIN REGULAR, HUMAN 100 UNIT/ML 3 ML VIAL SQ PRN (17:09)
--- NOTE | 2018-08-05 17:34 | NUR ---
Noted bleeding from inside of pt's mouth. Marcellus TANK PUMPER PANELBOARD made aware w/ orders to check CBC in AM.
[2018-08-05] MEDS: IV D5/ 0.9% NACL 1,000 ML IV PRN (17:38)
--- NOTE | 2018-08-05 18:50 | NUR ---
RN CLOSING NOTES: Pt still bleeding from her mouth but lesser, not in any distress at this time, sleeping. Pt tolerated MV setting via trach, sating at 98%. On telemonitor, still controlled Afib. MAGEN midline, kept patent & intact w/ no s/sx of infection/infiltration w/ D5NS x 30cc/hr infusing well. Started on GTF Nepro x 20cc/hr infusing well, no residual w/in shift. FC kept draining to BSB w/ adequate UOP, now yellowish in color. Safety precautions in kept place at all times. Bed in lowest & locked pos. Call light w/in reach. Contact prec observed. Will endorse to PM RN for GAYLE.
--- NOTE | 2018-08-05 19:30 | NUR ---
RN INITIAL SHIFT NOTES RECEIVED PATIENT IN BED, AWAKE, EYES OPEN, NONVERBAL, OBTUNDED AT BASELINE. TRACH MIDLINE AND INTACT, ON MECHANICAL VENTILATION AT PRESCRIBED SETTINGS, TOLERATING WELL, FREE FROM ANY S/S OF RESPIRATORY DISTRESS. NOTED TO BE BLEEDING FROM MOUTH, PER DAY SHIFT NURSE, PROVIDER IS AWARE, LABS ORDERED FOR AM. UPON ASSESSMENT, NOTED WITH MISSING UPPER TOOTH, SUSPECTED SITE OF BLEEDING. PRESSURE PLACED USING GAUZE SOAKED IN ICE, WITH NOTED IMPROVEMENT/ BLEEDING SLOWING DOWN. ORAL CARE RENDERED. GT PATENT AND INTACT, TOLERATING GTF WELL, WILL INCREASE TO GOAL RATE PATIENT TOLERATES. MAGEN MIDLINE PATENT AND INTACT, FLUSHED WITH NS, FREE FROM ANY S/S OF INFILTRATION OR PHLEBITIS, IV FLUIDS ORDERED. HOB KEPT ELEVATED FOR ASPIRATION PRECAUTIONS. ISOLATION PRECAUTIONS MAINTAINED. BED IN LOWEST AND LOCKED POSITION. WILL CONTINUE TO CLOSELY MONITOR
[2018-08-05 20:00] VITALS: BP 106/43
[2018-08-05] MEDS: AMOX/CLAVULANATE 250 MG TABLET PO SCH (20:18)
[2018-08-06] VITALS: BP 112/47
[2018-08-06 04:00] VITALS: BP 105/48
--- NOTE | 2018-08-06 04:00 | NUR ---
RN NOTES FULL BED BAD RENDERED, ALL WOUND CARE PERFORMED, WOUNDS PHOTOGRAPHED AND DOCUMENTED PER PROTOCOL. WILL CONTINUE TO CLOSELY MONITOR
--- NOTE | 2018-08-06 04:15 | NUR ---
RN NOTES TUBE FEEDING RATE INCREASED TO 30 ML/HR, GOAL RATE. WILL MONITOR CLOSELY
[2018-08-06] MEDS: BLOOD SUGAR DIAGNOSTIC 1 EACH STRIP IN SCH ×3 (05:55→17:31)
[2018-08-06 06:40] LABS: BASOPHILS # (AUTO) 0.1 /CMM (0.0-0.2); BASOPHILS % (AUTO) 1.2 % (0.0-2.0); EOSINOPHILS % (AUTO) 10.5 % (0.0-6.0); HEMATOCRIT 26 % (33-45); HEMOGLOBIN 8.4 g/dL (11.5-14.8); LYMPHOCYTES # (AUTO) 0.3 /CMM (0.8-4.8); LYMPHOCYTES % (AUTO) 5.5 % (20.0-44.0); MEAN CORPUSCULAR HGB CONC 33 g/dl (31.0-36.0); MEAN CORPUSCULAR VOLUME 91 fL (82-100); MONOCYTES # (AUTO) 0.4 /CMM (0.1-1.30); MONOCYTES % (AUTO) 8.3 % (2.0-12.0); NEUTROPHILS # (AUTO) 3.6 /CMM (1.8-8.9); NEUTROPHILS % (AUTO) 74.5 % (43.0-81.0); PLATELET COUNT (AUTO) 117 /CMM (150-450); RED BLOOD CELL COUNT(AUTO) 2.83 MIL/uL (4.0-5.2); WHITE BLOOD COUNT (AUTO) 4.9 K/uL (4.3-11.0)
--- NOTE | 2018-08-06 07:00 | NUR ---
RN CLOSING SHIFT NOTED PATIENT RESTING IN BED, NO ACUTE CHANGES THROUGHOUT THE SHIFT. WILL ENDORSE THE PATIENT TO THE AM SHIFT NURSE FOR CONTINUITY OF CARE
--- NOTE | 2018-08-06 07:00 | NUR ---
RN NOTES RECEIVED PATIENT ON BED, EYES OPEN, NONVERBAL , TRACH/ VENT DEPENDENT , TOLERATING CURRENT VENT SETTING WELL, NO SOB NOTED, NO MOUTH BLEEDING NOTED AT THIS TIME, CONTINUE TO MONITOR , TUBE FEEDING NEPRO AT 30CC/HR RUNNING VIA G-TUBE, TOLERATING WELL, NO RESIDUAL NOTED, MAGEN MIDLINE PATENT AND INTACT WITH D5NS AT 30CC/HR RUNNING . HOB KEPT ELEVATED FOR ASPIRATION PRECAUTIONS. ISOLATION PRECAUTIONS OBSERVED , BED IN LOWEST AND LOCKED POSITION. SR UP x3, CALL LIGHT WITHIN EASY REACH, CONTINUE TO CLOSELY MONITOR.
[2018-08-06 08:00] VITALS: BP 105/51
[2018-08-06] MEDS: PANTOPRAZOLE 40 MG VIAL IV SCH (08:15)
[2018-08-06] MEDS: AMOX/CLAVULANATE 250 MG TABLET PO SCH ×2 (08:15→21:01)
[2018-08-06] MEDS: VORICONAZOLE 200 MG TABLET PO SCH ×2 (08:15→21:01)
[2018-08-06] MEDS: Z GUARD REMEDY 2 OZ OINT TP SCH (08:17)
[2018-08-06] MEDS: HYDROGEL DRESSING 90 GM TUBE TP SCH (08:17)
--- NOTE | 2018-08-06 11:54 | NUR ---
CHARGE NOTES OK TO TRANSFER TO TELEMETRY. DC KASSY
[2018-08-06 12:00] VITALS: BP_SYST 120; BP_DIAS 38; BP_DIAS 48
--- NOTE | 2018-08-06 12:00 | NUR ---
RN NOTES TOLERIANG TF AT 30CC/HR WELL, TRACH CARE DONE , CONTINUE TO MONITOR .
[2018-08-06] MEDS: BUMETANIDE INJ 2 MG in IV NS 0.9% 32 ML IV SCH (12:04)
[2018-08-06 16:00] VITALS: BP 121/44
[2018-08-06] MEDS: NEPRO 1,000 ML BOTTLE GT PRN (17:31)
--- NOTE | 2018-08-06 18:07 | NUR ---
RN NOTES PT REMAINS THE SAME , NO SIGNIFICANT CHANGES NOTED ON THIS SHIFT.WILL ENDORSE TO FIRESTOPPER TECHNICIAN NURSE FOR CONTINUITY OF CARE
[2018-08-06 20:00] VITALS: BP 128/48
--- NOTE | 2018-08-06 20:00 | NUR ---
RN INITIAL NOTES RECEIVED PATIENT ON BED, EYES OPEN, NONVERBAL , TRACH/ VENT DEPENDENT , TOLERATING CURRENT VENT SETTING WELL, NO SOB NOTED, TUBE FEEDING NEPRO AT 30CC/HR RUNNING VIA G-TUBE, TOLERATING WELL, NO RESIDUAL NOTED, MAGEN MIDLINE PATENT AND INTACT WITH D5NS AT 30CC/HR RUNNING . HOB KEPT ELEVATED FOR ASPIRATION PRECAUTIONS. ISOLATION PRECAUTIONS OBSERVED , BED IN LOWEST AND LOCKED POSITION. SR UP x3, CALL LIGHT WITHIN EASY REACH, WILL CONTINUE TO CLOSELY MONITOR.
[2018-08-07] VITALS: BP 145/47
[2018-08-07] MEDS: BLOOD SUGAR DIAGNOSTIC 1 EACH STRIP IN SCH ×4 (00:18→18:37)
[2018-08-07] MEDS: BUMETANIDE INJ 2 MG in IV NS 0.9% 32 ML IV SCH ×2 (00:18→15:59)
[2018-08-07 04:00] VITALS: BP_SYST 137; BP_SYST 145; BP_DIAS 46; BP_DIAS 47
--- NOTE | 2018-08-07 07:02 | NUR ---
RN CLOSING NOTED PATIENT RESTING IN BED, NO ACUTE CHANGES THROUGHOUT THE SHIFT. WILL ENDORSE THE PATIENT TO THE AM SHIFT NURSE FOR CONTINUITY OF CARE
[2018-08-07 08:00] VITALS: BP 132/54
[2018-08-07] MEDS: VORICONAZOLE 200 MG TABLET PO SCH ×2 (08:09→21:29)
[2018-08-07] MEDS: PANTOPRAZOLE 40 MG VIAL IV SCH (08:09)
[2018-08-07] MEDS: AMOX/CLAVULANATE 250 MG TABLET PO SCH ×2 (08:09→21:28)
[2018-08-07] MEDS: Z GUARD REMEDY 2 OZ OINT TP SCH (08:10)
[2018-08-07] MEDS: HYDROGEL DRESSING 90 GM TUBE TP SCH (08:11)
[2018-08-07 12:00] VITALS: BP 132/54
[2018-08-07 16:00] VITALS: BP 129/65
[2018-08-07] MEDS ORDERED: MAGNESIUM HYDROXIDE 30 ML UDC GT PRN (17:30)
[2018-08-07] MEDS ORDERED: NEPRO GT SCH (17:30)
[2018-08-07] MEDS ORDERED: MISCELLANEOUS MED 1 EA EA GT PRN (17:30)
[2018-08-07] MEDS ORDERED: IPRATROPIUM NEB FS 0.5 MG/2.5 ML AMPUL.NEB IH PRN (17:30)
[2018-08-07] MEDS ORDERED: ACETAMINOPHEN 325 MG TABLET PO PRN (17:30)
[2018-08-07] MEDS ORDERED: NA PHOS,M-B/NA PHOS,DI-BA 1 EA ENEMA RC PRN (17:30)
[2018-08-07] MEDS ORDERED: BISACODYL SUPP (10 MG) 10 MG/SUPP.RECT SUPP.RECT RC PRN (17:30)
[2018-08-07] MEDS: METOPROLOL TARTRATE 25 MG TABLET GT SCH (18:37)
[2018-08-07] MEDS ORDERED: ALBUTEROL FS 2.5 MG/3 ML VIAL.NEB NEB PRN (19:30)
[2018-08-07] MEDS: ALBUTEROL FS 2.5 MG/0.5 ML VIAL.NEB NEB SCH (19:52)
[2018-08-07] MEDS: IPRATROPIUM NEB FS 0.5 MG/2.5 ML AMPUL.NEB IH SCH (19:53)
[2018-08-07 20:00] VITALS: BP_SYST 107; BP_SYST 129; BP_DIAS 48; BP_DIAS 82
--- NOTE | 2018-08-07 20:00 | NUR ---
RN INITIAL NOTES RECEIVED PATIENT ON BED, EYES OPEN, NONVERBAL , TRACH/ VENT DEPENDENT , TOLERATING CURRENT VENT SETTING WELL, NO SOB NOTED, TUBE FEEDING NEPRO AT 30CC/HR RUNNING VIA G-TUBE, TOLERATING WELL, NO RESIDUAL NOTED, MAGEN MIDLINE PATENT AND INTACT S/L . HOB KEPT ELEVATED FOR ASPIRATION PRECAUTIONS. ISOLATION PRECAUTIONS OBSERVED , BED IN LOWEST AND LOCKED POSITION. SR UP x3, CALL LIGHT WITHIN EASY REACH, WILL CONTINUE TO CLOSELY MONITOR.
[2018-08-07] MEDS: PANTOPRAZOLE 40 MG/PACK PACK GT SCH (21:26)
[2018-08-07] MEDS: SUCRALFATE 1 G/10 ML UDC GT SCH (21:26)
[2018-08-07] MEDS: ATORVASTATIN 10 MG TABLET GT SCH (21:26)
[2018-08-07] MEDS: DOCUSATE SODIUM LIQ 100 MG/10 ML UDC GT SCH (21:26)
[2018-08-08] VITALS: BP 107/48
[2018-08-08] MEDS: BLOOD SUGAR DIAGNOSTIC 1 EACH STRIP IN SCH ×4 (00:16→17:40)
[2018-08-08] MEDS: BUMETANIDE INJ 2 MG in IV NS 0.9% 32 ML IV SCH ×2 (00:16→11:24)
[2018-08-08] MEDS: METOPROLOL TARTRATE 25 MG TABLET GT SCH ×5 (00:16→17:41)
[2018-08-08] MEDS: IPRATROPIUM NEB FS 0.5 MG/2.5 ML AMPUL.NEB IH SCH ×4 (01:30→20:05)
[2018-08-08] MEDS: ALBUTEROL FS 2.5 MG/0.5 ML VIAL.NEB NEB SCH ×4 (01:30→20:05)
[2018-08-08 04:00] VITALS: BP 109/47
[2018-08-08] MEDS: NEPRO 1,000 ML BOTTLE GT PRN (06:22)
--- NOTE | 2018-08-08 06:54 | NUR ---
RN CLOSING NOTED PATIENT RESTING IN BED, NO ACUTE CHANGES THROUGHOUT THE SHIFT. WILL ENDORSE THE PATIENT TO THE AM SHIFT NURSE FOR CONTINUITY OF CARE
[2018-08-08 07:09] LABS: BASOPHILS % (AUTO) 0.3 % (0.0-2.0); HEMATOCRIT 24 % (33-45); HEMOGLOBIN 7.8 g/dL (11.5-14.8); LYMPHOCYTES # (AUTO) 0.4 /CMM (0.8-4.8); LYMPHOCYTES % (AUTO) 4.8 % (20.0-44.0); MEAN CORPUSCULAR HGB CONC 32 g/dl (31.0-36.0); MEAN CORPUSCULAR VOLUME 90 fL (82-100); MONOCYTES # (AUTO) 0.4 /CMM (0.1-1.30); NEUTROPHILS # (AUTO) 7.1 /CMM (1.8-8.9); NEUTROPHILS % (AUTO) 86.9 % (43.0-81.0); PLATELET COUNT (AUTO) 107 /CMM (150-450); RED BLOOD CELL COUNT(AUTO) 2.68 MIL/uL (4.0-5.2); WHITE BLOOD COUNT (AUTO) 8.1 K/uL (4.3-11.0)
[2018-08-08 07:31] LABS: CALCIUM, SERUM 8.5 mg/dL (8.5-10.1); CREATININE 1.9 mg/dL (0.6-1.3); MAGNESIUM 1.8 mg/dL (1.8-2.4); PHOSPHORUS 4.8 mg/dL (2.5-4.9)
--- NOTE | 2018-08-08 07:57 | NUR ---
RT PATIENT REC'D TRACHED ON [facility] VENT WITH ORDERED SETTINGS VERNA WELL. VENT ALARMS CHECKED + AUDIBLE. CUFF PRESSURE CHECKED STATION MECHANIC HELPER. PATIENT SUCTIONED WITH MOD TAMMYT OF ADRIANNA SEMITHICK SECRETIONS. B/S DIM COARSE. AMBU BAG AT [facility]. VENT PLUGGED ONTO RED OUTLET. Addendum: 08/08/18 at 1051 by JABIER KIMBALL RT Amended: Links added.
[2018-08-08 08:00] VITALS: BP 114/55
[2018-08-08] MEDS: MULTIVITAMINS,THERAGRAN 1 UDTAB TABLET GT SCH (08:35)
[2018-08-08] MEDS: FERROUS SULFATE UDC 300 MG/5 ML UDC GT SCH ×3 (08:36→17:00)
[2018-08-08] MEDS: ASCORBIC ACID 500 MG TABLET GT SCH (08:36)
[2018-08-08] MEDS: CALCIUM ACETATE 667 MG TABLET GT SCH ×3 (08:36→17:00)
[2018-08-08] MEDS: LEVETIRACETAM SOL (5 ML) 100 MG/ML UDC GT SCH ×2 (08:36→17:39)
[2018-08-08] MEDS: ZINC SULFATE 220 MG CAPSULE GT SCH (08:36)
[2018-08-08] MEDS: LACTOBACILLUS RHAMNOSUS GG 1 EACH CAP.SPRINK GT SCH (08:36)
[2018-08-08] MEDS: SUCRALFATE 1 G/10 ML UDC GT SCH ×4 (08:37→21:31)
[2018-08-08] MEDS: VORICONAZOLE 200 MG TABLET PO SCH ×2 (08:37→21:32)
[2018-08-08] MEDS: PANTOPRAZOLE 40 MG VIAL IV SCH (08:37)
[2018-08-08] MEDS: SEVELAMER CARBONATE 0.8 GM POWD.PACK GT SCH (08:37)
[2018-08-08] MEDS: AMOX/CLAVULANATE 250 MG TABLET PO SCH ×2 (08:37→21:31)
[2018-08-08] MEDS: Z GUARD REMEDY 2 OZ OINT TP SCH (08:38)
[2018-08-08] MEDS: HYDROGEL DRESSING 90 GM TUBE TP SCH (08:39)
[2018-08-08] MEDS ORDERED: HYDROCODONE/APAP 5/325MG 1 EACH TABLET GT SCH (09:00)
[2018-08-08] MEDS: PANTOPRAZOLE 40 MG/PACK PACK GT SCH ×2 (09:00→21:31)
[2018-08-08] MEDS ORDERED: LOSARTAN/HCTZ 50-12.5MG/ 1 EA TABLET GT SCH (09:00)
[2018-08-08 12:00] VITALS: BP 128/83
[2018-08-08] MEDS ORDERED: POTASSIUM CHLORIDE 20 MEQ TAB.PRT.SR PO SCH (12:00)
[2018-08-08] MEDS ORDERED: POTASSIUM CHLORIDE 20 MEQ POWDER PACKET GT SCH (12:30)
[2018-08-08] MEDS: POTASSIUM CHLORIDE 20 MEQ POWDER PACKET GT SCH ×2 (12:37→14:47)
[2018-08-08] MEDS ORDERED: LOSARTAN POTASSIUM 50 MG TABLET GT SCH (12:37)
[2018-08-08] MEDS: LOSARTAN POTASSIUM 50 MG TABLET GT SCH (14:47)
--- NOTE | 2018-08-08 15:15 | NUR ---
rn note pt noted to have leaking g tube, SHAREE Chambers is notified, per SHAREE Brenner to hold of tube feeding until GI MD sees the patient. will follow through. and pass it to next shift.
[2018-08-08 16:00] VITALS: BP 111/49
--- NOTE | 2018-08-08 16:30 | NUR ---
RN NOTE DR HUYNH NOTIFIED ABOUT GI CONSULT AND G TUBE LEAKING. NO NEW ORDERS AT THIS TIME.
[2018-08-08] MEDS ORDERED: EPOETIN ALFA (10,000 UNIT) 10,000 UNIT/ML VIAL SQ SCH (17:30)
[2018-08-08] MEDS: EPOETIN ALFA (4000 UNIT) 4,000 UNIT/ML VIAL IV SCH (17:40)
[2018-08-08 20:00] VITALS: BP 108/40
--- NOTE | 2018-08-08 20:00 | NUR ---
RN/TELE NOTES: RECEIVED PT. IN BED W/ HOB ELEVATED. PT. IS NON VERBAL OBTUNDED W/ EYES OPEN. ON MECH. VENT TOLERATING SETTING WELL. SUCTIONS PRN FOR THIN WHITE/YELLOWISH COLOR SECRETIONS. ON CONTACT ISOLATION FOR ACINETOBACTER URINE. W/ GTF ON HOLD RIGHT NOW DUE TO LEAKING. HAS A F/C PATENT AND INTACT DRAINING URINE. HAS A MAGEN MIDLINE PATENT AND INTACT. ON TELE MONITOR W/ AFIB AND OCC. VPACING. HAS A PACE MAKER. NO FACIAL GRIMACE OR MOANING NOTED. CALL LIGHT W/ REACH. WILL CONTINUE TO MONITOR.
--- NOTE | 2018-08-08 20:06 | NUR ---
PT RCVD TRACH PORTEX 7 ON VENT WITH NOTED SETTINGS. PT IS NON VERBAL, OBTUNDED. BREATHING TX GIVEN PER MD'S ORDER, NO ADVERSE REACTION NOTED. SUCTIONED MODERATE AMOUNT OF RODAS THICK SECRETIONS. VENT PLUGGED INTO RED OUTLET. TRACH PATENT AND SECURED. AMBU BAG AT BEDSIDE. WILL CONTINUE TO MONITOR THE PT.
[2018-08-08] MEDS: DOCUSATE SODIUM LIQ 100 MG/10 ML UDC GT SCH (21:31)
[2018-08-08] MEDS: ATORVASTATIN 10 MG TABLET GT SCH (21:31)
[2018-08-08] MEDS: IV D5/ 0.9% NACL 1,000 ML IV PRN (23:17)
[2018-08-09] VITALS: BP_SYST 105; BP_DIAS 29; BP_DIAS 49
[2018-08-09] MEDS: BLOOD SUGAR DIAGNOSTIC 1 EACH STRIP IN SCH ×5 (00:53→23:44)
[2018-08-09] MEDS ORDERED: BUMETANIDE INJ 0.25 MG/ML VIAL ONE (01:01)
[2018-08-09] MEDS: BUMETANIDE INJ 2 MG in IV NS 0.9% 32 ML IV SCH ×3 (01:18→23:37)
[2018-08-09] MEDS: IPRATROPIUM NEB FS 0.5 MG/2.5 ML AMPUL.NEB IH SCH ×4 (01:25→19:15)
[2018-08-09] MEDS: ALBUTEROL FS 2.5 MG/0.5 ML VIAL.NEB NEB SCH ×4 (01:25→19:15)
[2018-08-09 04:00] VITALS: BP 106/46
[2018-08-09] MEDS: METOPROLOL TARTRATE 25 MG TABLET GT SCH ×4 (06:00→17:37)
[2018-08-09 06:32] LABS: BASOPHILS % (AUTO) 0.2 % (0.0-2.0); EOSINOPHILS % (AUTO) 2.8 % (0.0-6.0); HEMATOCRIT 24 % (33-45); HEMOGLOBIN 7.8 g/dL (11.5-14.8); LYMPHOCYTES # (AUTO) 0.3 /CMM (0.8-4.8); LYMPHOCYTES % (AUTO) 3.7 % (20.0-44.0); MEAN CORPUSCULAR HGB CONC 33 g/dl (31.0-36.0); MEAN CORPUSCULAR VOLUME 91 fL (82-100); MONOCYTES # (AUTO) 0.3 /CMM (0.1-1.30); MONOCYTES % (AUTO) 3.7 % (2.0-12.0); NEUTROPHILS # (AUTO) 7.6 /CMM (1.8-8.9); NEUTROPHILS % (AUTO) 89.6 % (43.0-81.0); PLATELET COUNT (AUTO) 124 /CMM (150-450); RED BLOOD CELL COUNT(AUTO) 2.61 MIL/uL (4.0-5.2); WHITE BLOOD COUNT (AUTO) 8.5 K/uL (4.3-11.0)
[2018-08-09 06:35] LABS: CALCIUM, SERUM 8.3 mg/dL (8.5-10.1); CREATININE 1.9 mg/dL (0.6-1.3); MAGNESIUM 1.7 mg/dL (1.8-2.4); PHOSPHORUS 4.8 mg/dL (2.5-4.9); POTASSIUM 3.4 mmol/L (3.5-5.1)
--- NOTE | 2018-08-09 07:37 | NUR ---
MS/TELE NOTES: REPORT GIVEN TO NEXT SHIFT NURSE FOR GAYLE.
--- NOTE | 2018-08-09 07:40 | NUR ---
SLEEP TECHNICIAN OPENING NOTES RECEIVED PT FROM NIGHTSHIFT RN IN STABLE CONDITION. PT IS OBTUNDED. OPENS HER EYES SPONTANEOUSLY AND IS RESPONSIVE TO PAINFUL STIMULI. PT IS TRACH AND VENT DEPENDENT. TRACH SETTINGS VERIFIED FOR ACCURACY. (PORTEX 8 AC 14, TV 400, FIO2 30%, PEEP 5). PT CURRENTLY AFIB ON THE TELE MONITOR WITH OCCASIONAL V PACING. RIGHT UPPER ARM MIDLINE NOTED TO BE PATENT AND INTACT. NO REDNESS OR SIGNS OF INFILTRATION NOTED. PT TOLERATING IV INFUSION WELL. MARION CATHETER NOTED TO BE INTACT AND DRAINING. GTUBE NOTED TO BE CLAMPED AT THIS TIME IT WAS REPORTED TO BE LEAKING. PT SCHEDULED TO BE FURTHER EVALUATED BY DR. WELLS IN REGARDS TO THIS. BED IN LOW LOCKED POSITION. SIDE RIAL SUP X3, CALL LIGHT WITHIN REACH, CONTACT ISOLATION PRECAUTION MAINTAINED. WILL CONTINUE TO MONITOR
[2018-08-09 08:00] VITALS: BP 95/54
[2018-08-09] MEDS: MULTIVITAMINS,THERAGRAN 1 UDTAB TABLET GT SCH (08:12)
[2018-08-09] MEDS: SEVELAMER CARBONATE 0.8 GM POWD.PACK GT SCH (08:12)
[2018-08-09] MEDS: LEVETIRACETAM SOL (5 ML) 100 MG/ML UDC GT SCH ×2 (08:12→17:26)
[2018-08-09] MEDS: FERROUS SULFATE UDC 300 MG/5 ML UDC GT SCH ×3 (08:12→17:26)
[2018-08-09] MEDS: AMOX/CLAVULANATE 250 MG TABLET PO SCH ×2 (08:12→21:26)
[2018-08-09] MEDS: CALCIUM ACETATE 667 MG TABLET GT SCH ×3 (08:12→17:26)
[2018-08-09] MEDS: LACTOBACILLUS RHAMNOSUS GG 1 EACH CAP.SPRINK GT SCH (08:12)
[2018-08-09] MEDS: HYDROCHLOROTHIAZIDE 25 MG TABLET PO SCH (08:13)
[2018-08-09] MEDS: SUCRALFATE 1 G/10 ML UDC GT SCH ×4 (08:13→21:26)
[2018-08-09] MEDS: ZINC SULFATE 220 MG CAPSULE GT SCH (08:13)
[2018-08-09] MEDS: PANTOPRAZOLE 40 MG/PACK PACK GT SCH ×2 (08:13→21:26)
[2018-08-09] MEDS: ASCORBIC ACID 500 MG TABLET GT SCH (08:13)
[2018-08-09] MEDS: LOSARTAN POTASSIUM 50 MG TABLET GT SCH (08:14)
[2018-08-09] MEDS: VORICONAZOLE 200 MG TABLET PO SCH (08:14)
[2018-08-09] MEDS: Z GUARD REMEDY 2 OZ OINT TP SCH (08:34)
[2018-08-09] MEDS: HYDROGEL DRESSING 90 GM TUBE TP SCH (08:34)
[2018-08-09] MEDS ORDERED: POTASSIUM CHLORIDE 10 MEQ TABLET.SA PO ONE (10:00)
[2018-08-09] MEDS ORDERED: POTASSIUM CHLORIDE 20 MEQ POWDER PACKET PO ONE (10:30)
[2018-08-09] MEDS ORDERED: Magnesium 1GM/D5W 100ML PREMIX 100 ML IV SCH (10:52)
[2018-08-09 12:00] VITALS: BP 142/56
[2018-08-09] MEDS ORDERED: ZINC OXIDE 30 GM TUBE TP PRN (13:30)
[2018-08-09 16:00] VITALS: BP 123/70
--- NOTE | 2018-08-09 16:32 | NUR ---
RN NOTE: RECEIVED A PHONE CALL FROM DR. FLORES RE: THE INSERTION OF HEMODIALYSIS CATHETER FOR THE PATIENT. ORDER, NOTED AND CARRIED OUT. PRIMARY NURSE MADE AWARE.
[2018-08-09] MEDS: IV D5/ 0.9% NACL 1,000 ML IV PRN (17:27)
--- NOTE | 2018-08-09 18:02 | NUR ---
TRANS ROUTER NOTES: SURGICALS CONSULT (YANETH) NURSE CLINICAL YANETH AT BEDSIDES TO ASSESS PT'S GTUBE. PER NURSE CLINICAL "IF PT HAS ASCITES, THEN A PARACENTESIS WILL BE NEEDS BEFORE ANY SURGICAL INTERVENTIONS. WE MAY CONTINUE WITH MEDICATIONS THROUGH THE GTUBE BUT CONTINUE TO HOLD FEEDINGS".
--- NOTE | 2018-08-09 18:45 | NUR ---
AIR CARGO SPECIALIST SUPERVISOR NOTES: HD CATH PLACEMENT DR. FLORES AT BEDSIDE. PER MD "PT HAS NO ACCESS AND THEREFORE A CATHETER CAN NOT BE PLACED". SHAREE DAVILA AND DR. WESTON MADE AWARE.
--- NOTE | 2018-08-09 18:48 | NUR ---
ASSESSMENT EXPERT CLOSING NOTES PT REMAINS STABLE.ALL NEEDS MET DURING SHIFT AND ORDERS CARRIED OUT ACCORDINGLY ALL DUE MEDS GIVEN. WOUND AND PRN CARE RENDERED. WOUND DRESSINGS REMAIN C/D/I. PT REPOSITIONED AND TURNED PER HOSPITAL PROTOCOL. PICC LINE REMAINS PATENT AND INTACT. MARION CATHETER REMAINS INTACT. PT HAD A TOTAL OF 550 OUTPUT. SAFETY AND ISOLATION PRECAUTIONS REMAINS IN SPACE. WILL ENDORSE TO NIGHTSHIFT RN FOR GAYLE
[2018-08-09 20:00] VITALS: BP 118/86
[2018-08-09] MEDS: DOCUSATE SODIUM LIQ 100 MG/10 ML UDC GT SCH (21:26)
[2018-08-09] MEDS: ATORVASTATIN 10 MG TABLET GT SCH (21:26)
--- NOTE | 2018-08-09 23:50 | NUR ---
RN GAVE REPORT AND PATIENT TO HUEY REAL
--- NOTE | 2018-08-09 23:55 | NUR ---
RN NOTES RECEIVED PT. FROM HUEY FOFANA, OBTUNDED, VENT DEPENDENT, A-FIB ON TELE MONITOR HR-63, NOT IN DISTRESS, NO PAIN NOTED, SIDERAILSUPX2, CONTINUE TO MONITOR
[2018-08-10] VITALS (7 sets, daily range): BP systolic 111–124; BP diastolic 45–81
[2018-08-10] MEDS: METOPROLOL TARTRATE 25 MG TABLET GT SCH ×4 (00:12→17:09)
[2018-08-10] MEDS: ALBUTEROL FS 2.5 MG/0.5 ML VIAL.NEB NEB SCH ×4 (01:33→19:32)
[2018-08-10] MEDS: IPRATROPIUM NEB FS 0.5 MG/2.5 ML AMPUL.NEB IH SCH ×4 (01:33→19:32)
--- NOTE | 2018-08-10 02:30 | NUR ---
RN NOTES DR. ISATU MULLER CAME AND INSERTED HD CATH ON THE RIGHT NECK, STAT XRAY WAS ORDERED
[2018-08-10] MEDS: BLOOD SUGAR DIAGNOSTIC 1 EACH STRIP IN SCH ×4 (06:05→23:14)
[2018-08-10 06:37] LABS: BASOPHILS % (AUTO) 0.4 % (0.0-2.0); EOSINOPHILS % (AUTO) 10.5 % (0.0-6.0); HEMATOCRIT 24 % (33-45); HEMOGLOBIN 7.9 g/dL (11.5-14.8); LYMPHOCYTES # (AUTO) 0.3 /CMM (0.8-4.8); LYMPHOCYTES % (AUTO) 6.2 % (20.0-44.0); MEAN CORPUSCULAR HGB CONC 33 g/dl (31.0-36.0); MEAN CORPUSCULAR VOLUME 90 fL (82-100); MONOCYTES # (AUTO) 0.3 /CMM (0.1-1.30); MONOCYTES % (AUTO) 5.7 % (2.0-12.0); NEUTROPHILS % (AUTO) 77.2 % (43.0-81.0); PLATELET COUNT (AUTO) 122 /CMM (150-450); RED BLOOD CELL COUNT(AUTO) 2.66 MIL/uL (4.0-5.2); WHITE BLOOD COUNT (AUTO) 5.2 K/uL (4.3-11.0)
--- NOTE | 2018-08-10 06:37 | NUR ---
RN NOTES SLEEPING BUT AROUSABLE, NOT IN DISTRESS , NO PAIN NOTED, MORNING CARE RENDERED, G-TUBE IN PLACE, SIDERAILSUPX2, PT. NEEDS ATTENDED
[2018-08-10 06:51] LABS: CALCIUM, SERUM 8.1 mg/dL (8.5-10.1); CREATININE 1.9 mg/dL (0.6-1.3); MAGNESIUM 1.9 mg/dL (1.8-2.4); PHOSPHORUS 4.7 mg/dL (2.5-4.9); POTASSIUM 3.5 mmol/L (3.5-5.1)
--- NOTE | 2018-08-10 08:00 | NUR ---
BARREL PLATER OPENING NOTES RECEIVED PT IS OBTUNDED. OPENS HER EYES SPONTANEOUSLY AND IS RESPONSIVE TO PAINFUL STIMULI. PT IS TRACH AND VENT DEPENDENT. TRACH SETTINGS VERIFIED FOR ACCURACY. (PORTEX 8 AC 14, TV 400, FIO2 30%, PEEP 5). O2 SAT 100% PT CURRENTLY AFIB ON THE TELE MONITOR WITH OCCASIONAL V PACING. RIGHT UPPER ARM MIDLINE NOTED TO BE PATENT AND INTACT. NO REDNESS OR SIGNS OF INFILTRATION NOTED. PT TOLERATING IV INFUSION WELL. MARION CATHETER NOTED TO BE INTACT AND DRAINING. GTUBE NOTED TO BE CLAMPED AT THIS TIME IT WAS REPORTED TO BE LEAKING. PT SCHEDULED TO BE FURTHER EVALUATED BY DR. WELLS IN REGARDS TO THIS. BED IN LOW LOCKED POSITION. SIDE RIAL SUP X3, CALL LIGHT WITHIN REACH, CONTACT ISOLATION PRECAUTION FOR ACINETOBACTER URINE MAINTAINED. WILL CONTINUE TO MONITOR
[2018-08-10] MEDS: SEVELAMER CARBONATE 0.8 GM POWD.PACK GT SCH (08:50)
[2018-08-10] MEDS: LACTOBACILLUS RHAMNOSUS GG 1 EACH CAP.SPRINK GT SCH (08:50)
[2018-08-10] MEDS: SUCRALFATE 1 G/10 ML UDC GT SCH ×4 (08:50→21:19)
[2018-08-10] MEDS: LEVETIRACETAM SOL (5 ML) 100 MG/ML UDC GT SCH ×2 (08:50→16:54)
[2018-08-10] MEDS: MULTIVITAMINS,THERAGRAN 1 UDTAB TABLET GT SCH (08:50)
[2018-08-10] MEDS: ZINC SULFATE 220 MG CAPSULE GT SCH (08:50)
[2018-08-10] MEDS: ASCORBIC ACID 500 MG TABLET GT SCH (08:51)
[2018-08-10] MEDS: LOSARTAN POTASSIUM 50 MG TABLET GT SCH (08:51)
[2018-08-10] MEDS: FERROUS SULFATE UDC 300 MG/5 ML UDC GT SCH ×3 (08:51→16:54)
[2018-08-10] MEDS: PANTOPRAZOLE 40 MG/PACK PACK GT SCH ×2 (08:51→21:19)
[2018-08-10] MEDS: CALCIUM ACETATE 667 MG TABLET GT SCH ×3 (08:51→16:54)
[2018-08-10] MEDS: Z GUARD REMEDY 2 OZ OINT TP SCH (08:52)
[2018-08-10] MEDS: HYDROCHLOROTHIAZIDE 25 MG TABLET PO SCH (08:52)
[2018-08-10] MEDS: HYDROGEL DRESSING 90 GM TUBE TP SCH (09:29)
[2018-08-10] MEDS: IV D5/ 0.9% NACL 1,000 ML IV PRN (10:55)
--- NOTE | 2018-08-10 12:26 | NUR ---
PT HAS ONGOING HD PROCEDURE AT THIS TIME.WILL ADMINISTER BUMEX IV LATER.
[2018-08-10] MEDS: BUMETANIDE INJ 2 MG in IV NS 0.9% 32 ML IV SCH ×2 (14:48→23:18)
[2018-08-10] MEDS: EPOETIN ALFA (4000 UNIT) 4,000 UNIT/ML VIAL IV SCH (17:04)
--- NOTE | 2018-08-10 19:32 | NUR ---
PER HOSPITALIST ARRANGE FAMILY MEETING TO DISCUSSED PLAN OF CARE. SPOKE WITH PTS THELMA LIMON ABLE TO COME TO THE HOSPITAL ON 08/12/18 @ 10 AM. HOSPITALIST MADE AWARE. Addendum: 08/10/18 at 1932 by GARTH CHONG CMG Amended: Links added.
--- NOTE | 2018-08-10 19:36 | NUR ---
RT PATIENT REC'D TRACHED ON [facility] VENT WITH ORDERED SETTINGS VERNA WELL. VENT ALARMS CHECKED + AUDIBLE. CUFF PRESSURE CHECKED MACHINE CEMENTER. PATIENT SUCTIONED WITH MOD MEDARDO OF ADRIANNA TRUONGTHICK SECRETIONS. B/S DIM COARSE. AMBU BAG AT [facility]. VENT PLUGGED ONTO RED OUTLET. Addendum: 08/10/18 at 1936 by JULIUS CID RT Amended: Links added.
[2018-08-10] MEDS: DOCUSATE SODIUM LIQ 100 MG/10 ML UDC GT SCH (21:19)
[2018-08-10] MEDS: ATORVASTATIN 10 MG TABLET GT SCH (21:19)
[2018-08-11] VITALS (7 sets, daily range): BP systolic 119–155; BP diastolic 8–85
[2018-08-11] MEDS: IV D5/ 0.9% NACL 1,000 ML IV PRN ×2 (00:20→19:51)
[2018-08-11] MEDS: ALBUTEROL FS 2.5 MG/0.5 ML VIAL.NEB NEB SCH ×4 (01:07→19:41)
[2018-08-11] MEDS: IPRATROPIUM NEB FS 0.5 MG/2.5 ML AMPUL.NEB IH SCH ×4 (01:07→19:41)
[2018-08-11] MEDS: BLOOD SUGAR DIAGNOSTIC 1 EACH STRIP IN SCH ×3 (05:13→18:15)
[2018-08-11] MEDS: METOPROLOL TARTRATE 25 MG TABLET GT SCH ×4 (05:15→17:53)
--- NOTE | 2018-08-11 07:00 | NUR ---
CUSTOMER SALES ADVISOR OPENING NOTES RECEIVED PT LYING ON BED.ALERT/ORIENTED X1 WITH OBTUNDED.ON TRACH AND VENT SETTINGS.NO SOB AND ACUTE DISTRESS NOTED.ON FC IN PLACE.G TUBE IS IN PLACE WITH MINIMAL LEAKING,IS CLAMPED.NOTED ABDOMEN IS DISTENDED.HD CATH IS ON RIGHT NECK AND MID LINE IS ON RIGHT UPPER ARM.SITE IS CLEAN,DRY AND INTACT.SAFTEY IS MAINTAINED AT ALL TIMES.BED IS IN LOW POSITION AND LOCKED.CALL LIGHT IS WITHIN REACH.WILL CONTINUE TO MONITOR THE PT CLOSELY.
[2018-08-11 07:15] LABS: BASOPHILS % (AUTO) 0.8 % (0.0-2.0); EOSINOPHILS % (AUTO) 10.8 % (0.0-6.0); HEMATOCRIT 25 % (33-45); HEMOGLOBIN 8.2 g/dL (11.5-14.8); LYMPHOCYTES # (AUTO) 0.2 /CMM (0.8-4.8); LYMPHOCYTES % (AUTO) 3.7 % (20.0-44.0); MEAN CORPUSCULAR HGB CONC 32 g/dl (31.0-36.0); MEAN CORPUSCULAR VOLUME 91 fL (82-100); MONOCYTES # (AUTO) 0.3 /CMM (0.1-1.30); MONOCYTES % (AUTO) 7.4 % (2.0-12.0); NEUTROPHILS # (AUTO) 3.3 /CMM (1.8-8.9); NEUTROPHILS % (AUTO) 77.3 % (43.0-81.0); PLATELET COUNT (AUTO) 146 /CMM (150-450); RED BLOOD CELL COUNT(AUTO) 2.78 MIL/uL (4.0-5.2); WHITE BLOOD COUNT (AUTO) 4.2 K/uL (4.3-11.0)
[2018-08-11 07:20] LABS: CREATININE 1.4 mg/dL (0.6-1.3); MAGNESIUM 1.8 mg/dL (1.8-2.4); PHOSPHORUS 4.1 mg/dL (2.5-4.9); POTASSIUM 3.3 mmol/L (3.5-5.1)
[2018-08-11] MEDS: FERROUS SULFATE UDC 300 MG/5 ML UDC GT SCH ×3 (08:23→17:53)
[2018-08-11] MEDS: SUCRALFATE 1 G/10 ML UDC GT SCH ×4 (08:23→22:11)
[2018-08-11] MEDS: LEVETIRACETAM SOL (5 ML) 100 MG/ML UDC GT SCH ×2 (08:23→17:53)
[2018-08-11] MEDS: CALCIUM ACETATE 667 MG TABLET GT SCH ×3 (08:24→17:53)
[2018-08-11] MEDS: LACTOBACILLUS RHAMNOSUS GG 1 EACH CAP.SPRINK GT SCH (08:24)
[2018-08-11] MEDS: ASCORBIC ACID 500 MG TABLET GT SCH (08:24)
[2018-08-11] MEDS: HYDROCHLOROTHIAZIDE 25 MG TABLET PO SCH (08:24)
[2018-08-11] MEDS: PANTOPRAZOLE 40 MG/PACK PACK GT SCH ×2 (08:25→22:12)
[2018-08-11] MEDS: LOSARTAN POTASSIUM 50 MG TABLET GT SCH (08:25)
[2018-08-11] MEDS: SEVELAMER CARBONATE 0.8 GM POWD.PACK GT SCH (08:25)
[2018-08-11] MEDS: ZINC SULFATE 220 MG CAPSULE GT SCH (08:25)
[2018-08-11] MEDS: MULTIVITAMINS,THERAGRAN 1 UDTAB TABLET GT SCH (08:25)
[2018-08-11] MEDS: Z GUARD REMEDY 2 OZ OINT TP SCH (08:42)
[2018-08-11] MEDS: HYDROGEL DRESSING 90 GM TUBE TP SCH (08:42)
[2018-08-11] MEDS ORDERED: POTASSIUM CHLORIDE 20 MEQ POWDER PACKET GT SCH (10:30)
--- NOTE | 2018-08-11 18:50 | NUR ---
TELR RN CLOSING NOTES PT IS LYING ON BED.CLEAN AND DRY.G TUBE IS STILL LEAKING.DRESSING HAS DONE.VITAL SIGNS ARE WNL.STILL ON NPO.ENDORSED TO BUSINESS SPECIALIST RN FOR GAYLE AND MONITOR THE BLOOD SUGAR.
[2018-08-11] MEDS: DOCUSATE SODIUM LIQ 100 MG/10 ML UDC GT SCH (22:09)
[2018-08-11] MEDS: ATORVASTATIN 10 MG TABLET GT SCH (22:11)
[2018-08-12] VITALS: BP 113/44
[2018-08-12] MEDS: METOPROLOL TARTRATE 25 MG TABLET GT SCH ×4 (00:09→17:10)
[2018-08-12] MEDS: INSULIN REGULAR, HUMAN 100 UNIT/ML 3 ML VIAL SQ PRN ×2 (00:10→05:56)
[2018-08-12] MEDS: BLOOD SUGAR DIAGNOSTIC 1 EACH STRIP IN SCH ×4 (00:11→17:33)
[2018-08-12] MEDS: ALBUTEROL FS 2.5 MG/0.5 ML VIAL.NEB NEB SCH ×4 (01:12→19:13)
[2018-08-12] MEDS: IPRATROPIUM NEB FS 0.5 MG/2.5 ML AMPUL.NEB IH SCH ×4 (01:12→19:13)
--- NOTE | 2018-08-12 01:29 | NUR ---
PT RCVD ON MECHANICAL VENT WITH CHARTED SETTINGS. HHN TX GIVEN AND NO ADVERSE REACTION NOTED. SX DONE. PT TRACH PATENT AND SECURE. CUFF CHECKED VIA FASHION EDITOR. ALARMS ARE ON AND AUDIBLE. VENT PLUGGED INTO RED OUTLET. AMBU BAG AT BEDSIDE. WILL CONTINUE TO MONITOR. Addendum: 08/12/18 at 0132 by RADHA STRICKLAND RT Amended: Links added.
[2018-08-12 04:00] VITALS: BP 118/36
[2018-08-12 06:08] LABS: BASOPHILS % (AUTO) 0.5 % (0.0-2.0); HEMATOCRIT 25 % (33-45); HEMOGLOBIN 8.3 g/dL (11.5-14.8); LYMPHOCYTES # (AUTO) 0.3 /CMM (0.8-4.8); LYMPHOCYTES % (AUTO) 6.5 % (20.0-44.0); MEAN CORPUSCULAR HGB CONC 33 g/dl (31.0-36.0); MEAN CORPUSCULAR VOLUME 91 fL (82-100); MONOCYTES # (AUTO) 0.4 /CMM (0.1-1.30); MONOCYTES % (AUTO) 8.7 % (2.0-12.0); NEUTROPHILS # (AUTO) 3.1 /CMM (1.8-8.9); NEUTROPHILS % (AUTO) 74.3 % (43.0-81.0); PLATELET COUNT (AUTO) 115 /CMM (150-450); RED BLOOD CELL COUNT(AUTO) 2.79 MIL/uL (4.0-5.2); WHITE BLOOD COUNT (AUTO) 4.1 K/uL (4.3-11.0)
[2018-08-12 06:18] LABS: ALBUMIN 1.7 g/dL (3.4-5.0); BILIRUBIN,TOTAL 0.7 mg/dL (0.2-1.0); CREATININE 1.2 mg/dL (0.6-1.3); MAGNESIUM 1.7 mg/dL (1.8-2.4); PHOSPHORUS 3.1 mg/dL (2.5-4.9); POTASSIUM 3.3 mmol/L (3.5-5.1); TOTAL PROTEIN, SERUM 7.7 g/dL (6.4-8.2)
--- NOTE | 2018-08-12 07:00 | NUR ---
PILLOWCASE SEWER OPENING NOTES RECEIVED PT LYING ON BED.ALERT/ORIENTED X1 WITH OBTUNDED.ON VENT SETTINGS,TOLERATING WELL.NO SOB AND ACUTE DISTRESS NOTED.HAS F/C WITH CLOUDY YELLOW IN COLOR.O G TUBE IS IN PLACE AND HAS MILD LEAKING NOTED.G TUBE FEEING IS ON HOLD.MIDLINE IS ON RIGHT UA.AND RIGHT NECK HD CATH PRESENT.SITE IS CLEAN DRY AND INTACT.SAFETY IS MAINTAINED AT ALL TIMES.BED IS IN LOW POSITION AND LOCKED.CALL LIGHT IS WITHIN REACH.WILL CONTINUE TO MONITOR THE PT CLOSELY.
--- NOTE | 2018-08-12 07:31 | NUR ---
RT NOTE RECEIVED PT MECHANICALLY VENTILATED VIA PORTEX 7 CUFFED TRACHEOSTOMY TUBE. CUFF INFLATED. TRACH TUBE MIDLINE AND SECURE. VENTILATOR SETTINGS PRESCRIBED. ALARMS SET PER PROTOCOL AND AUDIBLE. VENT PLUGGED IN TO RED OUTLET. AMBU BAG AT BED SIDE. NO DISTRESS NOTED AT MOMENT. Addendum: 08/12/18 at 0732 by GAIL SINGH RT Amended: Links added.
[2018-08-12 08:00] VITALS: BP 125/49
[2018-08-12] MEDS: ZINC SULFATE 220 MG CAPSULE GT SCH (08:12)
[2018-08-12] MEDS: HYDROCHLOROTHIAZIDE 25 MG TABLET PO SCH (08:12)
[2018-08-12] MEDS: LEVETIRACETAM SOL (5 ML) 100 MG/ML UDC GT SCH ×2 (08:13→17:10)
[2018-08-12] MEDS: LACTOBACILLUS RHAMNOSUS GG 1 EACH CAP.SPRINK GT SCH (08:13)
[2018-08-12] MEDS: CALCIUM ACETATE 667 MG TABLET GT SCH ×3 (08:13→17:10)
[2018-08-12] MEDS: PANTOPRAZOLE 40 MG/PACK PACK GT SCH ×2 (08:13→22:05)
[2018-08-12] MEDS: ASCORBIC ACID 500 MG TABLET GT SCH (08:13)
[2018-08-12] MEDS: SUCRALFATE 1 G/10 ML UDC GT SCH ×4 (08:13→22:05)
[2018-08-12] MEDS: MULTIVITAMINS,THERAGRAN 1 UDTAB TABLET GT SCH (08:13)
[2018-08-12] MEDS: LOSARTAN POTASSIUM 50 MG TABLET GT SCH (08:13)
[2018-08-12] MEDS: FERROUS SULFATE UDC 300 MG/5 ML UDC GT SCH ×3 (08:13→17:10)
[2018-08-12] MEDS: SEVELAMER CARBONATE 0.8 GM POWD.PACK GT SCH (08:14)
[2018-08-12] MEDS: Z GUARD REMEDY 2 OZ OINT TP SCH (08:37)
[2018-08-12] MEDS: HYDROGEL DRESSING 90 GM TUBE TP SCH (08:37)
[2018-08-12] MEDS: Magnesium 1GM/D5W 100ML PREMIX 100 ML IV SCH ×2 (09:33→10:37)
[2018-08-12] MEDS ORDERED: POTASSIUM CHLORIDE 20 MEQ POWDER PACKET GT SCH (10:00)
[2018-08-12] MEDS: IV D5/ 0.9% NACL 1,000 ML IV PRN (11:57)
[2018-08-12 12:00] VITALS: BP 111/39
[2018-08-12 16:00] VITALS: BP 138/38
[2018-08-12] MEDS: DEXTROSE 50%-WATER 50 ML DISP.SYRIN IV PRN (17:24)
--- NOTE | 2018-08-12 17:24 | NUR ---
SCALE MECHANIC NOTES BLOOD SUGAR IS CHECKED,IT IS 18 AND RECHECKED IT IS 24.IV DEXTROSE INJ GIVEN.PT IS ALERT AND CAN RESPONSE BY SUCTIONING.WILL RECHECK THE BLOOD SUGAR AND MONITORING THE PT CLOSELY.
--- NOTE | 2018-08-12 17:56 | NUR ---
MS RN NOTES RECHECKED THE BLOOD SUGAR IS 95,PT IS LAERT.CLEANER OPERATOR GIOVANNI MADE AWARE.NNO NOTED FOR NOW.
--- NOTE | 2018-08-12 18:14 | NUR ---
MS RN NOTES ADMINISTRATIVE OFFICE MANAGER GIOVANNI SAID TO MONITOR THE PT BLOOD SUGAR CLOSELY .NEW ORDERS NOTED AND CARRIED OUT.
--- NOTE | 2018-08-12 18:33 | NUR ---
TRANSITION MANAGER CLOSING NOTES PT LYING ON BED. ALERT/ORIENTED X1 WITH OBTUNDED. ON VENT SETTINGS, TOLERATING WELL. NO SOB AND ACUTE DISTRESS NOTED. ON TELE WITH CONTROLLED AFIB AND HR 55. HAS F/C WITH URINE BEKAH IN COLOR. G TUBE IS IN PLACE AND HAS MILD LEAKING NOTED. G TUBE FEEDING IS ON HOLD. MIDLINE IS ON RIGHT UA. AND RIGHT NECK HD CATH PRESENT. SITE IS CLEAN DRY AND INTACT. SAFETY MAINTAINED AT ALL TIMES. BED IS IN LOW POSITION AND LOCKED. CALL LIGHT WITHIN REACH. WILL ENDORSE TO SCOREKEEPER NURSE FOR CONTINUITY OF CARE.
[2018-08-12] MEDS: IV D5/ 0.9% NACL 1,000 ML IV SCH (18:41)
--- NOTE | 2018-08-12 19:49 | NUR ---
RT PT RECEIVED TRACHED ON [facility] VENT ON CHARTED SETTINGS. NO SIGNS OF RESP DISTRESS NOTED AT THIS TIME. ATTENDANT SELF SERVICE STORE DONE. AIRWAY PATENT AND SECURED. PT SUCTIONED. PT RECEIVED HHN TX. NO ADVERSE REACTIONS. ALARMS SET AND AUDIBLE. AMBUBAG AT BEDSIDE. VENT CONNECTED TO RED OUTLET. WILL CONT TO MONITOR. Addendum: 08/12/18 at 1 by DAKSHA SHAVER RT Amended: Links added.
[2018-08-12 20:00] VITALS: BP 138/71
[2018-08-12] MEDS: DOCUSATE SODIUM LIQ 100 MG/10 ML UDC GT SCH (22:05)
[2018-08-12] MEDS: ATORVASTATIN 10 MG TABLET GT SCH (22:06)
[2018-08-13] VITALS (9 sets, daily range): BP systolic 98–121; BP diastolic 32–61
[2018-08-13] MEDS: BLOOD SUGAR DIAGNOSTIC 1 EACH STRIP IN SCH ×4 (01:02→17:01)
[2018-08-13] MEDS: ALBUTEROL FS 2.5 MG/0.5 ML VIAL.NEB NEB SCH ×4 (01:07→20:03)
[2018-08-13] MEDS: IPRATROPIUM NEB FS 0.5 MG/2.5 ML AMPUL.NEB IH SCH ×4 (01:07→20:03)
[2018-08-13] MEDS: METOPROLOL TARTRATE 25 MG TABLET GT SCH ×4 (05:07→17:35)
[2018-08-13] MEDS: IV D5/ 0.9% NACL 1,000 ML IV SCH (05:41)
--- NOTE | 2018-08-13 06:13 | NUR ---
PT REMAINS IN NO ACUTE DISTRESS IN BED. PT DID NOT HAVE ANY SIGNIFICANT CHANGE IN CONDITION DURING SHIFT. ALL NEEDS MET, ALL ORDERS CARRIED OUT. WILL ENDORSE CARE TO AM RN FOR CONTINUITY OF CARE.
[2018-08-13 07:08] LABS: BASOPHILS % (AUTO) 0.1 % (0.0-2.0); EOSINOPHILS % (AUTO) 2.2 % (0.0-6.0); HEMATOCRIT 23 % (33-45); HEMOGLOBIN 7.2 g/dL (11.5-14.8); LYMPHOCYTES # (AUTO) 0.4 /CMM (0.8-4.8); LYMPHOCYTES % (AUTO) 3.4 % (20.0-44.0); MEAN CORPUSCULAR HGB CONC 32 g/dl (31.0-36.0); MEAN CORPUSCULAR VOLUME 92 fL (82-100); MONOCYTES # (AUTO) 0.3 /CMM (0.1-1.30); MONOCYTES % (AUTO) 2.9 % (2.0-12.0); NEUTROPHILS # (AUTO) 10.6 /CMM (1.8-8.9); NEUTROPHILS % (AUTO) 91.4 % (43.0-81.0); PLATELET COUNT (AUTO) 84 /CMM (150-450); RED BLOOD CELL COUNT(AUTO) 2.45 MIL/uL (4.0-5.2); WHITE BLOOD COUNT (AUTO) 11.6 K/uL (4.3-11.0)
[2018-08-13 07:18] LABS: CALCIUM, SERUM 7.7 mg/dL (8.5-10.1); CREATININE 1.4 mg/dL (0.6-1.3); MAGNESIUM 2.1 mg/dL (1.8-2.4); PHOSPHORUS 3.2 mg/dL (2.5-4.9); POTASSIUM 3.3 mmol/L (3.5-5.1)
--- NOTE | 2018-08-13 07:25 | NUR ---
RT NOTE RECEIVED PT MECHANICALLY VENTILATED VIA PORTEX 7 CUFFED TRACHEOSTOMY TUBE. CUFF INFLATED. TRACH TUBE MIDLINE AND SECURE. VENTILATOR SETTINGS PRESCRIBED. ALARMS SET PER PROTOCOL AND AUDIBLE. VENT PLUGGED IN TO RED OUTLET. AMBU BAG AT BED SIDE. NO DISTRESS NOTED AT MOMENT. Addendum: 08/13/18 at 0727 by GAIL SINGH RT Amended: Links added.
--- NOTE | 2018-08-13 07:30 | NUR ---
RN OPENING NOTES RECEIVED PATIENT LYING ON BED. OBTUNDED, OPENS EYES. ON MECHANICAL VENT, TOLERATING WELL. NOT IN ANY FORM OF DISTRESS, NO SOB. NO S/S OF PAIN OR DISCOMFORT. PATIENT HAS F/C WITH CLOUDY YELLOW IN COLOR. GTUBE IS IN PLACE. IV ACCESS INTACT AND PATENT. AND RIGHT NECK HD CATH PRESENT, SITE IS CLEAN DRY AND INTACT.SAFETY IS MAINTAINED AT ALL TIMES. BED IS IN LOW/LOCKED POSITION, HOB ELEVATED, SIDERAILS UP. CALL LIGHT IS WITHIN REACH. WILL CONTINUE TO MONITOR ACCORDINGLY.
[2018-08-13] MEDS: LOSARTAN POTASSIUM 50 MG TABLET GT SCH (09:00)
[2018-08-13] MEDS: HYDROCHLOROTHIAZIDE 25 MG TABLET PO SCH (09:00)
[2018-08-13] MEDS: ASCORBIC ACID 500 MG TABLET GT SCH (09:31)
[2018-08-13] MEDS: ZINC SULFATE 220 MG CAPSULE GT SCH (09:31)
[2018-08-13 09:33] LABS: BAND % (MANUAL) 11 % (0.0-5.0); LYMPHOCYTES % (MANUAL) 2 % (16-48); NEUTROPHILS % (MANUAL) 87 (42-76)
[2018-08-13] MEDS: Z GUARD REMEDY 2 OZ OINT TP SCH (09:33)
[2018-08-13] MEDS: HYDROGEL DRESSING 90 GM TUBE TP SCH (09:33)
[2018-08-13] MEDS: CALCIUM ACETATE 667 MG TABLET GT SCH ×3 (09:33→16:58)
[2018-08-13] MEDS: LEVETIRACETAM SOL (5 ML) 100 MG/ML UDC GT SCH ×2 (09:34→16:59)
[2018-08-13] MEDS: FERROUS SULFATE UDC 300 MG/5 ML UDC GT SCH ×3 (09:34→16:59)
[2018-08-13] MEDS: MULTIVITAMINS,THERAGRAN 1 UDTAB TABLET GT SCH (09:40)
[2018-08-13] MEDS: PANTOPRAZOLE 40 MG/PACK PACK GT SCH ×2 (09:41→21:47)
[2018-08-13] MEDS: SEVELAMER CARBONATE 0.8 GM POWD.PACK GT SCH (09:41)
[2018-08-13] MEDS: SUCRALFATE 1 G/10 ML UDC GT SCH ×4 (09:41→21:47)
[2018-08-13] MEDS: LACTOBACILLUS RHAMNOSUS GG 1 EACH CAP.SPRINK GT SCH (09:50)
[2018-08-13] MEDS ORDERED: POTASSIUM CHLORIDE 20 MEQ POWDER PACKET GT SCH (12:00)
[2018-08-13] MEDS: IV D5/ 0.9% NACL 1,000 ML IV PRN (12:00)
[2018-08-13] MEDS: EPOETIN ALFA (4000 UNIT) 4,000 UNIT/ML VIAL IV SCH (17:00)
--- NOTE | 2018-08-13 19:08 | NUR ---
RN CLOSING NOTES PATIENT IN STABLE CONDITION. NO SIGNIFICANT CHANGE DURING SHIFT. ALL NEEDS ATTENDED AND PROVIDED. ALL DUE MEDICATIONS GIVEN ORDERED. KEPT PATIENT SAFE AND COMFORTABLE. TURNED AND REPOSITIONED PATIENT EVERY 2HRS NEEDED. WOUND CARE RENDERED. BED IN LOW/LOCKED POSITION, HOB ELEVATED. SIDERAILS UP BED ALARM ON, CALL LIGHT IN REACH. ENDORSED TO NIGHT RN FOR GAYLE.
--- NOTE | 2018-08-13 20:30 | NUR ---
LAST TRIMMER OPENING NOTES RECEIVED REPORT FROM AM RN. PATIENT A/A/O X1 TO NAME, NON-VERBAL & UNABLE TO MAKE NEEDS KNOWN. BREATHING EVEN & UNLABORED W/ TRACH INTACT & TOLERATING VENT SETTINGS AC 14, TV 400, FIO2 30%, PEEP 5. NO RESPIRATORY DISTRESS NOTED. ON TELE CONTROLLED A-FIB, HR 72. RIGHT UPPER ARM MIDLINE INTACT & PATENT W/ DRESSING CDI W/ IVF D5 NS INFUSING WELL @ 75 ML/HR. RIGHT NECK HD CATH INTACT. MARION CATH DRAINING YELLOW URINE. NO S/S OF PAIN OR DISCOMFORT @ THIS TIME. SAFETY MEASURES IN PLACE W/ SIDE RAILS UP & BED ALARM ON. WILL CONTINUE TO MONITOR.
--- NOTE | 2018-08-13 20:53 | NUR ---
PT RECEIVED TRACH ON VENT. PTX #7 ON AC MODE. NO RESP DISTRESS NOTED, PT TOLERATING VENT SETTINGS. SX'D FOR MOD AMT OF THICK YELLOW SECRETIONS. VENT ALARMS SET AND AUDIBLE. VENT PLUGGED INTO RED OUTLET. WILL CONTINUE TO MONITOR. Addendum: 08/13/18 at 2054 by REBECCA GOMEZ RT Amended: Links added.
[2018-08-13] MEDS: DOCUSATE SODIUM LIQ 100 MG/10 ML UDC GT SCH (21:47)
[2018-08-13] MEDS: ATORVASTATIN 10 MG TABLET GT SCH (21:47)
[2018-08-14] VITALS: BP 110/60
[2018-08-14] MEDS: BLOOD SUGAR DIAGNOSTIC 1 EACH STRIP IN SCH ×4 (00:24→17:25)
[2018-08-14] MEDS: INSULIN REGULAR, HUMAN 100 UNIT/ML 3 ML VIAL SQ PRN ×2 (00:24→06:11)
[2018-08-14] MEDS: ALBUTEROL FS 2.5 MG/0.5 ML VIAL.NEB NEB SCH ×4 (01:06→19:44)
[2018-08-14] MEDS: IPRATROPIUM NEB FS 0.5 MG/2.5 ML AMPUL.NEB IH SCH ×4 (01:07→19:44)
[2018-08-14] MEDS: IV D5/ 0.9% NACL 1,000 ML IV PRN ×2 (02:22→16:39)
[2018-08-14 04:00] VITALS: BP 118/53
[2018-08-14] MEDS: METOPROLOL TARTRATE 25 MG TABLET GT SCH ×4 (06:08→17:35)
[2018-08-14 06:31] LABS: BASOPHILS % (AUTO) 0.1 % (0.0-2.0); EOSINOPHILS % (AUTO) 7.7 % (0.0-6.0); HEMATOCRIT 23 % (33-45); HEMOGLOBIN 7.5 g/dL (11.5-14.8); LYMPHOCYTES # (AUTO) 0.2 /CMM (0.8-4.8); LYMPHOCYTES % (AUTO) 3.6 % (20.0-44.0); MEAN CORPUSCULAR HGB CONC 32 g/dl (31.0-36.0); MEAN CORPUSCULAR VOLUME 91 fL (82-100); MONOCYTES # (AUTO) 0.2 /CMM (0.1-1.30); MONOCYTES % (AUTO) 3.7 % (2.0-12.0); NEUTROPHILS # (AUTO) 5.2 /CMM (1.8-8.9); NEUTROPHILS % (AUTO) 84.9 % (43.0-81.0); PLATELET COUNT (AUTO) 90 /CMM (150-450); RED BLOOD CELL COUNT(AUTO) 2.55 MIL/uL (4.0-5.2); WHITE BLOOD COUNT (AUTO) 6.1 K/uL (4.3-11.0)
[2018-08-14 06:44] LABS: CALCIUM, SERUM 7.8 mg/dL (8.5-10.1); CREATININE 1.5 mg/dL (0.6-1.3); MAGNESIUM 2.1 mg/dL (1.8-2.4); PHOSPHORUS 3.4 mg/dL (2.5-4.9); POTASSIUM 3.5 mmol/L (3.5-5.1)
--- NOTE | 2018-08-14 07:00 | NUR ---
ETHYLENE OXIDE PANELBOARD OPERATOR OPENING NOTES RECEIVED REPORT REFRIGERATOR CRATER RN. PATIENT AWAKE, ALERT AND ORIENTED X1 TO NAME, NON-VERBAL. BREATHING EVEN & UNLABORED W/ TRACH PORTEX 8 INTACT AND TOLERATING VENT SETTINGS WELL AC 14, TV 400, FIO2 30%, PEEP 5. NO RESPIRATORY DISTRESS NOTED. ON TELE CONTROLLED A-FIB, HR 65. RIGHT UPPER ARM MIDLINE INTACT AND PATENT W/ DRESSING CDI W/ IVF D5 NS INFUSING WELL AT 75 ML/HR. RIGHT NECK HD CATH INTACT. MARION CATH DRAINING BEKAH URINE. NO S/S OF PAIN OR DISCOMFORT AT THIS TIME. SAFETY MEASURES IN PLACE W/ SIDE RAILS UP AND BED ALARM ON. WILL CONTINUE TO MONITOR THROUGHOUT SHIFT.
[2018-08-14 08:00] VITALS: BP 150/28
[2018-08-14] MEDS: LEVETIRACETAM SOL (5 ML) 100 MG/ML UDC GT SCH ×2 (08:39→16:28)
[2018-08-14] MEDS: SEVELAMER CARBONATE 0.8 GM POWD.PACK GT SCH (08:39)
[2018-08-14] MEDS: LACTOBACILLUS RHAMNOSUS GG 1 EACH CAP.SPRINK GT SCH (08:40)
[2018-08-14] MEDS: MULTIVITAMINS,THERAGRAN 1 UDTAB TABLET GT SCH (08:40)
[2018-08-14] MEDS: SUCRALFATE 1 G/10 ML UDC GT SCH ×4 (08:40→22:13)
[2018-08-14] MEDS: ZINC SULFATE 220 MG CAPSULE GT SCH (08:40)
[2018-08-14] MEDS: LOSARTAN POTASSIUM 50 MG TABLET GT SCH (08:41)
[2018-08-14] MEDS: CALCIUM ACETATE 667 MG TABLET GT SCH ×3 (08:41→16:27)
[2018-08-14] MEDS: PANTOPRAZOLE 40 MG/PACK PACK GT SCH ×2 (08:44→22:12)
[2018-08-14] MEDS: ASCORBIC ACID 500 MG TABLET GT SCH (08:44)
[2018-08-14] MEDS: HYDROCHLOROTHIAZIDE 25 MG TABLET PO SCH (08:45)
[2018-08-14] MEDS: FERROUS SULFATE UDC 300 MG/5 ML UDC GT SCH ×3 (09:02→16:28)
[2018-08-14] MEDS: Z GUARD REMEDY 2 OZ OINT TP SCH (09:10)
[2018-08-14] MEDS: HYDROGEL DRESSING 90 GM TUBE TP SCH (09:11)
[2018-08-14 12:00] VITALS: BP 145/47
[2018-08-14] MEDS: DEXTROSE 50%-WATER 50 ML DISP.SYRIN IV PRN (12:18)
[2018-08-14 16:00] VITALS: BP 124/67
--- NOTE | 2018-08-14 18:56 | NUR ---
BRIDGE TENDER CLOSING NOTES PATIENT AWAKE, ALERT AND ORIENTED X1 TO NAME, NON-VERBAL. BREATHING EVEN & UNLABORED W/ TRACH PORTEX 8 INTACT AND TOLERATING VENT SETTINGS WELL AC 14, TV 400, FIO2 30%, PEEP 5. NO RESPIRATORY DISTRESS NOTED. ON TELE CONTROLLED A-FIB, HR 50S. RIGHT UPPER ARM MIDLINE INTACT AND PATENT W/ DRESSING CDI W/ IVF D5 NS INFUSING WELL AT 75 ML/HR. RIGHT NECK HD CATH INTACT. MARION CATH DRAINING WITH BEKAH URINE. ALL NEEDS MET. NO S/S OF PAIN OR DISCOMFORT AT THIS TIME. SAFETY MEASURES IN PLACE W/ SIDE RAILS UP AND BED ALARM ON. WILL ENDORSE TO FUELS ENGINEER NURSE FOR CONTINUITY OF CARE.
[2018-08-14 20:00] VITALS: BP 142/79
--- NOTE | 2018-08-14 20:28 | NUR ---
COVER INSPECTOR OPENING NOTES RECEIVED REPORT FROM TERRELL RN. PATIENT A/A/O X1 TO NAME, NON-VERBAL & UNABLE TO MAKE NEEDS KNOWN. BREATHING EVEN & UNLABORED W/ TRACH INTACT & TOLERATING VENT SETTINGS AC 14, TV 400, FIO2 30%, PEEP 5. NO RESPIRATORY DISTRESS NOTED. ON TELE CONTROLLED A-FIB W/ V-PACING, HR 56. RIGHT UPPER ARM MIDLINE INTACT & PATENT W/ DRESSING CDI W/ IVF D5 NS INFUSING WELL @ 75 ML/HR. RIGHT NECK HD CATH INTACT. MARION CATH DRAINING YELLOW URINE. NO S/S OF PAIN OR DISCOMFORT @ THIS TIME. SAFETY MEASURES IN PLACE W/ SIDE RAILS UP & BED ALARM ON. WILL CONTINUE TO MONITOR.
[2018-08-14] MEDS: ATORVASTATIN 10 MG TABLET GT SCH (22:13)
[2018-08-14] MEDS: DOCUSATE SODIUM LIQ 100 MG/10 ML UDC GT SCH (22:13)
[2018-08-15] VITALS: BP 137/48
[2018-08-15] MEDS: BLOOD SUGAR DIAGNOSTIC 1 EACH STRIP IN SCH ×3 (00:23→11:39)
[2018-08-15] MEDS: INSULIN REGULAR, HUMAN 100 UNIT/ML 3 ML VIAL SQ PRN ×2 (00:24→06:15)
[2018-08-15] MEDS: ALBUTEROL FS 2.5 MG/0.5 ML VIAL.NEB NEB SCH ×3 (02:10→13:43)
[2018-08-15] MEDS: IPRATROPIUM NEB FS 0.5 MG/2.5 ML AMPUL.NEB IH SCH ×3 (02:10→13:43)
[2018-08-15 04:00] VITALS: BP 128/56
[2018-08-15] MEDS: METOPROLOL TARTRATE 25 MG TABLET GT SCH ×3 (06:14→12:00)
[2018-08-15 06:31] LABS: CALCIUM, SERUM 7.8 mg/dL (8.5-10.1); CREATININE 1.6 mg/dL (0.6-1.3); PHOSPHORUS 3.5 mg/dL (2.5-4.9); POTASSIUM 3.1 mmol/L (3.5-5.1)
[2018-08-15 06:49] LABS: BASOPHILS % (AUTO) 0.8 % (0.0-2.0); EOSINOPHILS % (AUTO) 15.7 % (0.0-6.0); HEMATOCRIT 23 % (33-45); HEMOGLOBIN 7.3 g/dL (11.5-14.8); LYMPHOCYTES # (AUTO) 0.3 /CMM (0.8-4.8); MEAN CORPUSCULAR HGB CONC 33 g/dl (31.0-36.0); MEAN CORPUSCULAR VOLUME 91 fL (82-100); MONOCYTES # (AUTO) 0.2 /CMM (0.1-1.30); MONOCYTES % (AUTO) 5.8 % (2.0-12.0); NEUTROPHILS # (AUTO) 2.9 /CMM (1.8-8.9); NEUTROPHILS % (AUTO) 70.7 % (43.0-81.0); PLATELET COUNT (AUTO) 91 /CMM (150-450); RED BLOOD CELL COUNT(AUTO) 2.48 MIL/uL (4.0-5.2); WHITE BLOOD COUNT (AUTO) 4.1 K/uL (4.3-11.0)
[2018-08-15 08:00] VITALS: BP 113/46
[2018-08-15 08:12] LABS: EOSINOPHILS % (MANUAL) 17 % (0-4); LYMPHOCYTES % (MANUAL) 3 % (16-48); MONOCYTES % (MANUAL) 6 % (0-11.0); NEUTROPHILS % (MANUAL) 74 (42-76)
[2018-08-15] MEDS: HYDROCHLOROTHIAZIDE 25 MG TABLET PO SCH (09:00)
[2018-08-15] MEDS: LOSARTAN POTASSIUM 50 MG TABLET GT SCH (09:00)
[2018-08-15] MEDS: ASCORBIC ACID 500 MG TABLET GT SCH (09:21)
[2018-08-15] MEDS: FERROUS SULFATE UDC 300 MG/5 ML UDC GT SCH ×2 (09:21→12:29)
[2018-08-15] MEDS: CALCIUM ACETATE 667 MG TABLET GT SCH ×2 (09:21→12:29)
[2018-08-15] MEDS: LEVETIRACETAM SOL (5 ML) 100 MG/ML UDC GT SCH (09:21)
[2018-08-15] MEDS: SUCRALFATE 1 G/10 ML UDC GT SCH ×2 (09:21→12:29)
[2018-08-15] MEDS: ZINC SULFATE 220 MG CAPSULE GT SCH (09:21)
[2018-08-15] MEDS: LACTOBACILLUS RHAMNOSUS GG 1 EACH CAP.SPRINK GT SCH (09:21)
[2018-08-15] MEDS: SEVELAMER CARBONATE 0.8 GM POWD.PACK GT SCH (09:21)
[2018-08-15] MEDS: MULTIVITAMINS,THERAGRAN 1 UDTAB TABLET GT SCH (09:21)
[2018-08-15] MEDS: Z GUARD REMEDY 2 OZ OINT TP SCH (09:22)
[2018-08-15] MEDS: HYDROGEL DRESSING 90 GM TUBE TP SCH (09:22)
[2018-08-15] MEDS: PANTOPRAZOLE 40 MG/PACK PACK GT SCH (09:23)
[2018-08-15] MEDS: HYDROCODONE/APAP 10/325MG 1 EA TABLET GT PRN (09:25)
[2018-08-15] MEDS: IV D5/ 0.9% NACL 1,000 ML IV PRN (11:08)
[2018-08-15] MEDS: POTASSIUM CHLORIDE 20 MEQ POWDER PACKET GT SCH ×2 (11:11→12:29)
[2018-08-15 12:00] VITALS: BP 129/47
--- NOTE | 2018-08-15 12:31 | NUR ---
RN NOTE HELD LOPRESSOR TODAY PATIENT IS SCHEDULED FOR HD
[2018-08-15 16:00] VITALS: BP 153/79
== END 2018-08-15 16:53 | disposition hospice, home (50) | DRG 720 ==
LOC: ER 10:30 → ICU 14:11 → TELE-TD 08-04 16:39 → TELE1 08-06 11:55
PROVIDERS: ADMIT Nurse Practitioner Acute Care; ATTEND Nurse Practitioner Acute Care
PROC: 5A1955Z Respiratory Ventilation, Greater than 96 Consecutive Hours (ICD-10-PCS; principal; 2018-08-02)
PROC: 5A1D70Z Performance of Urinary Filtration, Intermittent, Less than 6 Hours Per Day (ICD-10-PCS; 2018-08-10)
PROC: 02HV33Z Insertion of Infusion Device into Superior Vena Cava, Percutaneous Approach (ICD-10-PCS; 2018-08-10)
PROC: B548ZZA Ultrasonography of Superior Vena Cava, Guidance (ICD-10-PCS; 2018-08-10)
PROC: 5A1D70Z Performance of Urinary Filtration, Intermittent, Less than 6 Hours Per Day (ICD-10-PCS; 2018-08-11)
PROC: 5A1D70Z Performance of Urinary Filtration, Intermittent, Less than 6 Hours Per Day (ICD-10-PCS; 2018-08-15)
DX: A41.9 Sepsis, unspecified organism (principal); N17.0 Acute kidney failure with tubular necrosis; E43 Unspecified severe protein-calorie malnutrition; G93.41 Metabolic encephalopathy; Z99.11 Dependence on respirator [ventilator] status; J15.6 Pneumonia due to other Gram-negative bacteria; D61.818 Other pancytopenia; J90 Pleural effusion, not elsewhere classified; L89.154 Pressure ulcer of sacral region, stage 4; J96.11 Chronic respiratory failure with hypoxia; R53.2 Functional quadriplegia; D68.59 Other primary thrombophilia; E11.22 Type 2 diabetes mellitus with diabetic chronic kidney disease; Z93.0 Tracheostomy status; E87.1 Hypo-osmolality and hyponatremia; D63.8 Anemia in other chronic diseases classified elsewhere; E78.5 Hyperlipidemia, unspecified; Z51.5 Encounter for palliative care; I13.0 Hypertensive heart and chronic kidney disease with heart failure and stage 1 through stage 4 chronic kidney disease, or unspecified chronic kidney disease; I25.10 Atherosclerotic heart disease of native coronary artery without angina pectoris; I48.0 Paroxysmal atrial fibrillation; I48.2 Chronic atrial fibrillation; N39.0 Urinary tract infection, site not specified; I50.32 Chronic diastolic (congestive) heart failure; Z95.1 Presence of aortocoronary bypass graft; Z95.2 Presence of prosthetic heart valve; Z87.440 Personal history of urinary (tract) infections; Z95.0 Presence of cardiac pacemaker; Z66 Do not resuscitate; N18.9 Chronic kidney disease, unspecified; E88.09 Other disorders of plasma-protein metabolism, not elsewhere classified; M62.50 Muscle wasting and atrophy, not elsewhere classified, unspecified site; R18.8 Other ascites; L98.8 Other specified disorders of the skin and subcutaneous tissue; B37.49 Other urogenital candidiasis; K31.89 Other diseases of stomach and duodenum; I25.2 Old myocardial infarction; K94.23 Gastrostomy malfunction
CPT/HCPCS: 31720; 36415; 36600; 71045-TC; 74018; 76705-TC; 80048-TC; 80053-TC; 80076-TC; 81000-TC; 82550-TC; 82570-TC; 82803-TC; 82962-TC; 83605-TC; 83735-TC; 83935-TC; 83970; 84100-TC; 84155-TC; 84300-TC; 84484-TC; 85025-TC; 85730-TC; 86704; 86705; 86706; 86803; 87040-TC; 87081-TC; 87086-TC; 87186-TC; 87340; 90935-TC; 94002-TC; 94003-TC; 94760-TC; 94762-TC; 99082-TC; A4216; A6248; A6253; A6402; A6403; A7526; C1750; C9113; G0378; J0696; J0885; J1815; J1953; J2185; J3475; J3490; J7030; J7042; J7070

== ENCOUNTER 2018-08-15 16:44 | Inpatient (IN) | payer OTHER ==
[~2018-08-15 16:44] MED LIST changes: -ACET325T53 GT; -AMIN887L GT; -CHLO473M5 MM; -CRAN3875 GT; -CRAN425C6 GT; +HYDR-4384 GT; -MERO1VIA IV; +METO25TA6 GT; -METO50TA16 PO; -MULT-213 GT; +MULT-24 GT
[2018-08-15] MEDS ORDERED: KEY,NONCONTROL,TO KEEP IN PYXI 1 EA MC ONE (17:23)
[2018-08-15] MEDS ORDERED: LORAZEPAM INJ 2 MG/ML VIAL IVP PRN (17:30)
--- NOTE | 2018-08-15 20:00 | NUR ---
RN NOTES RECEIVED PATIENT BEDSIDE REPORT FROM AM NURSE. PATIENT IS NON VERBAL , TRACH. PATIENT HAS RIGHT UPPER ARM MIDLINE IN PLACE WITH 4MG/HR MORPHINE DRIP. RIGHT IJ HD CATH IN PLACE. MARION CATH IS IN PLACE DRAINING ON GRAVITY. PATIENT IS HOSPICE CARE AND WAITING FOR RT TO D/C VENT. ALL SAFETY MEASURES ARE IMPLEMENTED, BED IN LOW, LOCKED POSITION, CALL LIGHT IN REACH. WILL CONT. TO MONITOR PATIENT.
--- NOTE | 2018-08-15 20:55 | NUR ---
RN NOTES RT IS AT THE BEDSIDE TO D/C VENT. PATIENT HAS BEEN PLACED ON OXYGEN 10 VIA T PIECE . HR IS 58. WILL CONTINUE TO MONITOR.
--- NOTE | 2018-08-15 22:00 | NUR ---
RN NOTES PATIENT RR IS 8 AND HR 58.
--- NOTE | 2018-08-16 01:01 | NUR ---
RN NOTES PATIENT IS IN THE BED WITH RR OF 7 AND HR 58. WILL CONTINUE TO MONITOR PATIENT CLOSELY.
--- NOTE | 2018-08-16 01:38 | NUR ---
RN NOTES PATIENT IS IN BED WITH HER EYES CLOSED ,HR 63, RR 6 WITH 10 SEC PAUSE BETWEEN EACH BREATH. WILL CONTINUE TO MONITOR PATIENT.
--- NOTE | 2018-08-16 04:10 | NUR ---
RN NOTES PATIENT AT 407. SHE WAS GETTING 4MG/HR MORPHINE DRIP. SENIOR PLANNING ANALYSTHUEY KEY AND NURSE CDL SERVICE TECHNICIAN BARTOLO EDDY NOTIFIED. MD ARTURO NÚÑEZ NOTIFIED WELL. CALLED [facility] AND TALKED TO RUPAL . CALLED CHIEF RISK OFFICER ASHLY AND HE SAID THAT HE WILL CALL THE [facility] TO NOTIFY ABOUT PATIENT . RIGHT UPPER ARM MIDLINE HAS BEEN REMOVED AND CARE PROVIDED BY SENIOR PLANNING ANALYSTHUEY KEY AND KRZYSZTOF MURPHY. G TUBE AND RIGHT HD CATH, WRIST BEND IS STILL IN PLACE. WILL CALL THE SECURITY TO TAKE THE PATIENT TO [facility].
[2018-08-16] MEDS ORDERED: KEY,NONCONTROL,TO KEEP IN PYXI 1 EA MC ONE (05:13)
--- NOTE | 2018-08-16 07:15 | NUR ---
RN NOTES PATIENT HAS BEEN TAKEN TO [facility] BY SECURITY AND ACCOMPANIED BY KRZYSZTOF MURPHY AT 0715.
== END 2018-08-16 04:08 | disposition expired | DRG 189 ==
LOC: HOSPICE1 16:44
PROVIDERS: ADMIT Nurse Practitioner Acute Care; ATTEND Nurse Practitioner Acute Care
DX: J96.90 Respiratory failure, unspecified, unspecified whether with hypoxia or hypercapnia (principal); L89.154 Pressure ulcer of sacral region, stage 4; N17.0 Acute kidney failure with tubular necrosis; E43 Unspecified severe protein-calorie malnutrition; G93.41 Metabolic encephalopathy; R53.2 Functional quadriplegia; J15.6 Pneumonia due to other Gram-negative bacteria; Z99.11 Dependence on respirator [ventilator] status; D61.818 Other pancytopenia; J90 Pleural effusion, not elsewhere classified; D68.59 Other primary thrombophilia; E87.1 Hypo-osmolality and hyponatremia; I13.0 Hypertensive heart and chronic kidney disease with heart failure and stage 1 through stage 4 chronic kidney disease, or unspecified chronic kidney disease; I50.32 Chronic diastolic (congestive) heart failure; N39.0 Urinary tract infection, site not specified; E11.22 Type 2 diabetes mellitus with diabetic chronic kidney disease; Z93.0 Tracheostomy status; D63.8 Anemia in other chronic diseases classified elsewhere; E78.5 Hyperlipidemia, unspecified; Z51.5 Encounter for palliative care; I25.10 Atherosclerotic heart disease of native coronary artery without angina pectoris; I48.0 Paroxysmal atrial fibrillation; I48.2 Chronic atrial fibrillation; Z95.1 Presence of aortocoronary bypass graft; Z95.2 Presence of prosthetic heart valve; Z87.440 Personal history of urinary (tract) infections; N18.9 Chronic kidney disease, unspecified; E88.09 Other disorders of plasma-protein metabolism, not elsewhere classified; M62.50 Muscle wasting and atrophy, not elsewhere classified, unspecified site
CPT/HCPCS: G0378; J2274; J7050